=== PATIENT | female | born 1935 | race Two or more races ===

== ENCOUNTER 2022-02-28 12:33 | Outpatient (REF) | payer OTHER, SELFPAY ==
[2022-02-28 13:17] LABS: Hematocrit 34.6 % (37.0-47.0); Hemoglobin 10.6 g/dl (12.0-16.0); Mean Corpuscular HGB Conc 30.6 g/dl (31.0-35.0); Mean Corpuscular Hemoglobin 29.9 pg (27.0-33.0); Mean Corpuscular Volume 97.5 fL (80.0-98.0); Mean Platelet Volume 11.5 fL (9.4-12.3); Platelet Count 211 X10*3/uL (160-400); Red Blood Count 3.55 X10*6/uL (4.20-5.50); Red Cell Distribution Width 13.2 % (11.0-16.0)
[2022-02-28 13:45] LABS: Alanine Aminotransferase 6 U/L (0-31); Albumin Level 3.8 g/dL (3.5-5.0); Alkaline Phosphatase 75 U/L (39-117); Anion Gap 15 (12-20); Aspartate Amino Transferase 10 U/L (5-31); Bilirubin Total 0.3 mg/dL (0.0-1.0); Blood Urea Nitrogen 34 mg/dL (9-16); Calcium 9.1 mg/dL (8.4-10.2); Carbon Dioxide 27 mmol/L (22-29); Chloride 106 mmol/L (96-108); Estimated Glomerular Filt Rate 26; Glucose Random 90 mg/dL (60-115); Potassium 4.5 mmol/L (3.3-5.1); Sodium 143 mmol/L (135-145); Total Protein 7.3 g/dL (6.5-8.0)
[2022-02-28 14:18] LABS: Creatinine Urine 148.63 mg/dL; Protein/Creatinine Ratio, Ur 0.06 (<0.2); Total Protein Urine Random 9 mg/dL (<12)
[2022-03-02 13:33] LABS: Calcium (PTHI) 9.4 mg/dL (8.6-10.4); PTHI 32 pg/mL (16-77)
== END 2022-02-28 12:34 | disposition home or self-care (01) ==
LOC: HO.LAB 12:33
PROVIDERS: PCP Internal Medicine; Visit Provider Internal Medicine Hypertension Specialist
DX: N18.32 Chronic kidney disease, stage 3b (principal)
CPT/HCPCS: 36415; 80053; 83970; 84156; 85027

== ENCOUNTER 2022-03-25 08:39 | Outpatient (REF) | payer OTHER, SELFPAY ==
--- NOTE | ~2022-03-25 | US_ITS ---
EXAMINATION: US RETROPERITONEAL LIMITED (RENAL ONLY) CLINICAL INFORMATION: Hypertensive chronic kidney disease, type 2 diabetes. COMPARISON: CT abdomen and pelvis 10/26/2019. TECHNIQUE: Real-time imaging of the kidneys. FINDINGS: RIGHT KIDNEY: 10.2 x 4.4 x 5.1 cm (SAG x AP x TRV). The kidney is normal in size, contour, and echogenicity. Renal cortical thickness is normal. No renal calculi or hydronephrosis. There is anechoic cyst in the midpole measuring 1.7 x 1.6 x 1.4 cm. There is mild pelvic fullness LEFT KIDNEY: 10.6 x 4.7 x 6.3 cm (SAG x AP x TRV). The kidney is normal in size, contour, and echogenicity. Renal cortical thickness is normal. No calculi or focal parenchymal lesions. No hydronephrosis. US/US renal BI IMPRESSION: 1.7 cm cyst midpole right kidney. Findings are concordant with CT exam the cyst measuring 1.8 cm. There is mild right renal pelvic fullness. Unremarkable left kidney.
== END 2022-03-25 08:40 | disposition home or self-care (01) ==
LOC: HO.US 08:39
PROVIDERS: Visit Provider Internal Medicine Hypertension Specialist
DX: I12.9 Hypertensive chronic kidney disease with stage 1 through stage 4 chronic kidney disease, or unspecified chronic kidney disease (principal); E11.22 Type 2 diabetes mellitus with diabetic chronic kidney disease; N18.9 Chronic kidney disease, unspecified
CPT/HCPCS: 76775

== ENCOUNTER 2022-06-05 14:25 | Observation (INO) | payer OTHER, SELFPAY ==
--- NOTE | 2022-06-05 | ECG_ITS ---
Test Reason : DIZINEES Blood Pressure : / mmHG Vent. Rate : 061 BPM Atrial Rate : 061 BPM P-R Int : 170 ms QRS Dur : 072 ms QT Int : 436 ms P-R-T Axes : 079 000 037 degrees QTc Int : 438 ms Normal sinus rhythm Low voltage QRS Borderline ECG When compared with ECG of 05-JUN-2022 15:22, No significant change was found Referred By: Megan Zamudio Electronically Signed By:Deng Zhang
--- NOTE | ~2022-06-05 | XR_ITS ---
EXAMINATION: 1. CHEST X-RAY 2. RADIOGRAPHS RIGHT HIP CLINICAL INFORMATION: Pain after fall COMPARISON: Chest CT October 26, 2019 and chest x-ray June 08, 2017 TECHNIQUE: 2 views of the chest and 2 views of the right upper obtained FINDINGS: CHEST: Cardiac silhouette is normal in size. The lungs are adequately aerated. There is no lobar consolidation. No pleural effusion or pneumothorax. Mild degenerative changes of the spine. Right hip: Visualized portions of the proximal right femur demonstrate no fracture. Right femoral head is well-seated within the acetabulum. There is only mild narrowing of the right femoral acetabular joint space. The pelvic ring is intact. Visualized portions of the left hip are unremarkable. XR/XR hip RT w [id number] IMPRESSION: 1. No acute pulmonary pathology. 2. Mild degenerative changes of the right hip without fracture or dislocation.
--- NOTE | ~2022-06-05 | CT_ITS ---
EXAMINATION: NONCONTRAST HEAD CT NONCONTRAST CERVICAL SPINE CT INDICATION INFORMATION: Dizziness with falls and weakness COMPARISON: Head and cervical spine CT 10/26/2019 TECHNIQUE: Separate noncontrast CT examinations of the head and cervical spine were performed. Coronal and sagittal images were created for each examination at the technologist workstation. This CT examination was performed using dose optimization techniques as appropriate, variously including the following: *Automated exposure control *Adjustment of mA and/or kV according to patient size (this includes techniques or standardized protocols for targeted exams where dose is matched to indication/reason for exam; i.e. extremities or head) *Use of iterative reconstruction technique DLP: 894 mGy-cm FINDINGS: HEAD: No intra or extra-axial fluid collection, hemorrhage, or mass. No ventriculomegaly. No midline shift or herniation. Basal cisterns are patent. Spangler-white matter differentiation is maintained. No territorial encephalomalacia. Proportional prominence of the ventricles and sulcal spaces is consistent with moderate volume loss. Patchy periventricular and deep white matter hypoattenuation is consistent with moderate small vessel ischemic changes. No calvarial fracture or soft tissue abnormality. The mastoid air cells and visualized portions of the paranasal sinuses are well aerated. CERVICAL SPINE: Alignment: Straightening of the normal cervical lordosis. No significant subluxation. Vertebra: No acute fracture. No prevertebral soft tissue swelling. Degenerative disc disease: Diffuse multilevel cervical spondylosis most advanced at C4-C5, C5-C6 and C7-T1 where there is moderate to severe disc height loss, endplate sclerosis, and endplate proliferative change. Multilevel bilateral facet arthrosis and uncovertebral spurring. Other findings: No cervical lymphadenopathy/mass. CT/CT cervical spine wo IV con IMPRESSION: 1. No intracranial hemorrhage or calvarial fracture. 2. No traumatic subluxation or acute cervical spine fracture. 3. Cerebral atrophy and chronic small vessel ischemic white matter change.
--- NOTE | ~2022-06-05 | XR_ITS ---
EXAMINATION: 1. CHEST X-RAY 2. RADIOGRAPHS RIGHT HIP CLINICAL INFORMATION: Pain after fall COMPARISON: Chest CT October 26, 2019 and chest x-ray June 08, 2017 TECHNIQUE: 2 views of the chest and 2 views of the right upper obtained FINDINGS: CHEST: Cardiac silhouette is normal in size. The lungs are adequately aerated. There is no lobar consolidation. No pleural effusion or pneumothorax. Mild degenerative changes of the spine. Right hip: Visualized portions of the proximal right femur demonstrate no fracture. Right femoral head is well-seated within the acetabulum. There is only mild narrowing of the right femoral acetabular joint space. The pelvic ring is intact. Visualized portions of the left hip are unremarkable. XR/XR chest 2V IMPRESSION: 1. No acute pulmonary pathology. 2. Mild degenerative changes of the right hip without fracture or dislocation.
--- NOTE | 2022-06-05 14:59 | ED.DIZZY ---
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 Patient states that on Monday, she had a dizzy spell, got unsteady, and fell. Patient states that her right hip has been bothering her ever since. Patient denies hitting her head with the incident. Patient denies any loss of consciousness with the incident. Patient denies any current dizziness, lightheadedness, abdominal pain, nausea, vomiting, fever, chills, blurry vision, double vision, loss of vision, chest pain, difficulty breathing, shortness of breath, back pain, night sweats, pain with urination, increased urinary frequency, increased urinary urgency, blood in her urine or stool, syncope or a near syncopal episode,bowel incontinence, bladder incontinence, bowel retention, bladder retention, or any other complaints at this time. <BILL Knutson - Last Filed: 06/06/22 01:18> Onset (ago): day(s) (2) <BILL Knutson Last Filed: 06/06/22 01:18> Severity: mild <BILL Knutson Last Filed: 06/06/22 01:18> History of similar symptoms: Yes <BILL Knutson Last Filed: 06/06/22 01:18> Exacerbating factors: nothing <BILL Knutson Last Filed: 06/06/22 01:18> Relieving factors: nothing <BILL Knutson Last Filed: 06/06/22 01:18> Associated symptoms: denies other symptoms <BILL Knutson - Last Filed: 06/06/22 01:18> Related Data Home Medications: Home Medications Medication Instructions Recorded Confirmed acetaminophen 500 mg tablet 1 tab PO Q4-6H PRN Pain (Scale 06/05/22 06/05/22 Score 1-3) calcium carbonate 600 mg-vitamin 1 tab PO BID 06/05/22 06/05/22 D3 10 mcg (400 unit) tablet chlorthalidone 25 mg tablet 1 tab PO DAILY 06/05/22 06/05/22 doxazosin 8 mg tablet 1 tab PO BEDTIME 06/05/22 06/05/22 gabapentin 300 mg capsule 1 cap PO BEDTIME 06/05/22 06/05/22 loperamide 2 mg capsule 2 mg PO 1XD 06/05/22 06/05/22 losartan 100 mg tablet 1 tab PO QAM 06/05/22 06/05/22 metformin 1,000 mg tablet 1 tab PO 2XD 06/05/22 06/05/22 metoprolol succinate 100 mg 1 tab PO DAILY 06/05/22 06/05/22 tablet,extended release 24 hr omeprazole 20 mg capsule,delayed 1 cap PO DAILY 06/05/22 06/05/22 release simvastatin 10 mg tablet 1 tab PO DAILY PRN Hypertension 06/05/22 06/05/22 <BILL Haynes - Last Filed: 06/05/22 15:05> Allergies/Adverse Reactions: Allergies Allergy/AdvReac Type Severity Reaction Status Date / Time No Known Allergies Allergy Unverified 03/05/20 19:07 [No Known Allergies*] <BILL Haynes - Last Filed: 06/05/22 15:05> Review of Systems Constitutional: Constitutional: Reports no additional constitutional complaints, Denies chills, Denies fever(s) and Denies night sweats <BILL Knutson Last Filed: 06/06/22 01:18> Eyes: Eyes: Reports no additional eye complaints, Denies blurry vision, Denies change in vision, Denies diplopia, Denies eye discharge, Denies loss of vision and Denies eye pain <BILL Knutson Last Filed: 06/06/22 01:18> ENT: Denies dizziness <BILL Knutson - Last Filed: 06/06/22 01:18> Cardiovascular: Cardiovascular: Reports no additional cardiovascular complaints, Denies chest pain, Denies lightheadedness, Denies Loss of Consciousness and Denies dyspnea <BILL Knutson - Last Filed: 06/06/22 01:18> Respiratory: Respiratory: Reports no additional respiratory complaints and Denies dyspnea <BILL Knutson - Last Filed: 06/06/22 01:18> Gastrointestinal: Gastrointestinal: Reports no additional gastrointestinal complaints, Denies abdominal pain, Denies melena, Denies hematochezia, Denies change in bowel habits and Denies change in stool character <BILL Knutson - Last Filed: 06/06/22 01:18> Genitourinary: Genitourinary: Denies hematuria, Denies urinary frequency, Denies dysuria, Denies urinary incontinence, Denies urinary hesitancy and Denies urinary urgency <BILL Knutson - Last Filed: 06/06/22 01:18> Musculoskeletal: Musculoskeletal: Reports no additional musculoskeletal complaints, Denies numbness and Denies tingling <BILL Knutson - Last Filed: 06/06/22 01:18> Comments: right sided hip pain <BILL Knutson - Last Filed: 06/06/22 01:18> Neurologic: Denies dizziness, Denies loss of vision, Denies numbness and Denies tingling <BILL Knutson - Last Filed: 06/06/22 01:18> Psychiatric: Psychiatric: Reports no additional psychiatric complaints <BILL Knutson - Last Filed: 06/06/22 01:18> Endocrine: Endocrine: Reports no additional endocrine complaints <BILL Knutson - Last Filed: 06/06/22 01:18> Hematologic/Lymphatic: Hematologic/Lymphatic: Reports no additional hematologic/lymphatic complaints <BILL Knutson - Last Filed: 06/06/22 01:18> Allergic/Immunologic: Allergic/Immunologic: Reports no additional allergic/immunologic complaints <BILL Knutson - Last Filed: 06/06/22 01:18> PMFSH Past Medical History Attestation statement: The following information was validated with the patient. <BILL Knutson - Last Filed: 06/06/22 01:18> Source: old records reviewed, obtained from family (patient's daughter) and nursing notes reviewed <BILL Knutson - Last Filed: 06/06/22 01:18> Social History Social History: Social History Household Members: None Housing: House Alcohol intake: never Patient Tobacco Use Status: Never used Tobacco Smoked in Last 30 Days: No Use of substances other than those prescribed or required for medical reasons: No Have you been hit, kicked, punched, or otherwise hurt by someone within the past year? If so, by whom?: No Do you feel safe in your current relationship?: Yes Is there a partner from a previous relationship who is making you feel unsafe now?: No Are you made to feel afraid or neglected: No Advance Directives: No Advance Directives Information Provided: No Do you have thoughts of harming others: None Do you have a plan to hurt others: No Plan Recently lost weight without trying: No Nutrition Risks: No Nutritional Risk Patient : No <BILL Haynes - Last Filed: 06/05/22 15:05> Physical Exam Vital Signs: Vital Signs: Last Vital Signs Temp 97.4 F 06/06/22 00:33 Pulse 78 06/06/22 00:33 Resp 16 06/06/22 00:33 BP 150/72 H 06/06/22 00:33 Pulse Ox 92 06/06/22 00:33 O2 Del Method 06/06/22 00:33 BMI result Body Mass Index 27.4 <BILL Haynes - Last Filed: 06/05/22 15:05> Vital Signs: Last Vital Signs Temp 97.4 F 06/06/22 00:33 Pulse 78 06/06/22 00:33 Resp 16 06/06/22 00:33 BP 150/72 H 06/06/22 00:33 Pulse Ox 92 06/06/22 00:33 O2 Del Method 06/06/22 00:33 BMI result Body Mass Index 27.4 <BILL Knutson - Last Filed: 06/06/22 01:18> Const: General: cooperative, no acute distress, alert and awake <Megangarry Aumilan PA - Last Filed: 06/06/22 01:18> Nutritional Appearance: well nourished <Megan Aumilan PA - Last Filed: 06/06/22 01:18> Orientation/consciousness: patient oriented x3 <Megan Aumilan PA - Last Filed: 06/06/22 01:18> Limitations: no limitations <Megan Aumilan PA - Last Filed: 06/06/22 01:18> HEENT: Head: Yes normal to inspection and Yes atraumatic <Megan Aumilan PA - Last Filed: 06/06/22 01:18> Ears: hearing grossly normal bilaterally and external ears normal <Megan Aumilan PA - Last Filed: 06/06/22 01:18> General nose exam: Normal external nose present, no nasal discharge noted and no epistaxis <Megan Aumilan PA - Last Filed: 06/06/22 01:18> Face and sinus: Yes normal facial exam, No abrasion and No laceration <Megangarry Aumilan PA - Last Filed: 06/06/22 01:18> Mouth: Normal oral and palatal mucosa present, no drooling and no muffled voice <Megan Aumilan PA - Last Filed: 06/06/22 01:18> Eyes: General: appearance normal, both eyes and all related structures <Megan Aumilan PA - Last Filed: 06/06/22 01:18> Periorbital: periorbital findings normal <Megan Lizz PA - Last Filed: 06/06/22 01:18> Eyelids: Yes eyelids normal <Megan Aumilan PA - Last Filed: 06/06/22 01:18> Conjunctivae: conjunctivae normal <Megan Aumilan PA - Last Filed: 06/06/22 01:18> Pupils: Equal, round and reactive pupils present <Megan Lizz PA - Last Filed: 06/06/22 01:18> EOM: EOMs intact bilaterally <Megan Lizz PA - Last Filed: 06/06/22 01:18> Neck: Neck: Yes normal visual inspection, Yes full ROM and Yes no lymphadenopathy <Megan Zamudio PA - Last Filed: 06/06/22 01:18> Chest: Chest palpation & inspection: normal inspection of the chest <Mgean Zamudio IN - Last Filed: 06/06/22 01:18> Resp: Effort & Inspection: normal respiratory effort and able to speak in complete sentences <Megan Zamudio IN - Last Filed: 06/06/22 01:18> Auscultation: clear to auscultation bilaterally <Megan Zamudio IN - Last Filed: 06/06/22 01:18> Cardio: Rate: regular rate <Megan Zamudio IN - Last Filed: 06/06/22 01:18> Rhythm: regular rhythm <Megan Zamudio IN - Last Filed: 06/06/22 01:18> GI: Inspection: Yes normal to inspection <Megan Zamudio IN - Last Filed: 06/06/22 01:18> Palpation (GI): Soft to palpation, not firm, nontender, no guarding and not rigid <Megan Zamudio IN - Last Filed: 06/06/22 01:18> Neuro: General: patient oriented x3 and moves all extremities <Megan Zamudio IN - Last Filed: 06/06/22 01:18> Cranial nerves: Yes Equal, round and reactive pupils present <Megan Zamudio IN - Last Filed: 06/06/22 01:18> Cognition (Neuro): normal cognition <Megan Zamudio IN - Last Filed: 06/06/22 01:18> Motor exam (neuro): 5/5 motor strength present throughout <Megan Zamudio IN - Last Filed: 06/06/22 01:18> Sensory Exam: Normal double simultaneous stimulation for sensation <Megan Zamudio IN - Last Filed: 06/06/22 01:18> Coordination: [id number] test normal <Megan Zamudio IN - Last Filed: 06/06/22 01:18> Extrem: General: Yes normal to inspection, Yes full ROM and Yes capillary refill normal <Megan Zamudio IN - Last Filed: 06/06/22 01:18> Psych: Appearance: grossly normal <Megan Zamudio IN - Last Filed: 06/06/22 01:18> Mental Status: mental status grossly normal <Megan Zamudio IN - Last Filed: 06/06/22 01:18> Affect: normal affect <BILL Knutson - Last Filed: 06/06/22 01:18> Attitude: cooperative <BILL Knutson Last Filed: 06/06/22 01:18> Thought process: Normal thought process present <BILL Knutson Last Filed: 06/06/22 01:18> Thought content: Normal thought content present <BILL Knutson Last Filed: 06/06/22 01:18> Insight: Good insight present (Psych) <BILL Knutson Last Filed: 06/06/22 01:18> Course Course Course Narrative: RME- 15PM - 86yoF who is suffering from chronic dizziness is presenting to the ED with her daughter at bedside who is interpreting due to patient speaks Romanian for persistent dizziness with associated weakness, falls, fatigue and blood sugars over the 200s and low blood pressure. since monday with Blood sugars over 200's and low BP. On Monday she had a unwitnessed fall and was complaining of right hip/leg pain. She did not lose consciousness and there was no prolonged down time her family was in the house although they did not actually see her fall. Today she also got very dizzy and almost fell although her family was able to grab her. She denies any other symptoms related to this. Daughter has to assist patient to walk although patient is able to walk with a normal steady gait. No focal deficits noted on my exam. Vital signs are stable within normal limits. Plan: Therefore at this time labs, EKG, chest x-ray, right hip x-ray, CT scan of brain/cervical spine, POC, COVID/RSV/flu swab ordered at this time. Patient will go back to the waiting room to be evaluated in the ED. <BILL Haynes - Last Filed: 06/05/22 15:05> Medications Administered Generic Name Dose Route Start Last Admin Trade Name Freq PRN Reason Stop Dose Admin Enoxaparin Sodium 30 mg 06/05/22 23:45 06/05/22 23:50 Enoxaparin Sodium 30 Mg/0.3 Ml Syringe SUBCUT 30 mg Q24H VISHAL Administration Lactated Ringer's 1,000 mls @ 100 mls/hr 06/05/22 23:15 06/05/22 23:48 Lr IVCONT 100 mls/hr .Q10H VISHAL Administration Sodium Chloride 3 ml 06/06/22 00:00 06/05/22 23:50 0.9 % Sodium Chloride Flush 3 Ml Syringe IVFLUSH 3 ml QSHIFT VISHAL Administration Discontinued Medications Generic Name Dose Route Start Last Admin Trade Name Freq PRN Reason Stop Dose Admin Sodium Chloride 1,000 mls @ 999 mls/hr 06/05/22 17:30 06/05/22 19:28 Ns IV 06/05/22 18:30 Infused .Q1H1M VISHAL Infusion Sodium Chloride 1,000 mls @ 999 mls/hr 06/05/22 19:45 06/05/22 21:30 Ns IV 06/05/22 20:45 Infused .Q1H1M VISHAL Infusion Ceftriaxone Sodium 2 gm/ 50 mls @ 100 mls/hr 06/05/22 22:21 06/05/22 23:56 Sodium Chloride IV 06/05/22 22:50 Infused ONCE ONE Infusion <BILL Haynes - Last Filed: 06/05/22 15:05> Medications Administered Generic Name Dose Route Start Last Admin Trade Name Freq PRN Reason Stop Dose Admin Enoxaparin Sodium 30 mg 06/05/22 23:45 06/05/22 23:50 Enoxaparin Sodium 30 Mg/0.3 Ml Syringe SUBCUT 30 mg Q24H VISHAL Administration Lactated Ringer's 1,000 mls @ 100 mls/hr 06/05/22 23:15 06/05/22 23:48 Lr IVCONT 100 mls/hr .Q10H VISHAL Administration Sodium Chloride 3 ml 06/06/22 00:00 06/05/22 23:50 0.9 % Sodium Chloride Flush 3 Ml Syringe IVFLUSH 3 ml QSHIFT VISHAL Administration Discontinued Medications Generic Name Dose Route Start Last Admin Trade Name Freq PRN Reason Stop Dose Admin Sodium Chloride 1,000 mls @ 999 mls/hr 06/05/22 17:30 06/05/22 19:28 Ns IV 06/05/22 18:30 Infused .Q1H1M VISHAL Infusion Sodium Chloride 1,000 mls @ 999 mls/hr 06/05/22 19:45 06/05/22 21:30 Ns IV 06/05/22 20:45 Infused .Q1H1M VISHAL Infusion Ceftriaxone Sodium 2 gm/ 50 mls @ 100 mls/hr 06/05/22 22:21 06/05/22 23:56 Sodium Chloride IV 06/05/22 22:50 Infused ONCE ONE Infusion <BILL Knutson - Last Filed: 06/06/22 01:18> Medical Decision Making Medical Decision Making [facility] Narrative: Patient is an 86 year old assigned female at with a history of chronic dizziness presenting to the emergency department today after a fall. Patient's physical exam was unremarkable. Patient's blood work showed an elevated CR of 2.28 and an elevated BUN of 48. Patient was given a liter of fluids and her CMP was rechecked resulting in a BUN of 48 and CR of 2.17. Patient was given another liter of fluids and her CMP was again repeated showing a CR of 2.06 and a BUN of 46. Patient's urine showed an acute UTI. Patient's EKG was unremarkable. Patient's chest and hip x-rays showed no acute process. Patient's head and C-Spine CTs showed no acute process. Patient was given IV Rocephin to cover her UTI. Patient's clinical presentation is not conssitent with sepsis. I spoke to the hospitalist who agreed to admission. I explained my physical exam findings as well as all test results to the patient and the patient's daughter. I answered all questions asked by the patient and the patient's daughter. Patient and the patient's daughter verbalized agreement and understanding with this treatment plan and admission. <BILL Knutson - Last Filed: 06/06/22 01:18> Differential Diagnosis Differential Diagnoses: The differential diagnosis associated with the presentation includes <BILL Knutson - Last Filed: 06/06/22 01:18> MYAH, UTI <BILL Knutson - Last Filed: 06/06/22 01:18> Lab Data [facility] Lab Attestation statement: I reviewed the patient's lab results. <BILL Knutson - Last Filed: 06/06/22 01:18> Result Diagrams: : 06/05/22 15:38 06/05/22 21:04 <BILL Haynes - Last Filed: 06/05/22 15:05> Labs: Lab Results 06/05/22 06/05/22 06/05/22 Range/Units 15:30 15:38 15:38 WBC 5.8 (4.8-10.8) X10*3/uL RBC 3.60 L (4.20-5.50) X10*6/uL Hgb 10.7 L (12.0-16.0) g/dl Hct 34.5 L (37.0-47.0) % MCV 95.8 (80.0-98.0) fL MCH 29.7 (27.0-33.0) pg MCHC 31.0 (31.0-35.0) g/dl RDW 12.8 (11.0-16.0) % Plt Count 210 (160-400) X10*3/uL MPV 11.4 (9.4-12.3) fL Immature Gran % (Auto) 0.2 (0.0-0.4) % Neut % (Auto) 48.5 (45-73) % Lymph % (Auto) 41.2 H (20-40) % [place] % (Auto) 7.0 (2-11) % Eos % (Auto) 2.4 (0-4) % Baso % (Auto) 0.7 (0-2) % Lymph # (Auto) 2.4 (1.2-4.9) X10*3/uL [place] # (Auto) 0.4 (0.1-1.2) X10*3/uL Eos # (Auto) 0.1 (0.0-0.4) X10*3/uL Baso # (Auto) 0.0 (0.0-0.2) X10*3/uL Abs Immat Gran (auto) 0.01 (0.00-0.03) X10*3/uL Absolute Neuts (auto) 2.8 (2.0-8.3) x10*3/uL Absolute Nucleated RBC 0.000 (0.0-0.012) X10*3/uL Nucleated RBC % (auto) 0.0 (0.0-0.2) /100WBC PT 12.1 (10.0-13.1) SEC INR 1.1 (0.9-1.1) Sodium (135-145) mmol/L Potassium (3.3-5.1) mmol/L Chloride (96-108) mmol/L Carbon Dioxide (22-29) mmol/L Anion Gap (12-20) BUN (9-16) mg/dL Creatinine (0.5-1.4) mg/dL Estim Creat Clear Calc Estimated GFR POC Glucose (60-115) mg/dL Random Glucose (60-115) mg/dL Calcium (8.4-10.2) mg/dL Magnesium (1.6-2.6) mg/dL Total Bilirubin (0.0-1.0) mg/dL AST (5-31) U/L ALT (0-31) U/L Alkaline Phosphatase (39-117) U/L Total Creatine Kinase (26-140) U/L Troponin I High Sens (<3.5-17.0) ng/L Total Protein (6.5-8.0) g/dL Albumin (3.5-5.0) g/dL Urine Color Urine Appearance Urine pH (5.0-9.0) Ur Specific [place] (1.005-1.025) Urine Protein (Neg-Trace) mg/dL Urine Glucose (UA) (Negative) mg/dL Urine Ketones (Negative) mg/dL Urine Blood (Negative) Urine Nitrite (Negative) Ur Leukocyte Esterase (Negative) Urine RBC (0-2) /HPF Urine WBC (0-5) /HPF Ur Squamous Epith Cells (0-2) /HPF Ur Transition Epith Cell Ur Renal Epithelial Cell Urine Bacteria (None Seen) Hyaline Casts (0-2) /LPF Urine Yeast Influenza Type A (PCR) NEGATIVE (Negative) Influenza Type B (PCR) NEGATIVE (Negative) RSV RNA Qual (PCR) NEGATIVE (Negative) SARS-CoV-2 RNA (RT-PCR) NEGATIVE (Negative) 06/05/22 06/05/22 06/05/22 Range/Units 15:38 15:38 19:10 WBC (4.8-10.8) X10*3/uL RBC (4.20-5.50) X10*6/uL Hgb (12.0-16.0) g/dl Hct (37.0-47.0) % MCV (80.0-98.0) fL MCH (27.0-33.0) pg MCHC (31.0-35.0) g/dl RDW (11.0-16.0) % Plt Count (160-400) X10*3/uL MPV (9.4-12.3) fL Immature Gran % (Auto) (0.0-0.4) % Neut % (Auto) (45-73) % Lymph % (Auto) (20-40) % [place] % (Auto) (2-11) % Eos % (Auto) (0-4) % Baso % (Auto) (0-2) % Lymph # (Auto) (1.2-4.9) X10*3/uL [place] # (Auto) (0.1-1.2) X10*3/uL Eos # (Auto) (0.0-0.4) X10*3/uL Baso # (Auto) (0.0-0.2) X10*3/uL Abs Immat Gran (auto) (0.00-0.03) X10*3/uL Absolute Neuts (auto) (2.0-8.3) x10*3/uL Absolute Nucleated RBC (0.0-0.012) X10*3/uL Nucleated RBC % (auto) (0.0-0.2) /100WBC PT (10.0-13.1) SEC INR (0.9-1.1) Sodium 143 141 (135-145) mmol/L Potassium 4.8 4.6 (3.3-5.1) mmol/L Chloride 107 108 (96-108) mmol/L Carbon Dioxide 25 25 (22-29) mmol/L Anion Gap 16 13 (12-20) BUN 49 H 48 H (9-16) mg/dL Creatinine 2.28 H 2.17 H (0.5-1.4) mg/dL Estim Creat Clear Calc 17.6 18.4 Estimated GFR 20 22 POC Glucose (60-115) mg/dL Random Glucose 66 109 (60-115) mg/dL Calcium 9.1 8.6 (8.4-10.2) mg/dL Magnesium 2.0 (1.6-2.6) mg/dL Total Bilirubin 0.2 0.2 (0.0-1.0) mg/dL AST 10 9 (5-31) U/L ALT < 6 < 6 (0-31) U/L Alkaline Phosphatase 83 84 (39-117) U/L Total Creatine Kinase 77 (26-140) U/L Troponin I High Sens 12.8 (<3.5-17.0) ng/L Total Protein 7.0 6.7 (6.5-8.0) g/dL Albumin 3.9 3.7 (3.5-5.0) g/dL Urine Color Urine Appearance Urine pH (5.0-9.0) Ur Specific [place] (1.005-1.025) Urine Protein (Neg-Trace) mg/dL Urine Glucose (UA) (Negative) mg/dL Urine Ketones (Negative) mg/dL Urine Blood (Negative) Urine Nitrite (Negative) Ur Leukocyte Esterase (Negative) Urine RBC (0-2) /HPF Urine WBC (0-5) /HPF Ur Squamous Epith Cells (0-2) /HPF Ur Transition Epith Cell Ur Renal Epithelial Cell Urine Bacteria (None Seen) Hyaline Casts (0-2) /LPF Urine Yeast Influenza Type A (PCR) (Negative) Influenza Type B (PCR) (Negative) RSV RNA Qual (PCR) (Negative) SARS-CoV-2 RNA (RT-PCR) (Negative) 06/05/22 06/05/22 06/05/22 Range/Units 19:53 20:02 21:04 WBC (4.8-10.8) X10*3/uL RBC (4.20-5.50) X10*6/uL Hgb (12.0-16.0) g/dl Hct (37.0-47.0) % MCV (80.0-98.0) fL MCH (27.0-33.0) pg MCHC (31.0-35.0) g/dl RDW (11.0-16.0) % Plt Count (160-400) X10*3/uL MPV (9.4-12.3) fL Immature Gran % (Auto) (0.0-0.4) % Neut % (Auto) (45-73) % Lymph % (Auto) (20-40) % [place] % (Auto) (2-11) % Eos % (Auto) (0-4) % Baso % (Auto) (0-2) % Lymph # (Auto) (1.2-4.9) X10*3/uL [place] # (Auto) (0.1-1.2) X10*3/uL Eos # (Auto) (0.0-0.4) X10*3/uL Baso # (Auto) (0.0-0.2) X10*3/uL Abs Immat Gran (auto) (0.00-0.03) X10*3/uL Absolute Neuts (auto) (2.0-8.3) x10*3/uL Absolute Nucleated RBC (0.0-0.012) X10*3/uL Nucleated RBC % (auto) (0.0-0.2) /100WBC PT (10.0-13.1) SEC INR (0.9-1.1) Sodium 142 (135-145) mmol/L Potassium 4.5 (3.3-5.1) mmol/L Chloride 110 H (96-108) mmol/L Carbon Dioxide 25 (22-29) mmol/L Anion Gap 12 (12-20) BUN 46 H (9-16) mg/dL Creatinine 2.06 H (0.5-1.4) mg/dL Estim Creat Clear Calc 19.5 Estimated GFR 23 POC Glucose 91 (60-115) mg/dL Random Glucose 131 H (60-115) mg/dL Calcium 8.4 (8.4-10.2) mg/dL Magnesium (1.6-2.6) mg/dL Total Bilirubin 0.2 (0.0-1.0) mg/dL AST 10 (5-31) U/L ALT < 6 (0-31) U/L Alkaline Phosphatase 81 (39-117) U/L Total Creatine Kinase (26-140) U/L Troponin I High Sens (<3.5-17.0) ng/L Total Protein 6.5 (6.5-8.0) g/dL Albumin 3.6 (3.5-5.0) g/dL Urine Color Yellow Urine Appearance Cloudy Urine pH 5.0 (5.0-9.0) Ur Specific [place] 1.020 (1.005-1.025) Urine Protein Trace (Neg-Trace) mg/dL Urine Glucose (UA) Negative (Negative) mg/dL Urine Ketones Trace (Negative) mg/dL Urine Blood Negative (Negative) Urine Nitrite Negative (Negative) Ur Leukocyte Esterase Moderate (2+) H (Negative) Urine RBC 0-2 (0-2) /HPF Urine WBC 11-20 H (0-5) /HPF Ur Squamous Epith Cells 11-20 (0-2) /HPF Ur Transition Epith Cell Present Ur Renal Epithelial Cell Present Urine Bacteria 4+ (None Seen) Hyaline Casts 6-10 (0-2) /LPF Urine Yeast Present Influenza Type A (PCR) (Negative) Influenza Type B (PCR) (Negative) RSV RNA Qual (PCR) (Negative) SARS-CoV-2 RNA (RT-PCR) (Negative) <BILL Haynes - Last Filed: 06/05/22 15:05> Lab Results 06/05/22 06/05/22 06/05/22 Range/Units 15:30 15:38 15:38 WBC 5.8 (4.8-10.8) X10*3/uL RBC 3.60 L (4.20-5.50) X10*6/uL Hgb 10.7 L (12.0-16.0) g/dl Hct 34.5 L (37.0-47.0) % MCV 95.8 (80.0-98.0) fL MCH 29.7 (27.0-33.0) pg MCHC 31.0 (31.0-35.0) g/dl RDW 12.8 (11.0-16.0) % Plt Count 210 (160-400) X10*3/uL MPV 11.4 (9.4-12.3) fL Immature Gran % (Auto) 0.2 (0.0-0.4) % Neut % (Auto) 48.5 (45-73) % Lymph % (Auto) 41.2 H (20-40) % [place] % (Auto) 7.0 (2-11) % Eos % (Auto) 2.4 (0-4) % Baso % (Auto) 0.7 (0-2) % Lymph # (Auto) 2.4 (1.2-4.9) X10*3/uL [place] # (Auto) 0.4 (0.1-1.2) X10*3/uL Eos # (Auto) 0.1 (0.0-0.4) X10*3/uL Baso # (Auto) 0.0 (0.0-0.2) X10*3/uL Abs Immat Gran (auto) 0.01 (0.00-0.03) X10*3/uL Absolute Neuts (auto) 2.8 (2.0-8.3) x10*3/uL Absolute Nucleated RBC 0.000 (0.0-0.012) X10*3/uL Nucleated RBC % (auto) 0.0 (0.0-0.2) /100WBC PT 12.1 (10.0-13.1) SEC INR 1.1 (0.9-1.1) Sodium (135-145) mmol/L Potassium (3.3-5.1) mmol/L Chloride (96-108) mmol/L Carbon Dioxide (22-29) mmol/L Anion Gap (12-20) BUN (9-16) mg/dL Creatinine (0.5-1.4) mg/dL Estim Creat Clear Calc Estimated GFR POC Glucose (60-115) mg/dL Random Glucose (60-115) mg/dL Calcium (8.4-10.2) mg/dL Magnesium (1.6-2.6) mg/dL Total Bilirubin (0.0-1.0) mg/dL AST (5-31) U/L ALT (0-31) U/L Alkaline Phosphatase (39-117) U/L Total Creatine Kinase (26-140) U/L Troponin I High Sens (<3.5-17.0) ng/L Total Protein (6.5-8.0) g/dL Albumin (3.5-5.0) g/dL Urine Color Urine Appearance Urine pH (5.0-9.0) Ur Specific [place] (1.005-1.025) Urine Protein (Neg-Trace) mg/dL Urine Glucose (UA) (Negative) mg/dL Urine Ketones (Negative) mg/dL Urine Blood (Negative) Urine Nitrite (Negative) Ur Leukocyte Esterase (Negative) Urine RBC (0-2) /HPF Urine WBC (0-5) /HPF Ur Squamous Epith Cells (0-2) /HPF Ur Transition Epith Cell Ur Renal Epithelial Cell Urine Bacteria (None Seen) Hyaline Casts (0-2) /LPF Urine Yeast Influenza Type A (PCR) NEGATIVE (Negative) Influenza Type B (PCR) NEGATIVE (Negative) RSV RNA Qual (PCR) NEGATIVE (Negative) SARS-CoV-2 RNA (RT-PCR) NEGATIVE (Negative) 06/05/22 06/05/22 06/05/22 Range/Units 15:38 15:38 19:10 WBC (4.8-10.8) X10*3/uL RBC (4.20-5.50) X10*6/uL Hgb (12.0-16.0) g/dl Hct (37.0-47.0) % MCV (80.0-98.0) fL MCH (27.0-33.0) pg MCHC (31.0-35.0) g/dl RDW (11.0-16.0) % Plt Count (160-400) X10*3/uL MPV (9.4-12.3) fL Immature Gran % (Auto) (0.0-0.4) % Neut % (Auto) (45-73) % Lymph % (Auto) (20-40) % [place] % (Auto) (2-11) % Eos % (Auto) (0-4) % Baso % (Auto) (0-2) % Lymph # (Auto) (1.2-4.9) X10*3/uL [place] # (Auto) (0.1-1.2) X10*3/uL Eos # (Auto) (0.0-0.4) X10*3/uL Baso # (Auto) (0.0-0.2) X10*3/uL Abs Immat Gran (auto) (0.00-0.03) X10*3/uL Absolute Neuts (auto) (2.0-8.3) x10*3/uL Absolute Nucleated RBC (0.0-0.012) X10*3/uL Nucleated RBC % (auto) (0.0-0.2) /100WBC PT (10.0-13.1) SEC INR (0.9-1.1) Sodium 143 141 (135-145) mmol/L Potassium 4.8 4.6 (3.3-5.1) mmol/L Chloride 107 108 (96-108) mmol/L Carbon Dioxide 25 25 (22-29) mmol/L Anion Gap 16 13 (12-20) BUN 49 H 48 H (9-16) mg/dL Creatinine 2.28 H 2.17 H (0.5-1.4) mg/dL Estim Creat Clear Calc 17.6 18.4 Estimated GFR 20 22 POC Glucose (60-115) mg/dL Random Glucose 66 109 (60-115) mg/dL Calcium 9.1 8.6 (8.4-10.2) mg/dL Magnesium 2.0 (1.6-2.6) mg/dL Total Bilirubin 0.2 0.2 (0.0-1.0) mg/dL AST 10 9 (5-31) U/L ALT < 6 < 6 (0-31) U/L Alkaline Phosphatase 83 84 (39-117) U/L Total Creatine Kinase 77 (26-140) U/L Troponin I High Sens 12.8 (<3.5-17.0) ng/L Total Protein 7.0 6.7 (6.5-8.0) g/dL Albumin 3.9 3.7 (3.5-5.0) g/dL Urine Color Urine Appearance Urine pH (5.0-9.0) Ur Specific [place] (1.005-1.025) Urine Protein (Neg-Trace) mg/dL Urine Glucose (UA) (Negative) mg/dL Urine Ketones (Negative) mg/dL Urine Blood (Negative) Urine Nitrite (Negative) Ur Leukocyte Esterase (Negative) Urine RBC (0-2) /HPF Urine WBC (0-5) /HPF Ur Squamous Epith Cells (0-2) /HPF Ur Transition Epith Cell Ur Renal Epithelial Cell Urine Bacteria (None Seen) Hyaline Casts (0-2) /LPF Urine Yeast Influenza Type A (PCR) (Negative) Influenza Type B (PCR) (Negative) RSV RNA Qual (PCR) (Negative) SARS-CoV-2 RNA (RT-PCR) (Negative) 06/05/22 06/05/22 06/05/22 Range/Units 19:53 20:02 21:04 WBC (4.8-10.8) X10*3/uL RBC (4.20-5.50) X10*6/uL Hgb (12.0-16.0) g/dl Hct (37.0-47.0) % MCV (80.0-98.0) fL MCH (27.0-33.0) pg MCHC (31.0-35.0) g/dl RDW (11.0-16.0) % Plt Count (160-400) X10*3/uL MPV (9.4-12.3) fL Immature Gran % (Auto) (0.0-0.4) % Neut % (Auto) (45-73) % Lymph % (Auto) (20-40) % [place] % (Auto) (2-11) % Eos % (Auto) (0-4) % Baso % (Auto) (0-2) % Lymph # (Auto) (1.2-4.9) X10*3/uL [place] # (Auto) (0.1-1.2) X10*3/uL Eos # (Auto) (0.0-0.4) X10*3/uL Baso # (Auto) (0.0-0.2) X10*3/uL Abs Immat Gran (auto) (0.00-0.03) X10*3/uL Absolute Neuts (auto) (2.0-8.3) x10*3/uL Absolute Nucleated RBC (0.0-0.012) X10*3/uL Nucleated RBC % (auto) (0.0-0.2) /100WBC PT (10.0-13.1) SEC INR (0.9-1.1) Sodium 142 (135-145) mmol/L Potassium 4.5 (3.3-5.1) mmol/L Chloride 110 H (96-108) mmol/L Carbon Dioxide 25 (22-29) mmol/L Anion Gap 12 (12-20) BUN 46 H (9-16) mg/dL Creatinine 2.06 H (0.5-1.4) mg/dL Estim Creat Clear Calc 19.5 Estimated GFR 23 POC Glucose 91 (60-115) mg/dL Random Glucose 131 H (60-115) mg/dL Calcium 8.4 (8.4-10.2) mg/dL Magnesium (1.6-2.6) mg/dL Total Bilirubin 0.2 (0.0-1.0) mg/dL AST 10 (5-31) U/L ALT < 6 (0-31) U/L Alkaline Phosphatase 81 (39-117) U/L Total Creatine Kinase (26-140) U/L Troponin I High Sens (<3.5-17.0) ng/L Total Protein 6.5 (6.5-8.0) g/dL Albumin 3.6 (3.5-5.0) g/dL Urine Color Yellow Urine Appearance Cloudy Urine pH 5.0 (5.0-9.0) Ur Specific [place] 1.020 (1.005-1.025) Urine Protein Trace (Neg-Trace) mg/dL Urine Glucose (UA) Negative (Negative) mg/dL Urine Ketones Trace (Negative) mg/dL Urine Blood Negative (Negative) Urine Nitrite Negative (Negative) Ur Leukocyte Esterase Moderate (2+) H (Negative) Urine RBC 0-2 (0-2) /HPF Urine WBC 11-20 H (0-5) /HPF Ur Squamous Epith Cells 11-20 (0-2) /HPF Ur Transition Epith Cell Present Ur Renal Epithelial Cell Present Urine Bacteria 4+ (None Seen) Hyaline Casts 6-10 (0-2) /LPF Urine Yeast Present Influenza Type A (PCR) (Negative) Influenza Type B (PCR) (Negative) RSV RNA Qual (PCR) (Negative) SARS-CoV-2 RNA (RT-PCR) (Negative) <BILL Knutson - Last Filed: 06/06/22 01:18> Independent Interpretation I performed an independent interpretation of an: EKG <BILL Knutson - Last Filed: 06/06/22 01:18> Interpretation: Vent. Rate: 063 BPM ? ? Atrial Rate: 063 BPM P-R Int: 162 ms? QRS Dur: 070 ms QT Int: 440 ms ? ? ? P-R-T Axes: 076 -18 020 degrees QTc Int: 450 ms ? Normal sinus rhythm Low voltage QRS Borderline ECG When compared with ECG of 26-OCT-2019 22:44, T wave inversion no longer evident in Lateral leads DD/ 1522 <BILL Knutson - Last Filed: 06/06/22 01:18> Radiology Impression Discussion of test interpretation with radiology: I have reviewed the radiologist's reading. <BILL Knutson - Last Filed: 06/06/22 01:18> Radiologist Impression: EXAMINATION: NONCONTRAST HEAD CT NONCONTRAST CERVICAL SPINE CT INDICATION INFORMATION: Dizziness with falls and weakness COMPARISON: Head and cervical spine CT 10/26/2019 TECHNIQUE: Separate noncontrast CT examinations of the head and cervical spine were performed. Coronal and sagittal images were created for each examination at the technologist workstation. This CT examination was performed using dose optimization techniques as appropriate, variously including the following: *Automated exposure control *Adjustment of mA and/or kV according to patient size (this includes techniques or standardized protocols for targeted exams where dose is matched to indication/reason for exam; i.e. extremities or head) *Use of iterative reconstruction technique DLP: 894 mGy-cm FINDINGS: HEAD: No intra or extra-axial fluid collection, hemorrhage, or mass. No ventriculomegaly. No midline shift or herniation. Basal cisterns are patent. Spangler-white matter differentiation is maintained. No territorial encephalomalacia. ?Proportional prominence of the ventricles and sulcal spaces is consistent with moderate volume loss. Patchy periventricular and deep white matter hypoattenuation is consistent with moderate small vessel ischemic changes. No calvarial fracture or soft tissue abnormality. The mastoid air cells and visualized portions of the paranasal sinuses are well aerated. CERVICAL SPINE: Alignment: Straightening of the normal cervical lordosis. No significant subluxation. Vertebra: No acute fracture. No prevertebral soft tissue swelling. Degenerative disc disease: Diffuse multilevel cervical spondylosis most advanced at C4-C5, C5-C6 and C7-T1 where there is moderate to severe disc height loss, endplate sclerosis, and endplate proliferative change. Multilevel bilateral facet arthrosis and uncovertebral spurring. Other findings: No cervical lymphadenopathy/mass. CT/CT head/brain wo IV con IMPRESSION: 1.? No intracranial hemorrhage or calvarial fracture. 2.? No traumatic subluxation or acute cervical spine fracture. 3.? Cerebral atrophy and chronic small vessel ischemic white matter change. Dictated By: Aiden العلي Signed By: Electronically signed by Soren 06/05/22 1658 EXAMINATION: 1.? CHEST X-RAY 2.? RADIOGRAPHS RIGHT HIP CLINICAL INFORMATION: Pain after fall? COMPARISON: Chest CT October 26, 2019 and chest x-ray June 08, 2017? TECHNIQUE: 2 views of the chest and 2 views of the right upper obtained? FINDINGS: CHEST: Cardiac silhouette is normal in size. The lungs are adequately aerated. There is no lobar consolidation. No pleural effusion or pneumothorax. Mild degenerative changes of the spine. Right hip: Visualized portions of the proximal right femur demonstrate no fracture. Right femoral head is well-seated within the acetabulum. There is only mild narrowing of the right femoral acetabular joint space. The pelvic ring is intact. Visualized portions of the left hip are unremarkable. XR/XR chest 2V IMPRESSION: 1.? No acute pulmonary pathology. 2.? Mild degenerative changes of the right hip without fracture or dislocation. Dictated By: Jaydon Cruz MD Signed By: Electronically signed by Jaydon Cruz MD 06/05/22 [id number] <BILL Knutson - Last Filed: 06/06/22 01:18> Independent Historian Clinical information obtained from an independent historian. History obtained from or confirmed by: Other (patient's daughter) <BILL Knutson Last Filed: 06/06/22 01:18> Critical Care Time Critical Care Time Critical Care Time: Yes <BILL Knutson Last Filed: 06/06/22 01:18> Total Critical Care Time: 30 <BILL Knutson Last Filed: 06/06/22 01:18> Attestation: I spent 30 minutes of Critical Care Time with this patient. This does not include time spent on separately reported billable procedures. <BILL Knutson Last Filed: 06/06/22 01:18> Discharge Plan Discharge Clinical Impression: MYAH (acute kidney injury), Urinary tract infection <BILL Haynes - Last Filed: 06/05/22 15:05> Patient Disposition: Admitted As Inpatient <BILL Haynes - Last Filed: 06/05/22 15:05> Interventions: Admission Worksheet (ED) Last Done: 06/06/22 00:01 <BILL Haynes - Last Filed: 06/05/22 15:05> Discharge Date/Time: 06/06/22 00:09 <BILL Haynes - Last Filed: 06/05/22 15:05>
[2022-06-05 15:00] VITALS: BP 131/64; PULSE 64; RESP 18; TEMP 36.2; O2SAT 95; BMI 27.4
--- NOTE | 2022-06-05 15:01 | ECG_ITS ---
Test Reason : DIZZNESS Blood Pressure : / mmHG Vent. Rate : 063 BPM Atrial Rate : 063 BPM P-R Int : 162 ms QRS Dur : 070 ms QT Int : 440 ms P-R-T Axes : 076 -18 020 degrees QTc Int : 450 ms Normal sinus rhythm Low voltage QRS Borderline ECG When compared with ECG of 26-OCT-2019 22:44, T wave inversion no longer evident in Lateral leads Referred By: Jennifer Villaseñor Electronically Signed By:Deng Zhang
[2022-06-05 15:45] LABS: MANUAL DIFF FLAG NO
[2022-06-05 15:47] LABS: Basophils Percent Auto 0.7 % (0-2); Eosinophils Absolute Auto 0.1 X10*3/uL (0.0-0.4); Eosinophils Percent Auto 2.4 % (0-4); Hematocrit 34.5 % (37.0-47.0); Hemoglobin 10.7 g/dl (12.0-16.0); Imm Gran Abs Auto 0.01 X10*3/uL (0.00-0.03); Imm Gran Pct Auto 0.2 % (0.0-0.4); Lymphocytes Absolute Auto 2.4 X10*3/uL (1.2-4.9); Lymphocytes Percent Auto 41.2 % (20-40); Mean Corpuscular Hemoglobin 29.7 pg (27.0-33.0); Mean Corpuscular Volume 95.8 fL (80.0-98.0); Mean Platelet Volume 11.4 fL (9.4-12.3); Monocytes Absolute Auto 0.4 X10*3/uL (0.1-1.2); Neutrophils Absolute Auto 2.8 x10*3/uL (2.0-8.3); Neutrophils Percent Auto 48.5 % (45-73); Platelet Count 210 X10*3/uL (160-400); Red Cell Distribution Width 12.8 % (11.0-16.0); White Blood Count 5.8 X10*3/uL (4.8-10.8)
[2022-06-05 15:54] LABS: INTERNATIONAL NORM RATIO 1.1 (0.9-1.1); Prothrombin Time 12.1 SEC (10.0-13.1)
[2022-06-05 16:12] LABS: Alanine Aminotransferase < 6 U/L (0-31); Albumin Level 3.9 g/dL (3.5-5.0); Alkaline Phosphatase 83 U/L (39-117); Anion Gap 16 (12-20); Aspartate Amino Transferase 10 U/L (5-31); Bilirubin Total 0.2 mg/dL (0.0-1.0); Blood Urea Nitrogen 49 mg/dL (9-16); Calcium 9.1 mg/dL (8.4-10.2); Carbon Dioxide 25 mmol/L (22-29); Chloride 107 mmol/L (96-108); Creatinine Clr Calc Pharmacy 17.6; Estimated Glomerular Filt Rate 20; Glucose Random 66 mg/dL (60-115); Potassium 4.8 mmol/L (3.3-5.1); Sodium 143 mmol/L (135-145)
[2022-06-05 16:17] LABS: Troponin-I High Sensitivity 12.8 ng/L (<3.5-17.0)
[2022-06-05 16:32] LABS: Influenza A PCR NEGATIVE (Negative); Influenza B PCR NEGATIVE (Negative); Resp Syncy Virus RNA Qual PCR NEGATIVE (Negative); SARS COV2 PCR INHOUSE NEGATIVE (Negative)
[2022-06-05] MEDS: 0.9 % Sodium Chloride 1,000 ML 999 ML IV ×2 (17:57→19:38)
[2022-06-05 19:29] LABS: Alanine Aminotransferase < 6 U/L (0-31); Albumin Level 3.7 g/dL (3.5-5.0); Alkaline Phosphatase 84 U/L (39-117); Anion Gap 13 (12-20); Aspartate Amino Transferase 9 U/L (5-31); Bilirubin Total 0.2 mg/dL (0.0-1.0); Blood Urea Nitrogen 48 mg/dL (9-16); Calcium 8.6 mg/dL (8.4-10.2); Carbon Dioxide 25 mmol/L (22-29); Chloride 108 mmol/L (96-108); Creatinine Clr Calc Pharmacy 18.4; Estimated Glomerular Filt Rate 22; Glucose Random 109 mg/dL (60-115); Potassium 4.6 mmol/L (3.3-5.1); Sodium 141 mmol/L (135-145); Total Protein 6.7 g/dL (6.5-8.0)
[2022-06-05 19:54] VITALS: BP 146/76; PULSE 70
[2022-06-05 19:59] VITALS: BP 146/76; PULSE 70; RESP 15; O2SAT 92
[2022-06-05 20:06] LABS: Glucose, Whole Blood 91 mg/dL (60-115)
[2022-06-05 20:08] LABS: Appearance Urine Cloudy; Color Urine Yellow; Glucose Urine UA Negative (Negative); Leukocyte Esterase Urine Moderate (2+) (Negative); Nitrite Urine Negative (Negative); UMIC TRIGGER UACC YES; Urine Blood Negative (Negative); Urine Ketones Trace mg/dL (Negative); Urine Protein Trace mg/dL (Neg-Trace)
[2022-06-05 20:22] LABS: Bacteria Urine 4+ (None Seen); RBC Urine 0-2 /HPF (0-2); Renal Epithelial Cells Urine Present; Transitional Epi Cells Urine Present; UACC Culture Trigger YES
[2022-06-05 21:29] LABS: Alanine Aminotransferase < 6 U/L (0-31); Albumin Level 3.6 g/dL (3.5-5.0); Alkaline Phosphatase 81 U/L (39-117); Anion Gap 12 (12-20); Aspartate Amino Transferase 10 U/L (5-31); Bilirubin Total 0.2 mg/dL (0.0-1.0); Blood Urea Nitrogen 46 mg/dL (9-16); Calcium 8.4 mg/dL (8.4-10.2); Carbon Dioxide 25 mmol/L (22-29); Chloride 110 mmol/L (96-108); Creatinine Clr Calc Pharmacy 19.5; Estimated Glomerular Filt Rate 23; Glucose Random 131 mg/dL (60-115); Potassium 4.5 mmol/L (3.3-5.1); Sodium 142 mmol/L (135-145); Total Protein 6.5 g/dL (6.5-8.0)
[2022-06-05 21:51] VITALS: BP 142/67; PULSE 72; RESP 14; O2SAT 97
[2022-06-05] MEDS: cefTRIAXone sodium 2 GM in 0.9 % Sodium Chloride 50 ML IV (22:29)
--- NOTE | 2022-06-05 23:06 | P.HPHOSP_ITS ---
History of Present Illness Date of Service: 06/05/22 Chief Complaint: weakness This is an 86-year-old female with past medical history of diabetes, chronic diarrhea, hypertension, comes in from home brought in by her daughter for complaints of fall, and dizziness. Patient is Venezuelan-speaking only, history is obtained mostly from her daughter. Her daughter at bedside reports the patient has had chronic diarrhea, and has had progressive weakness, she been complaining of increased dizziness. And poor oral intake. They have noticed that her oral intake has decreased over the past week. Patient's daughter reports no nausea or vomiting, patient herself denies any abdominal pain, no fever chills, no weakness numbness or tingling, no headache or change in vision. No shortness of breath, no cough, no lower extremity edema On arrival to the ED patient hemodynamically stable with an elevated blood pressure Labs are significant for WBC count of 6.9, hemoglobin of 10.7, hematocrit 34.5, creatinine of 2.28 which is increased from 1.85 in February of this year, BUN of 34, UA positive for leukocyte Estrace and WBC Patient given IV fluids with slight improvement her creatinine Review of Systems Review of Systems: Yes all other systems are reviewed and are negative [facility] Medical History (Updated 06/06/22 @ 06:19 by Marie Khalil MD) Arthritis Diabetes History of glaucoma Hypertension Legally blind Family History (Updated 06/06/22 @ 06:18 by Marie Khalil MD) Other Diabetes Surgical History (Updated 06/06/22 @ 06:18 by Marie Khalil MD) No pertinent past surgical history Social History Household Members: None Housing: House Alcohol intake: never Patient Tobacco Use Status: Never used Tobacco Smoked in Last 30 Days: No Use of substances other than those prescribed or required for medical reasons: No Currently Displaying Signs/Symptoms of Drug Intoxication Withdrawal: No Have you been hit, kicked, punched, or otherwise hurt by someone within the past year? If so, by whom?: No Do you feel safe in your current relationship?: Yes Is there a partner from a previous relationship who is making you feel unsafe now?: No Are you made to feel afraid or neglected: No Advance Directives: No Advance Directives Information Provided: No Do you have thoughts of harming others: None Do you have a plan to hurt others: No Plan Recently lost weight without trying: No Nutrition Risks: No Nutritional Risk Patient : No Meds Allergies Allergy/AdvReac Type Severity Reaction Status Date / Time No Known Allergies Allergy Unverified 03/05/20 19:07 [No Known Allergies*] Active Medications: Current Medications Pharmacy Consult (Consult Rx Perform Med Rec) 1 each MISCELLANE ONCE PRN PRN Reason: Consult order Home Medications Medication Instructions Recorded Confirmed Last Taken Type acetaminophen 500 mg tablet 1 tab PO Q4-6H PRN Pain (Scale 06/05/22 06/05/22 Unknown History Score 1-3) calcium carbonate 600 mg-vitamin 1 tab PO BID 06/05/22 06/05/22 06/04/22 History D3 10 mcg (400 unit) tablet chlorthalidone 25 mg tablet 1 tab PO DAILY 06/05/22 06/05/22 06/04/22 History doxazosin 8 mg tablet 1 tab PO BEDTIME 06/05/22 06/05/22 06/04/22 History gabapentin 300 mg capsule 1 cap PO BEDTIME 06/05/22 06/05/22 06/04/22 History loperamide 2 mg capsule 2 mg PO 1XD 06/05/22 06/05/22 06/04/22 History losartan 100 mg tablet 1 tab PO QAM 06/05/22 06/05/22 06/04/22 History metformin 1,000 mg tablet 1 tab PO 2XD 06/05/22 06/05/22 06/04/22 History metoprolol succinate 100 mg 1 tab PO DAILY 06/05/22 06/05/22 06/04/22 History tablet,extended release 24 hr omeprazole 20 mg capsule,delayed 1 cap PO DAILY 06/05/22 06/05/22 06/04/22 History release simvastatin 10 mg tablet 1 tab PO DAILY PRN Hypertension 06/05/22 06/05/22 06/04/22 History Physical Exam Vital Signs and Narrative: Vital Signs: Last Vital Signs Temp 97.1 F 06/05/22 15:00 Pulse 72 06/05/22 21:51 Resp 14 06/05/22 21:51 BP 142/67 H 06/05/22 21:51 Pulse Ox 97 06/05/22 21:51 O2 Del Method 06/05/22 21:51 BMI result Body Mass Index 27.4 Const: Other: Patient awake, alert, oriented to self and place General: cooperative and no acute distress Orientation/consciousness: patient oriented x3 Eyes: General: appearance normal, both eyes and all related structures Resp: Effort & Inspection: normal respiratory effort Auscultation: clear to auscultation bilaterally Cardio: Rate: regular rate Rhythm: regular rhythm GI: Palpation (GI): Soft to palpation Auscultation: normal bowel sounds Skin: Other: Mucosal membranes appear dry General skin exam: no rashes or lesions noted Neuro: General: patient oriented x3 Cognition (Neuro): normal cognition Extrem: General: Yes normal to inspection and Yes no pedal edema Results Labs CBC and Chem 7: 06/06/22 05:16 06/06/22 05:16 Labs: Laboratory Results - last 24 hr 06/05/22 06/05/22 06/05/22 15:30 15:38 15:38 MCV 95.8 MCH 29.7 MCHC 31.0 RDW 12.8 Plt Count 210 MPV 11.4 Immature Gran % (Auto) 0.2 Neut % (Auto) 48.5 Lymph % (Auto) 41.2 H [place] % (Auto) 7.0 Eos % (Auto) 2.4 Baso % (Auto) 0.7 Lymph # (Auto) 2.4 [place] # (Auto) 0.4 Eos # (Auto) 0.1 Baso # (Auto) 0.0 Abs Immat Gran (auto) 0.01 Absolute Neuts (auto) 2.8 Absolute Nucleated RBC 0.000 Nucleated RBC % (auto) 0.0 PT 12.1 INR 1.1 Anion Gap Estim Creat Clear Calc Estimated GFR POC Glucose Random Glucose Calcium Magnesium Total Bilirubin AST ALT Alkaline Phosphatase Total Creatine Kinase Troponin I High Sens Total Protein Albumin Urine Color Urine Appearance Urine pH Ur Specific [place] Urine Protein Urine Glucose (UA) Urine Ketones Urine Blood Urine Nitrite Ur Leukocyte Esterase Urine RBC Urine WBC Ur Squamous Epith Cells Ur Transition Epith Cell Ur Renal Epithelial Cell Urine Bacteria Hyaline Casts Urine Yeast Influenza Type A (PCR) NEGATIVE Influenza Type B (PCR) NEGATIVE RSV RNA Qual (PCR) NEGATIVE SARS-CoV-2 RNA (RT-PCR) NEGATIVE 06/05/22 06/05/22 06/05/22 15:38 15:38 19:10 MCV MCH MCHC RDW Plt Count MPV Immature Gran % (Auto) Neut % (Auto) Lymph % (Auto) [place] % (Auto) Eos % (Auto) Baso % (Auto) Lymph # (Auto) [place] # (Auto) Eos # (Auto) Baso # (Auto) Abs Immat Gran (auto) Absolute Neuts (auto) Absolute Nucleated RBC Nucleated RBC % (auto) PT INR Anion Gap 16 13 Estim Creat Clear Calc 17.6 18.4 Estimated GFR 20 22 POC Glucose Random Glucose 66 109 Calcium 9.1 8.6 Magnesium 2.0 Total Bilirubin 0.2 0.2 AST 10 9 ALT < 6 < 6 Alkaline Phosphatase 83 84 Total Creatine Kinase 77 Troponin I High Sens 12.8 Total Protein 7.0 6.7 Albumin 3.9 3.7 Urine Color Urine Appearance Urine pH Ur Specific [place] Urine Protein Urine Glucose (UA) Urine Ketones Urine Blood Urine Nitrite Ur Leukocyte Esterase Urine RBC Urine WBC Ur Squamous Epith Cells Ur Transition Epith Cell Ur Renal Epithelial Cell Urine Bacteria Hyaline Casts Urine Yeast Influenza Type A (PCR) Influenza Type B (PCR) RSV RNA Qual (PCR) SARS-CoV-2 RNA (RT-PCR) 06/05/22 06/05/22 06/05/22 19:53 20:02 21:04 MCV MCH MCHC RDW Plt Count MPV Immature Gran % (Auto) Neut % (Auto) Lymph % (Auto) [place] % (Auto) Eos % (Auto) Baso % (Auto) Lymph # (Auto) [place] # (Auto) Eos # (Auto) Baso # (Auto) Abs Immat Gran (auto) Absolute Neuts (auto) Absolute Nucleated RBC Nucleated RBC % (auto) PT INR Anion Gap 12 Estim Creat Clear Calc 19.5 Estimated GFR 23 POC Glucose 91 Random Glucose 131 H Calcium 8.4 Magnesium Total Bilirubin 0.2 AST 10 ALT < 6 Alkaline Phosphatase 81 Total Creatine Kinase Troponin I High Sens Total Protein 6.5 Albumin 3.6 Urine Color Yellow Urine Appearance Cloudy Urine pH 5.0 Ur Specific [place] 1.020 Urine Protein Trace Urine Glucose (UA) Negative Urine Ketones Trace Urine Blood Negative Urine Nitrite Negative Ur Leukocyte Esterase Moderate (2+) H Urine RBC 0-2 Urine WBC 11-20 H Ur Squamous Epith Cells 11-20 Ur Transition Epith Cell Present Ur Renal Epithelial Cell Present Urine Bacteria 4+ Hyaline Casts 6-10 Urine Yeast Present Influenza Type A (PCR) Influenza Type B (PCR) RSV RNA Qual (PCR) SARS-CoV-2 RNA (RT-PCR) Imaging Radiologist's Impressions: Impressions Chest X-Ray 06/05/22 16:01 IMPRESSION: 1. No acute pulmonary pathology. 2. Mild degenerative changes of the right hip without fracture or dislocation. Hip/Pelvis X-Ray 06/05/22 16:01 IMPRESSION: 1. No acute pulmonary pathology. 2. Mild degenerative changes of the right hip without fracture or dislocation. Cervical Spine CT 06/05/22 16:39 IMPRESSION: 1. No intracranial hemorrhage or calvarial fracture. 2. No traumatic subluxation or acute cervical spine fracture. 3. Cerebral atrophy and chronic small vessel ischemic white matter change. Head CT 06/05/22 16:39 IMPRESSION: 1. No intracranial hemorrhage or calvarial fracture. 2. No traumatic subluxation or acute cervical spine fracture. 3. Cerebral atrophy and chronic small vessel ischemic white matter change. Assessment and Plan (1) MYAH (acute kidney injury): Status: Acute (2) Urinary tract infection: Status: Acute (3) Chronic diarrhea: Status: Acute (4) Dizziness: Status: Acute Plan This is an 86-year-old female with past medical history of diabetes, hypertension comes in from home with complaints of dizziness, generalized weakness found to have MYAH as well as UTI # MYAH on CKD - likely secondary to dehydration secondary to chronic diarrhea - IV fluids started with improvement in her creatinine function - will continue IV fluids - follow BMP # UTI - positive UA -given the positive UA, weakness, dizziness will treat with IV antibiotics - follow cultures # chronic diarrhea - likely participating her MYAH - will obtain GI panel, as well as C diff # dizziness - secondary to above - monitor resolution - orthostatic negative # diabetes - low-dose sliding scale insulin - diabetic diet # hypertension - elevated BP - resume home antihypertensives # hyperlipidemia - continue statin DVT prophylaxis: Heparin subQ Time Spent With Patient Time: Total time managing care of this patient today ____ minutes. Quality Stroke Does the patient have a stroke diagnosis?: No VTE Prior VTE?: No VTE Risk Level:: Medical - moderate - high VTE Device Contraindication: Treatment Not Indicated VTE Drug Contraindication: N/A - Med Ordered
--- NOTE | 2022-06-05 23:32 | PC.NURSE ---
Med rec completed at this time
--- NOTE | 2022-06-05 23:43 | MHC.EDTECH ---
pt walk to the br with her daughter
[2022-06-05 23:47] VITALS: BP 143/75; PULSE 75; RESP 18; TEMP 36.6; O2SAT 92
[2022-06-05] MEDS: Lactated Ringers 1,000 ML 100 ML IVCONT (23:48)
[2022-06-05] MEDS: 0.9 % Sodium Chloride Flush 3 ML SYRINGE IVFLUSH (23:50)
[2022-06-05] MEDS: Enoxaparin Sodium 30 MG/0.3 ML SYRINGE SUBCUT (23:50)
[2022-06-06 00:33] VITALS: BP 150/72; PULSE 78; RESP 16; TEMP 36.3; O2SAT 92
[2022-06-06 01:56] VITALS: BMI 27.4
[2022-06-06] MEDS: Acetaminophen 325 MG TABLET 650 MG PO (02:54)
[2022-06-06 04:00] VITALS: BP 160/76; PULSE 90; RESP 16; TEMP 36.3; O2SAT 92
[2022-06-06 05:48] LABS: MANUAL DIFF FLAG NO
[2022-06-06 05:54] LABS: Basophils Percent Auto 0.4 % (0-2); Eosinophils Absolute Auto 0.1 X10*3/uL (0.0-0.4); Hematocrit 30.6 % (37.0-47.0); Hemoglobin 9.5 g/dl (12.0-16.0); Imm Gran Abs Auto 0.02 X10*3/uL (0.00-0.03); Imm Gran Pct Auto 0.3 % (0.0-0.4); Lymphocytes Absolute Auto 2.3 X10*3/uL (1.2-4.9); Lymphocytes Percent Auto 33.7 % (20-40); Mean Corpuscular Hemoglobin 29.6 pg (27.0-33.0); Mean Corpuscular Volume 95.3 fL (80.0-98.0); Mean Platelet Volume 11.8 fL (9.4-12.3); Monocytes Absolute Auto 0.4 X10*3/uL (0.1-1.2); Monocytes Percent Auto 6.4 % (2-11); Neutrophils Absolute Auto 3.9 x10*3/uL (2.0-8.3); Neutrophils Percent Auto 57.2 % (45-73); Platelet Count 185 X10*3/uL (160-400); Red Blood Count 3.21 X10*6/uL (4.20-5.50); Red Cell Distribution Width 12.7 % (11.0-16.0); White Blood Count 6.9 X10*3/uL (4.8-10.8)
[2022-06-06 06:08] LABS: Anion Gap 12 (12-20); Blood Urea Nitrogen 41 mg/dL (9-16); Calcium 8.5 mg/dL (8.4-10.2); Carbon Dioxide 23 mmol/L (22-29); Chloride 111 mmol/L (96-108); Creatinine Clr Calc Pharmacy 21.4; Estimated Glomerular Filt Rate 26; Glucose Random 110 mg/dL (60-115); Potassium 4.4 mmol/L (3.3-5.1); Sodium 142 mmol/L (135-145)
--- NOTE | 2022-06-06 07:07 | PHA.MEDREC ---
Pharmacy Consult ? Medication Reconciliation Pharmacy has reviewed the medication reconciliation done by Ami.
[2022-06-06 07:35] LABS: Glucose, Whole Blood 98 mg/dL (60-115)
[2022-06-06 07:55] VITALS: BP 173/80; PULSE 88; RESP 15; TEMP 36.6; O2SAT 92
--- NOTE | 2022-06-06 09:51 | MHC.CM.PN ---
MAULIK DELIVERED CM MET WITH PT AND FAMILY AT BEDSIDE. DAUGHTER OTONIEL IS MAIL FORWARDING SYSTEM MARKUP CLERK, PT LIVES IN [place] WITH SON AND DAUGHTER. USES A CANE AT BASELINE. + HCP AT HOME, +COVID X 2. PCP DR. LAGOS AT [facility]. DP: HOME, NO SERVICES ANTICIPATED. DAUGHTER IS MAIL FORWARDING SYSTEM MARKUP CLERK. FAMILY WILL TRANSPORT AT [place].
[2022-06-06] MEDS: Omeprazole 20 MG CAPSULE.DR PO (09:56)
[2022-06-06] MEDS: Metoprolol Succinate ER 100 MG TAB.ER.24H PO (09:57)
[2022-06-06] MEDS: amLODIPine Besylate 10 MG TABLET PO (09:57)
[2022-06-06] MEDS: Atorvastatin Calcium 10 MG TABLET PO (09:57)
[2022-06-06] MEDS: hydroCHLOROthiazide 25 MG TABLET PO (09:57)
[2022-06-06] MEDS: Lactated Ringers 1,000 ML 100 ML IVCONT ×2 (10:32→20:07)
--- NOTE | 2022-06-06 11:16 | HO.PM.IMPN ---
Subjective Subjective Date of Service: 06/06/22 Interval History: weakness,myah ,uti Review of Systems still generlaised weak , says feels dizzy and having diarrahe ,po intake also decreased. Physical Exam Vital Signs: Vital Signs: Last Vital Signs Temp 97.9 F 06/06/22 07:55 Pulse 88 06/06/22 07:55 Resp 15 06/06/22 07:55 BP 173/80 H 06/06/22 07:55 Pulse Ox 92 06/06/22 07:55 O2 Del Method 06/06/22 07:55 BMI result Body Mass Index 27.4 Appearance: Alert.? Oriented X3.?. cvs: rrr, [id number] , no murmur res: clear to auscultation ,no rhonchii or wheezing abd: no rebound or guarding ,nt, bs present. ext pulses present , no cyanosis . neuro: axo3 , nonfocal. Objective Data Active Medications Acetaminophen (Acetaminophen 325 Mg Tablet) 650 mg PO Q6H PRN PRN Reason: Pain, Mild (Pain Scale 1-3) Last Admin: 06/06/22 02:54 Dose: 650 mg Documented By: ASIYA Amlodipine Besylate (Amlodipine Besylate 10 Mg Tablet) 10 mg PO DAILY [facility]; Protocol Last Admin: 06/06/22 09:57 Dose: 10 mg Documented By: THO Atorvastatin Calcium (Atorvastatin Calcium 10 Mg Tablet) 10 mg PO DAILY [facility] Last Admin: 06/06/22 09:57 Dose: 10 mg Documented By: THO Dextrose (Dextrose 50 % 25 Gm/50 Ml Syringe) 25 gm IVPUSH Q15M PRN; Protocol PRN Reason: per Hypoglycemia Standing Ord. Dextrose (Dextrose 50 % 25 Gm/50 Ml Syringe) 25 gm IVPUSH Q15M PRN; Protocol PRN Reason: per Hypoglycemia Standing Ord. Docusate Sodium (Docusate Sodium 100 Mg Capsule) 100 mg PO DAILY PRN PRN Reason: Constipation Doxazosin Mesylate (Doxazosin Mesylate 2 Mg Tablet) 8 mg PO BEDTIME [facility]; Protocol Enoxaparin Sodium (Enoxaparin Sodium 30 Mg/0.3 Ml Syringe) 30 mg SUBCUT Q24H [facility] Last Admin: 06/05/22 23:50 Dose: 30 mg Documented By: ERMIAS Gabapentin (Gabapentin 300 Mg Capsule) 300 mg PO BEDTIME [facility] Glucose (Glucose Gel 15 Gm Gel..Gram.) 15 gm PO Q15M PRN; Protocol PRN Reason: per Hypoglycemia Standing Ord. Glucose (Glucose Gel 15 Gm Gel..Gram.) 15 gm PO Q15M PRN; Protocol PRN Reason: per Hypoglycemia Standing Ord. Hydrochlorothiazide (Hydrochlorothiazide 25 Mg Tablet) 25 mg PO DAILY [facility] Last Admin: 06/06/22 09:57 Dose: 25 mg Documented By: THO Lactated Ringer's (Lr) 1,000 mls @ 100 mls/hr IVCONT .Q10H [facility] Last Admin: 06/06/22 10:32 Dose: 100 mls/hr Documented By: THO Ceftriaxone Sodium 1 gm/ (Sodium Chloride) 50 mls @ 100 mls/hr IV Q24H [facility] Insulin Human Lispro (Insulin Lispro 100 Unit/Ml 3 Ml Vial) 0 unit SUBCUT QIDACHS [facility]; Protocol Last Admin: 06/06/22 08:01 Dose: Not Given Documented By: THO Non-Admin Reason: No Insulin Coverage Insulin Human Lispro (Insulin Lispro 100 Unit/Ml 3 Ml Vial) 0 unit SUBCUT QIDACHS [facility]; Protocol Last Admin: 06/06/22 08:23 Dose: Not Given Documented By: THO Non-Admin Reason: No Insulin Coverage Loperamide HCl (Loperamide Hcl 2 Mg Capsule) 2 mg PO DAILY PRN PRN Reason: Loose Stool Metoprolol Succinate (Metoprolol Succinate Er 100 Mg Tab.Er.24h) 100 mg PO DAILY [facility]; Protocol Last Admin: 06/06/22 09:57 Dose: 100 mg Documented By: THO Omeprazole (Omeprazole 20 Mg Capsule.) 20 mg PO DAILY@0630 [facility] Last Admin: 06/06/22 09:56 Dose: 20 mg Documented By: THO Ondansetron HCl (Ondansetron Hcl 4 Mg/2 Ml Vial) 4 mg IVPUSH Q8H PRN PRN Reason: Nausea and Vomiting Pharmacy Consult (Consult Rx Perform Med Rec) 1 each MISCELLANE ONCE PRN PRN Reason: Consult order Sodium Chloride (0.9 % Sodium Chloride Flush 3 Ml Syringe) 3 ml IVFLUSH QSHIFT [facility] Last Admin: 06/06/22 09:58 Dose: Not Given Documented By: THO Non-Admin Reason: IV Running Labs CBC & Chem 7: 06/06/22 05:16 06/06/22 05:16 Labs: Laboratory Results - last 24 hr 06/05/22 06/05/22 06/05/22 15:30 15:38 15:38 MCV 95.8 MCH 29.7 MCHC 31.0 RDW 12.8 Plt Count 210 MPV 11.4 Immature Gran % (Auto) 0.2 Neut % (Auto) 48.5 Lymph % (Auto) 41.2 H Riley % (Auto) 7.0 Eos % (Auto) 2.4 Baso % (Auto) 0.7 Lymph # (Auto) 2.4 Riley # (Auto) 0.4 Eos # (Auto) 0.1 Baso # (Auto) 0.0 Abs Immat Gran (auto) 0.01 Absolute Neuts (auto) 2.8 Absolute Nucleated RBC 0.000 Nucleated RBC % (auto) 0.0 PT 12.1 INR 1.1 Anion Gap Estim Creat Clear Calc Estimated GFR POC Glucose Random Glucose Calcium Magnesium Total Bilirubin AST ALT Alkaline Phosphatase Total Creatine Kinase Troponin I High Sens Total Protein Albumin Urine Color Urine Appearance Urine pH Ur Specific [place] Urine Protein Urine Glucose (UA) Urine Ketones Urine Blood Urine Nitrite Ur Leukocyte Esterase Urine RBC Urine WBC Ur Squamous Epith Cells Ur Transition Epith Cell Ur Renal Epithelial Cell Urine Bacteria Hyaline Casts Urine Yeast Influenza Type A (PCR) NEGATIVE Influenza Type B (PCR) NEGATIVE RSV RNA Qual (PCR) NEGATIVE SARS-CoV-2 RNA (RT-PCR) NEGATIVE 06/05/22 06/05/22 06/05/22 15:38 15:38 19:10 MCV MCH MCHC RDW Plt Count MPV Immature Gran % (Auto) Neut % (Auto) Lymph % (Auto) Riley % (Auto) Eos % (Auto) Baso % (Auto) Lymph # (Auto) Riley # (Auto) Eos # (Auto) Baso # (Auto) Abs Immat Gran (auto) Absolute Neuts (auto) Absolute Nucleated RBC Nucleated RBC % (auto) PT INR Anion Gap 16 13 Estim Creat Clear Calc 17.6 18.4 Estimated GFR 20 22 POC Glucose Random Glucose 66 109 Calcium 9.1 8.6 Magnesium 2.0 Total Bilirubin 0.2 0.2 AST 10 9 ALT < 6 < 6 Alkaline Phosphatase 83 84 Total Creatine Kinase 77 Troponin I High Sens 12.8 Total Protein 7.0 6.7 Albumin 3.9 3.7 Urine Color Urine Appearance Urine pH Ur Specific [place] Urine Protein Urine Glucose (UA) Urine Ketones Urine Blood Urine Nitrite Ur Leukocyte Esterase Urine RBC Urine WBC Ur Squamous Epith Cells Ur Transition Epith Cell Ur Renal Epithelial Cell Urine Bacteria Hyaline Casts Urine Yeast Influenza Type A (PCR) Influenza Type B (PCR) RSV RNA Qual (PCR) SARS-CoV-2 RNA (RT-PCR) 06/05/22 06/05/22 06/05/22 19:53 20:02 21:04 MCV MCH MCHC RDW Plt Count MPV Immature Gran % (Auto) Neut % (Auto) Lymph % (Auto) Riley % (Auto) Eos % (Auto) Baso % (Auto) Lymph # (Auto) Riley # (Auto) Eos # (Auto) Baso # (Auto) Abs Immat Gran (auto) Absolute Neuts (auto) Absolute Nucleated RBC Nucleated RBC % (auto) PT INR Anion Gap 12 Estim Creat Clear Calc 19.5 Estimated GFR 23 POC Glucose 91 Random Glucose 131 H Calcium 8.4 Magnesium Total Bilirubin 0.2 AST 10 ALT < 6 Alkaline Phosphatase 81 Total Creatine Kinase Troponin I High Sens Total Protein 6.5 Albumin 3.6 Urine Color Yellow Urine Appearance Cloudy Urine pH 5.0 Ur Specific [place] 1.020 Urine Protein Trace Urine Glucose (UA) Negative Urine Ketones Trace Urine Blood Negative Urine Nitrite Negative Ur Leukocyte Esterase Moderate (2+) H Urine RBC 0-2 Urine WBC 11-20 H Ur Squamous Epith Cells 11-20 Ur Transition Epith Cell Present Ur Renal Epithelial Cell Present Urine Bacteria 4+ Hyaline Casts 6-10 Urine Yeast Present Influenza Type A (PCR) Influenza Type B (PCR) RSV RNA Qual (PCR) SARS-CoV-2 RNA (RT-PCR) 06/06/22 06/06/22 06/06/22 05:16 05:16 07:32 MCV 95.3 MCH 29.6 MCHC 31.0 RDW 12.7 Plt Count 185 MPV 11.8 Immature Gran % (Auto) 0.3 Neut % (Auto) 57.2 Lymph % (Auto) 33.7 Riley % (Auto) 6.4 Eos % (Auto) 2.0 Baso % (Auto) 0.4 Lymph # (Auto) 2.3 Riley # (Auto) 0.4 Eos # (Auto) 0.1 Baso # (Auto) 0.0 Abs Immat Gran (auto) 0.02 Absolute Neuts (auto) 3.9 Absolute Nucleated RBC 0.000 Nucleated RBC % (auto) 0.0 PT INR Anion Gap 12 Estim Creat Clear Calc 21.4 Estimated GFR 26 POC Glucose 98 Random Glucose 110 Calcium 8.5 Magnesium Total Bilirubin AST ALT Alkaline Phosphatase Total Creatine Kinase Troponin I High Sens Total Protein Albumin Urine Color Urine Appearance Urine pH Ur Specific [place] Urine Protein Urine Glucose (UA) Urine Ketones Urine Blood Urine Nitrite Ur Leukocyte Esterase Urine RBC Urine WBC Ur Squamous Epith Cells Ur Transition Epith Cell Ur Renal Epithelial Cell Urine Bacteria Hyaline Casts Urine Yeast Influenza Type A (PCR) Influenza Type B (PCR) RSV RNA Qual (PCR) SARS-CoV-2 RNA (RT-PCR) Assessment and Plan (1) Urinary tract infection: Status: Acute (2) MYAH (acute kidney injury): Status: Acute (3) Chronic diarrhea: Status: Acute (4) Dizziness: Status: Acute (5) HTN (hypertension): Status: Acute Plan 86-year-old female with past medical history of diabetes, hypertension comes in from home with complaints of dizziness, generalized weakness found to have MYAH as well as UTI # MYAH on CKD (unclear stage since no labs before this year available). - likely secondary to dehydration secondary to chronic diarrhea - IV fluids started with improvement in her creatinine function - will continue IV fluids - follow BMP # UTI - positive UA -given the positive UA, weakness, dizziness will treat with IV antibiotics - follow cultures # chronic diarrhea - likely participating her MYAH - will obtain GI panel, as well as C diff # dizziness - secondary to above - monitor resolution - orthostatic negative # diabetes - low-dose sliding scale insulin - diabetic diet # hypertension: uncontrolled/suboptimal. - elevated BP continue metoprolol,hctz,added amlodipine. # hyperlipidemia - continue statin DVT prophylaxis:? Heparin subQ pngoing inpatient need:myah ,uti -need iv hydration,antibiotics ,Gi workup ,blood pressure monitering Time Spent With Patient Time: Total time managing care of this patient today ____ minutes. Quality Stroke Does the patient have a stroke diagnosis?: No VTE Prior VTE?: No VTE Risk Level:: Medical - moderate - high VTE Device Contraindication: Treatment Not Indicated VTE Drug Contraindication: N/A - Med Ordered
[2022-06-06 11:30] LABS: Glucose, Whole Blood 175 mg/dL (60-115)
[2022-06-06] MEDS: Insulin Lispro 100 UNIT/ML 3 ML VIAL SUBCUT (11:56)
[2022-06-06 15:22] VITALS: BP 136/78; PULSE 75; RESP 16; TEMP 36.1; O2SAT 92
[2022-06-06 16:03] LABS: Glucose, Whole Blood 47 mg/dL (60-115)
[2022-06-06 16:21] LABS: Glucose, Whole Blood 120 mg/dL (60-115)
[2022-06-06 19:39] VITALS: BP 153/70; PULSE 76; RESP 19; TEMP 36.1; O2SAT 90
[2022-06-06 19:52] LABS: Glucose, Whole Blood 202 mg/dL (60-115)
[2022-06-06] MEDS: cefTRIAXone sodium 1 GM in 0.9 % Sodium Chloride 50 ML IV (20:06)
[2022-06-06] MEDS: Doxazosin Mesylate 2 MG TABLET 8 MG PO (20:07)
[2022-06-06] MEDS: Gabapentin 300 MG CAPSULE PO (20:07)
[2022-06-06] MEDS: Enoxaparin Sodium 30 MG/0.3 ML SYRINGE SUBCUT (22:54)
[2022-06-07 04:00] VITALS: BP 127/78; PULSE 81; RESP 18; TEMP 36.3; O2SAT 95
[2022-06-07] MEDS: Lactated Ringers 1,000 ML 100 ML IVCONT ×2 (06:15→16:43)
[2022-06-07] MEDS: Omeprazole 20 MG CAPSULE.DR PO (06:17)
[2022-06-07 06:25] LABS: Anion Gap 10 (12-20); Blood Urea Nitrogen 28 mg/dL (9-16); Calcium 8.7 mg/dL (8.4-10.2); Carbon Dioxide 29 mmol/L (22-29); Chloride 108 mmol/L (96-108); Creatinine Clr Calc Pharmacy 24.6; Estimated Glomerular Filt Rate 30; Glucose Random 112 mg/dL (60-115); Potassium 4.3 mmol/L (3.3-5.1); Sodium 143 mmol/L (135-145)
[2022-06-07 07:33] VITALS: BP 157/70; PULSE 83; RESP 17; TEMP 36.4; O2SAT 96
[2022-06-07 07:41] LABS: Glucose, Whole Blood 113 mg/dL (60-115)
[2022-06-07] MEDS: Atorvastatin Calcium 10 MG TABLET PO (09:54)
[2022-06-07] MEDS: amLODIPine Besylate 10 MG TABLET PO (09:56)
[2022-06-07] MEDS: hydroCHLOROthiazide 25 MG TABLET PO (09:56)
[2022-06-07] MEDS: Metoprolol Succinate ER 100 MG TAB.ER.24H PO (09:56)
[2022-06-07] MEDS: Docusate Sodium 100 MG CAPSULE PO (09:56)
[2022-06-07] MEDS: Acetaminophen 325 MG TABLET 650 MG PO ×2 (10:12→21:20)
[2022-06-07 11:14] LABS: Glucose, Whole Blood 266 mg/dL (60-115)
--- NOTE | 2022-06-07 11:32 | HO.PM.IMPN ---
Subjective Subjective Date of Service: 06/07/22 Interval History: history obtained via equipment validation specialist family at bedside patient feeling better, denies headache, lightheadedness, dizziness, no chest pain, no palpitation, no recurrent bouts of diarrhea, no fevers, no chills, poor by mouth intake, no other acute issues overnight. Review of Systems Review of Systems: Yes all other systems are reviewed and are negative Physical Exam Vital Signs: Vital Signs: Last Vital Signs Temp 97.6 F 06/07/22 07:33 Pulse 83 06/07/22 07:33 Resp 17 06/07/22 07:33 BP 157/70 H 06/07/22 07:33 Pulse Ox 96 06/07/22 07:33 O2 Del Method 06/07/22 07:33 O2 Flow Rate 1.0 06/07/22 07:33 BMI result Body Mass Index 27.4 Const: Other: General awake alert x3,resting comfortably in no acute distress. Neck is supple no JVD. CVS regular rate rhythm, Respiratory lungs clear to auscultation, no respiratory distress, no wheeze, no rhonchi. Gastrointestinal abdomen soft, nontender, bowel sounds audible, no guarding , no rigidity. Extremities no edema. Neuro nonfocal , speech clear. Skin no rash psych appropriate affect Objective Data Active Medications Acetaminophen (Acetaminophen 325 Mg Tablet) 650 mg PO Q6H PRN PRN Reason: Pain, Mild (Pain Scale 1-3) Last Admin: 06/07/22 10:12 Dose: 650 mg Documented By: THO Amlodipine Besylate (Amlodipine Besylate 10 Mg Tablet) 10 mg PO DAILY [facility]; Protocol Last Admin: 06/07/22 09:56 Dose: 10 mg Documented By: THO Atorvastatin Calcium (Atorvastatin Calcium 10 Mg Tablet) 10 mg PO DAILY [facility] Last Admin: 06/07/22 09:54 Dose: 10 mg Documented By: THO Dextrose (Dextrose 50 % 25 Gm/50 Ml Syringe) 25 gm IVPUSH Q15M PRN; Protocol PRN Reason: per Hypoglycemia Standing Ord. Dextrose (Dextrose 50 % 25 Gm/50 Ml Syringe) 25 gm IVPUSH Q15M PRN; Protocol PRN Reason: per Hypoglycemia Standing Ord. Dextrose (Dextrose 50 % 25 Gm/50 Ml Syringe) 25 gm IVPUSH Q15M PRN PRN Reason: per Hypoglycemia Standing Ord. Docusate Sodium (Docusate Sodium 100 Mg Capsule) 100 mg PO DAILY PRN PRN Reason: Constipation Last Admin: 06/07/22 09:56 Dose: 100 mg Documented By: THO Doxazosin Mesylate (Doxazosin Mesylate 2 Mg Tablet) 8 mg PO BEDTIME [facility]; Protocol Last Admin: 06/06/22 20:07 Dose: 8 mg Documented By: ASIYA Enoxaparin Sodium (Enoxaparin Sodium 30 Mg/0.3 Ml Syringe) 30 mg SUBCUT Q24H [facility] Last Admin: 06/06/22 22:54 Dose: 30 mg Documented By: ASIYA Gabapentin (Gabapentin 300 Mg Capsule) 300 mg PO BEDTIME [facility] Last Admin: 06/06/22 20:07 Dose: 300 mg Documented By: ASIYA Glucose (Glucose Gel 15 Gm Gel..Gram.) 15 gm PO Q15M PRN; Protocol PRN Reason: per Hypoglycemia Standing Ord. Glucose (Glucose Gel 15 Gm Gel..Gram.) 15 gm PO Q15M PRN; Protocol PRN Reason: per Hypoglycemia Standing Ord. Hydrochlorothiazide (Hydrochlorothiazide 25 Mg Tablet) 25 mg PO DAILY [facility] Last Admin: 06/07/22 09:56 Dose: 25 mg Documented By: THO Lactated Ringer's (Lr) 1,000 mls @ 100 mls/hr IVCONT .Q10H [facility] Last Admin: 06/07/22 06:15 Dose: 100 mls/hr Documented By: ASIYA Ceftriaxone Sodium 1 gm/ (Sodium Chloride) 50 mls @ 100 mls/hr IV Q24H [facility] Last Infusion: 06/06/22 20:41 Dose: 0 mls/hr Documented By: ASIYA Insulin Human Lispro (Insulin Lispro 100 Unit/Ml 3 Ml Vial) 0 unit SUBCUT QIDACHS [facility]; Protocol Last Admin: 06/07/22 07:47 Dose: Not Given Documented By: THO Non-Admin Reason: No Insulin Coverage Loperamide HCl (Loperamide Hcl 2 Mg Capsule) 2 mg PO DAILY PRN PRN Reason: Loose Stool Metoprolol Succinate (Metoprolol Succinate Er 100 Mg Tab.Er.24h) 100 mg PO DAILY [facility]; Protocol Last Admin: 06/07/22 09:56 Dose: 100 mg Documented By: THO Omeprazole (Omeprazole 20 Mg Capsule.) 20 mg PO DAILY@0630 [facility] Last Admin: 06/07/22 06:17 Dose: 20 mg Documented By: ASIYA Ondansetron HCl (Ondansetron Hcl 4 Mg/2 Ml Vial) 4 mg IVPUSH Q8H PRN PRN Reason: Nausea and Vomiting Pharmacy Consult (Consult Rx Perform Med Rec) 1 each MISCELLANE ONCE PRN PRN Reason: Consult order Sodium Chloride (0.9 % Sodium Chloride Flush 3 Ml Syringe) 3 ml IVFLUSH QSHIFT [facility] Last Admin: 06/07/22 07:47 Dose: Not Given Documented By: THO Non-Admin Reason: IV Running Labs CBC & Chem 7: 06/06/22 05:16 06/07/22 05:13 Labs: Laboratory Results - last 24 hr 06/06/22 06/06/22 06/06/22 15:28 16:18 19:34 Anion Gap Estim Creat Clear Calc Estimated GFR POC Glucose 47 L* 120 H 202 H Random Glucose Calcium 06/07/22 06/07/22 06/07/22 05:13 07:21 11:07 Anion Gap 10 L Estim Creat Clear Calc 24.6 Estimated GFR 30 POC Glucose 113 266 H Random Glucose 112 Calcium 8.7 Microbiology Microbiology Results: Microbiology 06/05/22 17:21 Urine Culture - Final Urine Catheterized - [place] Catheter Assessment and Plan (1) Urinary tract infection: Status: Acute (2) MYAH (acute kidney injury): Status: Acute (3) Chronic diarrhea: Status: Acute (4) Dizziness: Status: Acute (5) HTN (hypertension): Status: Acute Plan 86-year-old female with past medical history of diabetes, hypertension comes in from home with complaints of dizziness, generalized weakness found to have MYAH as well as UTI # MYAH on CKD (unclear stage since no labs before this year available). - likely secondary to dehydration ,secondary to chronic diarrhea - creatinine improved from 2.28-1.63, continue IV fluids follow BMP avoid nephrotoxins, encourage out of bed and ambulation # UTI - initially thought to have UTI due to positive UA, however,urine culture showed mixed heidi will DC IV antibiotics # chronic diarrhea - no recurrent episode of diarrhea, stool studies not sent follow clinical course # dizziness likely secondary to MYAH, resolved, orthostatic blood pressures negative. # diabetes mellitus fluctuating blood sugars, continue insulin sliding scale, diabetic diet on metformin twice daily at home due to acute renal failure hold metformin, will consider glipizide after monitoring blood sugars with 24 hours # hypertension: uncontrolled/suboptimal. continue home medications hydrochlorothiazide, metoprolol, amlodipine added will follow blood pressure closely # hyperlipidemia - continue statin DVT prophylaxis:? Heparin subQ ongoing inpatient need:myah , on IV fluid Time Spent With Patient Time: Total time managing care of this patient today ____ minutes. Quality Stroke Does the patient have a stroke diagnosis?: No VTE Prior VTE?: No VTE Risk Level:: Medical - moderate - high VTE Device Contraindication: Treatment Not Indicated VTE Drug Contraindication: N/A - Med Ordered
[2022-06-07] MEDS: Insulin Lispro 100 UNIT/ML 3 ML VIAL SUBCUT (11:41)
[2022-06-07 16:24] LABS: Glucose, Whole Blood 109 mg/dL (60-115)
[2022-06-07 17:14] VITALS: BP 142/73; PULSE 82; RESP 20; TEMP 36.2; O2SAT 90
[2022-06-07 20:23] LABS: Glucose, Whole Blood 181 mg/dL (60-115)
[2022-06-07 20:25] LABS: Leukocytes Stool Qualitative NEGATIVE (NEGATIVE)
[2022-06-07 20:34] LABS: CDiff Gene PCR POSITIVE (Negative)
[2022-06-07 21:19] LABS: CDIFF Internal ctrl Dots and bkg OK (V); CDiff Toxin Negative (Negative)
[2022-06-07] MEDS: Gabapentin 300 MG CAPSULE PO (21:20)
[2022-06-07] MEDS: Doxazosin Mesylate 2 MG TABLET 8 MG PO (21:20)
[2022-06-07 21:22] VITALS: BP 157/63; PULSE 85
[2022-06-08] MEDS: Enoxaparin Sodium 30 MG/0.3 ML SYRINGE SUBCUT (01:27)
[2022-06-08] MEDS: Lactated Ringers 1,000 ML 100 ML IVCONT (02:31)
[2022-06-08 03:33] VITALS: BP 139/67; PULSE 84; RESP 18; TEMP 36.9; O2SAT 92
[2022-06-08] MEDS: Omeprazole 20 MG CAPSULE.DR PO (05:36)
[2022-06-08 06:44] LABS: Anion Gap 11 (12-20); Blood Urea Nitrogen 23 mg/dL (9-16); Calcium 8.6 mg/dL (8.4-10.2); Carbon Dioxide 31 mmol/L (22-29); Chloride 109 mmol/L (96-108); Creatinine Clr Calc Pharmacy 24.3; Estimated Glomerular Filt Rate 30; Glucose Random 98 mg/dL (60-115); Potassium 4.8 mmol/L (3.3-5.1); Sodium 146 mmol/L (135-145)
[2022-06-08 07:38] LABS: Glucose, Whole Blood 120 mg/dL (60-115)
[2022-06-08 07:53] VITALS: BP 166/77; PULSE 90; RESP 16; TEMP 36.4; O2SAT 92
--- NOTE | 2022-06-08 09:20 | PM.CNNEP ---
History of Present Illness Chief Complaint Chief complaint: MYAH, [facility]TI [facility] Past Medical History Medical History (Updated 06/06/22 @ 11:20 by Martha Jacobs MD) Arthritis Diabetes History of glaucoma Hypertension Legally blind Family History Family History (Updated 06/06/22 @ 06:18 by Marie Khalil MD) Other Diabetes Surgical History Surgical History (Updated 06/06/22 @ 06:18 by Marie Khalil MD) No pertinent past surgical history Social History Social History Household Members: None Housing: House Alcohol intake: never Patient Tobacco Use Status: Never used Tobacco Smoked in Last 30 Days: No Use of substances other than those prescribed or required for medical reasons: No Currently Displaying Signs/Symptoms of Drug Intoxication Withdrawal: No Have you been hit, kicked, punched, or otherwise hurt by someone within the past year? If so, by whom?: No Do you feel safe in your current relationship?: Yes Is there a partner from a previous relationship who is making you feel unsafe now?: No Are you made to feel afraid or neglected: No Advance Directives: No Advance Directives Information Provided: No Do you have thoughts of harming others: None Do you have a plan to hurt others: No Plan Recently lost weight without trying: No Nutrition Risks: No Nutritional Risk Patient : No Current occupational status: retired [employer] Allergies Allergy/AdvReac Type Severity Reaction Status Date / Time No Known Allergies Allergy Unverified 03/05/20 19:07 [No Known Allergies*] Active Medications: Current Medications Acetaminophen (Acetaminophen 325 Mg Tablet) 650 mg PO Q6H PRN PRN Reason: Pain, Mild (Pain Scale 1-3) Last Admin: 06/07/22 21:20 Dose: 650 mg Amlodipine Besylate (Amlodipine Besylate 10 Mg Tablet) 10 mg PO DAILY [facility]; Protocol Last Admin: 06/07/22 09:56 Dose: 10 mg Atorvastatin Calcium (Atorvastatin Calcium 10 Mg Tablet) 10 mg PO DAILY [facility] Last Admin: 06/07/22 09:54 Dose: 10 mg Dextrose (Dextrose 50 % 25 Gm/50 Ml Syringe) 25 gm IVPUSH Q15M PRN; Protocol PRN Reason: per Hypoglycemia Standing Ord. Dextrose (Dextrose 50 % 25 Gm/50 Ml Syringe) 25 gm IVPUSH Q15M PRN; Protocol PRN Reason: per Hypoglycemia Standing Ord. Dextrose (Dextrose 50 % 25 Gm/50 Ml Syringe) 25 gm IVPUSH Q15M PRN PRN Reason: per Hypoglycemia Standing Ord. Docusate Sodium (Docusate Sodium 100 Mg Capsule) 100 mg PO DAILY PRN PRN Reason: Constipation Last Admin: 06/07/22 09:56 Dose: 100 mg Doxazosin Mesylate (Doxazosin Mesylate 2 Mg Tablet) 8 mg PO BEDTIME [facility]; Protocol Last Admin: 06/07/22 21:20 Dose: 8 mg Enoxaparin Sodium (Enoxaparin Sodium 30 Mg/0.3 Ml Syringe) 30 mg SUBCUT Q24H [facility] Last Admin: 06/08/22 01:27 Dose: 30 mg Gabapentin (Gabapentin 300 Mg Capsule) 300 mg PO BEDTIME [facility] Last Admin: 06/07/22 21:20 Dose: 300 mg Glucose (Glucose Gel 15 Gm Gel..Gram.) 15 gm PO Q15M PRN; Protocol PRN Reason: per Hypoglycemia Standing Ord. Glucose (Glucose Gel 15 Gm Gel..Gram.) 15 gm PO Q15M PRN; Protocol PRN Reason: per Hypoglycemia Standing Ord. Hydrochlorothiazide (Hydrochlorothiazide 25 Mg Tablet) 25 mg PO DAILY [facility] Last Admin: 06/07/22 09:56 Dose: 25 mg Dextrose/Sodium Chloride (D51/2ns) 1,000 mls @ 100 mls/hr IVCONT .Q10H [facility] Insulin Human Lispro (Insulin Lispro 100 Unit/Ml 3 Ml Vial) 0 unit SUBCUT QIDACHS [facility]; Protocol Last Admin: 06/08/22 08:06 Dose: Not Given Loperamide HCl (Loperamide Hcl 2 Mg Capsule) 2 mg PO DAILY PRN PRN Reason: Loose Stool Metoprolol Succinate (Metoprolol Succinate Er 100 Mg Tab.Er.24h) 100 mg PO DAILY [facility]; Protocol Last Admin: 06/07/22 09:56 Dose: 100 mg Omeprazole (Omeprazole 20 Mg Capsule.Dr) 20 mg PO DAILY@0630 [facility] Last Admin: 06/08/22 05:36 Dose: 20 mg Ondansetron HCl (Ondansetron Hcl 4 Mg/2 Ml Vial) 4 mg IVPUSH Q8H PRN PRN Reason: Nausea and Vomiting Pharmacy Consult (Consult Rx Perform Med Rec) 1 each MISCELLANE ONCE PRN PRN Reason: Consult order Sodium Chloride (0.9 % Sodium Chloride Flush 3 Ml Syringe) 3 ml IVFLUSH QSHIFT [facility] Last Admin: 06/08/22 01:27 Dose: Not Given Home Medications Medication Instructions Recorded Confirmed Last Taken Type acetaminophen 500 mg tablet 1 tab PO Q4-6H PRN Pain (Scale 06/05/22 06/05/22 Unknown History Score 1-3) calcium carbonate 600 mg-vitamin 1 tab PO BID 06/05/22 06/05/22 06/04/22 History D3 10 mcg (400 unit) tablet chlorthalidone 25 mg tablet 1 tab PO DAILY 06/05/22 06/05/22 06/04/22 History doxazosin 8 mg tablet 1 tab PO BEDTIME 06/05/22 06/05/22 06/04/22 History gabapentin 300 mg capsule 1 cap PO BEDTIME 06/05/22 06/05/22 06/04/22 History loperamide 2 mg capsule 2 mg PO 1XD 06/05/22 06/05/22 06/04/22 History losartan 100 mg tablet 1 tab PO QAM 06/05/22 06/05/22 06/04/22 History metformin 1,000 mg tablet 1 tab PO 2XD 06/05/22 06/05/22 06/04/22 History metoprolol succinate 100 mg 1 tab PO DAILY 06/05/22 06/05/22 06/04/22 History tablet,extended release 24 hr omeprazole 20 mg capsule,delayed 1 cap PO DAILY 06/05/22 06/05/22 06/04/22 History release simvastatin 10 mg tablet 1 tab PO DAILY PRN Hypertension 06/05/22 06/05/22 06/04/22 History Physical Exam Vital Signs: Last Vital Signs Temp 97.6 F 06/08/22 07:53 Pulse 90 06/08/22 07:53 Resp 16 06/08/22 07:53 BP 166/77 H 06/08/22 07:53 Pulse Ox 92 06/08/22 07:53 O2 Del Method 06/08/22 07:53 O2 Flow Rate 1 06/08/22 03:33 BMI result Body Mass Index 27.4 Const Other: General awake alert x3,resting comfortably in no acute distress. Neck is supple no JVD. CVS regular rate rhythm, Respiratory lungs clear to auscultation, no respiratory distress, no wheeze, no rhonchi. Gastrointestinal abdomen soft, nontender, bowel sounds audible, no guarding , no rigidity. Extremities no edema. Neuro nonfocal , speech clear. Skin no rash psych appropriate affect Results Lab Results Result Diagrams: 06/06/22 05:16 06/08/22 05:12 Lab results: Chemistry 06/05/22 06/05/22 06/05/22 15:38 19:10 21:04 Sodium 143 141 142 Potassium 4.8 4.6 4.5 Carbon Dioxide 25 25 25 BUN 49 H 48 H 46 H Creatinine 2.28 H 2.17 H 2.06 H Calcium 9.1 8.6 8.4 06/06/22 06/07/22 06/08/22 05:16 05:13 05:12 Sodium 142 143 146 H Potassium 4.4 4.3 4.8 Carbon Dioxide 23 29 31 H BUN 41 H 28 H 23 H Creatinine 1.87 H 1.63 H 1.65 H Calcium 8.5 8.7 8.6 Hematology 06/05/22 06/06/22 15:38 05:16 WBC 5.8 6.9 Hgb 10.7 L 9.5 L Plt Count 210 185 Urinalysis 06/05/22 20:02 Urine Color Yellow Urine Appearance Cloudy Urine pH 5.0 Ur Specific [place] 1.020 Urine Protein Trace Urine Glucose (UA) Negative Urine Ketones Trace Urine Blood Negative Urine Nitrite Negative Ur Leukocyte Esterase Moderate (2+) H Urine RBC 0-2 Urine WBC 11-20 H Ur Squamous Epith Cells 11-20 Hyaline Casts 6-10 Assessment and Plan (1) Urinary tract infection: Status: Acute (2) MYAH (acute kidney injury): Status: Acute this 86-year-old female known to us for MYAH baseline creatinine is 1.04 more recently however in February the creatinine was 1.85 2.87 when she was admitted and now is down to 1.65 (3) Chronic diarrhea: Status: Acute (4) Dizziness: Status: Acute (5) HTN (hypertension): Status: Acute Time Spent With Patient Time: Total time managing care of this patient today ____ minutes.
--- NOTE | 2022-06-08 09:28 | PM.CNNEP ---
History of Present Illness Reason for Consult Consult date: 06/08/22 Chief Complaint Chief complaint: MYAH, UTI [facility] Past Medical History Medical History (Updated 06/06/22 @ 11:20 by Martha Jacobs MD) Arthritis Diabetes History of glaucoma Hypertension Legally blind Family History Family History (Updated 06/06/22 @ 06:18 by Marie Khalil MD) Other Diabetes Surgical History Surgical History (Updated 06/06/22 @ 06:18 by Marie Kahlil MD) No pertinent past surgical history Social History Social History Household Members: None Housing: House Alcohol intake: never Patient Tobacco Use Status: Never used Tobacco Smoked in Last 30 Days: No Use of substances other than those prescribed or required for medical reasons: No Currently Displaying Signs/Symptoms of Drug Intoxication Withdrawal: No Have you been hit, kicked, punched, or otherwise hurt by someone within the past year? If so, by whom?: No Do you feel safe in your current relationship?: Yes Is there a partner from a previous relationship who is making you feel unsafe now?: No Are you made to feel afraid or neglected: No Advance Directives: No Advance Directives Information Provided: No Do you have thoughts of harming others: None Do you have a plan to hurt others: No Plan Recently lost weight without trying: No Nutrition Risks: No Nutritional Risk Patient : No Current occupational status: retired [employer] Allergies Allergy/AdvReac Type Severity Reaction Status Date / Time No Known Allergies Allergy Unverified 03/05/20 19:07 [No Known Allergies*] Active Medications: Current Medications Acetaminophen (Acetaminophen 325 Mg Tablet) 650 mg PO Q6H PRN PRN Reason: Pain, Mild (Pain Scale 1-3) Last Admin: 06/07/22 21:20 Dose: 650 mg Amlodipine Besylate (Amlodipine Besylate 10 Mg Tablet) 10 mg PO DAILY [facility]; Protocol Last Admin: 06/07/22 09:56 Dose: 10 mg Atorvastatin Calcium (Atorvastatin Calcium 10 Mg Tablet) 10 mg PO DAILY [facility] Last Admin: 06/07/22 09:54 Dose: 10 mg Dextrose (Dextrose 50 % 25 Gm/50 Ml Syringe) 25 gm IVPUSH Q15M PRN; Protocol PRN Reason: per Hypoglycemia Standing Ord. Dextrose (Dextrose 50 % 25 Gm/50 Ml Syringe) 25 gm IVPUSH Q15M PRN; Protocol PRN Reason: per Hypoglycemia Standing Ord. Dextrose (Dextrose 50 % 25 Gm/50 Ml Syringe) 25 gm IVPUSH Q15M PRN PRN Reason: per Hypoglycemia Standing Ord. Docusate Sodium (Docusate Sodium 100 Mg Capsule) 100 mg PO DAILY PRN PRN Reason: Constipation Last Admin: 06/07/22 09:56 Dose: 100 mg Doxazosin Mesylate (Doxazosin Mesylate 2 Mg Tablet) 8 mg PO BEDTIME [facility]; Protocol Last Admin: 06/07/22 21:20 Dose: 8 mg Enoxaparin Sodium (Enoxaparin Sodium 30 Mg/0.3 Ml Syringe) 30 mg SUBCUT Q24H [facility] Last Admin: 06/08/22 01:27 Dose: 30 mg Gabapentin (Gabapentin 300 Mg Capsule) 300 mg PO BEDTIME [facility] Last Admin: 06/07/22 21:20 Dose: 300 mg Glucose (Glucose Gel 15 Gm Gel..Gram.) 15 gm PO Q15M PRN; Protocol PRN Reason: per Hypoglycemia Standing Ord. Glucose (Glucose Gel 15 Gm Gel..Gram.) 15 gm PO Q15M PRN; Protocol PRN Reason: per Hypoglycemia Standing Ord. Hydrochlorothiazide (Hydrochlorothiazide 25 Mg Tablet) 25 mg PO DAILY [facility] Last Admin: 06/07/22 09:56 Dose: 25 mg Dextrose/Sodium Chloride (D51/2ns) 1,000 mls @ 100 mls/hr IVCONT .Q10H [facility] Insulin Human Lispro (Insulin Lispro 100 Unit/Ml 3 Ml Vial) 0 unit SUBCUT QIDACHS [facility]; Protocol Last Admin: 06/08/22 08:06 Dose: Not Given Loperamide HCl (Loperamide Hcl 2 Mg Capsule) 2 mg PO DAILY PRN PRN Reason: Loose Stool Metoprolol Succinate (Metoprolol Succinate Er 100 Mg Tab.Er.24h) 100 mg PO DAILY [facility]; Protocol Last Admin: 06/07/22 09:56 Dose: 100 mg Omeprazole (Omeprazole 20 Mg Capsule.Dr) 20 mg PO DAILY@0630 [facility] Last Admin: 06/08/22 05:36 Dose: 20 mg Ondansetron HCl (Ondansetron Hcl 4 Mg/2 Ml Vial) 4 mg IVPUSH Q8H PRN PRN Reason: Nausea and Vomiting Pharmacy Consult (Consult Rx Perform Med Rec) 1 each MISCELLANE ONCE PRN PRN Reason: Consult order Sodium Chloride (0.9 % Sodium Chloride Flush 3 Ml Syringe) [facility] Last Admin: 06/08/22 01:27 Dose: Not Given Home Medications Medication Instructions Recorded Confirmed Last Taken Type acetaminophen 500 mg tablet 1 tab PO Q4-6H PRN Pain (Scale 06/05/22 06/05/22 Unknown History Score 1-3) calcium carbonate 600 mg-vitamin 1 tab PO BID 06/05/22 06/05/22 06/04/22 History D3 10 mcg (400 unit) tablet chlorthalidone 25 mg tablet 1 tab PO DAILY 06/05/22 06/05/22 06/04/22 History doxazosin 8 mg tablet 1 tab PO BEDTIME 06/05/22 06/05/22 06/04/22 History gabapentin 300 mg capsule 1 cap PO BEDTIME 06/05/22 06/05/22 06/04/22 History loperamide 2 mg capsule 2 mg PO 1XD 06/05/22 06/05/22 06/04/22 History losartan 100 mg tablet 1 tab PO QAM 06/05/22 06/05/22 06/04/22 History metformin 1,000 mg tablet 1 tab PO 2XD 06/05/22 06/05/22 06/04/22 History metoprolol succinate 100 mg 1 tab PO DAILY 06/05/22 06/05/22 06/04/22 History tablet,extended release 24 hr omeprazole 20 mg capsule,delayed 1 cap PO DAILY 06/05/22 06/05/22 06/04/22 History release simvastatin 10 mg tablet 1 tab PO DAILY PRN Hypertension 06/05/22 06/05/22 06/04/22 History Physical Exam Vital Signs: Last Vital Signs Temp 97.6 F 06/08/22 07:53 Pulse 90 06/08/22 07:53 Resp 16 06/08/22 07:53 BP 166/77 H 06/08/22 07:53 Pulse Ox 92 06/08/22 07:53 O2 Del Method 06/08/22 07:53 O2 Flow Rate 1 06/08/22 03:33 BMI result Body Mass Index 27.4 Results Lab Results Result Diagrams: 06/06/22 05:16 06/08/22 05:12 Lab results: Chemistry 06/05/22 06/05/22 06/05/22 15:38 19:10 21:04 Sodium 143 141 142 Potassium 4.8 4.6 4.5 Carbon Dioxide 25 25 25 BUN 49 H 48 H 46 H Creatinine 2.28 H 2.17 H 2.06 H Calcium 9.1 8.6 8.4 06/06/22 06/07/22 06/08/22 05:16 05:13 05:12 Sodium 142 143 146 H Potassium 4.4 4.3 4.8 Carbon Dioxide 23 29 31 H BUN 41 H 28 H 23 H Creatinine 1.87 H 1.63 H 1.65 H Calcium 8.5 8.7 8.6 Hematology 06/05/22 06/06/22 15:38 05:16 WBC 5.8 6.9 Hgb 10.7 L 9.5 L Plt Count 210 185 Urinalysis 06/05/22 20:02 Urine Color Yellow Urine Appearance Cloudy Urine pH 5.0 Ur Specific [place] 1.020 Urine Protein Trace Urine Glucose (UA) Negative Urine Ketones Trace Urine Blood Negative Urine Nitrite Negative Ur Leukocyte Esterase Moderate (2+) H Urine RBC 0-2 Urine WBC 11-20 H Ur Squamous Epith Cells 11-20 Hyaline Casts 6-10 Assessment and Plan (1) Urinary tract infection: Status: Acute (2) MYAH (acute kidney injury): Status: Acute this 86-year-old female known to us for MYAH baseline creatinine is 1.04 more recently however in February the creatinine was 1.85 2.87 when she was admitted and now is down to 1.65 she has no proteinuria but she is admitted now with the UTI he is anemic so will check her iron stores the MYAH is resolving most likely pre renal azotemia she had a renal ultrasound in March that was within normal limits except for renal cysts (3) Chronic diarrhea: Status: Acute (4) Dizziness: Status: Acute (5) HTN (hypertension): Status: Acute Time Spent With Patient Time: Total time managing care of this patient today ____ minutes. Procedures Date of Service Date of Service: 06/08/22
[2022-06-08] MEDS: Metoprolol Succinate ER 100 MG TAB.ER.24H PO (09:49)
[2022-06-08] MEDS: amLODIPine Besylate 10 MG TABLET PO (09:49)
[2022-06-08] MEDS: hydroCHLOROthiazide 25 MG TABLET PO (09:49)
[2022-06-08] MEDS: Atorvastatin Calcium 10 MG TABLET PO (09:49)
[2022-06-08] MEDS: 0.9 % Sodium Chloride Flush 3 ML SYRINGE IVFLUSH (09:50)
[2022-06-08] MEDS: Dextrose 5 % and 0.45 % NaCl 1,000 ML 100 ML IVCONT (09:50)
[2022-06-08 10:04] LABS: Ferritin 62 ng/mL (10-250); Iron 39 mcg/dL (30-160); Percent Iron Saturation 21 % (15-50); Total Iron Binding Capacity 188 mcg/dL (228-428); Unsaturated Iron Binding 149 ug/dL
[2022-06-08 11:10] LABS: Glucose, Whole Blood 212 mg/dL (60-115)
[2022-06-08] MEDS: Insulin Lispro 100 UNIT/ML 3 ML VIAL SUBCUT (12:19)
[2022-06-08 12:22] LABS: Anion Gap 8 (12-20); Blood Urea Nitrogen 21 mg/dL (9-16); Calcium 8.5 mg/dL (8.4-10.2); Carbon Dioxide 32 mmol/L (22-29); Chloride 104 mmol/L (96-108); Creatinine Clr Calc Pharmacy 24.3; Estimated Glomerular Filt Rate 30; Glucose Random 201 mg/dL (60-115); Potassium 4.3 mmol/L (3.3-5.1); Sodium 140 mmol/L (135-145)
[2022-06-08 12:40] LABS: Campylobacter Not Detected (Not Detect.); Plesiomonas shigelloides Not Detected (Not Detect.); Salmonella Not Detected (Not Detect.); Vibrio Not Detected (Not Detect.); Vibrio Cholerae Not Detected (Not Detect.)
[2022-06-08 12:41] LABS: Adenovirus F 40/41 Not Detected (Not Detect.); Astrovirus Not Detected (Not Detect.); Cryptosporidium Not Detected (Not Detect.); Cyclospora cayetanensis Not Detected (Not Detect.); E. coli EAEC Not Detected (Not Detect.); E. coli EPEC Not Detected (Not Detect.); E. coli ETEC Not Detected (Not Detect.); E. coli O157 Not Detected (Not Detect.); E. coli STEC Not Detected (Not Detect.); Entamoeba histolytica Not Detected (Not Detect.); Giardia lamblia Not Detected (Not Detect.); Norovirus GI/GII Not Detected (Not Detect.); Rotavirus A Not Detected (Not Detect.); Sapovirus Not Detected (Not Detect.); Shigella sp./EIEC Not Detected (Not Detect.); Yersinia enterocolitica Not Detected (Not Detect.)
--- NOTE | 2022-06-08 13:09 | P.DS_ITS ---
DS: Providers Provider Date of Service: 06/08/22 Date of admission: 06/05/22 23:02 Primary care physician: Regine Bains MD Consults: 06/08/22 09:03 Consult to Nephrology Routine Consulting Provider: Andrew Herzog Reason for consultation: myah Has provider been notified: No DS: Diagnosis Discharge Diagnosis (1) Urinary tract infection: Status: Resolved (2) MYAH (acute kidney injury): Status: Resolved (3) Dizziness: Status: Resolved DS: Summary Hospital Course Hospital Course: history of presenting illness: Date of Service: 06/05/22 Chief Complaint: weakness This is an 86-year-old female with past medical history of diabetes, chronic diarrhea, hypertension, comes in from home brought in by her daughter for complaints of fall, and dizziness.? Patient is Frisian-speaking only, history is obtained mostly from her daughter.? Her daughter at bedside reports the patient has had chronic diarrhea, and has had progressive weakness, she been complaining of increased dizziness.? And poor oral intake.? They have noticed that her oral intake has decreased over the past week.? Patient's daughter reports no nausea or vomiting, patient herself denies any abdominal pain, no fever chills, no weakness numbness or tingling, no headache or change in vision.? No shortness of breath, no cough, no lower extremity edema On arrival to the ED patient hemodynamically stable with an elevated blood pressure Labs are significant for WBC count of 6.9, hemoglobin of 10.7, hematocrit 34.5, creatinine of 2.28 which is increased from 1.85 in February of this year, BUN of 34, UA positive for leukocyte Estrace and WBC Patient given IV fluids with slight improvement her creatinine. hospital course 86-year-old female with past medical history of diabetes, hypertension comes in from home with complaints of dizziness, generalized weakness found to have MYAH as well as UTI # MYAH on CKD (unclear stage since no labs before February of this year available), recent outpatient renal ultrasound showed no obstruction, patient treated with IV fluids creatinine improved from 2.28-1.63, likely diarrhea contributing to MYAH patient seen by Dr. Herzog he recommend outpatient follow-up, since diarrhea improved, no lightheadedness or dizziness patient is being discharged home patient previously was on losartan that has been discontinued and replaced by Norvasc. # UTI-? initially thought to have UTI due to positive UA, however,urine culture showed mixed? heidi Therefore no further antibiotics warranted # chronic diarrhea-? no recurrent episode of diarrhea, noted stool for C diff positive but no toxin consistent with colonization since patient was having diarrhea will treat with by mouth vancomycin times 10 days # dizziness likely secondary to MYAH, resolved, orthostatic blood pressures negative. ? # diabetes mellitus fluctuating blood sugars, continue insulin sliding scale, diabetic diet on metformin twice daily at home due to acute renal failure hold metformin, will placed on glipizide 5 mg daily # hypertension: continue home medications hydrochlorothiazide, metoprolol, and place on amlodipine 10 mg recommend outpatient follow-up with Nephrology for blood pressure monitoring # hyperlipidemia - continue statin Time Spent with Patient Time attestation: Total time managing care of this patient today ____ minutes. Discharge coordination time: Greater than 30 minutes Quality: Safe Use of Opioids Does Pt have an Active Cancer Diagnosis on the Problem List?: No Quality: Stroke Does the patient have a stroke diagnosis?: No Physical Exam Vital Signs: Vital Signs: Last Vital Signs Temp 97.6 F 06/08/22 07:53 Pulse 90 06/08/22 07:53 Resp 16 06/08/22 07:53 BP 166/77 H 06/08/22 07:53 Pulse Ox 92 06/08/22 07:53 O2 Del Method 06/08/22 07:53 O2 Flow Rate 1 06/08/22 03:33 BMI result Body Mass Index 27.4 Const: Other: General? awake alert x3,resting comfortably in no acute distress.? Neck is supple no JVD. CVS? regular rate rhythm, Respiratory lungs clear to auscultation, no respiratory distress, no wheeze, no rhonchi. Gastrointestinal abdomen soft, nontender, bowel sounds audible, no guarding , no rigidity. Extremities no edema. Neuro nonfocal , speech clear. Skin no rash psych appropriate affect DS: Data Data Completed and Pending Labs on day of discharge: Laboratory Results - last 24 hr 06/07/22 06/07/22 06/07/22 15:45 19:22 19:26 Sodium Potassium Chloride Carbon Dioxide Anion Gap BUN Creatinine Estim Creat Clear Calc Estimated GFR POC Glucose 109 Random Glucose Calcium Iron TIBC % Saturation Unsat Iron Binding Ferritin Stool Leukocytes, Qual NEGATIVE Stl C. cayetanensis PCR Stool Rotavirus A PCR Stl Adenov F 40/41 PCR Stool Astrovirus (PCR) Stool Campylobacter PCR Stool Cryptosporidium PCR Stl Sh Tox Pr E STEC PCR Stool E coli O157 PCR Stl Enterotoxigenic E PCR Stool EPEC (PCR) Stool EAEC (PCR) Stl E. histolytica PCR Stool Giardia Lamblia PCR Stl P. shigelloides PCR Stool Salmonella PCR Stool Sapovirus (PCR) Stl Shigella/EIEC PCR St Y.enterocolitica PCR Stool Vibrio (PCR) Stl Vibrio cholerae PCR Stl Norovirus GI/GII PCR C. difficile Tox B Gene POSITIVE A* C. difficile Toxin A&B Negative C. difficile Interpret SEE NOTE 06/07/22 06/08/22 06/08/22 19:40 05:12 07:33 Sodium 146 H Potassium 4.8 Chloride 109 H Carbon Dioxide 31 H Anion Gap 11 L BUN 23 H Creatinine 1.65 H Estim Creat Clear Calc 24.3 Estimated GFR 30 POC Glucose 181 H 120 H Random Glucose 98 Calcium 8.6 Iron 39 TIBC 188 L % Saturation 21 Unsat Iron Binding 149 Ferritin 62 Stool Leukocytes, Qual Stl C. cayetanensis PCR Stool Rotavirus A PCR Stl Adenov F PCR Stool Astrovirus (PCR) Stool Campylobacter PCR Stool Cryptosporidium PCR Stl Sh Tox Pr E STEC PCR Stool E coli O157 PCR Stl Enterotoxigenic E PCR Stool EPEC (PCR) Stool EAEC (PCR) Stl E. histolytica PCR Stool Giardia Lamblia PCR Stl P. shigelloides PCR Stool Salmonella PCR Stool Sapovirus (PCR) Stl Shigella/EIEC PCR St Y.enterocolitica PCR Stool Vibrio (PCR) Stl Vibrio cholerae PCR Stl Norovirus GI/GII PCR C. difficile Tox B Gene C. difficile Toxin A&B C. difficile Interpret 06/08/22 06/08/22 06/08/22 11:04 11:28 Unknown Sodium 140 Potassium 4.3 Chloride 104 Carbon Dioxide 32 H Anion Gap 8 L BUN 21 H Creatinine 1.65 H Estim Creat Clear Calc 24.3 Estimated GFR 30 POC Glucose 212 H Random Glucose 201 H Calcium 8.5 Iron TIBC % Saturation Unsat Iron Binding Ferritin Stool Leukocytes, Qual Stl C. cayetanensis PCR Not Detected Stool Rotavirus A PCR Not Detected Stl Adenov F PCR Not Detected Stool Astrovirus (PCR) Not Detected Stool Campylobacter PCR Not Detected Stool Cryptosporidium PCR Not Detected Stl Sh Tox Pr E STEC PCR Not Detected Stool E coli O157 PCR Not Detected Stl Enterotoxigenic E PCR Not Detected Stool EPEC (PCR) Not Detected Stool EAEC (PCR) Not Detected Stl E. histolytica PCR Not Detected Stool Giardia Lamblia PCR Not Detected Stl P. shigelloides PCR Not Detected Stool Salmonella PCR Not Detected Stool Sapovirus (PCR) Not Detected Stl Shigella/EIEC PCR Not Detected St Y.enterocolitica PCR Not Detected Stool Vibrio (PCR) Not Detected Stl Vibrio cholerae PCR Not Detected Stl Norovirus GI/GII PCR Not Detected C. difficile Tox B Gene C. difficile Toxin A&B C. difficile Interpret Discharge Plan Discharge Patient Disposition: Home, Self-Care Discharge Diagnosis: MYAH on chronic kidney disease chronic diarrhea with C diff:colonization hypertension Referrals: Regine Alarcon MD [Primary Care Provider] - 1 Week Discharge Medications: New amlodipine 10 mg Tablet 10 mg PO DAILY Qty: 30 0RF Protocol: Hold for SBP< HOLD for SBP < : 90 vancomycin 125 mg Capsule 125 mg PO Q6H Qty: 40 0RF glipizide 5 mg tablet 5 mg PO DAILY Qty: 30 0RF Continued loperamide 2 mg capsule 2 mg PO 1XD metoprolol succinate 100 mg tablet extended release 24 hr 1 tab PO DAILY simvastatin 10 mg tablet 1 tab PO DAILY chlorthalidone 25 mg tablet 1 tab PO DAILY acetaminophen 500 mg tablet 1 tab PO Q4-6H PRN (Reason: Pain (Scale Score 1-3)) doxazosin 8 mg tablet 1 tab PO BEDTIME gabapentin 300 mg capsule 1 cap PO BEDTIME omeprazole 20 mg capsule,delayed release(DR/EC) 1 cap PO DAILY calcium carbonate-vitamin D3 600 mg-10 mcg (400 unit) tablet 1 tab PO BID Discontinued metformin 1,000 mg tablet 1 tab PO 2XD losartan 100 mg tablet 1 tab PO QAM Discharge Orders: Discharge Order (Routine); Ordered 06/08/22 Ordered By: Aaron Bueno Diet: Diabetic diet Activity on Discharge: As tolerated Stand Alone Forms: Patient Portal Discharge page Care Plan Goals: take vancomycin 125 mg 4 times per day for 10 days for diarrhea, started on Norvasc 10 mg daily for high blood pressure stop valsartan and metformin due to renal disease Health Concerns: continue all medications as prescribed Plan of Treatment: outpatient follow-up with Nephrology Dr. Herzog in 1 week Assessment: as above Discharge Date/Time: 06/08/22 15:45
--- NOTE | 2022-06-08 13:33 | MHC.CM.PN ---
DP: PT MEDIALLY CLEARED FOR DISCHARGE HOME, NO SERVICES. RN AWARE. FAMILY WILL TRANSPORT.
[2022-06-08] MEDS: vancomycin HCL 125 MG CAPSULE PO (14:25)
== END 2022-06-08 15:45 | disposition home or self-care (01) ==
LOC: HO.ED 23:17 → HO.EDOVER 23:18 → HO.S3 23:49
PROVIDERS: Internal Medicine; Internal Medicine Nephrology; Physician Assistant Medical; Admitting Provider Internal Medicine; Emergency Provider Emergency Medicine; PCP Internal Medicine; Visit Provider Hospitalist
DX: N39.0 Urinary tract infection, site not specified (principal); E11.22 Type 2 diabetes mellitus with diabetic chronic kidney disease; I12.9 Hypertensive chronic kidney disease with stage 1 through stage 4 chronic kidney disease, or unspecified chronic kidney disease; N18.9 Chronic kidney disease, unspecified; N17.9 Acute kidney failure, unspecified; K52.9 Noninfective gastroenteritis and colitis, unspecified; R42 Dizziness and giddiness; Z20.822 Contact with and (suspected) exposure to COVID-19; E78.5 Hyperlipidemia, unspecified; Z79.84 Long term (current) use of oral hypoglycemic drugs; Z79.02 Long term (current) use of antithrombotics/antiplatelets; Z79.899 Other long term (current) drug therapy
CPT/HCPCS: 0241U; 36415; 70450; 71046; 72125; 73502; 80048; 80053; 81001; 82550; 82728; 82947; 83540; 83735; 84484; 85025; 85610; 87086; 87324; 87493; 87507; 89055; 93005; 96361; 96365; 96366; 96372; 96375; 99219; 99285; J0696; J1650

== ENCOUNTER 2022-06-13 08:17 | Inpatient (IN) | payer OTHER, SELFPAY ==
[2022-06-13 08:33] VITALS: BP 146/74; BP 157/100; PULSE 102; PULSE 72; RESP 21; TEMP 36.6; O2SAT 88; O2SAT 96; BMI 29.3
--- NOTE | 2022-06-13 09:05 | ED.SOB ---
HPI - SOB/Dyspnea General Chief Complaint: Dyspnea Stated Complaint: sick Time Seen by Provider: 06/13/22 08:42 Source: patient Mode of arrival: EMS Limitations: no limitations History of Present Illness HPI Narrative: Patient is an 87-year-old female who presents to the emergency department via EMS with her daughter; reina. Patient without any physical complaints at this time. Patient's daughter providing history predominantly. Her daughter reports that since she was discharged from the hospital she has been noticing her O2 saturation to be low when placing the probe on her finger. Daughter states at times it is as low as 83-84% on room air. Today she noticed as low as 60-70 some. She states that she contacted the nursing phone number from discharge paperwork, when having her mother take deep breaths as instructed by the nurse her O2 saturation did improve to the 90s. However she was advised to come back to the emergency department. She reports noting increased dyspnea on exertion with things such as transfer from the bed to the commode and while assisting her downstairs at home. Her daughter also reports right greater than left pedal edema which is atypical for her. Denies any fevers. Patient denies chest pain, shortness of breath at rest, nausea, vomiting, abdominal pain, persistent diarrhea. Related Data Home Medications Medication Instructions Recorded Confirmed acetaminophen 500 mg tablet 1 tab PO Q4-6H PRN Pain (Scale 06/05/22 06/13/22 Score 1-3) calcium carbonate 600 mg-vitamin 1 tab PO BID 06/05/22 06/13/22 D3 10 mcg (400 unit) tablet chlorthalidone 25 mg tablet 1 tab PO DAILY 06/05/22 06/13/22 doxazosin 8 mg tablet 1 tab PO BEDTIME 06/05/22 06/13/22 gabapentin 300 mg capsule 1 cap PO BEDTIME 06/05/22 06/13/22 loperamide 2 mg capsule 2 mg PO 1XD 06/05/22 06/13/22 metoprolol succinate 100 mg 1 tab PO DAILY 06/05/22 06/13/22 tablet,extended release 24 hr omeprazole 20 mg capsule,delayed 1 cap PO DAILY 06/05/22 06/13/22 release simvastatin 10 mg tablet 1 tab PO DAILY 06/05/22 06/13/22 Previous Rx's Medication Instructions Recorded amlodipine 10 mg tablet 10 mg PO DAILY #30 tabs 06/08/22 glipizide 5 mg tablet 5 mg PO DAILY #30 tabs 06/08/22 vancomycin 125 mg capsule 125 mg PO Q6H #40 caps 06/08/22 Allergies Allergy/AdvReac Type Severity Reaction Status Date / Time No Known Allergies Allergy Unverified 03/05/20 19:07 [No Known Allergies*] Review of Systems Review of Systems: Constitutional: No fever, chills. Positive fatigue Skin: No rash or itching. Cardiovascular: No chest pain. No palpitations. Positive pedal edema. Respiratory: Positive dyspnea on exertion. No shortness of breath at rest. Gastrointestinal: No nausea or vomiting. No abdominal pain or blood in stool. Genitourinary: No burning micturition. No urinary frequency or incontinence. Musculoskeletal: No muscle pain, back pain, joint pain or stiffness. Yes all other systems are reviewed and are negative [facility] Past Medical History Attestation statement: The following information was validated with the patient. Source: old records reviewed Medical History Arthritis Diabetes History of glaucoma Hypertension Legally blind Surgical History No pertinent past surgical history Family History Family History Other Diabetes Social History Social History Household Members: Children Housing: House Do you presently have visiting nurse or other home services: Yes (Caregiver/[employer]) Alcohol intake: never Patient Tobacco Use Status: Never used Tobacco Current occupational status: retired Physical Exam Vital Signs: Vital Signs: Last Vital Signs Temp 97.9 F 06/13/22 08:33 Pulse 72 06/13/22 08:33 Resp 21 H 06/13/22 08:33 BP 146/74 H 06/13/22 08:33 Pulse Ox 88 L 06/13/22 08:33 O2 Del Method 06/13/22 08:33 BMI result Body Mass Index 29.3 Appearance: Alert.?Oriented to person, place and time. No acute distress.?Normal affect. Eyes: Pupils equal, round and reactive to light.? ENT: Pharynx normal.?? Neck: Normal inspection.? Neck supple.?? CVS: Heart sounds normal. Normal heart rate and rhythm.? Pulses normal.?? Respiratory: No respiratory distress.? Lung sounds with rhonchi in upper lobes, diminished at the bases.?? Abdomen: Soft and non-tender. Normoactive bowel sounds. ? Skin: Skin warm and dry.? Normal skin color.? Extremities: 1+ pitting pedal edema bilaterally Neuro: Moves all extremities spontaneously. Sensation intact bilaterally.. No focal neuro deficits. Course Reevaluation(s) Reevaluation #1: CBC reveals a normocytic anemia which appears consistent with baseline, not needing transfusion criteria. CMP reveals BUN and creatinine 31 and 1.9 respectively which is increased from prior on 06/08 21/1.65 respectively. D-dimer to 270, however when age adjusted, VTE is unlikely cut off would be 430. BNP 347, Chest x-ray revealing prominent pulmonary veins suggesting pulmonary venous hypertensionn diffuse interstitial prominence, small right basilar density suggesting edema with small right effusion, will treat with Lasix 20 mg IV. Spoke with hospitalist team, who accepts patient for admission to medicine service for new onset CHF, MYAH, and acute respiratory failure with hypoxia. Time: 11:30 Medications Administered Generic Name Dose Route Start Last Admin Trade Name Freq PRN Reason Stop Dose Admin Heparin Sodium (Porcine) 5,000 unit 06/13/22 18:00 06/13/22 17:55 Heparin Sodium,Porcine 5,000 Unit/Ml Vial SUBCUT 5,000 unit Q12H VISHAL Administration Insulin Human Lispro 0 unit 06/13/22 16:30 06/13/22 17:54 Insulin Lispro 100 Unit/Ml 3 Ml Vial SUBCUT 2 unit QIDACHS VISHAL Administration Protocol Vancomycin HCl 125 mg 06/13/22 14:00 06/13/22 14:20 Vancomycin Hcl 125 Mg Capsule PO 125 mg Q6H VISHAL Administration Discontinued Medications Generic Name Dose Route Start Last Admin Trade Name Freq PRN Reason Stop Dose Admin Furosemide 20 mg 06/13/22 12:59 06/13/22 14:20 Furosemide 20 Mg/2 Ml Vial IVPUSH 06/13/22 13:00 20 mg ONCE ONE Administration Protocol Medical Decision Making Medical Decision Making MDM Narrative: Patient is an 87-year-old female with a past medical history of diabetes, chronic diarrhea, hypertension presented to the emergency department via EMS with daughter for evaluation of shortness of breath and room air hypoxia. Patient not endorsing any complaints when asked, patient's daughter states that she typically will not complain of anything even when she is sick. Nursing staff reported that after removing supplemental oxygen placed by EMS, O2 saturation was noted to drop as low as 88% before she was placed back on O2, this was while at rest. Will obtain CBC to evaluate for leukocytosis/ anemia, CMP to evaluate for abnormal electrolytes /abnormal renal function/ abnormal hepatic function, D-Dimer to exclude PE, BNP, EKG and troponin to evaluate for ischemia/ACS. Chest x-ray to evaluate for consolidation/ infiltrate/ mass/ pulmonary congestion and Urinalysis. Differential Diagnosis Differential Diagnoses: The differential diagnosis associated with the presentation includes (Viral upper respiratory infection, pneumonia, MYAH, new onset CHF, ACS, pulmonary embolism) Consult Healthcare Provider Management of the patient was discussed with: Hospitalist (Dr. Mcdonald, accepts patient for admission to medicine service for new onset CHF, acute hypoxic respiratory failure.) Lab Data MDM Lab Attestation statement: I reviewed the patient's lab results. Result Diagrams: 06/13/22 10:13 06/13/22 10:13 Labs: Lab Results 06/13/22 06/13/22 06/13/22 Range/Units 09:25 09:25 10:13 WBC 6.2 (4.8-10.8) X10*3/uL RBC 3.19 L (4.20-5.50) X10*6/uL Hgb 9.6 L (12.0-16.0) g/dl Hct 30.9 L (37.0-47.0) % MCV 96.9 (80.0-98.0) fL MCH 30.1 (27.0-33.0) pg MCHC 31.1 (31.0-35.0) g/dl RDW 12.5 (11.0-16.0) % Plt Count 240 D (160-400) X10*3/uL MPV 10.8 (9.4-12.3) fL Immature Gran % (Auto) 0.3 (0.0-0.4) % Neut % (Auto) 59.4 (45-73) % Lymph % (Auto) 28.0 (20-40) % [place] % (Auto) 8.7 (2-11) % Eos % (Auto) 3.1 (0-4) % Baso % (Auto) 0.5 (0-2) % Lymph # (Auto) 1.7 (1.2-4.9) X10*3/uL [place] # (Auto) 0.5 (0.1-1.2) X10*3/uL Eos # (Auto) 0.2 (0.0-0.4) X10*3/uL Baso # (Auto) 0.0 (0.0-0.2) X10*3/uL Abs Immat Gran (auto) 0.02 (0.00-0.03) X10*3/uL Absolute Neuts (auto) 3.7 (2.0-8.3) x10*3/uL Absolute Nucleated RBC 0.000 (0.0-0.012) X10*3/uL Nucleated RBC % (auto) 0.0 (0.0-0.2) /100WBC D-Dimer High Sensitivty NG/ML Sodium (135-145) mmol/L Potassium (3.3-5.1) mmol/L Chloride (96-108) mmol/L Carbon Dioxide (22-29) mmol/L Anion Gap (12-20) BUN (9-16) mg/dL Creatinine (0.5-1.4) mg/dL Estim Creat Clear Calc Estimated GFR Random Glucose (60-115) mg/dL Lactic Acid (0.5-2.0) mmol/L Calcium (8.4-10.2) mg/dL Magnesium (1.6-2.6) mg/dL Total Bilirubin (0.0-1.0) mg/dL AST (5-31) U/L ALT (0-31) U/L Alkaline Phosphatase (39-117) U/L Troponin I High Sens (<3.5-17.0) ng/L B-Natriuretic Peptide (<100) pg/mL Total Protein (6.5-8.0) g/dL Albumin (3.5-5.0) g/dL Urine Color Urine Appearance Urine pH (5.0-9.0) Ur Specific [place] (1.005-1.025) Urine Protein (Neg-Trace) mg/dL Urine Glucose (UA) (Negative) mg/dL Urine Ketones (Negative) mg/dL Urine Blood (Negative) Urine Nitrite (Negative) Ur Leukocyte Esterase (Negative) COVID-19 (ZONIA) Negative (Negative) COVID-19 Clin Com See Note Influenza Type A (GARETT) Negative (Negative) Influenza Type B (GARETT) Negative (Negative) Influenza A & B Note See Note 06/13/22 06/13/22 06/13/22 Range/Units 10:13 10:13 10:13 WBC (4.8-10.8) X10*3/uL RBC (4.20-5.50) X10*6/uL Hgb (12.0-16.0) g/dl Hct (37.0-47.0) % MCV (80.0-98.0) fL MCH (27.0-33.0) pg MCHC (31.0-35.0) g/dl RDW (11.0-16.0) % Plt Count (160-400) X10*3/uL MPV (9.4-12.3) fL Immature Gran % (Auto) (0.0-0.4) % Neut % (Auto) (45-73) % Lymph % (Auto) (20-40) % [place] % (Auto) (2-11) % Eos % (Auto) (0-4) % Baso % (Auto) (0-2) % Lymph # (Auto) (1.2-4.9) X10*3/uL [place] # (Auto) (0.1-1.2) X10*3/uL Eos # (Auto) (0.0-0.4) X10*3/uL Baso # (Auto) (0.0-0.2) X10*3/uL Abs Immat Gran (auto) (0.00-0.03) X10*3/uL Absolute Neuts (auto) (2.0-8.3) x10*3/uL Absolute Nucleated RBC (0.0-0.012) X10*3/uL Nucleated RBC % (auto) (0.0-0.2) /100WBC D-Dimer High Sensitivty NG/ML Sodium 139 (135-145) mmol/L Potassium 4.9 (3.3-5.1) mmol/L Chloride 102 (96-108) mmol/L Carbon Dioxide 31 H (22-29) mmol/L Anion Gap 11 L (12-20) BUN 31 H (9-16) mg/dL Creatinine 1.90 H (0.5-1.4) mg/dL Estim Creat Clear Calc 21.3 Estimated GFR 25 Random Glucose 126 H (60-115) mg/dL Lactic Acid 0.6 (0.5-2.0) mmol/L Calcium 8.7 (8.4-10.2) mg/dL Magnesium 2.2 (1.6-2.6) mg/dL Total Bilirubin 0.3 (0.0-1.0) mg/dL AST 16 (5-31) U/L ALT 10 (0-31) U/L Alkaline Phosphatase 75 (39-117) U/L Troponin I High Sens 6.9 (<3.5-17.0) ng/L B-Natriuretic Peptide (<100) pg/mL Total Protein 6.8 (6.5-8.0) g/dL Albumin 3.4 L (3.5-5.0) g/dL Urine Color Urine Appearance Urine pH (5.0-9.0) Ur Specific [place] (1.005-1.025) Urine Protein (Neg-Trace) mg/dL Urine Glucose (UA) (Negative) mg/dL Urine Ketones (Negative) mg/dL Urine Blood (Negative) Urine Nitrite (Negative) Ur Leukocyte Esterase (Negative) COVID-19 (ZONIA) (Negative) COVID-19 Clin Com Influenza Type A (GARETT) (Negative) Influenza Type B (GARETT) (Negative) Influenza A & B Note 06/13/22 06/13/22 06/13/22 Range/Units 10:13 10:13 11:47 WBC (4.8-10.8) X10*3/uL RBC (4.20-5.50) X10*6/uL Hgb (12.0-16.0) g/dl Hct (37.0-47.0) % MCV (80.0-98.0) fL MCH (27.0-33.0) pg MCHC (31.0-35.0) g/dl RDW (11.0-16.0) % Plt Count (160-400) X10*3/uL MPV (9.4-12.3) fL Immature Gran % (Auto) (0.0-0.4) % Neut % (Auto) (45-73) % Lymph % (Auto) (20-40) % [place] % (Auto) (2-11) % Eos % (Auto) (0-4) % Baso % (Auto) (0-2) % Lymph # (Auto) (1.2-4.9) X10*3/uL [place] # (Auto) (0.1-1.2) X10*3/uL Eos # (Auto) (0.0-0.4) X10*3/uL Baso # (Auto) (0.0-0.2) X10*3/uL Abs Immat Gran (auto) (0.00-0.03) X10*3/uL Absolute Neuts (auto) (2.0-8.3) x10*3/uL Absolute Nucleated RBC (0.0-0.012) X10*3/uL Nucleated RBC % (auto) (0.0-0.2) /100WBC D-Dimer High Sensitivty 270 NG/ML Sodium (135-145) mmol/L Potassium (3.3-5.1) mmol/L Chloride (96-108) mmol/L Carbon Dioxide (22-29) mmol/L Anion Gap (12-20) BUN (9-16) mg/dL Creatinine (0.5-1.4) mg/dL Estim Creat Clear Calc Estimated GFR Random Glucose (60-115) mg/dL Lactic Acid (0.5-2.0) mmol/L Calcium (8.4-10.2) mg/dL Magnesium (1.6-2.6) mg/dL Total Bilirubin (0.0-1.0) mg/dL AST (5-31) U/L ALT (0-31) U/L Alkaline Phosphatase (39-117) U/L Troponin I High Sens (<3.5-17.0) ng/L B-Natriuretic Peptide 347 H (<100) pg/mL Total Protein (6.5-8.0) g/dL Albumin (3.5-5.0) g/dL Urine Color Yellow Urine Appearance Clear Urine pH 5.5 (5.0-9.0) Ur Specific [place] 1.010 (1.005-1.025) Urine Protein Negative (Neg-Trace) mg/dL Urine Glucose (UA) Negative (Negative) mg/dL Urine Ketones Negative (Negative) mg/dL Urine Blood Negative (Negative) Urine Nitrite Negative (Negative) Ur Leukocyte Esterase Negative (Negative) COVID-19 (ZONIA) (Negative) COVID-19 Clin Com Influenza Type A (GARETT) (Negative) Influenza Type B (GARETT) (Negative) Influenza A & B Note Independent Interpretation I performed an independent interpretation of an: EKG and Plain X-Ray Interpretation: I have personally interpreted the chest x-ray and agree with radiologist interpretation. Rate: 71 Rhythm:? Sinus rhythm Normal P waves.? Normal ROSELYN.?? Normal QRS complex.?? ST T wave :??No ST elevation, no ST depression qTC: 436 prior studies:?06/05/2022 The study has been interpreted contemporaneously by me. Radiology Impression Discussion of test interpretation with radiology: I have reviewed the radiologist's reading. Radiologist Impression: XR/XR chest 2V FINDINGS/IMPRESSION: ? Findings suggest prominence of the pulmonary veins in the nondependent portions, suggesting pulmonary venous hypertension. Suspect superimposed mild diffuse interstitial prominence and possible Vy B-lines with small right basilar hazy density, suggesting edema with small right effusion. ? The cardiac silhouette is poorly evaluated, probably enlarged. The aorta is mildly atherosclerotic and uncoiled, raising the possibility of hypertension. ? There are mild degenerative changes of the spine, with thoracic dextrocurvature. Independent Historian Clinical information obtained from an independent historian. History obtained from or confirmed by: Other (Daughter; Monica) External Record Review External record reviewed: Inpatient record Patient was admitted to the hospital 06/05/2022 and discharged 06/08/2022; presented to ED after a fall in complaint of dizziness, found to have MYAH on CKD, Nephrology was consulted with recommendation for outpatient follow-up, chronic diarrhea noted to be C diff positive likely colonization but being treated with vancomycin for total of 10 days, urinalysis during admission revealing likely urogenital contamination. O2 saturation during hospital admission appears to be around 92%-96% on O2 via [place] Discharge Plan Discharge Clinical Impression: Acute respiratory failure with hypoxia, MYAH (acute kidney injury), Congestive heart failure Patient Disposition: Admitted As Inpatient Interventions: Admission Worksheet (ED) Last Done: 06/13/22 17:19 Discharge Date/Time: 06/13/22 17:20
[2022-06-13 10:07] LABS: COVID-19 Test Negative (Negative); IDNOW Serial# 16C4AD1C; IDNOW Serial# BCCEAD1C; Influenza A Negative (Negative); Influenza B2 Negative (Negative)
[2022-06-13 10:25] LABS: MANUAL DIFF FLAG NO
[2022-06-13 10:27] LABS: Basophils Percent Auto 0.5 % (0-2); Eosinophils Absolute Auto 0.2 X10*3/uL (0.0-0.4); Eosinophils Percent Auto 3.1 % (0-4); Hematocrit 30.9 % (37.0-47.0); Hemoglobin 9.6 g/dl (12.0-16.0); Imm Gran Abs Auto 0.02 X10*3/uL (0.00-0.03); Imm Gran Pct Auto 0.3 % (0.0-0.4); Lymphocytes Absolute Auto 1.7 X10*3/uL (1.2-4.9); Mean Corpuscular HGB Conc 31.1 g/dl (31.0-35.0); Mean Corpuscular Hemoglobin 30.1 pg (27.0-33.0); Mean Corpuscular Volume 96.9 fL (80.0-98.0); Mean Platelet Volume 10.8 fL (9.4-12.3); Monocytes Absolute Auto 0.5 X10*3/uL (0.1-1.2); Monocytes Percent Auto 8.7 % (2-11); Neutrophils Absolute Auto 3.7 x10*3/uL (2.0-8.3); Neutrophils Percent Auto 59.4 % (45-73); Platelet Count 240 X10*3/uL (160-400); Red Blood Count 3.19 X10*6/uL (4.20-5.50); Red Cell Distribution Width 12.5 % (11.0-16.0); White Blood Count 6.2 X10*3/uL (4.8-10.8)
[2022-06-13 10:35] LABS: D Dimer High Sensitivity 270 NG/ML
--- NOTE | 2022-06-13 10:43 | ECG_ITS ---
Test Reason : DYSPNEA Blood Pressure : / mmHG Vent. Rate : 071 BPM Atrial Rate : 071 BPM P-R Int : 184 ms QRS Dur : 072 ms QT Int : 402 ms P-R-T Axes : 083 002 029 degrees QTc Int : 436 ms Sinus rhythm with Premature supraventricular complexes Low voltage QRS Borderline ECG When compared with ECG of 05-JUN-2022 19:26, Premature supraventricular complexes are now Present Referred By: Desi Pino Electronically Signed By:Deng Zhang
[2022-06-13 10:56] LABS: Lactic Acid 0.6 mmol/L (0.5-2.0)
[2022-06-13 11:04] LABS: B Type Natriuretic Peptide 347 pg/mL (<100)
[2022-06-13 11:08] LABS: Alanine Aminotransferase 10 U/L (0-31); Albumin Level 3.4 g/dL (3.5-5.0); Alkaline Phosphatase 75 U/L (39-117); Anion Gap 11 (12-20); Aspartate Amino Transferase 16 U/L (5-31); Bilirubin Total 0.3 mg/dL (0.0-1.0); Blood Urea Nitrogen 31 mg/dL (9-16); Calcium 8.7 mg/dL (8.4-10.2); Carbon Dioxide 31 mmol/L (22-29); Chloride 102 mmol/L (96-108); Creatinine Clr Calc Pharmacy 21.3; Estimated Glomerular Filt Rate 25; Glucose Random 126 mg/dL (60-115); Magnesium 2.2 mg/dL (1.6-2.6); Potassium 4.9 mmol/L (3.3-5.1); Sodium 139 mmol/L (135-145); Total Protein 6.8 g/dL (6.5-8.0); Troponin-I High Sensitivity 6.9 ng/L (<3.5-17.0)
--- NOTE | 2022-06-13 11:31 | PHA.MEDREC ---
Pharmacy Consult ? Medication Reconciliation Pharmacy has completed the medication reconciliation. Patient just discharged 06/[address] [facility] [place]. Med rec done by discharge summary. Niharika Barnard, MiquelD
[2022-06-13 11:54] LABS: Appearance Urine Clear; Color Urine Yellow; Glucose Urine UA Negative (Negative); Leukocyte Esterase Urine Negative (Negative); Nitrite Urine Negative (Negative); PH 5.5 (5.0-9.0); Urine Blood Negative (Negative); Urine Ketones Negative (Negative); Urine Protein Negative (Neg-Trace)
--- NOTE | 2022-06-13 13:23 | PM.IMHP ---
History of Present Illness Date of Service: 06/13/22 Chief Complaint: shortness of breath, weakness an 87 years old lady with PMH HTN, diabetes, chronic diarrhea with recent hospitalization for Jimenez I who presents back with worsening shortness of breath and increased weakness. the patient is strictly Georgian speaker and history was taken from her granddaughter. Reports that the patient since discharge has been suffering from difficulty breathing that became more notable over the last 2 days as she could not lay back comfortably in her bed, woke up more than once during the night with shortness of breath, denies any fever, chills, chest pain, palpitation, nausea, vomiting, change in bowel habit or urinary symptoms. Oxygen level was checked at home and was mid 80s dropping to 70s according to family. Family also reported increased edema in her lower extremities. The emergency CXR was consistent with fluid overload along with elevated BNP. Admitted for further evaluation and treatment. Review of Systems Review of Systems: No fever, chills But reports generalized weakness No chest pain, palpitation reporting dyspnea on exertion and laying down No abdominal pain, nausea or vomiting No urinary symptoms No any rash or wounds PMFSH Medical History Arthritis Diabetes History of glaucoma Hypertension Legally blind Family History Other Diabetes Surgical History No pertinent past surgical history Social History Household Members: None Housing: House Alcohol intake: never Patient Tobacco Use Status: Never used Tobacco Advance Directives: No Advance Directives Information Provided: Yes Current occupational status: retired Meds Allergies Allergy/AdvReac Type Severity Reaction Status Date / Time No Known Allergies Allergy Unverified 03/05/20 19:07 [No Known Allergies*] Active Medications: Current Medications Pharmacy Consult (Consult Rx Perform Med Rec) 1 each MISCELLANE ONCE PRN PRN Reason: Consult order Home Medications Medication Instructions Recorded Confirmed Last Taken Type acetaminophen 500 mg tablet 1 tab PO Q4-6H PRN Pain (Scale 06/05/22 06/13/22 Unknown History Score 1-3) calcium carbonate 600 mg-vitamin 1 tab PO BID 06/05/22 06/13/22 06/04/22 History D3 10 mcg (400 unit) tablet chlorthalidone 25 mg tablet 1 tab PO DAILY 06/05/22 06/13/22 06/04/22 History doxazosin 8 mg tablet 1 tab PO BEDTIME 06/05/22 06/13/22 06/04/22 History gabapentin 300 mg capsule 1 cap PO BEDTIME 06/05/22 06/13/22 06/04/22 History loperamide 2 mg capsule 2 mg PO 1XD 06/05/22 06/13/22 06/04/22 History metoprolol succinate 100 mg 1 tab PO DAILY 06/05/22 06/13/22 06/04/22 History tablet,extended release 24 hr omeprazole 20 mg capsule,delayed 1 cap PO DAILY 06/05/22 06/13/22 06/04/22 History release simvastatin 10 mg tablet 1 tab PO DAILY 06/05/22 06/13/22 06/04/22 History Physical Exam Vital Signs and Narrative: Vital Signs: Last Vital Signs Temp 97.9 F 06/13/22 08:33 Pulse 72 06/13/22 08:33 Resp 21 H 06/13/22 08:33 BP 146/74 H 06/13/22 08:33 Pulse Ox 88 L 06/13/22 08:33 O2 Del Method 06/13/22 08:33 BMI result Body Mass Index 29.3 Const: Other: Constitutional : Awake, interactive, in mild respiratory distress Neck : Normal inspection, Supple Cardiovascular : RRR, no JVP, +1 bilateral lower extremity edema Respiratory : good bilateral air entry, basal bilateral fine crackles, in mild distress, on oxygen supplement Gastrointestinal: soft, lax, Normal bowel sounds, Non tender Skin : Warm, Dry Neurological : Alert & oriented x3, No focal deficit Results Labs CBC and Chem 7: 06/13/22 10:13 06/13/22 10:13 Labs: Laboratory Results - last 24 hr 06/13/22 06/13/22 06/13/22 09:25 09:25 10:13 MCV 96.9 MCH 30.1 MCHC 31.1 RDW 12.5 Plt Count 240 D MPV 10.8 Immature Gran % (Auto) 0.3 Neut % (Auto) 59.4 Lymph % (Auto) 28.0 [place] % (Auto) 8.7 Eos % (Auto) 3.1 Baso % (Auto) 0.5 Lymph # (Auto) 1.7 [place] # (Auto) 0.5 Eos # (Auto) 0.2 Baso # (Auto) 0.0 Abs Immat Gran (auto) 0.02 Absolute Neuts (auto) 3.7 Absolute Nucleated RBC 0.000 Nucleated RBC % (auto) 0.0 D-Dimer High Sensitivty Anion Gap Estim Creat Clear Calc Estimated GFR Random Glucose Lactic Acid Calcium Magnesium Total Bilirubin AST ALT Alkaline Phosphatase Troponin I High Sens B-Natriuretic Peptide Total Protein Albumin Urine Color Urine Appearance Urine pH Ur Specific [place] Urine Protein Urine Glucose (UA) Urine Ketones Urine Blood Urine Nitrite Ur Leukocyte Esterase COVID-19 (ZONIA) Negative COVID-19 Clin Com See Note Influenza Type A (GARETT) Negative Influenza Type B (GARETT) Negative Influenza A & B Note See Note 06/13/22 06/13/22 06/13/22 10:13 10:13 10:13 MCV MCH MCHC RDW Plt Count MPV Immature Gran % (Auto) Neut % (Auto) Lymph % (Auto) [place] % (Auto) Eos % (Auto) Baso % (Auto) Lymph # (Auto) [place] # (Auto) Eos # (Auto) Baso # (Auto) Abs Immat Gran (auto) Absolute Neuts (auto) Absolute Nucleated RBC Nucleated RBC % (auto) D-Dimer High Sensitivty Anion Gap 11 L Estim Creat Clear Calc 21.3 Estimated GFR 25 Random Glucose 126 H Lactic Acid 0.6 Calcium 8.7 Magnesium 2.2 Total Bilirubin 0.3 AST 16 ALT 10 Alkaline Phosphatase 75 Troponin I High Sens 6.9 B-Natriuretic Peptide Total Protein 6.8 Albumin 3.4 L Urine Color Urine Appearance Urine pH Ur Specific [place] Urine Protein Urine Glucose (UA) Urine Ketones Urine Blood Urine Nitrite Ur Leukocyte Esterase COVID-19 (ZONIA) COVID-19 Clin Com Influenza Type A (GARETT) Influenza Type B (GARETT) Influenza A & B Note 06/13/22 06/13/22 06/13/22 10:13 10:13 11:47 MCV MCH MCHC RDW Plt Count MPV Immature Gran % (Auto) Neut % (Auto) Lymph % (Auto) [place] % (Auto) Eos % (Auto) Baso % (Auto) Lymph # (Auto) [place] # (Auto) Eos # (Auto) Baso # (Auto) Abs Immat Gran (auto) Absolute Neuts (auto) Absolute Nucleated RBC Nucleated RBC % (auto) D-Dimer High Sensitivty 270 Anion Gap Estim Creat Clear Calc Estimated GFR Random Glucose Lactic Acid Calcium Magnesium Total Bilirubin AST ALT Alkaline Phosphatase Troponin I High Sens B-Natriuretic Peptide 347 H Total Protein Albumin Urine Color Yellow Urine Appearance Clear Urine pH 5.5 Ur Specific [place] 1.010 Urine Protein Negative Urine Glucose (UA) Negative Urine Ketones Negative Urine Blood Negative Urine Nitrite Negative Ur Leukocyte Esterase Negative COVID-19 (ZONIA) COVID-19 Clin Com Influenza Type A (GARETT) Influenza Type B (GARETT) Influenza A & B Note Imaging Radiologist's Impressions: Impressions Chest X-Ray 06/13/22 09:18 FINDINGS/IMPRESSION: Findings suggest prominence of the pulmonary veins in the nondependent portions, suggesting pulmonary venous hypertension. Suspect superimposed mild diffuse interstitial prominence and possible Vy B-lines with small right basilar hazy density, suggesting edema with small right effusion. The cardiac silhouette is poorly evaluated, probably enlarged. The aorta is mildly atherosclerotic and uncoiled, raising the possibility of hypertension. There are mild degenerative changes of the spine, with thoracic dextrocurvature. Assessment and Plan (1) Acute respiratory failure with hypoxia: Status: Acute (2) Congestive heart failure: Status: Acute (3) Physical deconditioning: Status: Acute Plan an 87 years old lady with PMH HTN, diabetes, chronic diarrhea with recent hospitalization for Jimenez I who presents back with worsening shortness of breath and increased weakness. acute hypoxic respiratory failure secondary to acute new onset heart failure, indeterminate Elevated BNP CXR showing fluid overload Start IV Lasix Wean oxygen down as tolerated Get an echo Cardiology consult Physical deconditioning To do PT evaluation Chronic diarrhea Found to have C diff antigen but no toxin Continue vancomycin, day 5 of 10 CKD stage 4 Stable disease Monitor intake and, follow BMP Type 2 diabetes Hold glipizide SSI, diabetic diet DVT PPX Heparin The patient will likely need 2. Night hospital stay with treatment acute hypoxic respiratory failure, CHF exacerbation pending echo and cardiology consult. Time Spent With Patient Time: Total time managing care of this patient today ____ minutes. Quality Stroke Does the patient have a stroke diagnosis?: No VTE Prior VTE?: No VTE Risk Level:: Medical - moderate - high VTE Device Contraindication: Treatment Not Indicated VTE Drug Contraindication: N/A - Med Ordered
[2022-06-13] MEDS: Furosemide 20 MG/2 ML VIAL IVPUSH (14:20)
[2022-06-13] MEDS: vancomycin HCL 125 MG CAPSULE PO ×2 (14:20→20:29)
[2022-06-13] MEDS: Insulin Lispro 100 UNIT/ML 3 ML VIAL SUBCUT (17:54)
[2022-06-13] MEDS: Heparin Sodium,Porcine 5,000 UNIT/ML VIAL 5000 UNIT SUBCUT (17:55)
[2022-06-13 18:38] VITALS: BP 132/63; PULSE 72; RESP 18; TEMP 36.9; O2SAT 94
[2022-06-13] MEDS: Gabapentin 300 MG CAPSULE PO (20:28)
[2022-06-13] MEDS: Doxazosin Mesylate 2 MG TABLET 8 MG PO (20:28)
[2022-06-13 23:37] VITALS: BP 119/59; PULSE 83; RESP 16; TEMP 36.2; O2SAT 92
[2022-06-14 03:15] VITALS: BP 118/56; PULSE 80; RESP 16; TEMP 36.8; O2SAT 93
[2022-06-14] MEDS: vancomycin HCL 125 MG CAPSULE PO ×4 (03:17→20:41)
[2022-06-14] MEDS: Omeprazole 20 MG CAPSULE.DR PO (04:57)
[2022-06-14] MEDS: Heparin Sodium,Porcine 5,000 UNIT/ML VIAL 5000 UNIT SUBCUT ×2 (04:57→18:30)
[2022-06-14 06:00] LABS: B Type Natriuretic Peptide 257 pg/mL (<100)
[2022-06-14 06:17] LABS: Anion Gap 12 (12-20); Blood Urea Nitrogen 31 mg/dL (9-16); Calcium 8.6 mg/dL (8.4-10.2); Carbon Dioxide 33 mmol/L (22-29); Chloride 101 mmol/L (96-108); Creatinine Clr Calc Pharmacy 20.5; Estimated Glomerular Filt Rate 24; Glucose Random 113 mg/dL (60-115); Potassium 4.4 mmol/L (3.3-5.1); Sodium 142 mmol/L (135-145)
--- NOTE | 2022-06-14 07:00 | CA_ITS ---
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 Normal LV systolic function with mild LVH with impaired relaxation filling pattern elevated filling pressures 2. Moderate left atrial enlargement 3. Early aortic stenosis cannot be entirely ruled out 4. Moderate mitral calcification 5. Upper limits of normal right ventricular systolic pressure 6. Small effusion loculated near the LV Findings Left Ventricle Normal left ventricular size and systolic function. There is mildly increased left ventricular wall thickness. The visually estimated ejection fraction is between 65-70%. Spectral Doppler is indicative of an impaired relaxation filling pattern. Elevated filling pressures. E/E prime ratio is >15, consistent with elevated filling pressures. Right Ventricle Normal right ventricular cavity size and systolic function. Atria The left atrium is moderately dilated. There is lipomatous hypertrophy of the interatrial septum. There is no evidence of interatrial shunt. The right atrium is mildly dilated. Aortic Valve There is mild calcification of the aortic valve. There is mild thickening of the aortic valve. There is no aortic valve stenosis. There is no aortic valve regurgitation. Mitral Valve There is mild anterior and moderate posterior mitral leaflet thickening. There is moderate mitral annular calcification. There is trace mitral valve regurgitation. There is no mitral valve stenosis. Pulmonic Valve The pulmonic valve was not well visualized. Tricuspid Valve Likely normal tricuspid valve structure and function. There is mild tricuspid valve regurgitation. The right ventricular systolic pressure is 38 mmHg. Normal right atrial pressure. There is no evidence of pulmonary hypertension. Great Vessels All visible segments of the aorta are normal in size. The pulmonary artery was not well visualized. Venous The inferior vena cava is normal in size and collapses greater than 50% with inspiration. Pericardium/Pleural There is a small loculated pericardial effusion overlying the left ventricle. Prior Study Comparison No prior study available for comparison. Measurements 2D Linear Measurements IVSd: 1.23 0.6-0.9/0.6-1.0 cm LVIDd: 4.19 3.9-5.3/4.2-5.9 cm LVIDd Index: 2.29 2.4-3.2/2.2-3.1 cm/m2 LVIDs: 2.58 2.0-3.6 cm LVPWd: 1.21 0.7-1.1 cm Ao Root: 3.20 2.1-3.5 cm LA Diam: 4.10 2.7-3.8/3.0-4.0 cm LAIDs Index: 2.24 1.5-2.3 cm/m2 LV Mass: 226.59 67-162/88-224 g LV Mass Index: 123.82 43-95/49-115 g/m2 LVOT Diam: 2.00 3.0+(-)1.3 cm Mitral Valve MV VTI: 0.32 MV Pk Sathya: 1.18 MV Mn Sathya: 0.72 MV Pk Grad: 6.00 MV Mn Grad: 3.00 MV Pk E: 1.04 MV PK A: 1.21 MV Decel Time: 200.00 E/A: 0.90 E'Lateral: 6.31 E'Medial: 4.57 E/E' Med: 22.80 E/E' Lat: 16.50 PHT: 58.00 MVA PHT: 3.79 MVA Continuity: 3.78 Decel Burt: 5.19 Aortic Valve AoV Pk Sathya: 2.31 AoV Mn Sathya: 1.47 AoV VTI: 0.45 AoV Pk Grad: 21.00 Aov Mn Grad: 10.00 KENISHA Cont.VTI: 2.69 LVOT LVOT Pk Sathya: 1.66 LVOT Mn Sathya: 1.25 LVOT VTI: 0.39 LVOT Pk Grad: 11.00 LVOT Mn Grad: 7.00 LVOT Diam: 2.00 LVOT Area: 3.14 Diastolic Function MV Pk E: 1.04 MV Pk A: 1.21 E/A: 0.90 E'Medial: 4.57 E/E' Med: 22.80 E' Laterial: 6.31 E/E' Lat: 16.50 Right Ventricle TAPSE (mm): 22.00 Tricuspid Valve TR Pk Sathya: 2.97 TR Pk Grad: 35.00 RA Press: 3.00 RVSP: 38.00 Great Vessels Aorta Ao Root-2D: 3.20 2.0-3.7 cm Ao Asc: 3.20 2.1-3.4 cm Pulmonary Valve PV Pk Sathya: 0.98 Peak PV Grad: 4.00 Updated in Other Vendor System with Status of Final Anthony Lobo MD electronically signed on 06/14/2022 4:28:32 PM with status of Final
[2022-06-14 07:27] VITALS: BP 137/68; PULSE 81; RESP 20; TEMP 36.1; O2SAT 96
[2022-06-14] MEDS: Furosemide 40 MG/4 ML VIAL IVPUSH (08:06)
[2022-06-14] MEDS: amLODIPine Besylate 10 MG TABLET PO (08:07)
[2022-06-14] MEDS: Atorvastatin Calcium 10 MG TABLET PO (08:07)
[2022-06-14] MEDS: Loperamide HCl 2 MG CAPSULE PO (08:07)
[2022-06-14] MEDS: Metoprolol Succinate ER 100 MG TAB.ER.24H PO (08:07)
[2022-06-14 08:15] LABS: Glucose, Whole Blood 102 mg/dL (60-115)
--- NOTE | 2022-06-14 10:02 | P.CONNP_ITS ---
History of Present Illness Reason for Consult Consult date: 06/14/22 Chief Complaint Chief complaint: Hypoxia, SOB Review of Systems Review of Systems Yes all other systems are reviewed and are negative [facility] Past Medical History Medical History (Updated 06/14/22 @ 10:04 by Andrew Herzog MD) Arthritis CKD (chronic kidney disease) stage 3, GFR 30-59 ml/min Diabetes History of glaucoma Hypertension Legally blind Family History Family History Other Diabetes Surgical History Surgical History No pertinent past surgical history Social History Social History Household Members: Children Housing: House Do you presently have visiting nurse or other home services: Yes ([employer] DOWN [employer]) Alcohol intake: never Patient Tobacco Use Status: Never used Tobacco Current occupational status: retired Meds Allergies Allergy/AdvReac Type Severity Reaction Status Date / Time No Known Allergies Allergy Unverified 03/05/20 19:07 [No Known Allergies*] Active Medications: Current Medications Acetaminophen (Acetaminophen 325 Mg Tablet) 650 mg PO Q6H PRN PRN Reason: Pain, Mild (Pain Scale 1-3) Amlodipine Besylate (Amlodipine Besylate 10 Mg Tablet) 10 mg PO DAILY [facility]AL; Protocol Last Admin: 06/14/22 08:07 Dose: 10 mg Atorvastatin Calcium (Atorvastatin Calcium 10 Mg Tablet) 10 mg PO DAILY [facility] Last Admin: 06/14/22 08:07 Dose: 10 mg Doxazosin Mesylate (Doxazosin Mesylate 2 Mg Tablet) 8 mg PO BEDTIME [facility]; Protocol Last Admin: 06/13/22 20:28 Dose: 8 mg Furosemide (Furosemide 40 Mg/4 Ml Vial) 40 mg IVPUSH DAILY [facility]; Protocol Last Admin: 06/14/22 08:06 Dose: 40 mg Gabapentin (Gabapentin 300 Mg Capsule) 300 mg PO BEDTIME [facility] Last Admin: 06/13/22 20:28 Dose: 300 mg Heparin Sodium (Porcine) (Heparin Sodium,Porcine 5,000 Unit/Ml Vial) 5,000 unit SUBCUT Q12H [facility] Last Admin: 06/14/22 04:57 Dose: 5,000 unit Insulin Human Lispro (Insulin Lispro 100 Unit/Ml 3 Ml Vial) 0 unit SUBCUT QIDACHS [facility]; Protocol Last Admin: 06/14/22 08:04 Dose: Not Given Loperamide HCl (Loperamide Hcl 2 Mg Capsule) 2 mg PO DAILY [facility] Last Admin: 06/14/22 08:07 Dose: 2 mg Metoprolol Succinate (Metoprolol Succinate Er 100 Mg Tab.Er.24h) 100 mg PO DAILY [facility]; Protocol Last Admin: 06/14/22 08:07 Dose: 100 mg Omeprazole (Omeprazole 20 Mg Capsule.Dr) 20 mg PO DAILY@0630 [facility] Last Admin: 06/14/22 04:57 Dose: 20 mg Ondansetron HCl (Ondansetron Hcl 4 Mg/2 Ml Vial) 4 mg IVPUSH Q8H PRN PRN Reason: Nausea and Vomiting Pharmacy Consult (Consult Rx Perform Med Rec) 1 each MISCELLANE ONCE PRN PRN Reason: Consult order Vancomycin HCl (Vancomycin Hcl 125 Mg Capsule) 125 mg PO Q6H [facility] Last Admin: 06/14/22 08:07 Dose: 125 mg Home Medications Medication Instructions Recorded Confirmed Last Taken Type acetaminophen 500 mg tablet 1 tab PO Q4-6H PRN Pain (Scale 06/05/22 06/13/22 Unknown History Score 1-3) calcium carbonate 600 mg-vitamin 1 tab PO BID 06/05/22 06/13/22 06/04/22 History D3 10 mcg (400 unit) tablet chlorthalidone 25 mg tablet 1 tab PO DAILY 06/05/22 06/13/22 06/04/22 History doxazosin 8 mg tablet 1 tab PO BEDTIME 06/05/22 06/13/22 06/04/22 History gabapentin 300 mg capsule 1 cap PO BEDTIME 06/05/22 06/13/22 06/04/22 History loperamide 2 mg capsule 2 mg PO 1XD 06/05/22 06/13/22 06/04/22 History metoprolol succinate 100 mg 1 tab PO DAILY 06/05/22 06/13/22 06/04/22 History tablet,extended release 24 hr omeprazole 20 mg capsule,delayed 1 cap PO DAILY 06/05/22 06/13/22 06/04/22 History release simvastatin 10 mg tablet 1 tab PO DAILY 06/05/22 06/13/22 06/04/22 History Physical Exam Vital Signs: Last Vital Signs Temp 96.9 F 06/14/22 07:27 Pulse 81 06/14/22 07:27 Resp 20 06/14/22 07:27 BP 137/68 06/14/22 07:27 Pulse Ox 96 06/14/22 07:27 O2 Del Method 06/14/22 07:27 O2 Flow Rate 2 06/14/22 07:27 BMI result Body Mass Index 29.3 Const Other: Constitutional : Awake, interactive, in mild respiratory distress Neck : Normal inspection, Supple Cardiovascular : RRR, no JVP, +1 bilateral lower extremity edema Respiratory : good bilateral air entry, basal bilateral fine crackles, in mild distress, on oxygen supplement Gastrointestinal: soft, lax, Normal bowel sounds, Non tender Skin : Warm, Dry Neurological : Alert & oriented x3, No focal deficit Results Lab Results Result Diagrams: 06/13/22 10:13 06/14/22 04:58 Lab results: Chemistry 06/13/22 06/14/22 10:13 04:58 Sodium 139 142 Potassium 4.9 4.4 Carbon Dioxide 31 H 33 H BUN 31 H 31 H Creatinine 1.90 H 1.98 H Calcium 8.7 8.6 Hematology 06/13/22 10:13 WBC 6.2 Hgb 9.6 L Plt Count 240 D Urinalysis 06/13/22 11:47 Urine Color Yellow Urine Appearance Clear Urine pH 5.5 Ur Specific [place] 1.010 Urine Protein Negative Urine Glucose (UA) Negative Urine Ketones Negative Urine Blood Negative Urine Nitrite Negative Ur Leukocyte Esterase Negative Assessment and Plan (1) MYAH (acute kidney injury): Status: Acute 87 years old lady with PMH HTN, diabetes, chronic diarrhea with recent hospitalization for Myah I who presents back with? worsening shortness of breath and increased weakness. ?acute hypoxic respiratory failure secondary to acute new onset heart failure, she has CKD COPD and CRS OK for diuresis she is readmitted from - MYAH baseline creatinine is 1.04 more recently however in February the creatinine was 1.85 2.87 when she was admitted and now is down to 1.65 ?she has no proteinuria (2) CKD (chronic kidney disease) stage 3, GFR 30-59 ml/min: Status: Acute Time Spent With Patient Time: Total time managing care of this patient today ____ minutes. Procedures Date of Service Date of Service: 06/14/22
[2022-06-14 11:17] LABS: Glucose, Whole Blood 165 mg/dL (60-115)
[2022-06-14] MEDS: Insulin Lispro 100 UNIT/ML 3 ML VIAL SUBCUT ×2 (11:27→20:41)
[2022-06-14 11:31] VITALS: BP 113/59; PULSE 69; RESP 16; TEMP 36.4; O2SAT 96
--- NOTE | 2022-06-14 12:02 | P.PNIM_ITS ---
Subjective Subjective Date of Service: 06/14/22 Interval History: follow up for acute hypoxic respiratory failure secondary to acute new onset heart failure overnight events noted Review of Systems sob somewhat improving Denies any chest pain or abdominal pain nausea vomiting or diarrhea. Physical Exam Vital Signs: Vital Signs: Last Vital Signs Temp 97.6 F 06/14/22 11:31 Pulse 69 06/14/22 11:31 Resp 16 06/14/22 11:31 BP 113/59 L 06/14/22 11:31 Pulse Ox 96 06/14/22 11:31 O2 Del Method 06/14/22 11:31 O2 Flow Rate 2 06/14/22 11:31 BMI result Body Mass Index 29.3 Constitutional : Awake, interactive,? somewhat sob with talkin Neck : Normal inspection, Supple Cardiovascular : RRR, no JVP,? +1 bilateral lower extremity edema Respiratory : air entry fair ,diminshed at bases ,few scattered rales. Gastrointestinal:? soft, lax, Normal bowel sounds, Non tender Skin : Warm, Dry Neurological : Alert & oriented x3, No focal deficit Objective Data Active Medications Acetaminophen (Acetaminophen 325 Mg Tablet) 650 mg PO Q6H PRN PRN Reason: Pain, Mild (Pain Scale 1-3) Amlodipine Besylate (Amlodipine Besylate 10 Mg Tablet) 10 mg PO DAILY [facility]; Protocol Last Admin: 06/14/22 08:07 Dose: 10 mg Documented By: JAKOB Atorvastatin Calcium (Atorvastatin Calcium 10 Mg Tablet) 10 mg PO DAILY [facility] Last Admin: 06/14/22 08:07 Dose: 10 mg Documented By: JAKOB Doxazosin Mesylate (Doxazosin Mesylate 2 Mg Tablet) 8 mg PO BEDTIME [facility]; Protocol Last Admin: 06/13/22 20:28 Dose: 8 mg Documented By: RAVI Furosemide (Furosemide 40 Mg/4 Ml Vial) 40 mg IVPUSH DAILY [facility]; Protocol Last Admin: 06/14/22 08:06 Dose: 40 mg Documented By: JAKOB Gabapentin (Gabapentin 300 Mg Capsule) 300 mg PO BEDTIME [facility] Last Admin: 06/13/22 20:28 Dose: 300 mg Documented By: RAVI Heparin Sodium (Porcine) (Heparin Sodium,Porcine 5,000 Unit/Ml Vial) 5,000 unit SUBCUT Q12H [facility] Last Admin: 06/14/22 04:57 Dose: 5,000 unit Documented By: RAVI Insulin Human Lispro (Insulin Lispro 100 Unit/Ml 3 Ml Vial) 0 unit SUBCUT QIDACHS [facility]; Protocol Last Admin: 06/14/22 11:27 Dose: 2 unit Documented By: JAKOB Loperamide HCl (Loperamide Hcl 2 Mg Capsule) 2 mg PO DAILY [facility] Last Admin: 06/14/22 08:07 Dose: 2 mg Documented By: JAKOB Metoprolol Succinate (Metoprolol Succinate Er 100 Mg Tab.Er.24h) 100 mg PO DAILY [facility]; Protocol Last Admin: 06/14/22 08:07 Dose: 100 mg Documented By: JAKOB Omeprazole (Omeprazole 20 Mg Capsule.) 20 mg PO DAILY@0630 [facility] Last Admin: 06/14/22 04:57 Dose: 20 mg Documented By: RAVI Ondansetron HCl (Ondansetron Hcl 4 Mg/2 Ml Vial) 4 mg IVPUSH Q8H PRN PRN Reason: Nausea and Vomiting Pharmacy Consult (Consult Rx Perform Med Rec) 1 each MISCELLANE ONCE PRN PRN Reason: Consult order Vancomycin HCl (Vancomycin Hcl 125 Mg Capsule) 125 mg PO Q6H [facility] Last Admin: 06/14/22 08:07 Dose: 125 mg Documented By: JAKOB Labs CBC & Chem 7: 06/13/22 10:13 06/14/22 04:58 Labs: Laboratory Results - last 24 hr 06/13/22 06/13/22 06/14/22 17:20 19:49 04:58 Anion Gap Estim Creat Clear Calc Estimated GFR POC Glucose 167 H 110 Random Glucose Calcium B-Natriuretic Peptide 257 H 06/14/22 06/14/22 06/14/22 04:58 07:25 11:12 Anion Gap 12 Estim Creat Clear Calc 20.5 Estimated GFR 24 POC Glucose 102 165 H Random Glucose 113 Calcium 8.6 B-Natriuretic Peptide Assessment and Plan (1) MYAH (acute kidney injury): Status: Acute (2) Congestive heart failure: Status: Acute (3) Acute respiratory failure with hypoxia: Status: Acute (4) Physical deconditioning: Status: Acute (5) CKD (chronic kidney disease) stage 3, GFR 30-59 ml/min: Status: Acute Plan 87 years old lady with PMH HTN, diabetes, chronic diarrhea with recent hospitalization for Myah I who presents back with? worsening shortness of breath and increased weakness. ?acute hypoxic respiratory failure secondary to acute new onset heart failure, indeterminate Elevated BNP CXR showing fluid overload Start IV Lasix Wean oxygen down as tolerated Get an echo Cardiology consult ? Physical deconditioning To do PT evaluation Chronic diarrhea Found to have C diff antigen but no toxin Continue vancomycin, day 6 of 10 myah vs CKD stage 4 Stable disease Monitor intake and, follow BMP nephrology eval Type 2 diabetes Hold glipizide SSI, diabetic diet DVT PPX Heparin ongoing inpatient needs:?treatment acute hypoxic respiratory failure, CHF exacerbation pending echo and cardiology consult. Time Spent With Patient Time: Total time managing care of this patient today ____ minutes. Quality Stroke Does the patient have a stroke diagnosis?: No VTE Prior VTE?: No VTE Risk Level:: Medical - moderate - high VTE Device Contraindication: Treatment Not Indicated VTE Drug Contraindication: N/A - Med Ordered
[2022-06-14 15:06] VITALS: BP 102/58; PULSE 75; RESP 18; TEMP 36.6; O2SAT 92
--- NOTE | 2022-06-14 16:22 | PM.CNCAR ---
History of Present Illness History of Present Illness Date of Service: 06/14/22 Requesting physician: Martha Jacobs Consult reason: congestive heart failure Chief complaint: Hypoxia, SOB Narrative: I was consulted to see Karoline in cardiology consultation today for hypoxic respiratory failure. She is a pleasant 87-year-old woman, history obtained with help of a certified sap trainer at bedside. History was mostly obtained from her daughter patient appears mildly confused. The grandson was also present in the room at that time. Patient came to the hospital after recently being discharged with acute kidney injury. As per the daughter she was given fluids during that time and subsequently went home and then gradually started having increasing shortness of breath and including shortness of breath nighttime when she would lay down. Should have high respiratory rate as per the daughter with abdominal breathing. She then checked oxygen saturation at home and was noted to be low and therefore she brought to the emergency room. She was noted to have elevated BNP and chest x-ray finding consistent with heart failure. She was diuresed and since yesterday seems like has had a negative balance of about 1.2 L. She says that she never had any symptoms although daughter was very concerned about it. She has chronic kidney disease, diabetes, hypertension. She has longstanding history of hypertension. Never as per the daughter as any heart issues including heart failure or coronary artery disease. She did have COVID after which she has had some decline in her health and had shortness of breath and hypoxemia at that time as per the daughter. She had a carotid endarterectomy many years ago when the daughter was 11 years ago, patient does not recall as to why. Never has had any heart issues including myocardial infarction or stenting. Review of Systems Constitutional: Constitutional: Reports no additional constitutional complaints Eyes: Eyes: Reports no additional eye complaints Cardiovascular: Cardiovascular: Denies chest pain, Denies syncope, Denies rapid heart rate, Denies leg edema, Denies lightheadedness, Denies Loss of Consciousness, Denies palpitations, Reports dyspnea on exertion and Reports orthopnea Respiratory: Respiratory: Reports dyspnea on exertion Gastrointestinal: Gastrointestinal: Reports no additional gastrointestinal complaints Genitourinary: Genitourinary: Reports no additional female genitourinary complaints Musculoskeletal: Musculoskeletal: Reports no additional musculoskeletal complaints Integumentary/Breasts: Skin/Breast: Reports system reviewed and no additional complaints, except as docu Neurologic: Reports system reviewed and no additional complaints, except as documented and Denies syncope Psychiatric: Psychiatric: Reports no additional psychiatric complaints Endocrine: Endocrine: Reports no additional endocrine complaints and Denies palpitations PMFSH Past Medical History Medical History (Updated 06/14/22 @ 10:04 by Andrew Herzog MD) Arthritis CKD (chronic kidney disease) stage 3, GFR 30-59 ml/min Diabetes History of glaucoma Hypertension Legally blind Family History Family History Other Diabetes Surgical History Surgical History No pertinent past surgical history Social History Social History Household Members: Children Housing: House Do you presently have visiting nurse or other home services: Yes (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 [employer]) Alcohol intake: never Patient Tobacco Use Status: Never used Tobacco Current occupational status: retired Meds Allergies Allergy/AdvReac Type Severity Reaction Status Date / Time No Known Allergies Allergy Unverified 03/05/20 19:07 [No Known Allergies*] Active Medications: Current Medications Acetaminophen (Acetaminophen 325 Mg Tablet) 650 mg PO Q6H PRN PRN Reason: Pain, Mild (Pain Scale 1-3) Amlodipine Besylate (Amlodipine Besylate 10 Mg Tablet) 10 mg PO DAILY [facility]; Protocol Last Admin: 06/14/22 08:07 Dose: 10 mg Atorvastatin Calcium (Atorvastatin Calcium 10 Mg Tablet) 10 mg PO DAILY [facility] Last Admin: 06/14/22 08:07 Dose: 10 mg Doxazosin Mesylate (Doxazosin Mesylate 2 Mg Tablet) 8 mg PO BEDTIME [facility]; Protocol Last Admin: 06/13/22 20:28 Dose: 8 mg Furosemide (Furosemide 40 Mg/4 Ml Vial) 40 mg IVPUSH DAILY [facility]; Protocol Last Admin: 06/14/22 08:06 Dose: 40 mg Gabapentin (Gabapentin 300 Mg Capsule) 300 mg PO BEDTIME [facility] Last Admin: 06/13/22 20:28 Dose: 300 mg Heparin Sodium (Porcine) (Heparin Sodium,Porcine 5,000 Unit/Ml Vial) 5,000 unit SUBCUT Q12H [facility] Last Admin: 06/14/22 04:57 Dose: 5,000 unit Insulin Human Lispro (Insulin Lispro 100 Unit/Ml 3 Ml Vial) 0 unit SUBCUT QIDACHS [facility]; Protocol Last Admin: 06/14/22 11:27 Dose: 2 unit Loperamide HCl (Loperamide Hcl 2 Mg Capsule) 2 mg PO DAILY [facility] Last Admin: 06/14/22 08:07 Dose: 2 mg Metoprolol Succinate (Metoprolol Succinate Er 100 Mg Tab.Er.24h) 100 mg PO DAILY [facility]; Protocol Last Admin: 06/14/22 08:07 Dose: 100 mg Omeprazole (Omeprazole 20 Mg Capsule.Dr) 20 mg PO DAILY@0630 [facility] Last Admin: 06/14/22 04:57 Dose: 20 mg Ondansetron HCl (Ondansetron Hcl 4 Mg/2 Ml Vial) 4 mg IVPUSH Q8H PRN PRN Reason: Nausea and Vomiting Pharmacy Consult (Consult Rx Perform Med Rec) 1 each MISCELLANE ONCE PRN PRN Reason: Consult order Vancomycin HCl (Vancomycin Hcl 125 Mg Capsule) 125 mg PO Q6H [facility] Last Admin: 06/14/22 15:30 Dose: 125 mg Home Medications Medication Instructions Recorded Confirmed Last Taken Type acetaminophen 500 mg tablet 1 tab PO Q4-6H PRN Pain (Scale 06/05/22 06/13/22 Unknown History Score 1-3) calcium carbonate 600 mg-vitamin 1 tab PO BID 06/05/22 06/13/22 06/04/22 History D3 10 mcg (400 unit) tablet chlorthalidone 25 mg tablet 1 tab PO DAILY 06/05/22 06/13/22 06/04/22 History doxazosin 8 mg tablet 1 tab PO BEDTIME 06/05/22 06/13/22 06/04/22 History gabapentin 300 mg capsule 1 cap PO BEDTIME 06/05/22 06/13/22 06/04/22 History loperamide 2 mg capsule 2 mg PO 1XD 06/05/22 06/13/22 06/04/22 History metoprolol succinate 100 mg 1 tab PO DAILY 06/05/22 06/13/22 06/04/22 History tablet,extended release 24 hr omeprazole 20 mg capsule,delayed 1 cap PO DAILY 06/05/22 06/13/22 06/04/22 History release simvastatin 10 mg tablet 1 tab PO DAILY 06/05/22 06/13/22 06/04/22 History Physical Exam Vital Signs: Vital Signs: Last Vital Signs Temp 97.9 F 06/14/22 15:06 Pulse 75 06/14/22 15:06 Resp 18 06/14/22 15:06 BP 102/58 L 06/14/22 15:06 Pulse Ox 92 06/14/22 15:06 O2 Del Method 06/14/22 15:06 O2 Flow Rate 2 06/14/22 15:06 BMI result Body Mass Index 29.3 Const: General: cooperative, comfortable, no acute distress, alert and awake Nutritional Appearance: overweight Orientation/consciousness: patient oriented x3 Limitations: no limitations HEENT: Head: Yes normocephalic and Yes atraumatic Neck: Neck: Yes trachea midline, Yes supple and Yes no JVD Resp: Effort & Inspection: normal respiratory effort Auscultation: clear to auscultation bilaterally and diminished lung sounds Cardio: Jugular venous distension: no JVD Palpation: normal PMI Rate: regular rate Rhythm: regular rhythm Heart sounds: S1 normal heart sound present, S2 normal heart sound present, no click, no gallops and Murmur heart sound present systolic early GI: Auscultation: normal bowel sounds Skin: General skin exam: no rashes or lesions noted Neuro: General: patient oriented x3 and no focal motor deficits Extrem: General: Yes no clubbing, cyanosis or edema Psych: Appearance: grossly normal Objective Labs and Meds Result diagrams: 06/13/22 10:13 06/14/22 04:58 Lab results: Laboratory Results - last 24 hr 06/13/22 06/13/22 06/14/22 17:20 19:49 04:58 Sodium Potassium Chloride Carbon Dioxide Anion Gap BUN Creatinine Estim Creat Clear Calc Estimated GFR POC Glucose 167 H 110 Random Glucose Calcium B-Natriuretic Peptide 257 H 06/14/22 06/14/22 06/14/22 04:58 07:25 11:12 Sodium 142 Potassium 4.4 Chloride 101 Carbon Dioxide 33 H Anion Gap 12 BUN 31 H Creatinine 1.98 H Estim Creat Clear Calc 20.5 Estimated GFR 24 POC Glucose 102 165 H Random Glucose 113 Calcium 8.6 B-Natriuretic Peptide Assessment and Plan (1) Acute respiratory failure with hypoxia: Status: Acute Heart failure with preserved ejection fraction by echocardiogram today which shows normal LV systolic function with mild LVH with elevated LV filling pressures. She has been diuresed and appears clinically euvolemic and well compensated. Could have additional component of pulmonary parenchymal disease related to COVID causing hypoxemic respiratory failure. Evaluate for oxygen requirement at home. Switch to p.o. Lasix 40 mg daily. Heart failure management was discussed with the patient patient's daughter at bedside. Continue current therapy. Continue aggressive blood pressure control which appears to be well optimized at this point in time. Provided with heart failure education. Advised to monitor blood pressure at home maintain a log. Low-salt diet was discussed. From cardiac perspective patient is ready to be discharged home. Will sign of the case Time Spent With Patient Time: Total time managing care of this patient today ____ minutes. Procedures Date of Service Date of Service: 06/14/22
[2022-06-14 16:25] LABS: Glucose, Whole Blood 101 mg/dL (60-115)
[2022-06-14 19:41] VITALS: BP 115/56; PULSE 89; RESP 18; TEMP 37.1; O2SAT 93
[2022-06-14 20:10] LABS: Glucose, Whole Blood 151 mg/dL (60-115)
[2022-06-14] MEDS: Gabapentin 300 MG CAPSULE PO (20:41)
[2022-06-14] MEDS: Doxazosin Mesylate 2 MG TABLET 8 MG PO (20:41)
[2022-06-15] VITALS (8 sets, daily range): BP systolic 99–118; BP diastolic 57–69; PULSE 76–88; RESP 16–20; TEMP 36.4–37.2; O2SAT 93–97
[2022-06-15] MEDS: Heparin Sodium,Porcine 5,000 UNIT/ML VIAL 5000 UNIT SUBCUT ×2 (04:06→18:45)
[2022-06-15] MEDS: Omeprazole 20 MG CAPSULE.DR PO (04:06)
[2022-06-15] MEDS: vancomycin HCL 125 MG CAPSULE PO ×4 (04:06→20:30)
[2022-06-15 07:44] LABS: Glucose, Whole Blood 111 mg/dL (60-115)
[2022-06-15 08:22] LABS: Anion Gap 10 (12-20); Blood Urea Nitrogen 33 mg/dL (9-16); Calcium 8.6 mg/dL (8.4-10.2); Carbon Dioxide 37 mmol/L (22-29); Chloride 99 mmol/L (96-108); Creatinine Clr Calc Pharmacy 20.7; Estimated Glomerular Filt Rate 24; Glucose Random 110 mg/dL (60-115); Potassium 4.2 mmol/L (3.3-5.1); Sodium 142 mmol/L (135-145)
[2022-06-15] MEDS: amLODIPine Besylate 10 MG TABLET PO (09:03)
[2022-06-15] MEDS: Loperamide HCl 2 MG CAPSULE PO (09:03)
[2022-06-15] MEDS: Metoprolol Succinate ER 100 MG TAB.ER.24H PO (09:03)
[2022-06-15] MEDS: Furosemide 40 MG TABLET PO (09:04)
[2022-06-15] MEDS: Atorvastatin Calcium 10 MG TABLET PO (09:04)
--- NOTE | 2022-06-15 11:52 | PM.PNNEP ---
Subjective Subjective Date of Service: 06/15/22 Interval history: follow up for acute hypoxic respiratory failure secondary to acute new onset heart failure overnight events noted comfortable flat in bed Physical Exam Vital Signs: Vital Signs: Last Vital Signs Temp 98.9 F 06/15/22 11:33 Pulse 88 06/15/22 11:33 Resp 17 06/15/22 11:33 BP 118/59 L 06/15/22 11:33 Pulse Ox 95 06/15/22 11:33 O2 Del Method 06/15/22 11:33 O2 Flow Rate 2.0 06/15/22 11:33 BMI result Body Mass Index 29.3 Const: Other: Constitutional : Awake, interactive, in mild respiratory distress Neck : Normal inspection, Supple Cardiovascular : RRR, no JVP, +1 bilateral lower extremity edema Respiratory : good bilateral air entry, basal bilateral fine crackles, in mild distress, on oxygen supplement Gastrointestinal: soft, lax, Normal bowel sounds, Non tender Skin : Warm, Dry Neurological : Alert & oriented x3, No focal deficit Objective Data Labs CBC & Chem 7: 06/13/22 10:13 06/15/22 07:53 Labs: Laboratory Results - last 24 hr 06/14/22 06/14/22 06/15/22 15:37 20:06 07:31 Sodium Potassium Chloride Carbon Dioxide Anion Gap BUN Creatinine Estim Creat Clear Calc Estimated GFR POC Glucose 101 151 H 111 Random Glucose Calcium 06/15/22 07:53 Sodium 142 Potassium 4.2 Chloride 99 Carbon Dioxide 37 H Anion Gap 10 L BUN 33 H Creatinine 1.96 H Estim Creat Clear Calc 20.7 Estimated GFR 24 POC Glucose Random Glucose 110 Calcium 8.6 Microbiology Microbiology Results: Microbiology 06/13/22 10:21 Blood - Venous Blood Culture - Preliminary No growth after 24 hours. 06/13/22 10:13 Blood - Venous Blood Culture - Preliminary No growth after 24 hours. Procedures Date of Service Date of Service: 06/15/22 Assessment & Plan Assessment and plan (1) JIMENEZ (acute kidney injury): Status: Acute Assessment and Plan: 87 years old lady with PMH HTN, diabetes, chronic diarrhea with recent hospitalization for Jimenez I who presents back with? worsening shortness of breath and increased weakness. ?acute hypoxic respiratory failure secondary to acute new onset heart failure, she has CKD COPD and CRS OK for diuresis she is readmitted from -21 JIMENEZ baseline creatinine is 1.04 more recently however in February the creatinine was 1.85 2.87 when she was admitted and now is down to 1.96 and stable ?she has no proteinuria no new suggestions (2) CKD (chronic kidney disease) stage 3, GFR 30-59 ml/min: Status: Acute Time Spent With Patient Time: Total time managing care of this patient today ____ minutes. Progress Note: Quality Stroke Does the patient have a stroke diagnosis?: No
[2022-06-15] MEDS: Insulin Lispro 100 UNIT/ML 3 ML VIAL SUBCUT ×2 (12:13→20:31)
--- NOTE | 2022-06-15 13:30 | P.CDIC_ITS ---
CDI Concurrent Query Documentation Clarification: PHYSICIAN'S DOCUMENTATION REQUEST Date of Query: 06/15/22 1334 Patient Name: Karoline Schafer Admit Date: 06/13/22 Dear Doctor, A review of the medical record indicates additional documentation may be needed. Please review below and update the documentation accordingly. Clinical Indicators: The following clinical information was noted in the record: Risk Factors/Clinical Indicators/Treatments Per MD progress note 06/14/22: myah vs? CKD stage 4 Stable disease Monitor intake and, follow BMP nephrology eval On 06/13/22: BUN 31 Creatinine 1.90 GFR 25 Please clarify which of the following accurately represents the patient's renal status: * Acute renal failure with suspected ATN * CKD, please provide stage - see criteria * Other (please specify) * Unable to determine Criteria for MYAH* Stages of Chronic Kidney Disease* 1. Increase in serum creatinine by ? 0.3 mg/dL Level D escription GFR (?26.5 micromol/L) within 48 hours, or G1 Normal or High > 90 2. Increase in serum creatinine to ?1.5 times baseline, G2 Mildly decreased 60 ? 89 which is known or presumed to have occurred within 7 days, or G3a Mildly to moderately decreased 45 ? 59 3. Urine volume <0.5 mL/kg/hour for six hours G3b Moderately to severely decreased 30 - 44 G4 Severely decreased 15 ? 29 G5 Kidney failure < 15 *Source: Kidney Disease: Improving Global Outcomes (KDIGO) 2012 Use of terms such as suspected, likely, concern for, or probable (associated with a specific diagnosis that is being evaluated, monitored, or treated as if it exists) are acceptable and can be coded in the inpatient setting, when documented at the time of discharge. Thank you, July Leija RN Extension: [phone] Please use your independent medical judgment in providing your response. THIS QUERY IS PART OF THE PERMANENT MEDICAL RECORD Provider Response: CKD Stage 3
[2022-06-15 13:49] LABS: Iron 43 mcg/dL (30-160)
[2022-06-15 14:21] LABS: Ferritin 57 ng/mL (10-250); Percent Iron Saturation 22 % (15-50); Total Iron Binding Capacity 192 mcg/dL (228-428); Unsaturated Iron Binding 149 ug/dL
[2022-06-15 15:37] LABS: Glucose, Whole Blood 199 mg/dL (60-115)
--- NOTE | 2022-06-15 15:37 | MHC.CM.PN ---
LATE ENTRY FOR 06/14/22, IMM REVIEWED AND DELIVERED TO DTR O[facility] AT BEDSIDE, MERI REPORTS PT LIVES W/HER AND HER GDSON, PT USES A CANE AND HAS A WALKER, BEDSIDE COMMODE AND SHOWER CHAIR FOR DME, PT HAS DAY AND NIGHT CERTIFIED ENDOSCOPY TECHNICIAN HRS AND A CCA NURSE WHO SEE'S PT MONTHLY AND AFTER HOSPITAL D/C AND CAREGIVERS [facility] MONTHLY WELL. 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 ANTIC HOME W/NEW HOME PT AND FAMILY FOR TRANSPORT
--- NOTE | 2022-06-15 15:40 | P.PNIM_ITS ---
Subjective Subjective Date of Service: 06/15/22 Interval History: follow up for chf and possible ckd . Review of Systems sob seems improvin feels generalised weak. Physical Exam Vital Signs: Vital Signs: Last Vital Signs Temp 98.9 F 06/15/22 11:33 Pulse 82 06/15/22 13:44 Resp 17 06/15/22 11:33 BP 118/59 L 06/15/22 11:33 Pulse Ox 95 06/15/22 13:44 O2 Del Method 06/15/22 11:33 O2 Flow Rate 2.0 06/15/22 11:33 BMI result Body Mass Index 29.3 Constitutional : Awake, interactive,? somewhat sob with talkin Neck : Normal inspection, Supple Cardiovascular : RRR, no JVP. Respiratory : air entry fair ,diminshed at bases ,no rales, Gastrointestinal:? soft, lax, Normal bowel sounds, Non tender Skin : Warm, Dry Neurological : Alert & oriented x3, No focal deficit Objective Data Active Medications Acetaminophen (Acetaminophen 325 Mg Tablet) 650 mg PO Q6H PRN PRN Reason: Pain, Mild (Pain Scale 1-3) Amlodipine Besylate (Amlodipine Besylate 10 Mg Tablet) 10 mg PO DAILY [facility]; Protocol Last Admin: 06/15/22 09:03 Dose: 10 mg Documented By: MARCELO Atorvastatin Calcium (Atorvastatin Calcium 10 Mg Tablet) 10 mg PO DAILY [facility] Last Admin: 06/15/22 09:04 Dose: 10 mg Documented By: MARCELO Doxazosin Mesylate (Doxazosin Mesylate 2 Mg Tablet) 8 mg PO BEDTIME [facility]; Protocol Last Admin: 06/14/22 20:41 Dose: 8 mg Documented By: RAVI Furosemide (Furosemide 40 Mg Tablet) 40 mg PO DAILY [facility]; Protocol Last Admin: 06/15/22 09:04 Dose: 40 mg Documented By: MARCELO Gabapentin (Gabapentin 300 Mg Capsule) 300 mg PO BEDTIME [facility] Last Admin: 06/14/22 20:41 Dose: 300 mg Documented By: RAVI Heparin Sodium (Porcine) (Heparin Sodium,Porcine 5,000 Unit/Ml Vial) 5,000 unit SUBCUT Q12H [facility] Last Admin: 06/15/22 04:06 Dose: 5,000 unit Documented By: RAVI Insulin Human Lispro (Insulin Lispro 100 Unit/Ml 3 Ml Vial) 0 unit SUBCUT QIDACHS [facility]; Protocol Last Admin: 06/15/22 12:13 Dose: 2 unit Documented By: MARCELO Loperamide HCl (Loperamide Hcl 2 Mg Capsule) 2 mg PO DAILY [facility] Last Admin: 06/15/22 09:03 Dose: 2 mg Documented By: MARCELO Metoprolol Succinate (Metoprolol Succinate Er 100 Mg Tab.Er.24h) 100 mg PO DAILY [facility]; Protocol Last Admin: 06/15/22 09:03 Dose: 100 mg Documented By: MARCELO Omeprazole (Omeprazole 20 Mg Capsule.Dr) 20 mg PO DAILY@0630 [facility] Last Admin: 06/15/22 04:06 Dose: 20 mg Documented By: RAVI Ondansetron HCl (Ondansetron Hcl 4 Mg/2 Ml Vial) 4 mg IVPUSH Q8H PRN PRN Reason: Nausea and Vomiting Pharmacy Consult (Consult Rx Perform Med Rec) 1 each MISCELLANE ONCE PRN PRN Reason: Consult order Vancomycin HCl (Vancomycin Hcl 125 Mg Capsule) 125 mg PO Q6H [facility] Last Admin: 06/15/22 14:52 Dose: 125 mg Documented By: MARCELO Labs CBC & Chem 7: 06/13/22 10:13 06/15/22 07:53 Labs: Laboratory Results - last 24 hr 06/14/22 06/14/22 06/15/22 15:37 20:06 07:31 Anion Gap Estim Creat Clear Calc Estimated GFR POC Glucose 101 151 H 111 Random Glucose Calcium Iron TIBC % Saturation Unsat Iron Binding Ferritin 06/15/22 06/15/22 07:53 11:09 Anion Gap 10 L Estim Creat Clear Calc 20.7 Estimated GFR 24 POC Glucose 199 H Random Glucose 110 Calcium 8.6 Iron 43 TIBC 192 L % Saturation 22 Unsat Iron Binding 149 Ferritin 57 Microbiology Microbiology Results: Microbiology 06/13/22 10:21 Blood Culture - Preliminary Blood - Venous No growth after 48 hours. 06/13/22 10:13 Blood Culture - Preliminary Blood - Venous No growth after 48 hours. Assessment and Plan (1) CKD (chronic kidney disease) stage 3, GFR 30-59 ml/min: Status: Acute (2) Physical deconditioning: Status: Acute (3) Acute respiratory failure with hypoxia: Status: Acute (4) HTN (hypertension): Status: Acute Plan 87 years old lady with PMH HTN, diabetes, chronic diarrhea with recent hospitalization for Jimenez I who presents back with? worsening shortness of breath and increased weakness. ?acute hypoxic respiratory failure secondary to acute new onset heart failure(possible HFpEF), indeterminate Elevated BNP CXR showing fluid overload intailly started on IV Lasix-switched to po lasix ,Wean oxygen down as tolerated echo: Left Ventricle Normal left ventricular size and systolic function. There is mildly increased left ventricular wall thickness.? The visually estimated ejection fraction is between 65-70%.? Spectral Doppler is indicative of an impaired relaxation filling pattern.? Elevated filling pressures.? E/E prime ratio is >15, consistent with elevated filling pressures. Cardiology consult appreciated - ? Physical deconditioning To do PT evaluation-Rehab vs home Chronic diarrhea Found to have C diff antigen but no toxin Continue vancomycin, day 7 of 10 jimenez vs? CKD stage 3 Stable disease Monitor intake and, follow BMP nephrology eval Type 2 diabetes Hold glipizide SSI, diabetic diet DVT PPX Heparin ongoing inpatient needs:?awiting placement rehab vs home with family Time Spent With Patient Time: Total time managing care of this patient today ____ minutes. Quality Stroke Does the patient have a stroke diagnosis?: No VTE Prior VTE?: No VTE Risk Level:: Medical - moderate - high VTE Device Contraindication: Treatment Not Indicated VTE Drug Contraindication: N/A - Med Ordered
[2022-06-15 16:13] LABS: Glucose, Whole Blood 91 mg/dL (60-115)
[2022-06-15 20:03] LABS: Glucose, Whole Blood 197 mg/dL (60-115)
[2022-06-15] MEDS: Gabapentin 300 MG CAPSULE PO (20:30)
[2022-06-15] MEDS: Doxazosin Mesylate 2 MG TABLET 8 MG PO (20:30)
[2022-06-16] MEDS: vancomycin HCL 125 MG CAPSULE PO ×3 (02:27→15:03)
[2022-06-16 03:35] VITALS: BP 154/56; PULSE 91; RESP 18; TEMP 36.3; O2SAT 93
[2022-06-16] MEDS: Omeprazole 20 MG CAPSULE.DR PO (05:41)
[2022-06-16] MEDS: Heparin Sodium,Porcine 5,000 UNIT/ML VIAL 5000 UNIT SUBCUT (05:41)
[2022-06-16 08:00] VITALS: BP 100/54; PULSE 91; RESP 18; TEMP 36.9; O2SAT 93
[2022-06-16 08:05] LABS: Glucose, Whole Blood 122 mg/dL (60-115)
[2022-06-16] MEDS: Furosemide 40 MG TABLET PO (09:18)
[2022-06-16] MEDS: amLODIPine Besylate 10 MG TABLET PO (09:18)
[2022-06-16] MEDS: Atorvastatin Calcium 10 MG TABLET PO (09:18)
[2022-06-16] MEDS: Metoprolol Succinate ER 100 MG TAB.ER.24H PO (09:18)
[2022-06-16] MEDS: Loperamide HCl 2 MG CAPSULE PO (09:18)
--- NOTE | 2022-06-16 10:38 | PM.DS ---
DS: Providers Provider Date of Service: 06/16/22 Date of admission: 06/13/22 13:19 Primary care physician: Regine Bains MD Consults: 06/13/22 13:19 Consult to Cardiology Routine Consulting Provider: Deng Zhang Reason for consultation: new onset CHF 06/14/22 08:16 Consult to Nephrology Routine Consulting Provider: Simeon Young Reason for consultation: chf in setting ckd vs jimenez DS: Diagnosis Discharge Diagnosis (1) CKD (chronic kidney disease) stage 3, GFR 30-59 ml/min: Status: Acute (2) Physical deconditioning: Status: Acute (3) Acute respiratory failure with hypoxia: Status: Acute DS: Summary Hospital Course Hospital Course: 87 years old lady with PMH HTN, diabetes, chronic diarrhea with recent hospitalization for Jimenez I who presents back with? worsening shortness of breath and increased weakness.? the patient is strictly Citizen Of [place] speaker and history was taken from her granddaughter.? Reports that the patient since discharge has been suffering from difficulty breathing that became more notable over the last 2 days as she could not lay back? comfortably in her bed, woke up more than once during the night with shortness of breath, denies any fever, chills, chest pain, palpitation, nausea, vomiting, change in bowel habit or urinary symptoms.? Oxygen level was checked at home and was mid 80s dropping to 70s according to family.? Family also reported increased edema in her lower extremities. The emergency CXR was consistent with fluid overload along with elevated BNP.? Admitted for further evaluation and treatment. hospital course: Patient was admitted due to acute hypoxemic respiratory failure secondary to possible CHF exacerbation(possible HFpEF): Seen by Cardiology: Given IV Lasix shortness of breath seems to be improved, in addition patient might have component of pulmonary parenchymal disease possible related post covid Changes . Shortness of breath seems improved significantly with diuresis, patient qualified for home oxygen, respiratory will arrange it. Patient will go home with p.o. diuretics. htn: blood pressure seems boderline , hold lisinopril for 2 days and start outaptiently as per blood pressure outpatiently. In addition patient has possibly has CKD: Her creatinine and is around 1.9 range possibly become a new baseline seen by Nephro recommended to continue p.o. diuretics. Monitor renal function and electrolytes outpatient. Follow-up with Nephrology outpatient. Physical deconditioning mitchell patient was seen by PT and recommended rehab but patient and her family currently does not want to go to rehab, so patient will be going to home with [facility] ,[facility] might be able to provide the PT. Above management discussed with family in detail length. Time Spent with Patient Time attestation: Total time managing care of this patient today ____ minutes. Discharge coordination time: Greater than 30 minutes Quality: Safe Use of Opioids Does Pt have an Active Cancer Diagnosis on the Problem List?: No Quality: Stroke Does the patient have a stroke diagnosis?: No Physical Exam Vital Signs: Vital Signs: Last Vital Signs Temp 98.4 F 06/16/22 08:00 Pulse 91 06/16/22 08:00 Resp 18 06/16/22 08:00 BP 100/54 L 06/16/22 08:00 Pulse Ox 93 06/16/22 08:00 O2 Del Method 06/16/22 08:00 O2 Flow Rate 2 06/16/22 03:35 BMI result Body Mass Index 29.3 Constitutional : Awake, interactive,? somewhat sob with talkin Neck : Normal inspection, Supple Cardiovascular : RRR, no JVP. Respiratory : air entry fair ,diminshed at bases ,no rales, Gastrointestinal:? soft, lax, Normal bowel sounds, Non tender Skin : Warm, Dry Neurological : Alert & oriented x3, No focal deficit DS: Data Data Completed and Pending Labs on day of discharge: Laboratory Results - last 24 hr 06/15/22 06/15/22 06/15/22 07:53 11:09 15:26 POC Glucose 199 H 91 Iron 43 TIBC 192 L % Saturation 22 Unsat Iron Binding 149 Ferritin 57 06/15/22 06/16/22 19:58 07:58 POC Glucose 197 H 122 H Iron TIBC % Saturation Unsat Iron Binding Ferritin Preliminary micro results at discharge 06/13/22 10:21 Blood Culture - Preliminary Blood - Venous No growth after 48 hours. 06/13/22 10:13 Blood Culture - Preliminary Blood - Venous No growth after 48 hours. Imaging Chest x-ray: Radiologist's impression: ITS Impressions Chest X-Ray 06/13/22 09:18 FINDINGS/IMPRESSION: Findings suggest prominence of the pulmonary veins in the nondependent portions, suggesting pulmonary venous hypertension. Suspect superimposed mild diffuse interstitial prominence and possible Vy B-lines with small right basilar hazy density, suggesting edema with small right effusion. The cardiac silhouette is poorly evaluated, probably enlarged. The aorta is mildly atherosclerotic and uncoiled, raising the possibility of hypertension. There are mild degenerative changes of the spine, with thoracic dextrocurvature. Discharge Plan Discharge Anticipated Discharge Date/Time: 06/16/22 10:29 Patient Disposition: Home Health Service Discharge Diagnosis: chf,ckd Referrals: Regine Alarcon MD [Primary Care Provider] - 1 Week Deng Zhang MD [Physician] - 1 Week (follow up outpatient) Simeon Young MD [Physician] - 1 Week (follow up outpatient.) Discharge Medications: New furosemide 40 mg Tablet 40 mg PO DAILY Qty: 30 0RF Protocol: Hold for SBP< HOLD for SBP < : 90 Continued loperamide 2 mg capsule 2 mg PO 1XD metoprolol succinate 100 mg tablet extended release 24 hr 1 tab PO DAILY simvastatin 10 mg tablet 1 tab PO DAILY acetaminophen 500 mg tablet 1 tab PO Q4-6H PRN (Reason: Pain (Scale Score 1-3)) doxazosin 8 mg tablet 1 tab PO BEDTIME gabapentin 300 mg capsule 1 cap PO BEDTIME omeprazole 20 mg capsule,delayed release(DR/EC) 1 cap PO DAILY calcium carbonate-vitamin D3 600 mg-10 mcg (400 unit) tablet 1 tab PO BID amlodipine 10 mg Tablet 10 mg PO DAILY Qty: 30 0RF Protocol: Hold for SBP< HOLD for SBP < : 90 vancomycin 125 mg Capsule 125 mg PO Q6H Qty: 40 0RF glipizide 5 mg tablet 5 mg PO DAILY Qty: 30 0RF Discontinued chlorthalidone 25 mg tablet 1 tab PO DAILY Discharge Orders: Discharge Order (Routine); Ordered 06/16/22 Ordered By: Martha Jacobs Diet: Advance to usual diet Activity on Discharge: As tolerated Stand Alone Forms: Patient Portal Discharge page Other Ambulatory Orders: Basic Metabolic Panel (Routine) Timeframe: 1 Week Facility: [facility] - Location: Laboratory Ordered By: Martha Jacobs Care Plan Goals: Patient was admitted due to acute hypoxemic respiratory failure secondary to possible CHF exacerbation(possible HFpEF): Seen by Cardiology: Given IV Lasix shortness of breath seems to be improved, in addition patient might have component of pulmonary parenchymal disease possible related post covid Changes . Shortness of breath seems improved significantly with diuresis, will add home oxygen evaluation. Patient will go home with p.o. diuretics. In addition patient has possibly has CKD: Her creatinine and is around 1.9 range possibly become a new baseline seen by Nephro recommended to continue p.o. diuretics. Monitor renal function and electrolytes outpatient. Follow-up with Nephrology outpatient. Above management discussed with family in detail length. Health Concerns: As above. Plan of Treatment: As above. Assessment: As above. Patient Instructions: Heart Failure (DC), Chronic Kidney Disease (DC)
[2022-06-16 11:48] VITALS: PULSE 122; O2SAT 95
[2022-06-16 11:53] LABS: Glucose, Whole Blood 165 mg/dL (60-115)
[2022-06-16 12:00] VITALS: BP 106/61; PULSE 82; RESP 18; TEMP 37; O2SAT 95
[2022-06-16] MEDS: Insulin Lispro 100 UNIT/ML 3 ML VIAL SUBCUT (12:28)
--- NOTE | 2022-06-16 12:35 | W.PM.DNNEP ---
Subjective Subjective This patient was seen during dialysis. Interval history: follow up for chf and possible ckd . Physical Exam Vital Signs: Vital Signs: Last Vital Signs Temp 98.4 F 06/16/22 08:00 Pulse 122 H 06/16/22 11:48 Resp 18 06/16/22 08:00 BP 100/54 L 06/16/22 08:00 Pulse Ox 95 06/16/22 11:48 O2 Del Method 06/16/22 08:00 O2 Flow Rate 2 06/16/22 03:35 BMI result Body Mass Index 29.3 Const: Other: Constitutional : Awake, interactive, in mild respiratory distress Neck : Normal inspection, Supple Cardiovascular : RRR, no JVP, +1 bilateral lower extremity edema Respiratory : good bilateral air entry, basal bilateral fine crackles, in mild distress, on oxygen supplement Gastrointestinal: soft, lax, Normal bowel sounds, Non tender Skin : Warm, Dry Neurological : Alert & oriented x3, No focal deficit Assessment & Plan Assessment and plan (1) JIMENEZ (acute kidney injury): Status: Resolved Assessment and Plan: 87 years old lady with PMH HTN, diabetes, chronic diarrhea with recent hospitalization for Jimenez I who presents back with? worsening shortness of breath and increased weakness. ?acute hypoxic respiratory failure secondary to acute new onset heart failure, she has CKD COPD and CRS OK for diuresis she is readmitted from - JIMENEZ baseline creatinine is 1.04 more recently however in February the creatinine was 1.85 2.87 when she was admitted and now is down to 1.96 and stable she has no proteinuria no new suggestions no labs back today If d/c we will f/u as OP (2) CKD (chronic kidney disease) stage 3, GFR 30-59 ml/min: Status: Acute Time Spent With Patient Time: Total time managing care of this patient today ____ minutes. Procedures Date of Service Date of Service: 06/16/22
--- NOTE | 2022-06-16 13:01 | MHC.CM.PN ---
Addendum entered by Mary Ornelas RN 06/16/22 13:38: PER RESPIRATORY PT WILL QUALIFY FOR HOME O2, WILL BE SET UP W/TERESE Original Note: CM MET W/PT AND DTR OTONIEL AT BEDSIDE VIA [employer], PT/DTR WOULD LIKE PT TO GO HOME W/SERVICES AND SHE WILL ORGANIZE APT SO PT CAN STAY DOWNSTAIRS W/HER. [facility] TO COVER SN AND [facility] WILL COVER HOME PT, DTR WILL TRANSPORT AT 4PM. PT ALSO TO HAVE HOME O2 EVAL PRIOR TO D/C
[2022-06-16 13:07] VITALS: PULSE 89; PULSE 90; PULSE 92; PULSE 95; O2SAT 86; O2SAT 87; O2SAT 90; O2SAT 92
--- NOTE | 2022-06-16 13:32 | P.F2F_ITS ---
Service Date Service Date: 06/16/22 Encounter Date of encounter: 06/16/22 Encounter: chf,ckd. Reasons for Services Signs and symptoms assessed: Shortness of breath or cheat pain Reason for penitentiary: CV/CP assess and/or care, medication management, medication treatment and teach disease management MD Overseeing Care: Regine Bains Homebound: Leaving the home is medically contraindicated at this time without the asist of a device and/or another person due th the listed conditions above and below. Reason homebound: weakness related to hospital stay Homebound supporting statement: Patient generalized weak post hospitalization, refused to rehab, has multiple comorbidities including CHF and CKD need help to go to appointments as well as blood draws. Certification: Based on the above findings, I certify that this patient is confined to the home and needs intermittent penitentiary care, physical therapy and/or speech the rapy, or continues to need occupational therapy. The patient is under my care, and I have initiated the establishment of the plan of care. The patient will be followed by a physician who will periodically review the plan of care. Time Spent With Patient Time: Total time managing care of this patient today ____ minutes.
== END 2022-06-16 16:17 | disposition home health service (06) | DRG 291 ==
LOC: HO.ED 11:28 → HO.EDOVER 13:29 → HO.S3 15:57
PROVIDERS: Internal Medicine Nephrology; Nurse Practitioner Family; Admitting Provider Student in an Organized Health Care Education/Training Program; Emergency Provider Emergency Medicine; PCP Internal Medicine; Visit Provider Internal Medicine
DX: I13.0 Hypertensive heart and chronic kidney disease with heart failure and stage 1 through stage 4 chronic kidney disease, or unspecified chronic kidney disease (principal); I50.31 Acute diastolic (congestive) heart failure; J96.01 Acute respiratory failure with hypoxia; N17.9 Acute kidney failure, unspecified; N18.30 Chronic kidney disease, stage 3 unspecified; D63.1 Anemia in chronic kidney disease; H54.8 Legal blindness, as defined in USA; E11.22 Type 2 diabetes mellitus with diabetic chronic kidney disease; Z79.84 Long term (current) use of oral hypoglycemic drugs; Z79.899 Other long term (current) drug therapy
CPT/HCPCS: 36415; 71046; 80048; 80053; 81003; 82728; 82947; 83540; 83605; 83735; 83880; 84484; 85025; 85379; 87040; 87502; 87635; 93005; 93306; 97116; 97162; 99285; J1940

== ENCOUNTER 2022-06-21 09:39 | Inpatient (IN) | payer OTHER, SELFPAY ==
--- NOTE | ~2022-06-21 | XR_ITS ---
EXAMINATION: XR CHEST CLINICAL INFORMATION: Endotracheal tube and line placement COMPARISON: Chest x-ray earlier this morning TECHNIQUE: Frontal view of the chest was obtained. FINDINGS: Stable cardiac enlargement. Interval insertion of endotracheal tube which terminates approximately 6.3 cm above the level the yemi. Interval insertion of enteric tube which terminates below the level the diaphragm, beyond the parameters of today's chest x-ray. Interval insertion of right-sided jugular catheter with tip terminating at the cavoatrial junction. Similar prominence of the central pulmonary vasculature with diffusely increased interstitial markings, more prominent on the right. Small right-sided pleural effusion again suspected. XR/XR chest 1V IMPRESSION: Support apparatus in expected position.
--- NOTE | ~2022-06-21 | XR_ITS ---
EXAMINATION: XR CHEST CLINICAL INFORMATION: Cough COMPARISON: 06/25/2022 TECHNIQUE: Frontal view of the chest was obtained. FINDINGS: No new pulmonary findings. The lateral costophrenic sulci remain blunted from small pleural effusions. The hazy opacity of the right base is likely from layering of the pleural effusion along with atelectasis. There is persistent opacity from atelectasis and/or airspace disease with air bronchograms in the retrocardiac region of the left lower lobe. Again noted are the large cardiac silhouette, calcified mitral valve annulus and calcified thoracic aorta. Bones are diffusely osteopenic. XR/XR chest 1V IMPRESSION: * No new cardiopulmonary abnormality. * Cardiomegaly without overt pulmonary edema. * Persistent small pleural effusions and bibasilar opacities without significant change since 06/25/2022.
--- NOTE | ~2022-06-21 | XR_ITS ---
EXAMINATION: XR CHEST CLINICAL INFORMATION: Shortness of breath COMPARISON: 06/13/2022 TECHNIQUE: 2 views of the chest were obtained. FINDINGS: Cardiac silhouette is mildly enlarged. Pulmonary vessels and interstitium are prominent. A small right pleural effusion seen on 06/13/2022 has decreased. However, a small left pleural effusion has developed. There is likely atelectasis in the left base. No overt airspace disease. No acute skeletal abnormality. EKG wires overlie the chest. XR/XR chest 2V IMPRESSION: Cardiomegaly, mild pulmonary edema and small bilateral pleural effusions.
--- NOTE | ~2022-06-21 | CT_ITS ---
EXAMINATION: CT CHEST WITHOUT CONTRAST CLINICAL INFORMATION: Hypoxia COMPARISON: Chest x-ray 06/25/2022 TECHNIQUE: Multidetector volumetric CT imaging of the chest was done. Axial MIP volume rendering provided. Sagittal and coronal reformatted images were obtained. This CT examination was performed using dose optimization techniques as appropriate, variously including the following: *Automated exposure control *Adjustment of mA and/or kV according to patient size (this includes techniques or standardized protocols for targeted exams where dose is matched to indication/reason for exam; i.e. extremities or head) *Use of iterative reconstruction technique DLP: 395 mGy-cm FINDINGS: DATA PROCESSING MANAGER: There is a lima-shaped chest with expanded lungs. LUNGS: There is moderate thickening of the right major fissure from pleural effusion there is bilateral dependent lower lobe compressive atelectasis from pleural effusion. No acute consolidation, mass or nodule seen. There is mild loss of left lung volume. MEDIASTINUM: Heart size enlarged with no pericardial effusion seen. The aorta is of normal caliber. There is mild midline shift to the left from loss of left lung volume. Trace coronary artery calcifications are seen. No abnormal size mediastinal lymph nodes seen. Endotracheal tube is 3.7 cm above the yemi. Enteric tube tip is below the diaphragm in the stomach. There is a right 6 jugular central catheter with its tip at the atriocaval junction. CORONARY ARTERY CALCIFICATION: Trace coronary artery calcification seen. PLEURA: There is small right pleural effusion and minimal left pleural effusion. AXILLA: No abnormal axillary lymph nodes seen. UPPER ABDOMEN: Liver and spleen appears unremarkable. OSSEOUS STRUCTURES: No aggressive lytic or sclerotic process seen. CT/CT chest wo IV con IMPRESSION: 1. Small right pleural effusion and minimal left pleural effusion. There is bilateral lower lobe dependent compressive atelectasis. Minimal loculated fluid in the superior right major fissure. 2. Mild cardiomegaly. 3. Endotracheal tube, enteric tube and right IJ central catheter are in satisfactory position. Fleischner guidelines were followed.
--- NOTE | ~2022-06-21 | XR_ITS ---
EXAMINATION: XR CHEST CLINICAL INFORMATION: SOB COMPARISON: Chest 06/21/2022 TECHNIQUE: Frontal view of the chest was obtained. FINDINGS: The lungs are well-expanded with patchy opacity seen in right lower lobe and subsegmental atelectasis left lung base. Heart size is enlarged. There is diffuse increased pulmonary vascularity slightly greater on the right.. No gross bony abnormality. A lima-shaped bony thorax is noted. XR/XR chest 1V IMPRESSION: Cardiomegaly with pulmonary edema slightly worsening especially in right lower lobe. There is mild blunting of right CP angle from pleural effusion. Infiltrate or atelectasis in right lung base cannot be excluded. Subsegmental atelectasis in left lung base is unchanged.
--- NOTE | ~2022-06-21 | CT_ITS ---
EXAMINATION: CT HEAD WITHOUT CONTRAST CLINICAL INFORMATION: Altered mental status COMPARISON: None TECHNIQUE: Contiguous axial imaging was performed from the skull base to vertex without intravenous administration of contrast. This CT examination was performed using dose optimization techniques as appropriate, variously including the following: *Automated exposure control *Adjustment of mA and/or kV according to patient size (this includes techniques or standardized protocols for targeted exams where dose is matched to indication/reason for exam; i.e. extremities or head) *Use of iterative reconstruction technique DLP: 631 mGy-cm FINDINGS: There is no acute intra-axial, extra-axial bleed, masses or midline shift. There is no acute infarction in evolution. There is no edema. The lateral ventricles are symmetrical but enlarged. There is mild periventricular hypodensity in both cerebral hemispheres without mass effect suggestive of chronic small vessel ischemic changes. Bone windows reveal no calvarial abnormality. There is no scalp soft tissue abnormality. Bilateral paranasal sinuses and mastoid air cells are well-aerated. CT/CT head/brain wo IV con IMPRESSION: No acute intracranial process seen.
[2022-06-21 09:49] VITALS: BP 144/79; PULSE 121; RESP 18; TEMP 36.8; O2SAT 93; BMI 27.2
--- NOTE | 2022-06-21 09:51 | ECG_ITS ---
Test Reason : SOB Blood Pressure : / mmHG Vent. Rate : 116 BPM Atrial Rate : 000 BPM P-R Int : 000 ms QRS Dur : 070 ms QT Int : 314 ms P-R-T Axes : 000 019 002 degrees QTc Int : 436 ms Atrial fibrillation with rapid ventricular response Low voltage QRS Abnormal ECG When compared with ECG of 13-JUN-2022 10:52, Atrial fibrillation has replaced Sinus rhythm Vent. rate has increased BY 45 BPM Referred By: Britta Perea Electronically Signed By:HAWA HO
[2022-06-21 10:00] VITALS: BP 144/79; PULSE 108; RESP 28; TEMP 36.9; O2SAT 95
--- NOTE | 2022-06-21 10:14 | ED.SOB ---
HPI - SOB/Dyspnea General Chief Complaint: Dyspnea Stated Complaint: JESSIKA ECHEVERRIA, SEEN RECENTLY PER EMS Time Seen by Provider: 06/21/22 09:41 Source: family and EMS Mode of arrival: EMS Limitations: language barrier and physical limitation History of Present Illness HPI Narrative: 87-year-old Latvian-speaking female with past medical history of CKD stage 3, COPD, diabetes, HTN, and CHF who uses 2L [place] home O2 presents to the emergency department, by EMS, for increasing shortness of breath at home and generalized weakness x 1 day per family. Patient's daughter, Monica, present at bedside states that patient was recently admitted for acute hypoxic respiratory failure secondary to acute new onset heart failure. Patient was started on p.o. Lasix and sent home with 40 mg p.o. daily. Daughter states she did not receive her dose today. On arrival to the emergency department, patient noted to be in atrial fibrillation with RVR rate 116-125 BPM. Daughter states the patient does not have a history of atrial fibrillation. Patient's daughter has concerns that pt's face appears swollen and she reports a temperature of 100.0? at home, however in the emergency department, no increased temperature noted. Patient's daughter denies recent complaints of chest pain, nausea, vomiting, headache, vision changes, changes in hearing. She endorses nighttime confusion since discharge from the hospital on 06/16/2022, with no confusion during the day. MD elicited complaint: shortness of breath Pertinent past history: COPD and congestive heart failure Onset (ago): day(s) (1) Timing: constant Exacerbating factors: lying flat Known history of: COPD and congestive heart failure Treatment prior to arrival: none Related Data Home oxygen amount: 2 liters Home Medications Medication Instructions Recorded Confirmed acetaminophen 500 mg tablet 1 tab PO Q4-6H PRN Pain (Scale 06/05/22 06/21/22 Score 1-3) calcium carbonate 600 mg-vitamin 1 tab PO BID 06/05/22 06/21/22 D3 10 mcg (400 unit) tablet doxazosin 8 mg tablet 1 tab PO BEDTIME 06/05/22 06/21/22 gabapentin 300 mg capsule 1 cap PO BEDTIME 06/05/22 06/21/22 loperamide 2 mg capsule 2 mg PO 1XD 06/05/22 06/21/22 metoprolol succinate 100 mg 1 tab PO BEDTIME 06/05/22 06/21/22 tablet,extended release 24 hr omeprazole 20 mg capsule,delayed 1 cap PO DAILY@0630 06/05/22 06/21/22 release simvastatin 10 mg tablet 1 tab PO BEDTIME 06/05/22 06/21/22 metformin 1,000 mg tablet 1 tab PO BID 06/21/22 06/21/22 netarsudil 0.02 %-latanoprost 1 drp ophthalmic (eye) BEDTIME 06/21/22 06/21/22 0.005 % eye drops ([place]) Previous Rx's Medication Instructions Recorded amlodipine 10 mg tablet 10 mg PO DAILY #30 tabs 06/08/22 glipizide 5 mg tablet 5 mg PO DAILY #30 tabs 06/08/22 furosemide 40 mg tablet 40 mg PO DAILY #30 tabs 06/16/22 Allergies Allergy/AdvReac Type Severity Reaction Status Date / Time No Known Allergies Allergy Unverified 03/05/20 19:07 [No Known Allergies*] Review of Systems Review of Systems: In addition to documented HPI above, the additional ROS was obtained from patient's daughter as pt is a poor historian: CONSTITUTIONAL: Denies chills, headache, night sweats, or weight loss EYES: Denies vision changes, eye pain, swelling, redness, foreign body, discharge ENT: Hearing normal. Denies sore throat, swallowing difficulty, congestion, ear pain, no hoarseness CV: Denies chest pain or epigastric pain. No palpitations RESP: Denies wheezing, dyspnea. Denies smoke exposure GI: Denies abdominal pain. Denies nausea, vomiting, constipation or diarrhea. No melena or hematochezia. : Denies irregular bleeding, and dysuria, urinary frequency, urinary incontinence/retention, urgency. Denies flank pain, hematuria MSK: Denies recent trauma, change in gait, myalgias, joint swelling or pain SKIN: Denies no lesions, rashes, or sores NEURO: Denies new numbness, tingling, dizziness, paresthesias or weakness. No loss of consciousness. Denies headache ENDOCRINE: Denies unexpected weight loss. Denies polyuria, polydipsia. No temperature intolerance HEME/ONC: Denies bleeding disorders, easy bruising, or lymphadenopathy PSYCH: Denies anxiety/panic, depression, SI/HI, or social issues. Yes all other systems are reviewed and are negative PMFSH Past Medical History Attestation statement: The following information was validated with the patient. 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) Alcohol intake: never Patient Tobacco Use Status: Never used Tobacco Advance Directives: No Advance Directives Information Provided: Yes service: No Current occupational status: retired Physical Exam Vital Signs: Vital Signs: Last Vital Signs Temp 98.5 F 06/21/22 10:00 Pulse 108 H 06/21/22 10:00 Resp 28 H 06/21/22 10:00 BP 144/79 H 06/21/22 10:00 Pulse Ox 95 06/21/22 10:00 O2 Del Method 06/21/22 10:00 O2 Flow Rate 2 06/21/22 10:00 Oxygen Flow Rate 2 06/21/22 09:49 BMI result Body Mass Index 27.2 Const: General: cooperative and lethargic Nutritional Appearance: well nourished Orientation/consciousness: oriented to person, oriented to place and lethargic Limitations: language barrier and physical limitations HEENT: Head: Yes atraumatic Ears: hearing grossly normal bilaterally and external ears normal General nose exam: Normal external nose present and Normal nares present Face and sinus: Yes face symmetric and Yes edema (periorbital) Mouth: Normal oral and palatal mucosa present Eyes: General: appearance normal, both eyes and all related structures Visual Cardenas: normal visual cardenas by confrontation Alignment and Position: alignment normal Periorbital: periorbital findings normal Eyelids: Yes eyelids normal Conjunctivae: conjunctivae normal Sclerae: sclerae normal Corneas: corneas normal Pupils: Equal, round and reactive pupils present EOM: EOMs intact bilaterally Neck: Neck: Yes normal visual inspection, Yes full ROM and Yes no lymphadenopathy Chest: Chest palpation & inspection: normal inspection of the chest Resp: Effort & Inspection: labored, tachypneic and symmetric chest movement Auscultation: crackles bilateral throughout Cardio: Rate: tachycardic Rhythm: abnormal rhythm GI: Inspection: Yes normal to inspection Palpation (GI): Soft to palpation and nontender Auscultation: normal bowel sounds Skin: General skin exam: no rashes or lesions noted Neuro: General: oriented to person, oriented to place, moves all extremities and Unable to assess gait Cranial nerves: Yes Equal, round and reactive pupils present Gait exam (Neuro): Unable to assess gait Motor exam (neuro): Other motor observations present (BAPTISTE with 2/5 strength) Extrem: General: Yes normal to inspection, Yes full ROM and Yes capillary refill normal Psych: Speech and movement: Clear speech present Affect: normal affect Attitude: cooperative Course Course Course Narrative: Plan for EKG and chest x-ray based on complaint of shortness of breath and weakness in new onset atrial fibrillation. CBC and CMP ordered 1000: 40 mg IV Lasix ordered and CXR 1020: Troponin ordered 1100: Dr Duque contacted regarding the need for admission for further treatment and management for this patient 1200: Inpatient PA at bedside to assess pt and discuss ongoing plan with patient and family Medications Administered Discontinued Medications Generic Name Dose Route Start Last Admin Trade Name Freq PRN Reason Stop Dose Admin Furosemide 40 mg 06/21/22 10:00 06/21/22 10:46 Furosemide 20 Mg/2 Ml Vial IVPUSH 06/21/22 10:01 40 mg ONCE ONE Administration Protocol Medical Decision Making Medical Decision Making [facility] Narrative: 87-year-old Latvian-speaking female with past medical history of CKD stage 3, COPD, diabetes, HTN, and CHF who uses 2L [place] home O2 presents to the emergency department, by EMS, for increasing shortness of breath at home and generalized weakness x 1 day per family. Patient's daughter, Monica, present at bedside states that patient was recently admitted for acute hypoxic respiratory failure secondary to acute new onset heart failure. Patient was started on p.o. Lasix and sent home with 40 mg p.o. daily, which she did not receive today. On arrival to the emergency department, patient noted to be in atrial fibrillation with RVR rate 116-125 BPM, which is a new finding per daughter. EKG showing atrial fibrillation with rapid ventricular response, 116 BPM, compared to EKG done 06/13/2022 which showed sinus rhythm with rate in the 60s. CXR showing cardiomegaly, mild pulmonary edema, and small bilateral pleural effusions. Serology negative for COVID. Blood work concerning for elevated K 5.3 and BUN/Creatinine 39/1.93 compared to BUN/Creatinine 33/1.96 and K 4.2 on 06/15/22. Based on HPI, PE, diagnostics patient will need continued care in an inpatient setting. ZANDRA-VASc score 6 with moderate to high risk for stroke/TIA/systemic embolism. Based on HPI, PE, diagnostics patient will need continued care in an inpatient setting. Plan to contact hospitalist for hospital admission discussed with patient and family and in agreement with plan. Dr Duque contacted regarding pt status and need for admission and pt accepted. Lab Data Result Diagrams: 06/21/22 11:24 06/21/22 11:24 Labs: Lab Results 06/21/22 06/21/22 06/21/22 Range/Units 11:08 11:24 11:24 WBC 8.1 (4.8-10.8) X10*3/uL RBC 3.06 L (4.20-5.50) X10*6/uL Hgb 9.1 L (12.0-16.0) g/dl Hct 30.4 L (37.0-47.0) % MCV 99.3 H (80.0-98.0) fL MCH 29.7 (27.0-33.0) pg MCHC 29.9 L (31.0-35.0) g/dl RDW 12.2 (11.0-16.0) % Plt Count 245 (160-400) X10*3/uL MPV 10.7 (9.4-12.3) fL Immature Gran % (Auto) 0.2 (0.0-0.4) % Neut % (Auto) 74.2 H (45-73) % Lymph % (Auto) 17.1 L (20-40) % [place] % (Auto) 6.6 (2-11) % Eos % (Auto) 1.4 (0-4) % Baso % (Auto) 0.5 (0-2) % Lymph # (Auto) 1.4 (1.2-4.9) X10*3/uL [place] # (Auto) 0.5 (0.1-1.2) X10*3/uL Eos # (Auto) 0.1 (0.0-0.4) X10*3/uL Baso # (Auto) 0.0 (0.0-0.2) X10*3/uL Abs Immat Gran (auto) 0.02 (0.00-0.03) X10*3/uL Absolute Neuts (auto) 6.0 (2.0-8.3) x10*3/uL Absolute Nucleated RBC 0.000 (0.0-0.012) X10*3/uL Nucleated RBC % (auto) 0.0 (0.0-0.2) /100WBC Sodium 140 (135-145) mmol/L Potassium 5.3 H D (3.3-5.1) mmol/L Chloride 99 (96-108) mmol/L Carbon Dioxide 34 H (22-29) mmol/L Anion Gap 12 (12-20) BUN 39 H (9-16) mg/dL Creatinine 1.93 H (0.5-1.4) mg/dL Estim Creat Clear Calc 21.1 Estimated GFR 25 Random Glucose 151 H (60-115) mg/dL Calcium 8.8 (8.4-10.2) mg/dL Total Bilirubin 0.3 (0.0-1.0) mg/dL AST 10 (5-31) U/L ALT 7 (0-31) U/L Alkaline Phosphatase 71 (39-117) U/L Troponin I High Sens (<3.5-17.0) ng/L B-Natriuretic Peptide (<100) pg/mL Total Protein 6.9 (6.5-8.0) g/dL Albumin 3.5 (3.5-5.0) g/dL COVID-19 (ZONIA) Negative (Negative) COVID-19 Clin Com See Note 06/21/22 06/21/22 Range/Units 11:24 11:24 WBC (4.8-10.8) X10*3/uL RBC (4.20-5.50) X10*6/uL Hgb (12.0-16.0) g/dl Hct (37.0-47.0) % MCV (80.0-98.0) fL MCH (27.0-33.0) pg MCHC (31.0-35.0) g/dl RDW (11.0-16.0) % Plt Count (160-400) X10*3/uL MPV (9.4-12.3) fL Immature Gran % (Auto) (0.0-0.4) % Neut % (Auto) (45-73) % Lymph % (Auto) (20-40) % [place] % (Auto) (2-11) % Eos % (Auto) (0-4) % Baso % (Auto) (0-2) % Lymph # (Auto) (1.2-4.9) X10*3/uL [place] # (Auto) (0.1-1.2) X10*3/uL Eos # (Auto) (0.0-0.4) X10*3/uL Baso # (Auto) (0.0-0.2) X10*3/uL Abs Immat Gran (auto) (0.00-0.03) X10*3/uL Absolute Neuts (auto) (2.0-8.3) x10*3/uL Absolute Nucleated RBC (0.0-0.012) X10*3/uL Nucleated RBC % (auto) (0.0-0.2) /100WBC Sodium (135-145) mmol/L Potassium (3.3-5.1) mmol/L Chloride (96-108) mmol/L Carbon Dioxide (22-29) mmol/L Anion Gap (12-20) BUN (9-16) mg/dL Creatinine (0.5-1.4) mg/dL Estim Creat Clear Calc Estimated GFR Random Glucose (60-115) mg/dL Calcium (8.4-10.2) mg/dL Total Bilirubin (0.0-1.0) mg/dL AST (5-31) U/L ALT (0-31) U/L Alkaline Phosphatase (39-117) U/L Troponin I High Sens 7.4 (<3.5-17.0) ng/L B-Natriuretic Peptide 1244 H (<100) pg/mL Total Protein (6.5-8.0) g/dL Albumin (3.5-5.0) g/dL COVID-19 (ZONIA) (Negative) COVID-19 Clin Com Independent Interpretation I performed an independent interpretation of an: EKG Interpretation: I have independently reviewed the EKG showing new onset atrial fibrillation with rapid ventricular response compared to last EKG done 06/13/2022 in which she was in sinus rhythm at that time. Vent. Rate : 116 BPM ? ? Atrial Rate : 000 BPM ?? P-R Int : 000 ms? QRS Dur : 070 ms ? ? QT Int : 314 ms ? ? ? P-R-T Axes : 000 019 002 degrees ?? QTc Int : 436 ms ? Atrial fibrillation with rapid ventricular response Low voltage QRS Abnormal ECG When compared with ECG of 13-JUN-2022 10:52, Atrial fibrillation has replaced Sinus rhythm Vent. rate has increased BY? 45 BPM Radiology Impression Radiologist Impression: I independently reviewed the chest xray which show cardiomegaly, mild pulmonary edema, and small bilateral pleural effusions. EXAMINATION: XR CHEST CLINICAL INFORMATION: Shortness of breath COMPARISON: 06/13/2022 TECHNIQUE: 2 views of the chest were obtained. FINDINGS: Cardiac silhouette is mildly enlarged. Pulmonary vessels and interstitium are prominent. A small right pleural effusion seen on 06/13/2022 has decreased. However, a small left pleural effusion has developed. There is likely atelectasis in the left base. No overt airspace disease. No acute skeletal abnormality. EKG wires overlie the chest. XR/XR chest 2V IMPRESSION: Cardiomegaly, mild pulmonary edema and small bilateral pleural effusions. Dictated By: Kp Quinteros MD Signed By: <Electronically signed by Kp Quinteros MD in OV> 06/21/22 1137 DD/ 1039 TD/TT:? Lead Web Application Developer: PD Discharge Plan Discharge Clinical Impression: CHF exacerbation Patient Disposition: Admitted As Inpatient
[2022-06-21] MEDS: Furosemide 20 MG/2 ML VIAL 40 MG IVPUSH (10:46)
[2022-06-21 11:25] LABS: COVID-19 Test Negative (Negative); IDNOW Serial# 16C4AD1C
[2022-06-21 11:28] LABS: MANUAL DIFF FLAG NO
[2022-06-21 11:38] LABS: Basophils Percent Auto 0.5 % (0-2); Eosinophils Absolute Auto 0.1 X10*3/uL (0.0-0.4); Eosinophils Percent Auto 1.4 % (0-4); Hematocrit 30.4 % (37.0-47.0); Hemoglobin 9.1 g/dl (12.0-16.0); Imm Gran Abs Auto 0.02 X10*3/uL (0.00-0.03); Imm Gran Pct Auto 0.2 % (0.0-0.4); Lymphocytes Absolute Auto 1.4 X10*3/uL (1.2-4.9); Lymphocytes Percent Auto 17.1 % (20-40); Mean Corpuscular HGB Conc 29.9 g/dl (31.0-35.0); Mean Corpuscular Hemoglobin 29.7 pg (27.0-33.0); Mean Corpuscular Volume 99.3 fL (80.0-98.0); Mean Platelet Volume 10.7 fL (9.4-12.3); Monocytes Absolute Auto 0.5 X10*3/uL (0.1-1.2); Monocytes Percent Auto 6.6 % (2-11); Neutrophils Percent Auto 74.2 % (45-73); Platelet Count 245 X10*3/uL (160-400); Red Blood Count 3.06 X10*6/uL (4.20-5.50); Red Cell Distribution Width 12.2 % (11.0-16.0); White Blood Count 8.1 X10*3/uL (4.8-10.8)
[2022-06-21 11:51] LABS: Alanine Aminotransferase 7 U/L (0-31); Albumin Level 3.5 g/dL (3.5-5.0); Alkaline Phosphatase 71 U/L (39-117); Anion Gap 12 (12-20); Aspartate Amino Transferase 10 U/L (5-31); Bilirubin Total 0.3 mg/dL (0.0-1.0); Blood Urea Nitrogen 39 mg/dL (9-16); Calcium 8.8 mg/dL (8.4-10.2); Carbon Dioxide 34 mmol/L (22-29); Chloride 99 mmol/L (96-108); Creatinine Clr Calc Pharmacy 21.1; Estimated Glomerular Filt Rate 25; Glucose Random 151 mg/dL (60-115); Potassium 5.3 mmol/L (3.3-5.1); Sodium 140 mmol/L (135-145); Total Protein 6.9 g/dL (6.5-8.0)
[2022-06-21 11:54] LABS: Troponin-I High Sensitivity 7.4 ng/L (<3.5-17.0)
--- NOTE | 2022-06-21 11:58 | MHC.EDTECH ---
purewick put on patient, washed patient
[2022-06-21 12:22] VITALS: BP 104/62; PULSE 122; RESP 25; TEMP 36.3; O2SAT 93
--- NOTE | 2022-06-21 12:23 | P.HPHOSP_ITS ---
History of Present Illness Date of Service: 06/21/22 Attending physician on admission: Kervin [facility] Chief Complaint: Dyspnea Pt is a 87-year-old female with a PMH significant for?CHF, HTN, n ia-jycpcwi-aalkrurau diabetes, who presents to the ED with?confusion, elevated heart rate, difficulty breathing. The patient is primarily Dutch-speaking and HPI is obtained primarily from her daughter who was at bedside. Of note patient was recently admitted in the hospital from 06/13 through 06/16 for shortness of breath and weakness and treated for CHF. Patient states that since discharge s he has had continued difficulty breathing and has been confused mostly at night. She has been hallucinating and speaking with people who are not there. Patient comes into the ER today d/t worsening weakness and tachypnea. Patient states that when her mother woke up this morning she had an elevated heart rate and could not stand up. Chest and that she was breathing from the belly wheezing and had an elevated blood pressure. Also noticed swelling in the face and had a temperature of 99.6 degrees. No chest pain/pressure. Patient denies chills, nausea, vomiting. No abdominal pain or or changes in bowel or bladder habits. Upon examination patient was found to be oriented to person, place, but not to time. In the ED labs were significant for H&H of 9.1/30.4, potassium slightly elevated at 5.3, BUN 39, creatinine of 1.93, BNP of 12 44. UA clear. Chest x-ray showed mild pulmonary edema and small bilateral pleural effusions.Pt was treated with 40 mg Lasix IV. Patient's EKG showed patient was in AFib with rapid ventricular response. Pt will be admitted to telemetry for evaluation and treatment of CHF exacerbation in setting of new onset AFib. 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) Alcohol intake: never Patient Tobacco Use Status: Never used Tobacco Smoked in Last 30 Days: No Use of substances other than those prescribed or required for medical reasons: No Advance Directives: No Advance Directives Information Provided: Yes service: No Current occupational status: retired [employer] Allergies Allergy/AdvReac Type Severity Reaction Status Date / Time No Known Allergies Allergy Unverified 03/05/20 19:07 [No Known Allergies*] Active Medications: Current Medications Acetaminophen (Acetaminophen 325 Mg Tablet) 650 mg PO Q6H PRN PRN Reason: Pain, Mild (Pain Scale 1-3) Diltiazem HCl (Diltiazem Hcl 50 Mg/10 Ml Vial) 10 mg IVPUSH STAT STA Stop: 06/21/22 12:15 Docusate Sodium (Docusate Sodium 100 Mg Capsule) 100 mg PO DAILY PRN PRN Reason: Constipation Enoxaparin Sodium (Enoxaparin Sodium 40 Mg/0.4 Ml Syringe) 40 mg SUBCUT Q24H VISHAL Ondansetron HCl (Ondansetron Hcl 4 Mg/2 Ml Vial) 4 mg IVPUSH Q8H PRN PRN Reason: Nausea and Vomiting Pharmacy Consult (Consult Rx Perform Med Rec) 1 each MISCELLANE ONCE PRN PRN Reason: Consult order Sodium Chloride (0.9 % Sodium Chloride Flush 3 Ml Syringe) [facility] Medications Medication Instructions Recorded Confirmed Last Taken Type acetaminophen 500 mg tablet 1 tab PO Q4-6H PRN Pain (Scale 06/05/22 06/21/22 Unknown History Score 1-3) calcium carbonate 600 mg-vitamin 1 tab PO BID 06/05/22 06/21/22 06/20/22 History D3 10 mcg (400 unit) tablet doxazosin 8 mg tablet 1 tab PO BEDTIME 06/05/22 06/21/22 06/20/22 History gabapentin 300 mg capsule 1 cap PO BEDTIME 06/05/22 06/21/22 06/20/22 History loperamide 2 mg capsule 2 mg PO 1XD 06/05/22 06/21/22 06/20/22 History metoprolol succinate 100 mg 1 tab PO BEDTIME 06/05/22 06/21/22 06/20/22 History tablet,extended release 24 hr omeprazole 20 mg capsule,delayed 1 cap PO DAILY@0630 06/05/22 06/21/22 06/20/22 History release simvastatin 10 mg tablet 1 tab PO BEDTIME 06/05/22 06/21/22 06/20/22 History metformin 1,000 mg tablet 1 tab PO BID 06/21/22 06/21/22 06/20/22 History netarsudil 0.02 %-latanoprost 1 drp ophthalmic (eye) BEDTIME 06/21/22 06/21/22 06/20/22 History 0.005 % eye drops ([place]) Physical Exam Vital Signs and Narrative: Vital Signs: Last Vital Signs Temp 98.5 F 06/21/22 10:00 Pulse 108 H 06/21/22 10:00 Resp 28 H 06/21/22 10:00 BP 144/79 H 06/21/22 10:00 Pulse Ox 95 06/21/22 10:00 O2 Del Method 06/21/22 10:00 O2 Flow Rate 2 06/21/22 10:00 Oxygen Flow Rate 2 06/21/22 09:49 BMI result Body Mass Index 27.2 Constitutional: Alert, in no acute distress. Mental Status: Oriented to person and place but not to time. She knew Aranza was president but thought year was 1936. Eyes: Pupils are equal, round, and reactive to light. Ear, Nose, and Throat: Oropharynx clear, mucous membranes moist. Ears and nose without deformities. Trachea midline. Respiratory: Diminished breath sounds to bases bilaterally. No wheezing, rales, or rhonchi. Cardiovascular: Regularly irregular rhythm, tachycardia. Gastrointestinal: Abdomen soft, non-tender, non-distended. Normal bowel sounds. Neurologic: Cranial nerves II-XI are grossly intact. No focal neurological deficits. Moves all extremities spontaneously. Skin: No rashes or lesions noted. Musculoskeletal: No cyanosis or clubbing. Extremities: Trace right lower leg edema. Psychiatric: Normal mood and affect. Results Labs CBC and Chem 7: 06/22/22 06:44 06/22/22 06:44 Labs: Laboratory Results - last 24 hr 06/21/22 06/21/22 06/21/22 11:08 11:24 11:24 MCV 99.3 H MCH 29.7 MCHC 29.9 L RDW 12.2 Plt Count 245 MPV 10.7 Immature Gran % (Auto) 0.2 Neut % (Auto) 74.2 H Lymph % (Auto) 17.1 L [place] % (Auto) 6.6 Eos % (Auto) 1.4 Baso % (Auto) 0.5 Lymph # (Auto) 1.4 [place] # (Auto) 0.5 Eos # (Auto) 0.1 Baso # (Auto) 0.0 Abs Immat Gran (auto) 0.02 Absolute Neuts (auto) 6.0 Absolute Nucleated RBC 0.000 Nucleated RBC % (auto) 0.0 Anion Gap 12 Estim Creat Clear Calc 21.1 Estimated GFR 25 Random Glucose 151 H Calcium 8.8 Total Bilirubin 0.3 AST 10 ALT 7 Alkaline Phosphatase 71 Troponin I High Sens Total Protein 6.9 Albumin 3.5 COVID-19 (ZONIA) Negative COVID-19 Clin Com See Note 06/21/22 11:24 MCV MCH MCHC RDW Plt Count MPV Immature Gran % (Auto) Neut % (Auto) Lymph % (Auto) [place] % (Auto) Eos % (Auto) Baso % (Auto) Lymph # (Auto) [place] # (Auto) Eos # (Auto) Baso # (Auto) Abs Immat Gran (auto) Absolute Neuts (auto) Absolute Nucleated RBC Nucleated RBC % (auto) Anion Gap Estim Creat Clear Calc Estimated GFR Random Glucose Calcium Total Bilirubin AST ALT Alkaline Phosphatase Troponin I High Sens 7.4 Total Protein Albumin COVID-19 (ZONIA) COVID-19 Clin Com Imaging Radiologist's Impressions: Impressions Chest X-Ray 06/21/22 10:39 IMPRESSION: Cardiomegaly, mild pulmonary edema and small bilateral pleural effusions. Assessment and Plan (1) CKD (chronic kidney disease) stage 3, GFR 30-59 ml/min: Status: Acute (2) Congestive heart failure: Status: Acute (3) Atrial fibrillation with rapid ventricular response: Status: Acute Plan Pt is a 87-year-old female with a PMH significant for?CHF, HTN, hxi-jxyblfn-apoprpjoi diabetes, who presents to the ED with?confusion, elevated heart rate, difficulty breathing. Pt was found to be in new onset AFib. Patient will be admitted to telemetry for treatment evaluation of CHF in setting of new onset AFib. AFib with RVR New onset, patient with no known history of AFib Cardizem IV 10 mg Admit to telemetry Consider Cardizem drip if RVR persists Acute CHF exacerbation, diastolic HFpEF Likely secondary to new-onset Afib BNP elevated at 1244, above levels at last admission of 347 Patient received 40 mg of Lasix IV in the ED Hold Lasix for now pending Cardiology and nephrology consults tachypnea Continue supplemental oxygen, titrate to O2 > 92 Should improve with AFib RVR resolution Monitor respiratory status Confusion Etiology unclear, labs reassuring, possibly secondary to new onset AFib Continue to monitor Hyperkalemia Potassium slightly elevated at 5.3 Monitor labs Anemia, chronic Patient's H&H is 9.1/30.4, slightly down from 10.7/30 4.5 x 06/05/22 Check folate, B12, stool for occult blood Trend labs CKD Creatinine 1.93, appears near to new baseline from 02/28/2022 Nephrology consult Jld-zkpswau-ndkmqgbla diabetes Hold home meds SSI HTN Continue home meds HLD Continue home meds Full Code Attending:?Dr. Duque DVT Prophylaxis: Lovenox 30mg Pt will require a hospitalization of at least two nights for treatment of?new onset AFib and CHF exacerbation.. Time Spent With Patient Time: Total time managing care of this patient today ____ minutes. Quality Stroke Does the patient have a stroke diagnosis?: No VTE Prior VTE?: No VTE Risk Level:: Medical - moderate - high VTE Device Contraindication: Treatment Not Indicated VTE Drug Contraindication: N/A - Med Ordered
[2022-06-21 12:34] LABS: B Type Natriuretic Peptide 1244 pg/mL (<100)
--- NOTE | 2022-06-21 12:40 | PHA.MEDREC ---
Pharmacy Consult ? Medication Reconciliation Pharmacy has completed the medication reconciliation. Utilized site interpreter services. Patient's family member was there to confirm meds with last admission discharge meds.
[2022-06-21 13:42] LABS: Vitamin B12 < 148 pg/mL (200-900)
[2022-06-21] MEDS: Enoxaparin Sodium 30 MG/0.3 ML SYRINGE SUBCUT (14:48)
[2022-06-21] MEDS: dilTIAZem HCL 50 MG/10 ML VIAL 10 MG IVPUSH (14:50)
[2022-06-21 17:30] VITALS: BP 98/56; PULSE 140; RESP 27; TEMP 37.3; O2SAT 93
--- NOTE | 2022-06-21 17:49 | PC.NURSE ---
assumed care of patient, pt placed on monitor found to be tachycardic to 150s, low grade fever 99.1 and desatted to the 70s without good recovery. pt sat up in bed, placed on 6L NC and recovered to 91%. made aware
[2022-06-21 18:38] LABS: Glucose, Whole Blood 128 mg/dL (60-115)
--- NOTE | 2022-06-21 19:07 | PC.NURSE ---
Reported to Dr. Sidney Chen remaining 130-140. Per MD administer Cardizem IV push, continue to monitor pt's heart rate, report to MD persistent HR in 140's .
[2022-06-21 19:45] VITALS: BP 144/68; PULSE 126; RESP 16; TEMP 36.6; O2SAT 96
--- NOTE | 2022-06-21 19:45 | PC.NURSE ---
Spoke to Dr Dr. Little to clarify need for Cardizem IV push, per Dr. Little no need for Cardizem IV push at this time.
[2022-06-21 20:47] LABS: Glucose, Whole Blood 120 mg/dL (60-115)
[2022-06-21 21:15] VITALS: BP 122/64; PULSE 111; RESP 16
[2022-06-21] MEDS: Atorvastatin Calcium 10 MG TABLET PO (21:20)
[2022-06-21] MEDS: Doxazosin Mesylate 2 MG TABLET 8 MG PO (21:20)
[2022-06-21] MEDS: Calcium + Vitamin D 250 MG TABLET 500 MG PO (21:20)
[2022-06-21] MEDS: Metoprolol Succinate ER 100 MG TAB.ER.24H PO (21:20)
[2022-06-21] MEDS: Gabapentin 300 MG CAPSULE PO (21:29)
[2022-06-22] VITALS (8 sets, daily range): BP systolic 109–139; BP diastolic 55–87; PULSE 76–135; RESP 16–25; TEMP 36.2–37.1; O2SAT 93–98
[2022-06-22] MEDS: Omeprazole 20 MG CAPSULE.DR PO (05:43)
--- NOTE | 2022-06-22 06:17 | MHC.EDTECH ---
PATIENT WAS INCONTINENT X2 OF URINE ,CARE GIVEN ,BEDDING CHANGE ,PT DAUGHTER AT BEDSIDE .
[2022-06-22 06:54] LABS: Hematocrit 28.7 % (37.0-47.0); Hemoglobin 8.6 g/dl (12.0-16.0); Mean Corpuscular Hemoglobin 29.6 pg (27.0-33.0); Mean Corpuscular Volume 98.6 fL (80.0-98.0); Mean Platelet Volume 10.6 fL (9.4-12.3); Platelet Count 223 X10*3/uL (160-400); Red Blood Count 2.91 X10*6/uL (4.20-5.50); White Blood Count 6.7 X10*3/uL (4.8-10.8)
[2022-06-22 07:22] LABS: Glucose, Whole Blood 111 mg/dL (60-115)
[2022-06-22 07:25] LABS: Anion Gap 13 (12-20); Blood Urea Nitrogen 43 mg/dL (9-16); Calcium 8.9 mg/dL (8.4-10.2); Carbon Dioxide 33 mmol/L (22-29); Chloride 99 mmol/L (96-108); Creatinine Clr Calc Pharmacy 22.6; Estimated Glomerular Filt Rate 27; Glucose Random 126 mg/dL (60-115); Potassium 5.1 mmol/L (3.3-5.1); Sodium 140 mmol/L (135-145)
--- NOTE | 2022-06-22 08:03 | P.PNIM_ITS ---
Subjective Subjective Date of Service: 06/22/22 Interval History: f/u on afib with rvr, heart failure interval history: HR remains high, Physical Exam Vital Signs: Vital Signs: Last Vital Signs Temp 97.1 F 06/22/22 07:49 Pulse 130 H 06/22/22 07:49 Resp 25 H 06/22/22 07:49 BP 130/72 06/22/22 07:49 Pulse Ox 93 06/22/22 07:49 O2 Del Method 06/22/22 07:49 O2 Flow Rate 4 06/22/22 07:49 Oxygen Flow Rate 2 06/21/22 09:49 BMI result Body Mass Index 27.2 Const: Other: General: AO X 3, no acute distress Resp: CTA bilateral CVS: S1,S2, iregular iregular GI: +BS, NT, no distention Skin: No rash Neuro: motor grossly intact Psych: appropriate affect Objective Data Active Medications Acetaminophen (Acetaminophen 325 Mg Tablet) 650 mg PO Q6H PRN PRN Reason: Pain, Mild (Pain Scale 1-3) Amlodipine Besylate (Amlodipine Besylate 10 Mg Tablet) 10 mg PO DAILY [facility]; Protocol Atorvastatin Calcium (Atorvastatin Calcium 10 Mg Tablet) 10 mg PO BEDTIME VISHAL Last Admin: 06/21/22 21:20 Dose: 10 mg Documented By: BETSY Calcium Carbonate/Cholecalciferol (Calcium + Vitamin D 250 Mg Tablet) 500 mg PO BID [facility] Last Admin: 06/21/22 21:20 Dose: 500 mg Documented By: BETSY Dextrose (Dextrose 50 % 25 Gm/50 Ml Syringe) 25 gm IVPUSH Q15M PRN; Protocol PRN Reason: per Hypoglycemia Standing Ord. Docusate Sodium (Docusate Sodium 100 Mg Capsule) 100 mg PO DAILY PRN PRN Reason: Constipation Doxazosin Mesylate (Doxazosin Mesylate 2 Mg Tablet) 8 mg PO BEDTIME [facility]; Protocol Last Admin: 06/21/22 21:20 Dose: 8 mg Documented By: BETSY Enoxaparin Sodium (Enoxaparin Sodium 30 Mg/0.3 Ml Syringe) 30 mg SUBCUT Q24H VISHAL Last Admin: 06/21/22 14:48 Dose: 30 mg Documented By: SHARDA Gabapentin (Gabapentin 300 Mg Capsule) 300 mg PO BEDTIME VISHAL Last Admin: 06/21/22 21:29 Dose: 300 mg Documented By: BETSY Glucose (Glucose Gel 15 Gm Gel..Gram.) 15 gm PO Q15M PRN; Protocol PRN Reason: per Hypoglycemia Standing Ord. Insulin Human Lispro (Insulin Lispro 100 Unit/Ml 3 Ml Vial) 0 unit SUBCUT QIDACHS [facility]; Protocol Last Admin: 06/21/22 21:21 Dose: Not Given Documented By: BETSY Non-Admin Reason: No Insulin Coverage Loperamide HCl (Loperamide Hcl 2 Mg Capsule) 2 mg PO DAILY PRN PRN Reason: loose stool Metoprolol Succinate (Metoprolol Succinate Er 100 Mg Tab.Er.24h) 100 mg PO BEDTIME [facility]; Protocol Last Admin: 06/21/22 21:20 Dose: 100 mg Documented By: BETSY Omeprazole (Omeprazole 20 Mg Capsule.Dr) 20 mg PO DAILY@0630 [facility] Last Admin: 06/22/22 05:43 Dose: 20 mg Documented By: BETSY Ondansetron HCl (Ondansetron Hcl 4 Mg/2 Ml Vial) 4 mg IVPUSH Q8H PRN PRN Reason: Nausea and Vomiting Pharmacy Consult (Consult Rx Perform Med Rec) 1 each MISCELLANE ONCE PRN PRN Reason: Consult order Sodium Chloride (0.9 % Sodium Chloride Flush 3 Ml Syringe) 3 ml IVFLUSH QSHIFT [facility] Last Admin: 06/22/22 00:50 Dose: Not Given Documented By: BETSY Non-Admin Reason: Med Not Available Labs CBC & Chem 7: 06/22/22 06:44 06/22/22 06:44 Labs: Laboratory Results - last 24 hr 06/21/22 06/21/22 06/21/22 11:08 11:24 11:24 MCV 99.3 H MCH 29.7 MCHC 29.9 L RDW 12.2 Plt Count 245 MPV 10.7 Immature Gran % (Auto) 0.2 Neut % (Auto) 74.2 H Lymph % (Auto) 17.1 L Pacific % (Auto) 6.6 Eos % (Auto) 1.4 Baso % (Auto) 0.5 Lymph # (Auto) 1.4 Pacific # (Auto) 0.5 Eos # (Auto) 0.1 Baso # (Auto) 0.0 Abs Immat Gran (auto) 0.02 Absolute Neuts (auto) 6.0 Absolute Nucleated RBC 0.000 Nucleated RBC % (auto) 0.0 Anion Gap 12 Estim Creat Clear Calc 21.1 Estimated GFR 25 POC Glucose Random Glucose 151 H Calcium 8.8 Total Bilirubin 0.3 AST 10 ALT 7 Alkaline Phosphatase 71 Troponin I High Sens B-Natriuretic Peptide Total Protein 6.9 Albumin 3.5 Vitamin B12 Folate COVID-19 ([facility]ONIA) Negative COVID-19 Clin Com See Note 06/21/22 06/21/22 06/21/22 11:24 11:24 11:24 MCV MCH MCHC RDW Plt Count MPV Immature Gran % (Auto) Neut % (Auto) Lymph % (Auto) Pacific % (Auto) Eos % (Auto) Baso % (Auto) Lymph # (Auto) Pacific # (Auto) Eos # (Auto) Baso # (Auto) Abs Immat Gran (auto) Absolute Neuts (auto) Absolute Nucleated RBC Nucleated RBC % (auto) Anion Gap Estim Creat Clear Calc Estimated GFR POC Glucose Random Glucose Calcium Total Bilirubin AST ALT Alkaline Phosphatase Troponin I High Sens 7.4 B-Natriuretic Peptide 1244 H Total Protein Albumin Vitamin B12 < 148 L Folate 12.0 COVID-19 (ZONIA) COVID-Já Entendi 06/21/22 06/21/22 06/22/22 18:35 20:43 06:44 MCV 98.6 H MCH 29.6 MCHC 30.0 L RDW 12.0 Plt Count 223 MPV 10.6 Immature Gran % (Auto) Neut % (Auto) Lymph % (Auto) Pacific % (Auto) Eos % (Auto) Baso % (Auto) Lymph # (Auto) Pacific # (Auto) Eos # (Auto) Baso # (Auto) Abs Immat Gran (auto) Absolute Neuts (auto) Absolute Nucleated RBC 0.000 Nucleated RBC % (auto) 0.0 Anion Gap Estim Creat Clear Calc Estimated GFR POC Glucose 128 H 120 H Random Glucose Calcium Total Bilirubin AST ALT Alkaline Phosphatase Troponin I High Sens B-Natriuretic Peptide Total Protein Albumin Vitamin B12 Folate COVID-19 (ZONIA) COVID-Call Loop Com 06/22/22 06/22/22 06:44 07:15 MCV MCH MCHC RDW Plt Count MPV Immature Gran % (Auto) Neut % (Auto) Lymph % (Auto) Pacific % (Auto) Eos % (Auto) Baso % (Auto) Lymph # (Auto) Pacific # (Auto) Eos # (Auto) Baso # (Auto) Abs Immat Gran (auto) Absolute Neuts (auto) Absolute Nucleated RBC Nucleated RBC % (auto) Anion Gap 13 Estim Creat Clear Calc 22.6 Estimated GFR 27 POC Glucose 111 Random Glucose 126 H Calcium 8.9 Total Bilirubin AST ALT Alkaline Phosphatase Troponin I High Sens B-Natriuretic Peptide Total Protein Albumin Vitamin B12 Folate COVID-19 (ZONIA) COVID-19 Clin Com Assessment and Plan (1) Acute on chronic diastolic (congestive) heart failure: Status: Acute (2) Atrial fibrillation with rapid ventricular response: Status: Acute (3) CHF exacerbation: Status: Acute Plan 87-year-old female with a PMH significant for?CHF, HTN, the-[id number] diabetes, who presents to the ED with?confusion, elevated heart rate, difficulty breathing. Pt was found to be in new onset AFib with RVR and evidence of heat failure AFib with RVR--persistent tachy -IV cardizem if needed to control HR -continue toprolol at night -Eliquis for stroke prevention, -cardiology to advise on further mangament -oral cardizem 30 q6 Acute CHF exacerbation, diastolic HFpEF, acute hypoxic respiratory Likely secondary to new-onset Afib BNP elevated at 1244, above levels at last admission of 347 IV Lasix Confusion Etiology unclear, labs reassuring, possibly secondary to new onset AFib Continue to monitor Hyperkalemia--mild, resolved without meds Anemia, chronic Patient's H&H is 9.1/30.4, slightly down from 10.7/30 4.5 x 06/05/22 norml folate, low B12 B12 Deficiency--oral replacement CKD3--within baseline [id number] diabetes Hold home meds SSI HTN Continue home meds HLD Continue home meds Full Code Attending:?Dr. Duque DVT Prophylaxis: Lovenox 30mg need for inpatient: AFIB with RVR needing IV meds, acute heart failure needing IV diuretics Time Spent With Patient Time: Total time managing care of this patient today ____ minutes. Quality Stroke Does the patient have a stroke diagnosis?: No VTE Prior VTE?: No VTE Risk Level:: Medical - moderate - high VTE Device Contraindication: Treatment Not Indicated VTE Drug Contraindication: N/A - Med Ordered
[2022-06-22] MEDS: Calcium + Vitamin D 250 MG TABLET 500 MG PO ×2 (08:29→20:01)
[2022-06-22] MEDS: Apixaban 2.5 MG TABLET PO ×2 (08:30→20:01)
[2022-06-22] MEDS: dilTIAZem HCL 50 MG/10 ML VIAL 10 MG IVPUSH (08:32)
[2022-06-22] MEDS: 0.9 % Sodium Chloride Flush 3 ML SYRINGE IVFLUSH ×3 (08:38→20:02)
--- NOTE | 2022-06-22 09:17 | P.CDIC_ITS ---
CDI Concurrent Query Documentation Clarification: PHYSICIAN'S DOCUMENTATION REQUEST Date of Query: 06/22/22 0917 Patient Name: Karoline Schafer Admit Date: 06/21/22 Dear Doctor, A review of the medical record indicates additional documentation may be needed. Please review below and update the documentation accordingly. Clinical Indicators: Risk Factors/Clinical Indicators/Treatments shortness of breath on 2L NC at home respiratory rate 28-27 on 06/21/21 treated with 2L NC inpatient SAT 93 - 96% Recognized standard criteria for respiratory failure includes: (Source: [facility] Hospitalist Apr 2013) ABGs (1 or more) Symptoms: ? PO2 <60 or RA SpO2 <91% ? Tachypnea, SOB, dyspnea ? PcO2 >50 and pH <7.35 ? Pallor or cyanosis ? pO2 decrease or pcO2 increase ? Anxiety or restlessness by 10 mm/Hg from baseline if known ? Use of accessory muscles ? Retractions (grunting in newborns) ? Unable to speak in complete sentences P/F ratio < 300 Supplemental O2 requirement of 40% or more Intubation is not required Clarify which of the following accurately represents the patient's respiratory status: * Acute respiratory failure * Acute on chronic respiratory failure * Chronic respiratory failure * Other (please specify) * Unable to determine Please include type if known: * Hypoxic * Other * Unable to determine Use of terms such as suspected, likely, concern for, or probable (associated with a specific diagnosis that is being evaluated, monitored, or treated as if it exists) are acceptable and can be coded in the inpatient setting, when documented at the time of discharge. Thank you, July Leija RN Extension: [phone] Please use your independent medical judgment in providing your response. THIS QUERY IS PART OF THE PERMANENT MEDICAL RECORD Provider Response: Other Other Diagnosis: unspecified respiratory failure based on above
--- NOTE | 2022-06-22 09:29 | PC.NURSE ---
I assisted the pt with a partial bed bath. She needed extensive assistance to turn in bed. The Purewick was replaced with a new one. Pt handled activity well.
--- NOTE | 2022-06-22 10:41 | P.CONCA_ITS ---
History of Present Illness History of Present Illness Date of Service: 06/22/22 Chief complaint: Dyspnea Narrative: This is a cardiology consultation regarding atrial fibrillation rapid rate. It seems that patient was recently treated for diastolic heart failure. Echocardiogram at that time had shown LVEF of 65-70% and moderate left atrial enlargement. Aortic valve sclerosis and mitral annular calcification also noted. In the interim, she is now admitted for palpitations and found to be in atrial fibrillation rapid rate and some shortness of breath. Discussed with patient using stripping machine operator and also talked to daughter. Apparently, there has been elements of difficulty breathing, confusion, hallucinating and speaking with people were not there, generalized weakness and eventually admitted. EKG had shown atrial fibrillation rapid rate. Also thought to be in congestive heart failure as well. Patient at this time denies any symptoms however. She states she feels okay but daughter states that patient is generally not very forthcoming with problems. Review of Systems Review of Systems: Yes all other systems are reviewed and are negative Constitutional: Constitutional: Reports as per HPI Eyes: Eyes: Reports as per HPI ENT: Reports as per HPI Cardiovascular: Cardiovascular: Reports as per HPI, Denies acrocyanosis, Denies cool extremities, Denies chest pain, Denies leg edema, Denies lig htheadedness, Reports palpitations and Reports dyspnea Respiratory: Respiratory: Reports as per HPI, Reports no additional respiratory complaints and Reports dyspnea Gastrointestinal: Gastrointestinal: Reports as per HPI and Reports no additional gastrointestinal complaints Genitourinary: Genitourinary: Reports as per HPI Musculoskeletal: Musculoskeletal: Reports no additional musculoskeletal complaints and Reports as per HPI Integumentary/Breasts: Skin/Breast: Reports system reviewed and no additional complaints, except as docu Neurologic: Reports system reviewed and no additional complaints, except as documented and Reports as per HPI Psychiatric: Psychiatric: Reports no additional psychiatric complaints and Reports as per HPI Endocrine: Endocrine: Reports no additional endocrine complaints, Reports as per HPI and Reports palpitations Hematologic/Lymphatic: Hematologic/Lymphatic: Reports no additional hematologic/lymphatic complaints and Reports as per HPI Allergic/Immunologic: Allergic/Immunologic: Reports no additional allergic/immunologic complaints and Reports as per HPI [facility] Past Medical History Medical History Arthritis Chronic diarrhea CKD (chronic kidney disease) stage 3, GFR 30-59 ml/min Diabetes History of glaucoma HTN (hypertension) Hypertension Legally blind Family History Family History Other Diabetes Surgical History Surgical History No pertinent past surgical history Social History Social History Household Members: Children Housing: House Do you presently have visiting nurse or other home services: Yes (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) Alcohol intake: never Patient Tobacco Use Status: Never used Tobacco Smoked in Last 30 Days: No Use of substances other than those prescribed or required for medical reasons: No Advance Directives: No Advance Directives Information Provided: Yes service: No Current occupational status: retired [employer] Allergies Allergy/AdvReac Type Severity Reaction Status Date / Time No Known Allergies Allergy Unverified 03/05/20 19:07 [No Known Allergies*] Active Medications: Current Medications Acetaminophen (Acetaminophen 325 Mg Tablet) 650 mg PO Q6H PRN PRN Reason: Pain, Mild (Pain Scale 1-3) Apixaban (Apixaban 2.5 Mg Tablet) 2.5 mg PO BID [facility] Last Admin: 06/22/22 08:30 Dose: 2.5 mg Atorvastatin Calcium (Atorvastatin Calcium 10 Mg Tablet) 10 mg PO BEDTIME [facility] Last Admin: 06/21/22 21:20 Dose: 10 mg Calcium Carbonate/Cholecalciferol (Calcium + Vitamin D 250 Mg Tablet) 500 mg PO BID [facility] Last Admin: 06/22/22 08:29 Dose: 500 mg Dextrose (Dextrose 50 % 25 Gm/50 Ml Syringe) 25 gm IVPUSH Q15M PRN; Protocol PRN Reason: per Hypoglycemia Standing Ord. Docusate Sodium (Docusate Sodium 100 Mg Capsule) 100 mg PO DAILY PRN PRN Reason: Constipation Doxazosin Mesylate (Doxazosin Mesylate 2 Mg Tablet) 8 mg PO BEDTIME [facility]; Protocol Last Admin: 06/21/22 21:20 Dose: 8 mg Gabapentin (Gabapentin 300 Mg Capsule) 300 mg PO BEDTIME [facility] Last Admin: 06/21/22 21:29 Dose: 300 mg Glucose (Glucose Gel 15 Gm Gel..Gram.) 15 gm PO Q15M PRN; Protocol PRN Reason: per Hypoglycemia Standing Ord. Insulin Human Lispro (Insulin Lispro 100 Unit/Ml 3 Ml Vial) 0 unit SUBCUT QIDACHS [facility]; Protocol Last Admin: 06/22/22 08:34 Dose: Not Given Loperamide HCl (Loperamide Hcl 2 Mg Capsule) 2 mg PO DAILY PRN PRN Reason: loose stool Metoprolol Succinate (Metoprolol Succinate Er 100 Mg Tab.Er.24h) 100 mg PO BEDTIME [facility]; Protocol Last Admin: 06/21/22 21:20 Dose: 100 mg Omeprazole (Omeprazole 20 Mg Capsule.Dr) 20 mg PO DAILY@0630 [facility] Last Admin: 06/22/22 05:43 Dose: 20 mg Ondansetron HCl (Ondansetron Hcl 4 Mg/2 Ml Vial) 4 mg IVPUSH Q8H PRN PRN Reason: Nausea and Vomiting Pharmacy Consult (Consult Rx Perform Med Rec) 1 each MISCELLANE ONCE PRN PRN Reason: Consult order Sodium Chloride (0.9 % Sodium Chloride Flush 3 Ml Sy[facility]) [facility] Last Admin: 06/22/22 08:38 Dose: 3 ml Home Medications Medication Instructions Recorded Confirmed Last Taken Type acetaminophen 500 mg tablet 1 tab PO Q4-6H PRN Pain (Scale 06/05/22 06/21/22 Unknown History Score 1-3) calcium carbonate 600 mg-vitamin 1 tab PO BID 06/05/22 06/21/22 06/20/22 History D3 10 mcg (400 unit) tablet doxazosin 8 mg tablet 1 tab PO BEDTIME 06/05/22 06/21/22 06/20/22 History gabapentin 300 mg capsule 1 cap PO BEDTIME 06/05/22 06/21/22 06/20/22 History loperamide 2 mg capsule 2 mg PO 1XD 06/05/22 06/21/22 06/20/22 History metoprolol succinate 100 mg 1 tab PO BEDTIME 06/05/22 06/21/22 06/20/22 History tablet,extended release 24 hr omeprazole 20 mg capsule,delayed 1 cap PO DAILY@0630 06/05/22 06/21/22 06/20/22 History release simvastatin 10 mg tablet 1 tab PO BEDTIME 06/05/22 06/21/22 06/20/22 History metformin 1,000 mg tablet 1 tab PO BID 06/21/22 06/21/22 06/20/22 History netarsudil 0.02 %-latanoprost 1 drp ophthalmic (eye) BEDTIME 06/21/22 06/21/22 06/20/22 History 0.005 % eye drops ([facility]) Physical Exam Vital Signs: Vital Signs: Last Vital Signs Temp 97.1 F 06/22/22 07:49 Pulse 91 06/22/22 08:51 Resp 16 06/22/22 08:51 BP 121/59 L 06/22/22 08:51 Pulse Ox 95 06/22/22 08:51 O2 Del Method 06/22/22 08:51 O2 Flow Rate 4 06/22/22 08:51 Oxygen Flow Rate 2 06/21/22 09:49 BMI result Body Mass Index 27.2 Const: General: comfortable and no acute distress Orientation/consciousness: patient oriented x3 HEENT: Other: Unremarkable Head: Yes normal to inspection Neck: Neck: Yes normal visual inspection Chest: Chest palpation & inspection: normal inspection of the chest Resp: Auscultation: crackles Cardio: Palpation: normal PMI Heart sounds: S1 normal heart sound present, S2 normal heart sound present, no gallops, no murmurs and no rubs GI: Palpation (GI): Soft to palpation Back/Spine/Pelvis: Other: unremarkable Skin: General skin exam: no rashes or lesions noted Neuro: General: patient oriented x3 Extrem: General: Yes normal to inspection Psych: Mental Status: mental status grossly normal Objective Labs and Meds Result diagrams: 06/22/22 06:44 06/22/22 06:44 Lab results: Laboratory Results - last 24 hr 06/21/22 06/21/22 06/21/22 11:08 11:24 11:24 WBC 8.1 RBC 3.06 L Hgb 9.1 L Hct 30.4 L MCV 99.3 H MCH 29.7 MCHC 29.9 L RDW 12.2 Plt Count 245 MPV 10.7 Immature Gran % (Auto) 0.2 Neut % (Auto) 74.2 H Lymph % (Auto) 17.1 L Humphreys % (Auto) 6.6 Eos % (Auto) 1.4 Baso % (Auto) 0.5 Lymph # (Auto) 1.4 Humphreys # (Auto) 0.5 Eos # (Auto) 0.1 Baso # (Auto) 0.0 Abs Immat Gran (auto) 0.02 Absolute Neuts (auto) 6.0 Absolute Nucleated RBC 0.000 Nucleated RBC % (auto) 0.0 Sodium 140 Potassium 5.3 H D Chloride 99 Carbon Dioxide 34 H Anion Gap 12 BUN 39 H Creatinine 1.93 H Estim Creat Clear Calc 21.1 Estimated GFR 25 POC Glucose Random Glucose 151 H Calcium 8.8 Total Bilirubin 0.3 AST 10 ALT 7 Alkaline Phosphatase 71 Troponin I High Sens B-Natriuretic Peptide Total Protein 6.9 Albumin 3.5 Vitamin B12 Folate COVID-19 ([facility]) Negative COVID-19 Clin Com See Note 06/21/22 06/21/22 06/21/22 11:24 11:24 11:24 WBC RBC Hgb Hct MCV MCH MCHC RDW Plt Count MPV Immature Gran % (Auto) Neut % (Auto) Lymph % (Auto) Humphreys % (Auto) Eos % (Auto) Baso % (Auto) Lymph # (Auto) Humphreys # (Auto) Eos # (Auto) Baso # (Auto) Abs Immat Gran (auto) Absolute Neuts (auto) Absolute Nucleated RBC Nucleated RBC % (auto) Sodium Potassium Chloride Carbon Dioxide Anion Gap BUN Creatinine Estim Creat Clear Calc Estimated GFR POC Glucose Random Glucose Calcium Total Bilirubin AST ALT Alkaline Phosphatase Troponin I High Sens 7.4 B-Natriuretic Peptide 1244 H Total Protein Albumin Vitamin B12 < 148 L Folate 12.0 COVID-19 ([facility]) COVID-19 Clin Com 06/21/22 06/21/22 06/22/22 18:35 20:43 06:44 WBC 6.7 RBC 2.91 L Hgb 8.6 L Hct 28.7 L MCV 98.6 H MCH 29.6 MCHC 30.0 L RDW 12.0 Plt Count 223 MPV 10.6 Immature Gran % (Auto) Neut % (Auto) Lymph % (Auto) Humphreys % (Auto) Eos % (Auto) Baso % (Auto) Lymph # (Auto) Humphreys # (Auto) Eos # (Auto) Baso # (Auto) Abs Immat Gran (auto) Absolute Neuts (auto) Absolute Nucleated RBC 0.000 Nucleated RBC % (auto) 0.0 Sodium Potassium Chloride Carbon Dioxide Anion Gap BUN Creatinine Estim Creat Clear Calc Estimated GFR POC Glucose 128 H 120 H Random Glucose Calcium Total Bilirubin AST ALT Alkaline Phosphatase Troponin I High Sens B-Natriuretic Peptide Total Protein Albumin Vitamin B12 Folate COVID-19 ([facility]) COVID-19 Clin Com 06/22/22 06/22/22 06:44 07:15 WBC RBC Hgb Hct MCV MCH MCHC RDW Plt Count MPV Immature Gran % (Auto) Neut % (Auto) Lymph % (Auto) Humphreys % (Auto) Eos % (Auto) Baso % (Auto) Lymph # (Auto) Humphreys # (Auto) Eos # (Auto) Baso # (Auto) Abs Immat Gran (auto) Absolute Neuts (auto) Absolute Nucleated RBC Nucleated RBC % (auto) Sodium 140 Potassium 5.1 Chloride 99 Carbon Dioxide 33 H Anion Gap 13 BUN 43 H Creatinine 1.80 H Estim Creat Clear Calc 22.6 Estimated GFR 27 POC Glucose 111 Random Glucose 126 H Calcium 8.9 Total Bilirubin AST ALT Alkaline Phosphatase Troponin I High Sens B-Natriuretic Peptide Total Protein Albumin Vitamin B12 Folate COVID-19 ([facility]) COVID-19 Clin Com ECG Interpretation: EKG shows atrial fibrillation rate of 116/Min. Low-voltage complexes. Imaging Radiologist's impression: Impressions Chest X-Ray 06/21/22 10:39 IMPRESSION: Cardiomegaly, mild pulmonary edema and small bilateral pleural effusions. Assessment and Plan (1) Atrial fibrillation with rapid ventricular response: Status: Acute (2) Acute on chronic diastolic (congestive) heart failure: Status: Acute Plan Will likely treat but rate control considering age, frailty, deconditioning among others. She is on metoprolol succinate 100 mg at bedtime as listed for home meds. She is also on amlodipine 10 mg daily. We will stop the amlodipine and rather switch her to diltiazem. Hold doxazosin. Otherwise, agree with Alesia. May need some IV diuretics to as a cardiac BNP is high at 1244. Last week, it was only 257. Will follow up with you. Discussed with daughter. Discussed with Dr. Duque. Time Spent With Patient Time: Total time managing care of this patient today 70 minutes. Procedures Date of Service Date of Service: 06/22/22
[2022-06-22 12:23] LABS: Glucose, Whole Blood 121 mg/dL (60-115)
--- NOTE | 2022-06-22 12:24 | PM.CNNEP ---
History of Present Illness Reason for Consult Consult date: 06/22/22 Chief Complaint Chief complaint: Dyspnea History of Present Illness Narrative: 87-year-old female with history of CKD admitted with decompensated CHF in the setting of CKD. She presented with?confusion, elevated heart rate, difficulty breathing and was found to be in new onset atrial fibrillation with RVR and evidence of heat failure. SHe denies chest pain or shortness of breath at the time of the consultation. She was recently admitted to [facility]. There is no report of fever, chills, nausea, vomiting or diarrhea. 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) Alcohol intake: never Patient Tobacco Use Status: Never used Tobacco Smoked in Last 30 Days: No Use of substances other than those prescribed or required for medical reasons: No Advance Directives: No Advance Directives Information Provided: Yes service: No Current occupational status: retired [employer] Allergies Allergy/AdvReac Type Severity Reaction Status Date / Time No Known Allergies Allergy Unverified 03/05/20 19:07 [No Known Allergies*] Active Medications: Current Medications Acetaminophen (Acetaminophen 325 Mg Tablet) 650 mg PO Q6H PRN PRN Reason: Pain, Mild (Pain Scale 1-3) Apixaban (Apixaban 2.5 Mg Tablet) 2.5 mg PO BID [facility] Last Admin: 06/22/22 08:30 Dose: 2.5 mg Atorvastatin Calcium (Atorvastatin Calcium 10 Mg Tablet) 10 mg PO BEDTIME [facility] Last Admin: 06/21/22 21:20 Dose: 10 mg Calcium Carbonate/Cholecalciferol (Calcium + Vitamin D 250 Mg Tablet) 500 mg PO BID [facility] Last Admin: 06/22/22 08:29 Dose: 500 mg Dextrose (Dextrose 50 % 25 Gm/50 Ml Syringe) 25 gm IVPUSH Q15M PRN; Protocol PRN Reason: per Hypoglycemia Standing Ord. Diltiazem HCl (Diltiazem Hcl 30 Mg Tablet) 30 mg PO Q6H [facility]; Protocol Docusate Sodium (Docusate Sodium 100 Mg Capsule) 100 mg PO DAILY PRN PRN Reason: Constipation Doxazosin Mesylate (Doxazosin Mesylate 2 Mg Tablet) 8 mg PO BEDTIME [facility]; Protocol Last Admin: 06/21/22 21:20 Dose: 8 mg Furosemide (Furosemide 20 Mg/2 Ml Vial) 20 mg IVPUSH DAILY [facility]; Protocol Gabapentin (Gabapentin 300 Mg Capsule) 300 mg PO BEDTIME [facility] Last Admin: 06/21/22 21:29 Dose: 300 mg Glucose (Glucose Gel 15 Gm Gel..Gram.) 15 gm PO Q15M PRN; Protocol PRN Reason: per Hypoglycemia Standing Ord. Insulin Human Lispro (Insulin Lispro 100 Unit/Ml 3 Ml Vial) 0 unit SUBCUT QIDACHS [facility]; Protocol Last Admin: 06/22/22 12:22 Dose: Not Given Loperamide HCl (Loperamide Hcl 2 Mg Capsule) 2 mg PO DAILY PRN PRN Reason: loose stool Metoprolol Succinate (Metoprolol Succinate Er 100 Mg Tab.Er.24h) 100 mg PO BEDTIME [facility]; Protocol Last Admin: 06/21/22 21:20 Dose: 100 mg Omeprazole (Omeprazole 20 Mg Capsule.Dr) 20 mg PO DAILY@0630 [facility] Last Admin: 06/22/22 05:43 Dose: 20 mg Ondansetron HCl (Ondansetron Hcl 4 Mg/2 Ml Vial) 4 mg IVPUSH Q8H PRN PRN Reason: Nausea and Vomiting Pharmacy Consult (Consult Rx Perform Med Rec) 1 each MISCELLANE ONCE PRN PRN Reason: Consult order Sodium Chloride (0.9 % Sodium Chloride Flush 3 Ml Syringe) 3 ml IVFLUSH QSHIFT [facility] Last Admin: 06/22/22 08:38 Dose: 3 ml Home Medications Medication Instructions Recorded Confirmed Last Taken Type acetaminophen 500 mg tablet 1 tab PO Q4-6H PRN Pain (Scale 06/05/22 06/21/22 Unknown History Score 1-3) calcium carbonate 600 mg-vitamin 1 tab PO BID 06/05/22 06/21/22 06/20/22 History D3 10 mcg (400 unit) tablet doxazosin 8 mg tablet 1 tab PO BEDTIME 06/05/22 06/21/22 06/20/22 History gabapentin 300 mg capsule 1 cap PO BEDTIME 06/05/22 06/21/22 06/20/22 History loperamide 2 mg capsule 2 mg PO 1XD 06/05/22 06/21/22 06/20/22 History metoprolol succinate 100 mg 1 tab PO BEDTIME 06/05/22 06/21/22 06/20/22 History tablet,extended release 24 hr omeprazole 20 mg capsule,delayed 1 cap PO DAILY@0630 06/05/22 06/21/22 06/20/22 History release simvastatin 10 mg tablet 1 tab PO BEDTIME 06/05/22 06/21/22 06/20/22 History metformin 1,000 mg tablet 1 tab PO BID 06/21/22 06/21/22 06/20/22 History netarsudil 0.02 %-latanoprost 1 drp ophthalmic (eye) BEDTIME 06/21/22 06/21/22 06/20/22 History 0.005 % eye drops ([facility]) Physical Exam Vital Signs: Last Vital Signs Temp 97.1 F 06/22/22 07:49 Pulse 91 06/22/22 08:51 Resp 16 06/22/22 08:51 BP 121/59 L 06/22/22 08:51 Pulse Ox 95 06/22/22 08:51 O2 Del Method 06/22/22 08:51 O2 Flow Rate 4 06/22/22 08:51 Oxygen Flow Rate 2 06/21/22 09:49 BMI result Body Mass Index 27.2 Const General: alert and awake HEENT Head: Yes normocephalic and Yes atraumatic Neck Neck: Yes supple Resp Auscultation: diminished lung sounds Cardio Heart sounds: S1 normal heart sound present and S2 normal heart sound present GI Palpation (GI): Soft to palpation and nontender Extrem General: Yes edema Results Lab Results Result Diagrams: 06/22/22 06:44 06/22/22 06:44 Lab results: Chemistry 06/21/22 06/22/22 11:24 06:44 Sodium 140 140 Potassium 5.3 H D 5.1 Carbon Dioxide 34 H 33 H BUN 39 H 43 H Creatinine 1.93 H 1.80 H Calcium 8.8 8.9 Hematology 06/21/22 06/22/22 11:24 06:44 WBC 8.1 6.7 Hgb 9.1 L 8.6 L Plt Count 245 223 Assessment and Plan (1) CKD (chronic kidney disease) stage 3, GFR 30-59 ml/min: Status: Acute (2) (HFpEF) heart failure with preserved ejection fraction: Status: Acute Plan known CKD kidney function at baseline h/o HFpEF decompensated CHF in the setting of atrial fibrillation with RVR REC IV furosemide rate control follow kidney function and elctrolytes Time Spent With Patient Time: Total time managing care of this patient today ____ minutes. Procedures Date of Service Date of Service: 06/22/22
[2022-06-22] MEDS: Furosemide 20 MG/2 ML VIAL IVPUSH (12:29)
[2022-06-22] MEDS: dilTIAZem HCL 30 MG TABLET PO ×2 (12:29→18:14)
--- NOTE | 2022-06-22 12:44 | PC.NURSE ---
pt a&ox3, libyan speaking, grandson at bedside, vss, medicated per provider order, purewick in place, pt denies pain/nausea at this time, no insulin coverage needed.
--- NOTE | 2022-06-22 12:55 | MHC.CM.PN ---
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
--- NOTE | 2022-06-22 13:39 | PC.NURSE ---
eve at bedside assisting w feeding pt lunch.
[2022-06-22 18:12] LABS: Glucose, Whole Blood 123 mg/dL (60-115)
--- NOTE | 2022-06-22 18:19 | PC.NURSE ---
BED SCALE READING 9 KG UPON ADMISSION WEIGHT - NOTIFIED PRIMARY RN
[2022-06-22 19:33] LABS: Glucose, Whole Blood 158 mg/dL (60-115)
[2022-06-22] MEDS: Metoprolol Succinate ER 100 MG TAB.ER.24H PO (20:01)
[2022-06-22] MEDS: Atorvastatin Calcium 10 MG TABLET PO (20:01)
[2022-06-22] MEDS: Doxazosin Mesylate 2 MG TABLET 8 MG PO (20:01)
[2022-06-22] MEDS: Gabapentin 300 MG CAPSULE PO (20:02)
[2022-06-23 03:59] VITALS: BP 114/63; PULSE 114; RESP 20; TEMP 36.8; O2SAT 96
[2022-06-23] MEDS: dilTIAZem HCL 30 MG TABLET PO ×2 (05:19→12:21)
[2022-06-23] MEDS: Omeprazole 20 MG CAPSULE.DR PO (05:19)
[2022-06-23 07:42] LABS: Glucose, Whole Blood 116 mg/dL (60-115)
[2022-06-23 08:00] VITALS: BP 113/57; PULSE 90; RESP 22; TEMP 36.3; O2SAT 95
[2022-06-23] MEDS: 0.9 % Sodium Chloride Flush 3 ML SYRINGE IVFLUSH ×2 (08:57→20:14)
[2022-06-23] MEDS: Calcium + Vitamin D 250 MG TABLET 500 MG PO ×2 (08:57→20:14)
[2022-06-23] MEDS: Apixaban 2.5 MG TABLET PO ×2 (08:57→20:14)
[2022-06-23] MEDS: Furosemide 20 MG/2 ML VIAL IVPUSH (08:58)
--- NOTE | 2022-06-23 10:49 | PM.PNCARD ---
Subjective Subjective Date of Service: 06/23/22 Interval history: Patient states that she is feeling okay. Not much short of breath. Denies any other complaints. Daughter is also the bedside. Seen patient using translator/interpreter. Review of Systems Review of Systems Yes all other systems are reviewed and are negative Constitutional: Reports as per HPI Eyes: Reports as per HPI Reports as per HPI Cardiovascular: Reports as per HPI, Denies acrocyanosis, Denies cool extremities, Denies chest pain, Denies leg edema, Denies lightheadedness, Denies palpitations and Denies dyspnea Respiratory: Reports as per HPI, Reports no additional respiratory complaints and Denies dyspnea Gastrointestinal: Reports as per HPI and Reports no additional gastrointestinal complaints Genitourinary: Reports as per HPI Musculoskeletal: Reports no additional musculoskeletal complaints and Reports as per HPI Skin/Breast: Reports system reviewed and no additional complaints, except as docu Reports system reviewed and no additional complaints, except as documented and Reports as per HPI Psychiatric: Reports no additional psychiatric complaints and Reports as per HPI Endocrine: Reports no additional endocrine complaints, Reports as per HPI and Denies palpitations Hematologic/Lymphatic: Reports no additional hematologic/lymphatic complaints and Reports as per HPI Allergic/Immunologic: Reports no additional allergic/immunologic complaints and Reports as per HPI Physical Exam Vital Signs: Last Vital Signs Temp 97.4 F 06/23/22 08:00 Pulse 90 06/23/22 08:00 Resp 22 H 06/23/22 08:00 BP 113/57 L 06/23/22 08:00 Pulse Ox 95 06/23/22 08:00 O2 Del Method 06/23/22 08:00 O2 Flow Rate 2 06/23/22 08:00 Oxygen Flow Rate 2 06/21/22 09:49 BMI result Body Mass Index 27.2 Const General: comfortable and no acute distress Orientation/consciousness: patient oriented x3 HEENT Other: Unremarkable Head: Yes normal to inspection Neck Neck: Yes normal visual inspection Chest Chest palpation & inspection: normal inspection of the chest Resp Auscultation: crackles Cardio Palpation: normal PMI Heart sounds: S1 normal heart sound present, S2 normal heart sound present, no gallops, no murmurs and no rubs GI Palpation (GI): Soft to palpation Back/Spine/Pelvis Other: unremarkable Skin General skin exam: no rashes or lesions noted Neuro General: patient oriented x3 Extrem General: Yes normal to inspection Psych Mental Status: mental status grossly normal Objective Labs and Meds Result diagrams: 06/22/22 06:44 06/22/22 06:44 Lab results: Laboratory Results - last 24 hr 06/22/22 06/22/22 06/22/22 12:07 18:08 19:29 POC Glucose 121 H 123 H 158 H 06/23/22 07:37 POC Glucose 116 H Progress Note: A&P Assessment and plan (1) Atrial fibrillation with rapid ventricular response: Status: Acute (2) Acute on chronic diastolic (congestive) heart failure: Status: Acute Plan Currently, still in atrial fibrillation. Rate is slightly fast but not too fast. Just over 100/Min. She is on metoprolol succinate 100 mg at bedtime. Additionally, diltiazem has been added 30 mg q.6 hourly. She has renal insufficiency and hence will be difficult to use digoxin. Stop doxazosin. That will help the blood pressure go up. Then hopefully, we can increase the dose of diltiazem further. Otherwise, Eliquis as currently on. She also likely has some diastolic heart failure and okay to use IV Lasix. Has renal insufficiency. Creatinine is 1.8 and BUN is 43. That will need to be closely monitored. Discussed with daughter at bedside. Discussed with Dr. Duque. Time Spent With Patient Time: Total time managing care of this patient today 35 minutes. Progress Note: Quality Stroke Does the patient have a stroke diagnosis?: No Procedures Date of Service Date of Service: 06/23/22
[2022-06-23 11:19] LABS: Glucose, Whole Blood 167 mg/dL (60-115)
--- NOTE | 2022-06-23 11:50 | P.PNIM_ITS ---
Subjective Subjective Date of Service: 06/24/22 Interval History: Follow-up on AFib with IV Persistent tachycardia Physical Exam Vital Signs: Vital Signs: Last Vital Signs Temp 97.4 F 06/23/22 08:00 Pulse 90 06/23/22 08:00 Resp 22 H 06/23/22 08:00 BP 113/57 L 06/23/22 08:00 Pulse Ox 95 06/23/22 08:00 O2 Del Method 06/23/22 08:00 O2 Flow Rate 2 06/23/22 08:00 Oxygen Flow Rate 2 06/21/22 09:49 BMI result Body Mass Index 27.2 Const: Other: General: AO X 3, no acute distress Resp: CTA bilateral CVS: S1,S2, iregular iregular GI: +BS, NT, no distention Skin: No rash Neuro: motor grossly intact Psych: appropriate affect Objective Data Active Medications Acetaminophen (Acetaminophen 325 Mg Tablet) 650 mg PO Q6H PRN PRN Reason: Pain, Mild (Pain Scale 1-3) Apixaban (Apixaban 2.5 Mg Tablet) 2.5 mg PO BID [facility] Last Admin: 06/23/22 08:57 Dose: 2.5 mg Documented By: MAGEN Atorvastatin Calcium (Atorvastatin Calcium 10 Mg Tablet) 10 mg PO BEDTIME [facility] Last Admin: 06/22/22 20:01 Dose: 10 mg Documented By: TITO Calcium Carbonate/Cholecalciferol (Calcium + Vitamin D 250 Mg Tablet) 500 mg PO BID [facility] Last Admin: 06/23/22 08:57 Dose: 500 mg Documented By: MAGEN Dextrose (Dextrose 50 % 25 Gm/50 Ml Syringe) 25 gm IVPUSH Q15M PRN; Protocol PRN Reason: per Hypoglycemia Standing Ord. Diltiazem HCl (Diltiazem Hcl 30 Mg Tablet) 30 mg PO Q6H [facility]; Protocol Last Admin: 06/23/22 05:19 Dose: 30 mg Documented By: ANTHEIDY Docusate Sodium (Docusate Sodium 100 Mg Capsule) 100 mg PO DAILY PRN PRN Reason: Constipation Furosemide (Furosemide 20 Mg/2 Ml Vial) 20 mg IVPUSH DAILY [facility]; Protocol Last Admin: 06/23/22 08:58 Dose: 20 mg Documented By: MAGEN Gabapentin (Gabapentin 300 Mg Capsule) 300 mg PO BEDTIME [facility] Last Admin: 06/22/22 20:02 Dose: 300 mg Documented By: ANTHEIDY Glucose (Glucose Gel 15 Gm Gel..Gram.) 15 gm PO Q15M PRN; Protocol PRN Reason: per Hypoglycemia Standing Ord. Insulin Human Lispro (Insulin Lispro 100 Unit/Ml 3 Ml Vial) 0 unit SUBCUT QIDACHS [facility]; Protocol Last Admin: 06/23/22 07:58 Dose: Not Given Documented By: MAGEN Non-Admin Reason: No Insulin Coverage Loperamide HCl (Loperamide Hcl 2 Mg Capsule) 2 mg PO DAILY PRN PRN Reason: loose stool Metoprolol Succinate (Metoprolol Succinate Er 100 Mg Tab.Er.24h) 100 mg PO BEDTIME [facility]; Protocol Last Admin: 06/22/22 20:01 Dose: 100 mg Documented By: TITO Omeprazole (Omeprazole 20 Mg Capsule.Dr) 20 mg PO DAILY@0630 [facility] Last Admin: 06/23/22 05:19 Dose: 20 mg Documented By: TITO Ondansetron HCl (Ondansetron Hcl 4 Mg/2 Ml Vial) 4 mg IVPUSH Q8H PRN PRN Reason: Nausea and Vomiting Pharmacy Consult (Consult Rx Perform Med Rec) 1 each MISCELLANE ONCE PRN PRN Reason: Consult order Sodium Chloride (0.9 % Sodium Chloride Flush 3 Ml Syringe) 3 ml IVFLUSH QSHIFT [facility] Last Admin: 06/23/22 08:57 Dose: 3 ml Documented By: MAGEN Labs 06/22/22 06:44 06/22/22 06:44 Labs: Laboratory Results - last 24 hr 06/22/22 06/22/22 06/22/22 12:07 18:08 19:29 POC Glucose 121 H 123 H 158 H 06/23/22 06/23/22 07:37 11:15 POC Glucose 116 H 167 H Assessment and Plan (1) Acute on chronic diastolic (congestive) heart failure: Status: Acute (2) Atrial fibrillation with rapid ventricular response: Status: Acute (3) CHF exacerbation: Status: Acute Plan 87-year-old female with a PMH significant for?CHF, HTN, rgb-dpiisgf-qhxtkmrto diabetes, who presents to the ED with?confusion, elevated heart rate, difficulty breathing. Pt was found to be in new onset AFib with RVR and evidence of heat failure AFib with RVR--persistent tachy -IV cardizem if needed to control HR -continue toprolol at night -Eliquis for stroke prevention, -cardiology to advise on further mangament -oral cardizem 30 q6 Acute CHF exacerbation, diastolic HFpEF, acute hypoxic respiratory Likely secondary to new-onset Afib BNP elevated at 1244, above levels at last admission of 347 IV Lasix and monitor renal function Confusion Etiology unclear, labs reassuring, possibly secondary to new onset AFib Continue to monitor Hyperkalemia--mild, resolved without meds Anemia, chronic Patient's H&H is 9.1/30.4, slightly down from 10.7/30 4.5 x 06/05/22 norml folate, low B12 B12 Deficiency--oral replacement CKD3--within baseline, monitor H/H [id number]-wbveogjbm diabetes Hold home meds SSI HTN Continue home meds HLD Continue home meds Full Code Attending:?Dr. Duque DVT Prophylaxis: Lovenox 30mg need for inpatient: AFIB with RVR needing IV meds, acute heart failure needing IV diuretics Time Spent With Patient Time: Total time managing care of this patient today ____ minutes. Quality Stroke Does the patient have a stroke diagnosis?: No VTE Prior VTE?: No VTE Risk Level:: Medical - moderate - high VTE Device Contraindication: Treatment Not Indicated VTE Drug Contraindication: N/A - Med Ordered
--- NOTE | 2022-06-23 11:51 | PM.PNNEP ---
Subjective Subjective Date of Service: 06/23/22 Interval history: seen and examined daughter at bedside updated no complaints Physical Exam Vital Signs: Vital Signs: Last Vital Signs Temp 97.4 F 06/23/22 08:00 Pulse 90 06/23/22 08:00 Resp 22 H 06/23/22 08:00 BP 113/57 L 06/23/22 08:00 Pulse Ox 95 06/23/22 08:00 O2 Del Method 06/23/22 08:00 O2 Flow Rate 2 06/23/22 08:00 Oxygen Flow Rate 2 06/21/22 09:49 BMI result Body Mass Index 27.2 Const: General: alert and awake HEENT: Head: Yes normocephalic and Yes atraumatic Neck: Neck: Yes supple Resp: Auscultation: diminished lung sounds Cardio: Heart sounds: S1 normal heart sound present and S2 normal heart sound present GI: Palpation (GI): Soft to palpation and nontender Extrem: General: Yes edema Objective Data Labs CBC & Chem 7: 06/22/22 06:44 06/22/22 06:44 Labs: Laboratory Results - last 24 hr 06/22/22 06/22/22 06/22/22 12:07 18:08 19:29 POC Glucose 121 H 123 H 158 H 06/23/22 06/23/22 07:37 11:15 POC Glucose 116 H 167 H Procedures Date of Service Date of Service: 06/23/22 Assessment & Plan Assessment and plan (1) CKD (chronic kidney disease) stage 3, GFR 30-59 ml/min: Status: Acute (2) (HFpEF) heart failure with preserved ejection fraction: Status: Acute Plan known CKD kidney function at baseline h/o HFpEF decompensated CHF in the setting of atrial fibrillation with RVR REC continue IV furosemide rate control follow kidney function and elctrolytes Time Spent With Patient Time: Total time managing care of this patient today ____ minutes. Progress Note: Quality Stroke Does the patient have a stroke diagnosis?: No
[2022-06-23 12:00] VITALS: BP 115/73; PULSE 94; RESP 20; TEMP 36.8; O2SAT 94
[2022-06-23] MEDS: Insulin Lispro 100 UNIT/ML 3 ML VIAL SUBCUT (12:21)
[2022-06-23 15:37] VITALS: BP 123/71; RESP 19; TEMP 36.6; O2SAT 95
[2022-06-23 16:13] LABS: Glucose, Whole Blood 132 mg/dL (60-115)
[2022-06-23] MEDS: dilTIAZem HCL 125 MG in 0.9 % Sodium Chloride 100 ML 10 MG IVCONT (18:27)
--- NOTE | 2022-06-23 18:39 | PC.NURSE ---
Pt's daughter found hand sign writer at approx 1630 stating that pt was coughing and c/o something stuck in her throat. Pt repositioned to some good effect. Pt appeared less alert than beore, which daughter also commented on. Slight wheezing was auscultated, and it appeared that accessory muscles were in use. Respiratory was called for a second opinion. RT noted that patient was moving enough air and sounded OK. MD notified via AMS [employer]. At approx 1730, pt's HR jj into 150s and remained above 120. notified via AMS [employer]. Cardizem drip was ordered and begun per protocol at 1827.
[2022-06-23 19:26] VITALS: BP 131/64; PULSE 102; RESP 19; O2SAT 94
[2022-06-23 19:55] LABS: Glucose, Whole Blood 145 mg/dL (60-115)
[2022-06-23] MEDS: Gabapentin 300 MG CAPSULE PO (20:14)
[2022-06-23] MEDS: Metoprolol Succinate ER 100 MG TAB.ER.24H PO (20:14)
[2022-06-23] MEDS: Atorvastatin Calcium 10 MG TABLET PO (20:14)
[2022-06-23 23:42] VITALS: BP 129/83; PULSE 67; RESP 18; TEMP 37.2; O2SAT 96
[2022-06-24] MEDS: dilTIAZem HCL 125 MG in 0.9 % Sodium Chloride 100 ML 10 MG IVCONT ×2 (03:23→16:09)
[2022-06-24 03:50] VITALS: BP 126/77; PULSE 77; RESP 20; TEMP 37.1; O2SAT 93
[2022-06-24] MEDS: Omeprazole 20 MG CAPSULE.DR PO (06:37)
[2022-06-24 07:18] VITALS: BP 119/59; PULSE 92; RESP 17; TEMP 37.7; O2SAT 93
[2022-06-24 07:26] LABS: Glucose, Whole Blood 133 mg/dL (60-115)
[2022-06-24] MEDS: Apixaban 2.5 MG TABLET PO ×2 (07:35→21:18)
[2022-06-24] MEDS: Calcium + Vitamin D 250 MG TABLET 500 MG PO ×2 (07:35→21:18)
[2022-06-24] MEDS: Furosemide 20 MG/2 ML VIAL IVPUSH (07:36)
[2022-06-24] MEDS: 0.9 % Sodium Chloride Flush 3 ML SYRINGE IVFLUSH ×2 (07:37→16:11)
[2022-06-24 11:04] VITALS: BP 114/65; PULSE 90; RESP 16; TEMP 36.6; O2SAT 93
--- NOTE | 2022-06-24 11:19 | P.PNIM_ITS ---
Subjective Subjective Date of Service: 06/25/22 Interval History: f/u on afib with RVR, HR still high and on IV cardizem Review of Systems no sob no chest pain Physical Exam Vital Signs: Vital Signs: Last Vital Signs Temp 97.9 F 06/24/22 11:04 Pulse 90 06/24/22 11:04 Resp 16 06/24/22 11:04 BP 114/65 06/24/22 11:04 Pulse Ox 93 06/24/22 11:04 O2 Del Method 06/24/22 11:04 O2 Flow Rate 2 06/24/22 11:04 Oxygen Flow Rate 2 06/21/22 09:49 BMI result Body Mass Index 27.2 Objective Data Active Medications Acetaminophen (Acetaminophen 325 Mg Tablet) 650 mg PO Q6H PRN PRN Reason: Pain, Mild (Pain Scale 1-3) Apixaban (Apixaban 2.5 Mg Tablet) 2.5 mg PO BID [facility] Last Admin: 06/24/22 07:35 Dose: 2.5 mg Documented By: ARIES Atorvastatin Calcium (Atorvastatin Calcium 10 Mg Tablet) 10 mg PO BEDTIME [facility] [place] Last Admin: 06/23/22 20:14 Dose: 10 mg Documented By: TITO Calcium Carbonate/Cholecalciferol (Calcium + Vitamin D 250 Mg Tablet) 500 mg PO BID [facility] [place] Last Admin: 06/24/22 07:35 Dose: 500 mg Documented By: ARIES Dextrose (Dextrose 50 % 25 Gm/50 Ml Syringe) 25 gm IVPUSH Q15M PRN; Protocol PRN Reason: per Hypoglycemia Standing Ord. Diltiazem HCl (Diltiazem Hcl 60 Mg Tablet) 60 mg PO Q6H [facility] [place]; Protocol Docusate Sodium (Docusate Sodium 100 Mg Capsule) 100 mg PO DAILY PRN PRN Reason: Constipation Furosemide (Furosemide 20 Mg/2 Ml Vial) 20 mg IVPUSH DAILY [facility] [place]; Protocol Last Admin: 06/24/22 07:36 Dose: 20 mg Documented By: ARIES Gabapentin (Gabapentin 300 Mg Capsule) 300 mg PO BEDTIME [facility] [place] Last Admin: 06/23/22 20:14 Dose: 300 mg Documented By: ANTOIC Glucose (Glucose Gel 15 Gm Gel..Gram.) 15 gm PO Q15M PRN; Protocol PRN Reason: per Hypoglycemia Standing Ord. Diltiazem HCl 125 mg/ Sodium (Chloride) 125 mls @ 0 mls/hr IVCONT .Q0M [facility] [place]; Protocol Last Admin: 06/24/22 03:23 Dose: 10 mg/hr, 10 mls/hr Documented By: TITO Insulin Human Lispro (Insulin Lispro 100 Unit/Ml 3 Ml Vial) 0 unit SUBCUT QIDACHS [facility] [place]; Protocol Last Admin: 06/24/22 07:32 Dose: Not Given Documented By: ARIES Non-Admin Reason: No Insulin Coverage Loperamide HCl (Loperamide Hcl 2 Mg Capsule) 2 mg PO DAILY PRN PRN Reason: loose stool Metoprolol Succinate (Metoprolol Succinate Er 100 Mg Tab.Er.24h) 100 mg PO BEDTIME [facility] [place]; Protocol Last Admin: 06/23/22 20:14 Dose: 100 mg Documented By: ANTHEIDY Omeprazole (Omeprazole 20 Mg Capsule.Dr) 20 mg PO DAILY@0630 [facility] [place] Last Admin: 06/24/22 06:37 Dose: 20 mg Documented By: TITO Ondansetron HCl (Ondansetron Hcl 4 Mg/2 Ml Vial) 4 mg IVPUSH Q8H PRN PRN Reason: Nausea and Vomiting Pharmacy Consult (Consult Rx Perform Med Rec) 1 each MISCELLANE ONCE PRN PRN Reason: Consult order Sodium Chloride (0.9 % Sodium Chloride Flush 3 Ml Syringe) 3 ml IVFLUSH QSHIFT [facility] [place] Last Admin: 06/24/22 07:37 Dose: 3 ml Documented By: RAIES Labs 06/22/22 06:44 06/22/22 06:44 Labs: Laboratory Results - last 24 hr 06/23/22 06/23/22 06/23/22 11:15 16:00 19:46 POC Glucose 167 H 132 H 145 H 06/24/22 07:21 POC Glucose 133 H Assessment and Plan (1) Acute on chronic diastolic (congestive) heart failure: Status: Acute (2) Atrial fibrillation with rapid ventricular response: Status: Acute (3) CHF exacerbation: Status: Acute Plan 87-year-old female with a PMH significant for?CHF, HTN, zzq-lrugupz-unetvlkpw diabetes, who presents to the ED with?confusion, elevated heart rate, difficulty breathing. Pt was found to be in new onset AFib with RVR and evidence of heat failure AFib with RVR--HR better on IV cardizem -IV cardizem if needed to control HR -continue toprolol at night -Eliquis for stroke prevention, -cardiology to advise on further mangament -oral cardizem Acute CHF exacerbation, diastolic HFpEF, acute hypoxic respiratory Likely secondary to new-onset Afib BNP elevated at 1244, above levels at last admission of 347 IV Lasix and monitor renal function, change to PO tomorrow Confusion Etiology unclear, labs reassuring, possibly secondary to new onset AFib ? underlying dementia Continue to monitor Hyperkalemia--mild, resolved without meds Anemia, chronic Patient's H&H is 9.1/30.4, slightly down from 10.7/30 4.5 x 06/05/22 norml folate, low B12 B12 Deficiency--oral replacement CKD3--within baseline, monitor H/H Qac-uacrwbc-kevtozsjm diabetes Hold home meds SSI HTN Continue home meds HLD Continue home meds Dysphagia--swallow eval Full Code Attending:?Dr. Duque DVT Prophylaxis: Lovenox 30mg need for inpatient: AFIB with RVR needing IV meds, acute heart failure needing IV diuretics Time Spent With Patient Time: Total time managing care of this patient today ____ minutes. Quality Stroke Does the patient have a stroke diagnosis?: No VTE Prior VTE?: No VTE Risk Level:: Medical - moderate - high VTE Device Contraindication: Treatment Not Indicated VTE Drug Contraindication: N/A - Med Ordered
[2022-06-24 11:30] LABS: Glucose, Whole Blood 155 mg/dL (60-115)
--- NOTE | 2022-06-24 11:42 | P.PNCA_ITS ---
Subjective Subjective Date of Service: 06/24/22 Interval history: Patient herself states she is okay. Last evening, apparently she had a coughing episode and had felt like something stuck in her throat. At that time, noted to have wheezing, AXERA muscle use and then it seems she was noted also to be in atrial fibrillation with rapid rate and then put back on Cardizem drip. Today, no new complaints from cardiac. Review of Systems Review of Systems Yes all other systems are reviewed and are negative Constitutional: Reports as per HPI Eyes: Reports as per HPI Reports as per HPI Cardiovascular: Reports as per HPI, Denies acrocyanosis, Denies cool e xtremities, Denies chest pain, Denies leg edema, Denies lightheadedness, Denies palpitations and Denies dyspnea Respiratory: Reports as per HPI, Reports no additional respiratory complaints and Denies dyspnea Gastrointestinal: Reports as per HPI and Reports no additional gastrointestinal complaints Genitourinary: Reports as per HPI Musculoskeletal: Reports no additional musculoskeletal complaints and Reports as per HPI Skin/Breast: Reports system reviewed and no additional complaints, except as docu Reports system reviewed and no additional complaints, except as documented and Reports as per HPI Psychiatric: Reports no additional psychiatric complaints and Reports as per HPI Endocrine: Reports no additional endocrine complaints, Reports as per HPI and Denies palpitations Hematologic/Lymphatic: Reports no additional hematologic/lymphatic complaints and Reports as per HPI Allergic/Immunologic: Reports no additional allergic/immunologic complaints and Reports as per HPI Physical Exam Vital Signs: Last Vital Signs Temp 97.9 F 06/24/22 11:04 Pulse 90 06/24/22 11:04 Resp 16 06/24/22 11:04 BP 114/65 06/24/22 11:04 Pulse Ox 93 06/24/22 11:04 O2 Del Method 06/24/22 11:04 O2 Flow Rate 2 06/24/22 11:04 Oxygen Flow Rate 2 06/21/22 09:49 BMI result Body Mass Index 27.2 Const General: comfortable and no acute distress Orientation/consciousness: patient oriented x3 HEENT Other: Unremarkable Head: Yes normal to inspection Neck Neck: Yes normal visual inspection Chest Chest palpation & inspection: normal inspection of the chest Resp Auscultation: crackles Cardio Palpation: normal PMI Heart sounds: S1 normal heart sound present, S2 normal heart sound present, no gallops, no murmurs and no rubs GI Palpation (GI): Soft to palpation Back/Spine/Pelvis Other: unremarkable Skin General skin exam: no rashes or lesions noted Neuro General: patient oriented x3 Extrem General: Yes normal to inspection Psych Mental Status: mental status grossly normal Objective Labs and Meds 06/22/22 06:44 06/22/22 06:44 Lab results: Laboratory Results - last 24 hr 06/23/22 06/23/22 06/24/22 16:00 19:46 07:21 POC Glucose 132 H 145 H 133 H 06/24/22 11:09 POC Glucose 155 H Progress Note: A&P Assessment and plan (1) Atrial fibrillation with rapid ventricular response: Status: Acute (2) Acute on chronic diastolic (congestive) heart failure: Status: Acute Plan On telemetry, atrial fibrillation at a rate of 90/Min. Not clear why the rates went fast but could be the episode of swallowing difficulty but not very clear. We can try to stop the drip and put her back on diltiazem. Use 60 mg Q 6 hourly. Also continue metoprolol. Due to renal failure, may be difficult to use digoxin. If cannot control the rates, as a last resort, possible CARMELITA cardioversion but at her age and frailty, would rather avoid. Continue anticoagulation. On a small dose of Lasix for heart failure as well. Discussed with daughter. Discussed with Dr. Duque. [place] speech language pathology assistant used in this encounter. Time Spent With Patient Time: Total time managing care of this patient today 35 minutes. Progress Note: Quality Stroke Does the patient have a stroke diagnosis?: No Procedures Date of Service Date of Service: 06/24/22
[2022-06-24] MEDS: Insulin Lispro 100 UNIT/ML 3 ML VIAL SUBCUT (12:14)
[2022-06-24] MEDS: dilTIAZem HCL 60 MG TABLET PO ×2 (12:20→18:17)
--- NOTE | 2022-06-24 13:38 | MHC.CM.PN ---
Per MD rounds no dc today. DP Home with resumption of home services, [facility]. Patient has transportation home.
[2022-06-24 15:56] VITALS: BP 125/86; PULSE 87; RESP 17; TEMP 36.7; O2SAT 95
[2022-06-24 16:19] LABS: Glucose, Whole Blood 134 mg/dL (60-115)
[2022-06-24 18:16] VITALS: BP 121/69; PULSE 89; RESP 19; TEMP 36.8
[2022-06-24 20:00] VITALS: BP 128/64; PULSE 65; RESP 16; TEMP 36.9; O2SAT 92
[2022-06-24 20:39] LABS: Glucose, Whole Blood 140 mg/dL (60-115)
[2022-06-24] MEDS: Atorvastatin Calcium 10 MG TABLET PO (21:17)
[2022-06-24] MEDS: Metoprolol Succinate ER 100 MG TAB.ER.24H PO (21:17)
[2022-06-24] MEDS: Gabapentin 300 MG CAPSULE PO (21:17)
[2022-06-25] VITALS (26 sets, daily range): BP systolic 76–141; BP diastolic 45–76; PULSE 77–126; RESP 16–22; TEMP 33.5–38.1; O2SAT 90–100
[2022-06-25] MEDS: Omeprazole 20 MG CAPSULE.DR PO (06:25)
[2022-06-25] MEDS: dilTIAZem HCL 60 MG TABLET PO (06:25)
[2022-06-25 07:54] LABS: Glucose, Whole Blood 145 mg/dL (60-115)
[2022-06-25] MEDS: Calcium + Vitamin D 250 MG TABLET 500 MG PO (08:26)
[2022-06-25] MEDS: Furosemide 20 MG/2 ML VIAL IVPUSH (08:26)
[2022-06-25] MEDS: Apixaban 2.5 MG TABLET PO ×2 (08:26→19:59)
[2022-06-25] MEDS: 0.9 % Sodium Chloride Flush 3 ML SYRINGE IVFLUSH ×3 (08:30→23:59)
--- NOTE | 2022-06-25 10:34 | HO.PM.IMPN ---
Subjective Subjective Date of Service: 06/25/22 Interval History: Pt is very somnolent this morning and has not received any sedation medication, O2 sat on lower side as well, AFIB is better controlled. Daughter states that she was crying alot yesterday, no complaint of pain Review of Systems unable to obatin Physical Exam Vital Signs: Vital Signs: Last Vital Signs Temp 98.7 F 06/25/22 07:57 Pulse 77 06/25/22 07:57 Resp 20 06/25/22 07:57 BP 117/76 06/25/22 07:57 Pulse Ox 90 L 06/25/22 07:57 O2 Del Method 06/25/22 07:57 O2 Flow Rate 3.0 06/25/22 07:57 Oxygen Flow Rate 2 06/21/22 09:49 BMI result Body Mass Index 27.2 Const: Other: General: somnolent, does awake easily Resp: bilater rhonchi CVS: S1,S2, iregular iregular GI: +BS, NT, no distention Skin: No rash Neuro: motor grossly intact Psych: flat Objective Data Active Medications Acetaminophen (Acetaminophen 325 Mg Tablet) 650 mg PO Q6H PRN PRN Reason: Pain, Mild (Pain Scale 1-3) Apixaban (Apixaban 2.5 Mg Tablet) 2.5 mg PO BID [facility] Last Admin: 06/25/22 08:26 Dose: 2.5 mg Documented By: JAYSON Atorvastatin Calcium (Atorvastatin Calcium 10 Mg Tablet) 10 mg PO BEDTIME [facility] Last Admin: 06/24/22 21:17 Dose: 10 mg Documented By: JEAN CARLOS Calcium Carbonate/Cholecalciferol (Calcium + Vitamin D 250 Mg Tablet) 500 mg PO BID [facility] Last Admin: 06/25/22 08:26 Dose: 500 mg Documented By: JAYSON Dextrose (Dextrose 50 % 25 Gm/50 Ml Syringe) 25 gm IVPUSH Q15M PRN; Protocol PRN Reason: per Hypoglycemia Standing Ord. Diltiazem HCl (Diltiazem Hcl 60 Mg Tablet) 60 mg PO Q6H [facility]; Protocol Last Admin: 06/25/22 06:25 Dose: 60 mg Documented By: JEAN CARLOS Docusate Sodium (Docusate Sodium 100 Mg Capsule) 100 mg PO DAILY PRN PRN Reason: Constipation Furosemide (Furosemide 20 Mg/2 Ml Vial) 20 mg IVPUSH DAILY [facility]; Protocol Last Admin: 06/25/22 08:26 Dose: 20 mg Documented By: JAYSON Gabapentin (Gabapentin 300 Mg Capsule) 300 mg PO BEDTIME [facility] Last Admin: 06/24/22 21:17 Dose: 300 mg Documented By: JEAN CARLOS Glucose (Glucose Gel 15 Gm Gel..Gram.) 15 gm PO Q15M PRN; Protocol PRN Reason: per Hypoglycemia Standing Ord. Diltiazem HCl 125 mg/ Sodium (Chloride) 125 mls @ 0 mls/hr IVCONT .Q0M [facility]; Protocol Last Titration: 06/25/22 07:43 Dose: 0 mg/hr, 0 mls/hr Documented By: JAYSON Insulin Human Lispro (Insulin Lispro 100 Unit/Ml 3 Ml Vial) 0 unit SUBCUT QIDACHS [facility]; Protocol Last Admin: 06/25/22 07:47 Dose: Not Given Documented By: JAYSON Non-Admin Reason: No Insulin Coverage Loperamide HCl (Loperamide Hcl 2 Mg Capsule) 2 mg PO DAILY PRN PRN Reason: loose stool Metoprolol Succinate (Metoprolol Succinate Er 100 Mg Tab.Er.24h) 100 mg PO BEDTIME [facility]; Protocol Last Admin: 06/24/22 21:17 Dose: 100 mg Documented By: JEAN CARLOS Omeprazole (Omeprazole 20 Mg Capsule.Dr) 20 mg PO DAILY@0630 [facility] Last Admin: 06/25/22 06:25 Dose: 20 mg Documented By: JEAN CARLOS Ondansetron HCl (Ondansetron Hcl 4 Mg/2 Ml Vial) 4 mg IVPUSH Q8H PRN PRN Reason: Nausea and Vomiting Pharmacy Consult (Consult Rx Perform Med Rec) 1 each MISCELLANE ONCE PRN PRN Reason: Consult order Sodium Chloride (0.9 % Sodium Chloride Flush 3 Ml Syringe) 3 ml IVFLUSH QSHIFT [facility] Last Admin: 06/25/22 08:30 Dose: 3 ml Documented By: JAYSON Labs 06/22/22 06:44 06/22/22 06:44 Labs: Laboratory Results - last 24 hr 06/24/22 06/24/22 06/24/22 11:09 16:07 20:16 POC Glucose 155 H 134 H 140 H 06/25/22 07:45 POC Glucose 145 H Assessment and Plan (1) Acute on chronic diastolic (congestive) heart failure: Status: Acute (2) Atrial fibrillation with rapid ventricular response: Status: Acute (3) CHF exacerbation: Status: Acute Plan 87-year-old female with a PMH significant for?CHF, HTN, [id number]-dcacoffvp diabetes, who presents to the ED with?confusion, elevated heart rate, difficulty breathing. Pt was found to be in new onset AFib with RVR and evidence of heat failure AFib with RVR--HR better on IV cardizem, -IV cardizem stopped -continue toprolol 100 at night -Eliquis for stroke prevention, -Oral cardizem 60 q6 -cardiology advising Acute CHF exacerbation, diastolic HFpEF, acute hypoxic respiratory Likely secondary to new-onset Afib BNP elevated at 1244, above levels at last admission of 347, CR today suggest possible failure still IV Lasix increase to 40 daily Confusion Etiology unclear, labs reassuring, possibly secondary to new onset AFib ? underlying dementia confusion seem worse today, so getting CT of head Hyperkalemia--mild, resolved without meds Anemia, chronic Patient's H&H is 9.1/30.4, slightly down from 10.7/30 4.5 x 06/05/22 norml folate, low B12 B12 Deficiency--oral replacement CKD3--within baseline, monitor H/H Kgd-gfvzguo-oxnhejgmn diabetes Hold home meds SSI HTN Continue home meds HLD Continue home meds Dysphagia--swallow eval Full Code, will discussed goal of care with daughter after above testings DVT Prophylaxis: Lovenox 30mg need for inpatient: AFIB with RVR needing IV meds, acute heart failure needing IV diuretics Time Spent With Patient Time: Total time managing care of this patient today ____ minutes. Quality Stroke Does the patient have a stroke diagnosis?: No VTE Prior VTE?: No VTE Risk Level:: Medical - moderate - high VTE Device Contraindication: Treatment Not Indicated VTE Drug Contraindication: N/A - Med Ordered
[2022-06-25 10:49] LABS: ABG Base Excess 11.7 mmol/L; ABG HCO3 40 mmol/L (22-26); ABG pCO2 81 mmHg (32-45); ABG pO2 77 mmHg (83-108)
[2022-06-25 10:59] LABS: Hematocrit 28.6 % (37.0-47.0); Hemoglobin 8.7 g/dl (12.0-16.0); Mean Corpuscular HGB Conc 30.4 g/dl (31.0-35.0); Mean Corpuscular Hemoglobin 29.7 pg (27.0-33.0); Mean Corpuscular Volume 97.6 fL (80.0-98.0); Mean Platelet Volume 10.5 fL (9.4-12.3); Platelet Count 243 X10*3/uL (160-400); Red Blood Count 2.93 X10*6/uL (4.20-5.50); Red Cell Distribution Width 11.8 % (11.0-16.0); White Blood Count 6.3 X10*3/uL (4.8-10.8)
[2022-06-25 11:14] LABS: Anion Gap 17 (12-20); Blood Urea Nitrogen 53 mg/dL (9-16); Carbon Dioxide 33 mmol/L (22-29); Chloride 95 mmol/L (96-108); Creatinine Clr Calc Pharmacy 17.8; Estimated Glomerular Filt Rate 20; Glucose Random 159 mg/dL (60-115); Potassium 5.2 mmol/L (3.3-5.1); Sodium 140 mmol/L (135-145)
[2022-06-25 11:17] LABS: Glucose, Whole Blood 134 mg/dL (60-115)
[2022-06-25 11:22] LABS: B Type Natriuretic Peptide 804 pg/mL (<100)
--- NOTE | 2022-06-25 11:22 | PM.PNCARD ---
Subjective Subjective Date of Service: 06/25/22 Interval history: Somewhat somnolent today and not responding as much. Daughter is concerned. Review of Systems Review of Systems Yes all other systems are reviewed and are negative Constitutional: Reports as per HPI Eyes: Reports as per HPI Reports as per HPI Cardiovascular: Reports as per HPI, Denies acrocyanosis, Denies cool extremities, Denies chest pain, Denies leg edema, Denies lightheadedness, Denies palpitations and Denies dyspnea Respiratory: Reports as per HPI, Reports no additional respiratory complaints and Denies dyspnea Gastrointestinal: Reports as per HPI and Reports no additional gastrointestinal complaints Genitourinary: Reports as per HPI Musculoskeletal: Reports no additional musculoskeletal complaints and Reports as per HPI Skin/Breast: Reports system reviewed and no additional complaints, except as docu Reports system reviewed and no additional complaints, except as documented and Reports as per HPI Psychiatric: Reports no additional psychiatric complaints and Reports as per HPI Endocrine: Reports no additional endocrine complaints, Reports as per HPI and Denies palpitations Hematologic/Lymphatic: Reports no additional hematologic/lymphatic complaints and Reports as per HPI Allergic/Immunologic: Reports no additional allergic/immunologic complaints and Reports as per HPI Physical Exam Vital Signs: Last Vital Signs Temp 98.7 F 06/25/22 07:57 Pulse 77 06/25/22 07:57 Resp 20 06/25/22 07:57 BP 117/76 06/25/22 07:57 Pulse Ox 90 L 06/25/22 07:57 O2 Del Method 06/25/22 07:57 O2 Flow Rate 3.0 06/25/22 07:57 Oxygen Flow Rate 2 06/21/22 09:49 BMI result Body Mass Index 27.2 Const General: comfortable, no acute distress, ill appearing and lethargic Orientation/consciousness: No patient oriented x3 and lethargic HEENT Other: Unremarkable Head: Yes normal to inspection Neck Neck: Yes normal visual inspection Chest Chest palpation & inspection: normal inspection of the chest Resp Other: Diminished breath sounds with some crackles. Cardio Palpation: normal PMI Heart sounds: S1 normal heart sound present, S2 normal heart sound present, no gallops, no murmurs and no rubs GI Palpation (GI): Soft to palpation Back/Spine/Pelvis Other: unremarkable Skin General skin exam: no rashes or lesions noted Neuro General: No patient oriented x3 Extrem General: Yes normal to inspection Psych Mental Status: mental status grossly normal Objective Labs and Meds 06/25/22 10:49 06/25/22 10:49 Lab results: Laboratory Results - last 24 hr 06/24/22 06/24/22 06/24/22 11:09 16:07 20:16 WBC RBC Hgb Hct MCV MCH MCHC RDW Plt Count MPV Absolute Nucleated RBC Nucleated RBC % (auto) O2 Saturation ABG pH at Pt Temp ABG pCO2 at Pt Temp ABG pO2 at Pt Temp ABG HCO3 ABG Base Excess (Actual) Sodium Potassium Chloride Carbon Dioxide Anion Gap BUN Creatinine Estim Creat Clear Calc Estimated GFR POC Glucose 155 H 134 H 140 H Random Glucose Calcium B-Natriuretic Peptide 06/25/22 06/25/22 06/25/22 07:45 10:41 10:49 WBC 6.3 RBC 2.93 L Hgb 8.7 L Hct 28.6 L MCV 97.6 MCH 29.7 MCHC 30.4 L RDW 11.8 Plt Count 243 MPV 10.5 Absolute Nucleated RBC 0.000 Nucleated RBC % (auto) 0.0 O2 Saturation 94.0 ABG pH at Pt Temp 7.30 L ABG pCO2 at Pt Temp 81 H* ABG pO2 at Pt Temp 77 L ABG HCO3 40 H ABG Base Excess (Actual) 11.7 Sodium Potassium Chloride Carbon Dioxide Anion Gap BUN Creatinine Estim Creat Clear Calc Estimated GFR POC Glucose 145 H Random Glucose Calcium B-Natriuretic Peptide 06/25/22 06/25/22 06/25/22 10:49 10:49 11:11 WBC RBC Hgb Hct MCV MCH MCHC RDW Plt Count MPV Absolute Nucleated RBC Nucleated RBC % (auto) O2 Saturation ABG pH at Pt Temp ABG pCO2 at Pt Temp ABG pO2 at Pt Temp ABG HCO3 ABG Base Excess (Actual) Sodium 140 Potassium 5.2 H Chloride 95 L Carbon Dioxide 33 H Anion Gap 17 BUN 53 H Creatinine 2.29 H Estim Creat Clear Calc 17.8 Estimated GFR 20 POC Glucose 134 H Random Glucose 159 H Calcium 9.0 B-Natriuretic Peptide 804 H Imaging Radiologist's impression: Impressions Chest X-Ray 06/25/22 09:55 IMPRESSION: Cardiomegaly with pulmonary edema slightly worsening especially in right lower lobe. There is mild blunting of right CP angle from pleural effusion. Infiltrate or atelectasis in right lung base cannot be excluded. Subsegmental atelectasis in left lung base is unchanged. Progress Note: A&P Assessment and plan (1) Atrial fibrillation with rapid ventricular response: Status: Acute (2) Acute on chronic diastolic (congestive) heart failure: Status: Acute (3) Acute respiratory failure with hypoxia and hypercapnia: Status: Acute Plan On telemetry, atrial fibrillation rates are improved. Can keep on the current regimen beta-blockers/diltiazem. Also on anticoagulation. With regard to respiratory failure, there are increasing infiltrates in the right side but not clear if it is from heart failure or something else. Kidney numbers are also going up. Would be difficult decision if he should increase the Lasix or keep it at the current dose. Her carbon dioxide levels are quite high. Will definitely need to consider BiPAP and ICU eval. Discussed with daughter. Discussed with Dr. Duque. Time Spent With Patient Time: Total time managing care of this patient today 35 minutes. Progress Note: Quality Stroke Does the patient have a stroke diagnosis?: No Procedures Date of Service Date of Service: 06/25/22
--- NOTE | 2022-06-25 12:40 | MHC.SL.SWA ---
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 Liquid Consistency and Strategies for Safe Swallow: Liquid Intake Recommendation: Laurier Thick Liquid Intake Strategies: Small Sips No Straws Solid Food Consistency: Dietary Recommendations: Grnd/Mech Altered (NDD2) Additional Modifications to Solid Foods: Recommend start on GROUND/MECH ALTERED (NDD2) diet with NECTAR THICK LIQUIDS, pills CRUSHED in PUREE. Pt requires total 1:1 assistance feeding and strict aspiration precautions. Liquids by teaspoon or small controlled cup sip, avoid the use of straws. Avoid hard tough to chew solids and mixed consistencies. Oral Medication Intake: Crushed with Puree Please contact the pharmacy regarding appropriate crushable or liquid drug formulations that are available whenever modified delivery is recommended. Compensatory Strategies and Precautions to be Taken for Safe Swallow: Sitting Upright (90 deg) No Straw Liquids from Cup Liquids from Spoon Small Bites and Sips Rate of Ingestion Change Oral Check Avoid Specific Foods Supervision While Eating and Drinking for Safe Swallow: Total Assistance (1:1) Foods to Avoid: Avoid hard tough to chew solids and mixed consistencies. Swallowing Recommended Treatments: Compens. Strategy Educat. Recommendation for Speech: Inpatient Speech Therapy Swing Ride Operator Clinican/Clinical Fellow: No Supervisory Statement: I have reviewed and agree with the student/clinical fellow's documentation: N/A Speech Language Pathologist: Isha Mendenhall M.A., [facility]-[employer]
[2022-06-25] MEDS: propofoL 200 MG/20 ML VIAL 20 MG IVPUSH ×2 (13:42→13:46)
[2022-06-25] MEDS: Rocuronium Bromide 50 MG/5 ML VIAL 35 MG IVPUSH (13:47)
[2022-06-25] MEDS: Norepinephrine Bitartrate/D5W 8 MG/250 ML PLAST..BAG 6.96 MG IV (13:51)
[2022-06-25] MEDS: propofoL 1,000 MG/100 ML VIAL 13.36 MG IVCONT (13:51)
--- NOTE | 2022-06-25 14:06 | P.PNNP_ITS ---
Subjective Subjective Date of Service: 06/25/22 Interval history: Pt is very somnolent this morning and ABG showed hypercarbia and she was moved to Icu and intubated. Physical Exam Vital Signs: Vital Signs: Last Vital Signs Temp 98.0 F 06/25/22 11:54 Pulse 101 H 06/25/22 12:00 Resp 22 H 06/25/22 12:00 BP 123/69 06/25/22 12:00 Pulse Ox 99 06/25/22 12:00 O2 Del Method 06/25/22 12:00 O2 Flow Rate 3 06/25/22 12:00 Oxygen Flow Rate 2 06/21/22 09:49 BMI result Body Mass Index 27.2 Const: Other: General: somnolent, does awake easily; now intubated Resp: rales at bases CVS: S1,S2, iregular iregular GI: +BS, NT, no distention Skin: No rash Neuro: motor grossly intact Psych: flat General: ill appearing and lethargic Nutritional Appearance: well nourished Orientation/consciousness: oriented to person, oriented to place, No patient oriented x3 and lethargic Limitations: language barrier and physical limitations HEENT: Other: Unremarkable Head: Yes normal to inspection, Yes normocephalic and Yes atraumatic Ears: hearing grossly normal bilaterally and external ears normal General nose exam: Normal external nose present and Normal nares present Face and sinus: Yes face symmetric and Yes edema (periorbital) Mouth: Normal oral and palatal mucosa present Eyes: General: appearance normal, both eyes and all related structures Visual Aguillon: normal visual aguillon by confrontation Alignment and Position: alignment normal Periorbital: periorbital findings normal Eyelids: Yes eyelids normal Conjunctivae: conjunctivae normal Sclerae: sclerae normal Corneas: corneas normal Pupils: Equal, round and reactive pupils present EOM: EOMs intact bilaterally Neck: Neck: Yes normal visual inspection, Yes full ROM, Yes no lymphadenopathy and Yes supple Chest: Chest palpation & inspection: normal inspection of the chest Resp: Other: Diminished breath sounds with some crackles. Effort & Inspection: decreased respiratory effort and symmetric chest movement Auscultation: crackles bilateral throughout and diminished lung sounds Cardio: Palpation: other Rate: tachycardic Rhythm: abnormal rhythm Heart sounds: S1 normal heart sound present, S2 normal heart sound present, no gallops, no murmurs and no rubs GI: Inspection: Yes normal to inspection Palpation (GI): Soft to palpation and nontender Auscultation: normal bowel sounds Back/Spine/Pelvis: Other: unremarkable Skin: General skin exam: no rashes or lesions noted Neuro: General: oriented to person, oriented to place, No patient oriented x3, moves all extremities and Unable to assess gait Cranial nerves: Yes Equal, round and reactive pupils present Gait exam (Neuro): Unable to assess gait Motor exam (neuro): Other motor observations present (BAPTISTE with 2/5 strength) Extrem: General: Yes normal to inspection, Yes full ROM, Yes capillary refill normal and Yes edema Psych: Mental Status: mental status grossly normal Speech and movement: Cl ear speech present Affect: normal affect Attitude: cooperative Objective Data Labs 06/25/22 10:49 06/25/22 10:49 Labs: Laboratory Results - last 24 hr 06/24/22 06/24/22 06/25/22 16:07 20:16 07:45 WBC RBC Hgb Hct MCV MCH MCHC RDW Plt Count MPV Absolute Nucleated RBC Nucleated RBC % (auto) O2 Saturation ABG pH at Pt Temp ABG pCO2 at Pt Temp ABG pO2 at Pt Temp ABG HCO3 ABG Base Excess (Actual) Sodium Potassium Chloride Carbon Dioxide Anion Gap BUN Creatinine Estim Creat Clear Calc Estimated GFR POC Glucose 134 H 140 H 145 H Random Glucose Calcium B-Natriuretic Peptide 06/25/22 06/25/22 06/25/22 10:41 10:49 10:49 WBC 6.3 RBC 2.93 L Hgb 8.7 L Hct 28.6 L MCV 97.6 MCH 29.7 MCHC 30.4 L RDW 11.8 Plt Count 243 MPV 10.5 Absolute Nucleated RBC 0.000 Nucleated RBC % (auto) 0.0 O2 Saturation 94.0 ABG pH at Pt Temp 7.30 L ABG pCO2 at Pt Temp 81 H* ABG pO2 at Pt Temp 77 L ABG HCO3 40 H ABG Base Excess (Actual) 11.7 Sodium 140 Potassium 5.2 H Chloride 95 L Carbon Dioxide 33 H Anion Gap 17 BUN 53 H Creatinine 2.29 H Estim Creat Clear Calc 17.8 Estimated GFR 20 POC Glucose Random Glucose 159 H Calcium 9.0 B-Natriuretic Peptide 06/25/22 06/25/22 10:49 11:11 WBC RBC Hgb Hct MCV MCH MCHC RDW Plt Count MPV Absolute Nucleated RBC Nucleated RBC % (auto) O2 Saturation ABG pH at Pt Temp ABG pCO2 at Pt Temp ABG pO2 at Pt Temp ABG HCO3 ABG Base Excess (Actual) Sodium Potassium Chloride Carbon Dioxide Anion Gap BUN Creatinine Estim Creat Clear Calc Estimated GFR POC Glucose 134 H Random Glucose Calcium B-Natriuretic Peptide 804 H Procedures Date of Service Date of Service: 06/25/22 Assessment & Plan Assessment and plan (1) Acute kidney failure: Status: Acute (2) CKD (chronic kidney disease) stage 3, GFR 30-59 ml/min: Status: Acute (3) Acute on chronic diastolic (congestive) heart failure: Status: Acute (4) Acute respiratory failure with hypoxia and hypercapnia: Status: Acute (5) Atrial fibrillation with rapid ventricular response: Status: Acute Plan Pt with underlying CKD and baseline creat 1.3 or so; presented with MYAH and apparent decomp CHFpEF and AF with RVR. Now she is transferred to ICU for hypercarbic resp failure, AMS. In this setting, also MYAH with rise in creat to 2.4 or so. She is currently having line placed by Icu MD. UA on admission was bland. Had US in March: normal sized kidneys with some benign cysts. 1. MYAH now likely prerenl due to resp decompensation with associated hemodynamic compromise and decrease in renal perfusion. CXR suggests pulm vasc congestion. CRS possible etiology 2. CKD with baseline creat of 1.3-has been above baseline since readmission Recommend: Pt intubated and ABG to be repeat along with lytes (hyperkalemia) Monitor UO Optimize hemodynamics then begin lasix drip Time Spent With Patient Time: Total time managing care of this patient today ____ minutes. Progress Note: Quality Stroke Does the patient have a stroke diagnosis?: No
--- NOTE | 2022-06-25 15:20 | PC.NURSE ---
pt transferred to ICU for further care around 13:10.
--- NOTE | 2022-06-25 16:03 | W.PM.CCCN ---
History of Present Illness Data of Consult Service Date: 06/25/22 [facility] Care Provider: Regine Bains MD [facility] Reason for consult: Acute on chronic hypercarbic and hypoxic respiratory failure 87-year-old female with the new onset of atrial fibrillation moderately elevated heart rate progressive loss of mental status currently lethargic with blood gas showing a pCO2 of 80 serum bicarb of 40 it is consistent with an acute on chronic hypercarbic respiratory failure chest x-ray shows progressive perihilar fullness consistent with CHF and and bilateral pleural effusions left greater than right and she clearly has a marked neck vein distension and bedside echo that demonstrates mild concentric LVE LVH somewhat enlarged right heart with at least moderate levels of pulmonary hypertension no other primary valve disease but there is a very small rim of pericardial effusion probably a 50 cc volume it is not of any consequence by volume significant inferior vena caval distension with lack of inspiratory collapse 0 did definitely has evidence of and biventricular dysfunction but in addition is a type 2 diabetic with the at least the minute acute on chronic stage III level of renal failure with mild hyperkalemia and based on this I was hoping to bring her down to the ICU and certainly per far in intubation to noninvasive ventilation just concerned about her mental status and I can not completely rule out the possibility of aspiration looking at the chest x-ray picture so I would prefer using the ventilator and using that mechanics to unload her heart at and just simply control heart rate with the addition of digoxin and minimal dose of just IV Cardizem A triple-lumen central venous pressure line was placed without complication and initial CVP was approximately 7-8 and course intubated on assist control because overall it appeared to me that congestive heart failure was the issue at hand and this may have been exacerbated by the new onset of atrial fibrillation and the increased work of breathing then precipitated the hypercarbic respiratory failure Review of Systems Review of Systems: Yes all other systems are reviewed and are negative [facility] Past Medical History Medical History Arthritis Chronic diarrhea CKD (chronic kidney disease) stage 3, GFR 30-59 ml/min Diabetes History of glaucoma HTN (hypertension) Hypertension Legally blind Family History Family History Other Diabetes Surgical History Surgical History No pertinent past surgical history Social History Social History Household Members: Family Housing: House Do you presently have visiting nurse or other home services: Yes Alcohol intake: never Patient Tobacco Use Status: Never used Tobacco service: No Current occupational status: retired Meds Allergies Allergy/AdvReac Type Severity Reaction Status Date / Time No Known Allergies Allergy Verified 06/22/22 18:21 [No Known Allergies*] Active Medications: Current Medications Acetaminophen (Acetaminophen 325 Mg Tablet) 650 mg PO Q6H PRN PRN Reason: Pain, Mild (Pain Scale 1-3) Apixaban (Apixaban 2.5 Mg Tablet) 2.5 mg PO BID VISHAL Last Admin: 06/25/22 08:26 Dose: 2.5 mg Dextrose (Dextrose 50 % 25 Gm/50 Ml Syringe) 25 gm IVPUSH Q15M PRN; Protocol PRN Reason: per Hypoglycemia Standing Ord. Digoxin (Digoxin 0.5 Mg/2 Ml Ampul) 0.25 mg IVPUSH Q4H VISHAL Stop: 06/26/22 00:01 Docusate Sodium (Docusate Sodium 100 Mg Capsule) 100 mg PO DAILY PRN PRN Reason: Constipation Glucose (Glucose Gel 15 Gm Gel..Gram.) 15 gm PO Q15M PRN; Protocol PRN Reason: per Hypoglycemia Standing Ord. Diltiazem HCl 125 mg/ Sodium (Chloride) 125 mls @ 0 mls/hr IVCONT .Q0M VISHAL; Protocol Last Titration: 06/25/22 14:00 Dose: Infused Norepinephrine Bitartrate (Levophed) 8 mg in 250 mls @ 0 mls/hr IV .Q0M VISHAL; Protocol Last Titration: 06/25/22 14:30 Dose: 0.05 mcg/kg/min, 6.96 mls/hr Propofol (Diprivan) 1,000 mg in 100 mls @ 0 mls/hr IVCONT .Q0M VISHAL; Protocol Last Titration: 06/25/22 14:36 Dose: 50 mcg/kg/min, 22.26 mls/hr Insulin Human Lispro (Insulin Lispro 100 Unit/Ml 3 Ml Vial) 0 unit SUBCUT Q6H VISHAL; Protocol Pharmacy Consult (Consult Rx Perform Med Rec) 1 each MISCELLANE ONCE PRN PRN Reason: Consult order Sodium Chloride (0.9 % Sodium Chloride Flush 3 Ml Syringe) [facility] Last Admin: 06/25/22 14:43 Dose: 3 ml Home Medications Medication Instructions Recorded Confirmed Last Taken Type acetaminophen 500 mg tablet 1 tab PO Q4-6H PRN Pain (Scale 06/05/22 06/21/22 Unknown History Score 1-3) calcium carbonate 600 mg-vitamin 1 tab PO BID 06/05/22 06/21/22 06/20/22 History D3 10 mcg (400 unit) tablet doxazosin 8 mg tablet 1 tab PO BEDTIME 06/05/22 06/21/22 06/20/22 History gabapentin 300 mg capsule 1 cap PO BEDTIME 06/05/22 06/21/22 06/20/22 History loperamide 2 mg capsule 2 mg PO 1XD 06/05/22 06/21/22 06/20/22 History metoprolol succinate 100 mg 1 tab PO BEDTIME 06/05/22 06/21/22 06/20/22 History tablet,extended release 24 hr omeprazole 20 mg capsule,delayed 1 cap PO DAILY@0630 06/05/22 06/21/22 06/20/22 History release simvastatin 10 mg tablet 1 tab PO BEDTIME 06/05/22 06/21/22 06/20/22 History metformin 1,000 mg tablet 1 tab PO BID 06/21/22 06/21/22 06/20/22 History netarsudil 0.02 %-latanoprost 1 drp ophthalmic (eye) BEDTIME 06/21/22 06/21/22 06/20/22 History 0.005 % eye drops ([facility]) Physical Exam Vital Signs: Vital Signs: Last Vital Signs Temp 98.4 F 06/25/22 15:00 Pulse 111 H 06/25/22 15:00 Resp 18 06/25/22 15:00 BP 109/68 06/25/22 15:00 Pulse Ox 95 06/25/22 15:00 O2 Del Method 06/25/22 15:00 O2 Flow Rate 3 06/25/22 12:00 FiO2 40 06/25/22 15:00 Oxygen Flow Rate 2 06/21/22 09:49 BMI result Body Mass Index 27.2 Clearly lethargic but able to respond to to verbal but most of the time just simply stared No respiratory distress no use of accessory muscles despite the presence of the hypercarbia and and of course the blood gas does indicated this is an acute upon chronic hypercarbic respiratory failure Chest without adventitious sounds Bedside echo with concentric left ventricular hypertrophy preserved systolic function and no primary valve disease small hemodynamically inconsequential rim of pericardial effusion and we dealing with at least a moderate amount he may be in the mid 40s for pulmonary hypertension Skin is intact with no acrocyanosis no cellulitis etc. Results Labs 06/25/22 10:49 06/25/22 10:49 Labs: Short CBC 06/25/22 Range/Units 10:49 WBC 6.3 (4.8-10.8) X10*3/uL Hgb 8.7 L (12.0-16.0) g/dl Hct 28.6 L (37.0-47.0) % Plt Count 243 (160-400) X10*3/uL BMP 06/25/22 10:49 Sodium 140 Potassium 5.2 H Chloride 95 L Carbon Dioxide 33 H BUN 53 H Creatinine 2.29 H Calcium 9.0 Assessment and Plan (1) Acute kidney failure: Status: Acute (2) CKD (chronic kidney disease) stage 3, GFR 30-59 ml/min: Status: Acute (3) (HFpEF) heart failure with preserved ejection fraction: Status: Acute (4) Acute on chronic diastolic (congestive) heart failure: Status: Acute (5) Acute respiratory failure with hypoxia and hypercapnia: Status: Acute (6) CHF exacerbation: Status: Acute (7) Atrial fibrillation with rapid ventricular response: Status: Acute (8) CKD (chronic kidney disease) stage 3, GFR 30-59 ml/min: Status: Acute (9) Acute respiratory failure with hypoxia: Status: Acute (10) Congestive heart failure: Status: Acute (11) Acute on chronic respiratory failure with hypercapnia: Status: Acute Plan Still be executed our plan of of intubation and [place] catheter was placed patient of certainly tolerated that well and central venous pressure catheter was placed in from this week in not only measure filling pressures but the weekend calculate Zach cardiac output and in the morning will go ahead and will get the CT scan of the chest rule out in infectious contribution In addition were going to fully digitalize the over the course of the next 12-14 hours will give a full mg and then see if we can come off of the Cardizem but part of what were looking to accomplish is to rid her of the combination of both the beta-analisa in combination with the calcium channel analisa which I think was having the no significant negative affects on her heart muscle and then the last question would be if this all looks like heart failure whether not we might try to convert the the rhythm 1st starting her on IV amiodarone and as she has been maintained on anticoagulation with 2.5 mg of apixaban Time Spent With Patient Time: Total time managing care of this patient today _90___ minutes.
--- NOTE | 2022-06-25 16:08 | W.PM.CCHP ---
Procedures Date of Service Date of Service: 06/25/22 Central Line Placement Right IJ: Central Line Comments: Utilizing ultrasound guidance and following sterile preparation and draping gained easy entry to the right internal jugular vein passing retrograde with Seldinger technique a J tipped guidewire over which a 16 cm triple-lumen central venous pressure catheter was passed a by chest x-ray no complication no pneumothorax tip is in the right atrium and the initial mean right atrial pressure was approximately 6-7 and that line was then sutured in place and sterilely dressed Consent for Procedure: Emergent-no informed consent obtained Time out performed: Yes Sterile Technique Used: Yes Patient placed on monitor/pulse ox: Yes prep: mask, gown and gloves Central line prep: Chlorhexidine scrub Local anesthesia used: lidocaine 1% Ultrasound used for placement: Yes Central line lumen inserted: triple Post procedure: sutured in place, good blood return, all ports aspirated, flushed, capped and sterile dressing applied Post procedure x-ray: tip of catheter in good position and no pneumothorax seen Patient tolerated procedure: well and no complications Complications: none
--- NOTE | 2022-06-25 16:10 | P.PCNCC_ITS ---
Procedures Date of Service Date of Service: 06/25/22 Intubation Intubation Comments: Urgent intubation for acute hypercarbic respiratory failure with the use of a glide scope with excellent visualization of the vocal cords a 3. Blade gained easy entry to the trachea with good bilateral breath sounds and excellent end- tidal CO2 response and that was then secured in place and I placed the feeding to OG to be sided without complication documenting position audible E and by chest x-ray Consent for Procedure: Elective - informed consent obtained Time out performed: Yes Sedative: propofol Paralytic: rocuronium Mg given: 35 Laryngoscope: fiber optic video scope ET tube size: 7.5 ET tube uncuffed: No Tube secured depth (cm): 23 Tube placement confirmation: visualized tube passing through cords, equal breath sounds bilaterally, no breath sounds over epigastrium and confirmation by capnometry Patient tolerated procedure: well and no complications Intubation complications: none
[2022-06-25] MEDS: Digoxin 0.5 MG/2 ML AMPUL 0.25 MG IVPUSH ×3 (16:13→23:59)
[2022-06-25] MEDS: dilTIAZem HCL 125 MG in 0.9 % Sodium Chloride 100 ML IVCONT (16:20)
[2022-06-25 16:53] LABS: VBG Base Excess 12.1 mmol/L; VBG HCO3 33 mmol/L (22-26); VBG pCO2 33 mmHg; VBG pH 7.61 (7.32-7.43); VBG pO2 56 mmHg
[2022-06-25 16:58] LABS: Venous Blood Gas Refer to POC result
[2022-06-25 17:30] LABS: Glucose, Whole Blood 125 mg/dL (60-115)
[2022-06-25] MEDS: propofoL 1,000 MG/100 ML VIAL 22.26 MG IVCONT ×2 (17:34→21:39)
[2022-06-25] MEDS: Acetaminophen 325 MG TABLET 650 MG PO (17:57)
--- NOTE | 2022-06-25 18:03 | PC.NURSE ---
Patient arrived from [facility] [place] bed at 1317. Patient presented somulent, arousable to noxious stimuli, unable to stay awake. 100% on 3L NC, VSS. Breathing labored with accessory muscle use. Patient intubated at 1354 - #7.5 ETT 23cm @ lip, intubated with 40mg IVP Propofol and 35mg IVP Rocuronium - Patient started on Propofol gtt for continued sedated and titrated per EMAR. MAP <65 - Started on Levophed gtt and titrated per EMAR. R IJ TLC placed by bioinformatics assistant along with OGT - CXR ordered and confirmed placement of line, ett, & ogt. HR maintaining >120 Afib - Digoxin IV ordered and administered and patient started back on Cardizem gtt and titrated per EMAR. Patient started on tube feeds Glucerna along with 120 water flush at 1600. Patient is currently sedated, positive cough and gag, absent pain response, agitated with noxious stimuli, pupils 3mm PERRLA. Temp 100.4 - PRN Tylonal administered - pending effectivness. HR 90-100's Afib, maxed on cardizem gtt, MAP >65 on low dose levophed, no edema, positive pulses throughout, R IJ patent, CVP 6. #20 PRN angio removed from right hand. LS dim bilater bases, small amount of thick cream inline secretions. Copious amount of thin clear oral secretions. #7.5 ETT, 23cm @ lip. 1600 VBGs ph 7.61, pc02 33 - vent settings adjusted by MD - currently on AC 16/350/5/40%, O2 high 90's. Abdomen soft, positive bowel sounds, small brown soft BM upon arrival to unit. [place] inserted and draining clear urine approx 40-75cc/hr. Skin warm, dry, no skin integrity concerns. Patient bathed, prevlon system in place, high fall risk precautions in place. Family at bedside and updated by this RN.
[2022-06-25] MEDS: Chlorhexidine Gluc Oral Rinse 15 ML MOUTHWASH BUCCAL (21:39)
[2022-06-26] VITALS (30 sets, daily range): BP systolic 94–128; BP diastolic 36–67; PULSE 66–110; RESP 12–23; TEMP 34.5–37.7; O2SAT 90–97
[2022-06-26 00:18] LABS: Glucose, Whole Blood 136 mg/dL (60-115)
[2022-06-26] MEDS: dilTIAZem HCL 125 MG in 0.9 % Sodium Chloride 100 ML IVCONT (01:48)
[2022-06-26] MEDS: propofoL 1,000 MG/100 ML VIAL 22.26 MG IVCONT ×3 (01:49→09:06)
[2022-06-26] MEDS: Pantoprazole Sodium 40 MG/10 ML VIAL IVPUSH (04:47)
[2022-06-26 04:55] LABS: MANUAL DIFF FLAG NO
[2022-06-26 04:56] LABS: VBG Base Excess 12.6 mmol/L; VBG HCO3 34 mmol/L (22-26); VBG pCO2 34 mmHg; VBG pH 7.61 (7.32-7.43); VBG pO2 32 mmHg
[2022-06-26 05:01] LABS: Basophils Percent Auto 0.5 % (0-2); Eosinophils Absolute Auto 0.1 X10*3/uL (0.0-0.4); Hematocrit 28.9 % (37.0-47.0); Hemoglobin 9.1 g/dl (12.0-16.0); Imm Gran Abs Auto 0.05 X10*3/uL (0.00-0.03); Imm Gran Pct Auto 0.6 % (0.0-0.4); Lymphocytes Absolute Auto 1.7 X10*3/uL (1.2-4.9); Lymphocytes Percent Auto 20.3 % (20-40); Mean Corpuscular HGB Conc 31.5 g/dl (31.0-35.0); Mean Corpuscular Hemoglobin 30.1 pg (27.0-33.0); Mean Corpuscular Volume 95.7 fL (80.0-98.0); Mean Platelet Volume 10.8 fL (9.4-12.3); Monocytes Absolute Auto 0.8 X10*3/uL (0.1-1.2); Monocytes Percent Auto 10.1 % (2-11); Neutrophils Absolute Auto 5.5 x10*3/uL (2.0-8.3); Neutrophils Percent Auto 67.5 % (45-73); Platelet Count 281 X10*3/uL (160-400); Red Blood Count 3.02 X10*6/uL (4.20-5.50); Red Cell Distribution Width 11.9 % (11.0-16.0); White Blood Count 8.1 X10*3/uL (4.8-10.8)
[2022-06-26 05:34] LABS: Albumin Level 2.9 g/dL (3.5-5.0); Anion Gap 15 (12-20); Blood Urea Nitrogen 50 mg/dL (9-16); Calcium 8.5 mg/dL (8.4-10.2); Carbon Dioxide 31 mmol/L (22-29); Chloride 97 mmol/L (96-108); Creatinine Clr Calc Pharmacy 19.6; Estimated Glomerular Filt Rate 23; Glucose Random 180 mg/dL (60-115); Magnesium 2.1 mg/dL (1.6-2.6); Phosphorus 2.1 mg/dL (2.7-4.5); Potassium 4.2 mmol/L (3.3-5.1); Sodium 139 mmol/L (135-145)
[2022-06-26 05:48] LABS: Venous Blood Gas Refer to POC result
[2022-06-26 06:07] LABS: Glucose, Whole Blood 165 mg/dL (60-115)
[2022-06-26] MEDS: Insulin Lispro 100 UNIT/ML 3 ML VIAL SUBCUT ×2 (06:07→11:16)
[2022-06-26] MEDS: 0.9 % Sodium Chloride Flush 3 ML SYRINGE IVFLUSH ×2 (06:55→13:38)
[2022-06-26] MEDS: Chlorhexidine Gluc Oral Rinse 15 ML MOUTHWASH BUCCAL ×3 (07:28→21:39)
[2022-06-26] MEDS: Apixaban 2.5 MG TABLET PO ×2 (07:28→21:39)
[2022-06-26] MEDS: Digoxin 0.125 MG TABLET 0.25 MG PO (07:28)
[2022-06-26] MEDS: Lactated Ringers 500 ML 999 ML IV (07:46)
[2022-06-26 11:23] LABS: Glucose, Whole Blood 163 mg/dL (60-115)
[2022-06-26] MEDS: propofoL 1,000 MG/100 ML VIAL 13.36 MG IVCONT ×2 (13:29→19:22)
--- NOTE | 2022-06-26 13:33 | P.PNCC_ITS ---
Subjective Subjective Date of Service: 06/26/22 Interval History: 87-year-old female without any chronic lung background but she is a type 2 diabetic hypertensive with new onset of atrial fibrillation it appears during this hospitalization possibly paroxysmal in the past and was also acute on chronic stage III renal failure who developed altered mental status progressively worsening yesterday with blood gas indicating acute on chronic hypercarbic respiratory failure worsening renal failure but atrial fibrillation with moderately elevated heart rate despite a combination of beta blockade and calcium channel blockade Today the CT scan showed bilateral pleural effusion right greater than left moderate in terms of their volume but I think clearly indicative me of a progressive congestive heart failure again this might be 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 in inability to tolerate the rhythm The origin of the chronic hypercarbic respiratory insufficiency I am not sure if she is just a chronic hypo ventilator if she is not that terribly obese 0 whether not she has history the unbeknownst antibody of of sleep apnea that is been on treated Since instituting the ventilator stopping the beta-analisa and weaning the IV Cardizem and introducing digoxin so far at a full mg heart rate is between 75 and 85 urine output picked up GFR is improving so my plan basically is to minimize the propofol and keep her intubated another 24 hours try to optimize her renal function and possibly today now off the Cardizem I might be able to introduce amiodarone and see if this spontaneously convert her rhythm or at least contributes to of if they decide to cardiovert but again she has been anticoagulated Critical Care Time (minutes): 45 Physical Exam Vital Signs: Vital Signs: Last Vital Signs Temp 97.7 F 06/26/22 13:00 Pulse 86 06/26/22 13:00 Resp 14 06/26/22 13:00 BP 112/60 06/26/22 13:00 Pulse Ox 96 06/26/22 13:00 O2 Del Method 06/26/22 13:00 O2 Flow Rate 3 06/25/22 12:00 FiO2 24 06/26/22 13:00 Oxygen Flow Rate 2 06/21/22 09:49 BMI result Body Mass Index 27.2 A today the central venous pressure his is at low its 0-3 and so just give a small of bolus of fluid also in the hope that coming off these medicines at that we would also be able to wean and discontinue the Levophed She has good bilateral carotid upstrokes no neck vein distension no gallops no heaves Lungs essentially clear no adventitious sounds and no accessory muscle of or diaphragm effort No peripheral edema warm well perfused no acrocyanosis Objective Data Labs 06/26/22 04:45 06/26/22 04:45 Labs: Laboratory Results - last 24 hr 06/25/22 06/25/22 06/26/22 16:18 17:23 00:16 WBC RBC Hgb Hct MCV MCH MCHC RDW Plt Count MPV Immature Gran % (Auto) Neut % (Auto) Lymph % (Auto) [place] % (Auto) Eos % (Auto) Baso % (Auto) Lymph # (Auto) [place] # (Auto) Eos # (Auto) Baso # (Auto) Abs Immat Gran (auto) Absolute Neuts (auto) Absolute Nucleated RBC Nucleated RBC % (auto) VBG pH 7.61 H* VBG pCO2 33 VBG pO2 56 VBG HCO3 33 H VBG O2 Saturation 94.0 VBG Base Excess 12.1 Sodium Potassium Chloride Carbon Dioxide Anion Gap BUN Creatinine Estim Creat Clear Calc Estimated GFR POC Glucose 125 H 136 H Random Glucose Calcium Phosphorus Magnesium Albumin 06/26/22 06/26/22 06/26/22 04:45 04:45 04:49 WBC 8.1 RBC 3.02 L Hgb 9.1 L Hct 28.9 L MCV 95.7 MCH 30.1 MCHC 31.5 RDW 11.9 Plt Count 281 MPV 10.8 Immature Gran % (Auto) 0.6 H Neut % (Auto) 67.5 Lymph % (Auto) 20.3 [place] % (Auto) 10.1 Eos % (Auto) 1.0 Baso % (Auto) 0.5 Lymph # (Auto) 1.7 [place] # (Auto) 0.8 Eos # (Auto) 0.1 Baso # (Auto) 0.0 Abs Immat Gran (auto) 0.05 H Absolute Neuts (auto) 5.5 Absolute Nucleated RBC 0.000 Nucleated RBC % (auto) 0.0 VBG pH 7.61 H* VBG pCO2 34 VBG pO2 32 VBG HCO3 34 H VBG O2 Saturation 58.0 VBG Base Excess 12.6 Sodium 139 Potassium 4.2 Chloride 97 Carbon Dioxide 31 H Anion Gap 15 BUN 50 H Creatinine 2.08 H Estim Creat Clear Calc 19.6 Estimated GFR 23 POC Glucose Random Glucose 180 H Calcium 8.5 Phosphorus 2.1 L Magnesium 2.1 Albumin 2.9 L 06/26/22 06/26/22 06:02 11:13 WBC RBC Hgb Hct MCV MCH MCHC RDW Plt Count MPV Immature Gran % (Auto) Neut % (Auto) Lymph % (Auto) [place] % (Auto) Eos % (Auto) Baso % (Auto) Lymph # (Auto) [place] # (Auto) Eos # (Auto) Baso # (Auto) Abs Immat Gran (auto) Absolute Neuts (auto) Absolute Nucleated RBC Nucleated RBC % (auto) VBG pH VBG pCO2 VBG pO2 VBG HCO3 VBG O2 Saturation VBG Base Excess Sodium Potassium Chloride Carbon Dioxide Anion Gap BUN Creatinine Estim Creat Clear Calc Estimated GFR POC Glucose 165 H 163 H Random Glucose Calcium Phosphorus Magnesium Albumin Progress Note: A&P Assessment and plan (1) Acute on chronic respiratory failure with hypercapnia: Status: Acute (2) Acute kidney failure: Status: Acute (3) CKD (chronic kidney disease) stage 3, GFR 30-59 ml/min: Status: Acute (4) (HFpEF) heart failure with preserved ejection fraction: Status: Acute (5) Acute on chronic diastolic (congestive) heart failure: Status: Acute (6) Acute respiratory failure with hypoxia and hypercapnia: Status: Acute (7) CHF exacerbation: Status: Acute (8) Atrial fibrillation with rapid ventricular response: Status: Acute (9) CKD (chronic kidney disease) stage 3, GFR 30-59 ml/min: Status: Acute (10) Physical deconditioning: Status: Acute (11) Acute respiratory failure with hypoxia: Status: Acute (12) Congestive heart failure: Status: Acute Plan So it I explained to the daughter I probably will initiate IV amiodarone when the Cardizem affect is fully worn off and then it is a I have not written for maintenance doses of digoxin that could be decided upon based on the degree of rate control Quality Stroke Does the patient have a stroke diagnosis?: No VTE Prior VTE?: No VTE Risk Level:: Medical - moderate - high VTE Device Contraindication: Treatment Not Indicated VTE Drug Contraindication: N/A - Med Ordered
[2022-06-26] MEDS: Norepinephrine Bitartrate/D5W 8 MG/250 ML PLAST..BAG 4.17 MG IV (13:36)
--- NOTE | 2022-06-26 16:25 | PM.PNNEP ---
Subjective Subjective Date of Service: 06/26/22 Interval history: Remains intubated Hemodynamically stable Made 2 L Uo, pos 890 cc Physical Exam Vital Signs: Vital Signs: Last Vital Signs Temp 98.4 F 06/26/22 16:00 Pulse 88 06/26/22 16:00 Resp 14 06/26/22 16:00 BP 109/44 L 06/26/22 16:00 Pulse Ox 93 06/26/22 16:00 O2 Del Method 06/26/22 16:00 O2 Flow Rate 3 06/25/22 12:00 FiO2 24 06/26/22 16:00 Oxygen Flow Rate 2 06/21/22 09:49 BMI result Body Mass Index 27.2 Const: Other: General: somnolent, does awake easily; now intubated Resp: rales at bases CVS: S1,S2, iregular iregular GI: +BS, NT, no distention Skin: No rash Neuro: motor grossly intact Psych: flat Objective Data Labs 06/26/22 04:45 06/26/22 04:45 Labs: Laboratory Results - last 24 hr 06/25/22 06/25/22 06/26/22 16:18 17:23 00:16 WBC RBC Hgb Hct MCV MCH MCHC RDW Plt Count MPV Immature Gran % (Auto) Neut % (Auto) Lymph % (Auto) [place] % (Auto) Eos % (Auto) Baso % (Auto) Lymph # (Auto) [place] # (Auto) Eos # (Auto) Baso # (Auto) Abs Immat Gran (auto) Absolute Neuts (auto) Absolute Nucleated RBC Nucleated RBC % (auto) VBG pH 7.61 H* VBG pCO2 33 VBG pO2 56 VBG HCO3 33 H VBG O2 Saturation 94.0 VBG Base Excess 12.1 Sodium Potassium Chloride Carbon Dioxide Anion Gap BUN Creatinine Estim Creat Clear Calc Estimated GFR POC Glucose 125 H 136 H Random Glucose Calcium Phosphorus Magnesium Albumin 06/26/22 06/26/22 06/26/22 04:45 04:45 04:49 WBC 8.1 RBC 3.02 L Hgb 9.1 L Hct 28.9 L MCV 95.7 MCH 30.1 MCHC 31.5 RDW 11.9 Plt Count 281 MPV 10.8 Immature Gran % (Auto) 0.6 H Neut % (Auto) 67.5 Lymph % (Auto) 20.3 [place] % (Auto) 10.1 Eos % (Auto) 1.0 Baso % (Auto) 0.5 Lymph # (Auto) 1.7 [place] # (Auto) 0.8 Eos # (Auto) 0.1 Baso # (Auto) 0.0 Abs Immat Gran (auto) 0.05 H Absolute Neuts (auto) 5.5 Absolute Nucleated RBC 0.000 Nucleated RBC % (auto) 0.0 VBG pH 7.61 H* VBG pCO2 34 VBG pO2 32 VBG HCO3 34 H VBG O2 Saturation 58.0 VBG Base Excess 12.6 Sodium 139 Potassium 4.2 Chloride 97 Carbon Dioxide 31 H Anion Gap 15 BUN 50 H Creatinine 2.08 H Estim Creat Clear Calc 19.6 Estimated GFR 23 POC Glucose Random Glucose 180 H Calcium 8.5 Phosphorus 2.1 L Magnesium 2.1 Albumin 2.9 L 06/26/22 06/26/22 06:02 11:13 WBC RBC Hgb Hct MCV MCH MCHC RDW Plt Count MPV Immature Gran % (Auto) Neut % (Auto) Lymph % (Auto) [place] % (Auto) Eos % (Auto) Baso % (Auto) Lymph # (Auto) [place] # (Auto) Eos # (Auto) Baso # (Auto) Abs Immat Gran (auto) Absolute Neuts (auto) Absolute Nucleated RBC Nucleated RBC % (auto) VBG pH VBG pCO2 VBG pO2 VBG HCO3 VBG O2 Saturation VBG Base Excess Sodium Potassium Chloride Carbon Dioxide Anion Gap BUN Creatinine Estim Creat Clear Calc Estimated GFR POC Glucose 165 H 163 H Random Glucose Calcium Phosphorus Magnesium Albumin Procedures Date of Service Date of Service: 06/26/22 Assessment & Plan Assessment and plan (1) Acute kidney failure: Status: Acute (2) Metabolic alkalosis: Status: Acute (3) CKD (chronic kidney disease) stage 3, GFR 30-59 ml/min: Status: Acute (4) Atrial fibrillation with rapid ventricular response: Status: Acute Plan Pt remains intubated; UO good, and creat down to 2. She has pleural effusions. She now has a post-hypercapneic metabolic alkalosis Vent changes made and discussed with ICU considering 75/hr of normal saline if remains severely alkalemic Goal pH< 7.5. Rate is well controlled now Time Spent With Patient Time: Total time managing care of this patient today ____ minutes. Progress Note: Quality Stroke Does the patient have a stroke diagnosis?: No
[2022-06-26 17:17] LABS: Glucose, Whole Blood 142 mg/dL (60-115)
[2022-06-26] MEDS: 0.9 % Sodium Chloride 1,000 ML 50 ML IVCONT (17:17)
[2022-06-26] MEDS: 0.9 % Sodium Chloride 500 ML 30 ML IVCONT (21:50)
[2022-06-27] VITALS (31 sets, daily range): BP systolic 98–151; BP diastolic 30–84; PULSE 80–132; RESP 12–28; TEMP 35.1–37.5; O2SAT 91–97; BMI 27.2
[2022-06-27] MEDS: 0.9 % Sodium Chloride Flush 3 ML SYRINGE IVFLUSH ×3 (00:13→16:12)
[2022-06-27 00:17] LABS: Glucose, Whole Blood 155 mg/dL (60-115)
[2022-06-27] MEDS: propofoL 1,000 MG/100 ML VIAL 11.13 MG IVCONT ×2 (02:25→08:54)
[2022-06-27] MEDS: Amiodarone/Dextrose 150 MG/100 ML PLAST..BAG 200 MG IV (02:45)
[2022-06-27 02:46] LABS: VBG Base Excess 11.1 mmol/L; VBG HCO3 35 mmol/L (22-26); VBG pCO2 44 mmHg; VBG pO2 35 mmHg
--- NOTE | 2022-06-27 03:00 | PC.NURSE ---
CARE ASSUMED 23:15...REMAINS TUBED/VENTED...AC/VCV VENT SUPPORT...PROPOFOL 25 MCG/KG/MIN...OPENS EYES TO TACTILE STIMULI..BRIEFLY TRACKS SPEAKER..RESISTANT TO ORAL CARE...LEVOPHED 0.05 MCG/KG/MIN...ATRIAL FIB HR 100'S-110'S AT HS....HR TRENDING UPWARDS..MORE FREQYENT BURST HR 120'S-140'S...CVP 14...NS 0.9% 30 CC/HR HELD PER ICU CLINICAL RESEARCH ASSISTANT...AMIODARONE 150MG IV OVER 30 PER CLINICAL RESEARCH ASSISTANT...TO FOLLOW WITH AMIODARONE 1 MG/MIN X6 HOURS AND THEN 0.5 MG/MIN AFTERWARDS
[2022-06-27] MEDS: Amiodarone HCL 900 MG in 0.9 % Sodium Chloride 500 ML 34.53 MG IVCONT ×2 (03:17→18:25)
[2022-06-27 05:11] LABS: VBG HCO3 33 mmol/L (22-26); VBG pCO2 40 mmHg; VBG pH 7.52 (7.32-7.43); VBG pO2 38 mmHg
[2022-06-27 05:16] LABS: Venous Blood Gas Refer to POC result
[2022-06-27 05:18] LABS: MANUAL DIFF FLAG NO
[2022-06-27 05:22] LABS: Basophils Percent Auto 0.5 % (0-2); Eosinophils Absolute Auto 0.2 X10*3/uL (0.0-0.4); Eosinophils Percent Auto 2.2 % (0-4); Hematocrit 30.2 % (37.0-47.0); Hemoglobin 9.4 g/dl (12.0-16.0); Imm Gran Abs Auto 0.05 X10*3/uL (0.00-0.03); Imm Gran Pct Auto 0.6 % (0.0-0.4); Lymphocytes Absolute Auto 1.6 X10*3/uL (1.2-4.9); Lymphocytes Percent Auto 18.3 % (20-40); Mean Corpuscular HGB Conc 31.1 g/dl (31.0-35.0); Mean Corpuscular Hemoglobin 29.6 pg (27.0-33.0); Mean Platelet Volume 10.9 fL (9.4-12.3); Monocytes Absolute Auto 0.8 X10*3/uL (0.1-1.2); Monocytes Percent Auto 9.7 % (2-11); Neutrophils Absolute Auto 5.8 x10*3/uL (2.0-8.3); Neutrophils Percent Auto 68.7 % (45-73); Platelet Count 292 X10*3/uL (160-400); Red Blood Count 3.18 X10*6/uL (4.20-5.50); Red Cell Distribution Width 12.7 % (11.0-16.0); White Blood Count 8.5 X10*3/uL (4.8-10.8)
[2022-06-27] MEDS: Pantoprazole Sodium 40 MG/10 ML VIAL IVPUSH (05:24)
[2022-06-27] MEDS: Furosemide 20 MG/2 ML VIAL IVPUSH (05:24)
[2022-06-27 05:31] LABS: Venous Blood Gas Refer to POC result
[2022-06-27 05:40] LABS: Albumin Level 2.7 g/dL (3.5-5.0); Anion Gap 11 (12-20); Blood Urea Nitrogen 46 mg/dL (9-16); Calcium 8.3 mg/dL (8.4-10.2); Carbon Dioxide 33 mmol/L (22-29); Chloride 102 mmol/L (96-108); Creatinine Clr Calc Pharmacy 20.8; Estimated Glomerular Filt Rate 24; Glucose Random 181 mg/dL (60-115); Magnesium 2.2 mg/dL (1.6-2.6); Potassium 4.2 mmol/L (3.3-5.1); Sodium 142 mmol/L (135-145)
[2022-06-27] MEDS: Insulin Lispro 100 UNIT/ML 3 ML VIAL SUBCUT ×2 (06:00→13:21)
[2022-06-27 06:09] LABS: Glucose, Whole Blood 167 mg/dL (60-115)
[2022-06-27] MEDS: Digoxin 0.125 MG TABLET PO (06:40)
[2022-06-27 08:31] LABS: ABG Base Excess 11.5 mmol/L; ABG HCO3 33 mmol/L (22-26); ABG pCO2 34 mmHg (32-45); ABG pH 7.59 (7.35-7.45); ABG pO2 69 mmHg (83-108)
[2022-06-27] MEDS: Chlorhexidine Gluc Oral Rinse 15 ML MOUTHWASH BUCCAL (08:54)
[2022-06-27] MEDS: Apixaban 2.5 MG TABLET PO (08:54)
--- NOTE | 2022-06-27 09:22 | MHC.SLORD ---
Speech Language Pathology Order Status: Pt now in ICU, intubated. Pt not appropriate for bedside PO trials.
--- NOTE | 2022-06-27 09:45 | MHC.CM.PN ---
Pt on minimal ventilatory support: goals of care for today include vent weaning: Original d/c plan included a return to home w/existing [facility] and [facility]. CM to follow
[2022-06-27] MEDS: Albumin Human 25 % 100 ML IV ×3 (10:55→20:55)
--- NOTE | 2022-06-27 11:15 | PM.PNCARD ---
Subjective Subjective Date of Service: 06/27/22 Interval history: Seen and examined Awake. following some commands. d/w daugther at bedside. Physical Exam Vital Signs: Last Vital Signs Temp 99.3 F 06/27/22 11:00 Pulse 99 06/27/22 11:00 Resp 21 H 06/27/22 11:00 BP 121/55 L 06/27/22 11:00 Pulse Ox 94 06/27/22 11:00 O2 Del Method 06/27/22 11:00 O2 Flow Rate 3 06/25/22 12:00 FiO2 24 06/27/22 11:00 Oxygen Flow Rate 2 06/21/22 09:49 BMI result Body Mass Index 27.2 GENERAL APPEARANCE: in no acute distress, pleasant. Intubated. NECK: no carotid bruit, no jugular venous distention. SKIN: no suspicious lesions, warm and dry. HEART: no murmurs, irregular rate and rhythm. tachycardic. LUNGS: clear to auscultation bilaterally. ABDOMEN: soft, nontender. EXTREMITIES: no edema. PERIPHERAL PULSES: equal. Objective Labs and Meds 06/27/22 05:03 06/27/22 05:03 Lab results: Laboratory Results - last 24 hr 06/26/22 06/26/22 06/26/22 11:13 16:54 17:06 WBC RBC Hgb Hct MCV MCH MCHC RDW Plt Count MPV Immature Gran % (Auto) Neut % (Auto) Lymph % (Auto) [place] % (Auto) Eos % (Auto) Baso % (Auto) Lymph # (Auto) [place] # (Auto) Eos # (Auto) Baso # (Auto) Abs Immat Gran (auto) Absolute Neuts (auto) Absolute Nucleated RBC Nucleated RBC % (auto) O2 Saturation 94.0 ABG pH at Pt Temp 7.59 H ABG pCO2 at Pt Temp 34 ABG pO2 at Pt Temp 69 L ABG HCO3 33 H ABG Base Excess (Actual) 11.5 VBG pH VBG pCO2 VBG pO2 VBG HCO3 VBG O2 Saturation VBG Base Excess Sodium Potassium Chloride Carbon Dioxide Anion Gap BUN Creatinine Estim Creat Clear Calc Estimated GFR POC Glucose 163 H 142 H Random Glucose Calcium Phosphorus Magnesium Albumin 06/26/22 06/27/22 06/27/22 23:38 02:38 05:02 WBC RBC Hgb Hct MCV MCH MCHC RDW Plt Count MPV Immature Gran % (Auto) Neut % (Auto) Lymph % (Auto) [place] % (Auto) Eos % (Auto) Baso % (Auto) Lymph # (Auto) [place] # (Auto) Eos # (Auto) Baso # (Auto) Abs Immat Gran (auto) Absolute Neuts (auto) Absolute Nucleated RBC Nucleated RBC % (auto) O2 Saturation ABG pH at Pt Temp ABG pCO2 at Pt Temp ABG pO2 at Pt Temp ABG HCO3 ABG Base Excess (Actual) VBG pH 7.50 H 7.52 H VBG pCO2 44 40 VBG pO2 35 38 VBG HCO3 35 H 33 H VBG O2 Saturation 55.0 65.0 VBG Base Excess 11.1 10.0 Sodium Potassium Chloride Carbon Dioxide Anion Gap BUN Creatinine Estim Creat Clear Calc Estimated GFR POC Glucose 155 H Random Glucose Calcium Phosphorus Magnesium Albumin 06/27/22 06/27/22 06/27/22 05:03 05:03 05:57 WBC 8.5 RBC 3.18 L Hgb 9.4 L Hct 30.2 L MCV 95.0 MCH 29.6 MCHC 31.1 RDW 12.7 Plt Count 292 MPV 10.9 Immature Gran % (Auto) 0.6 H Neut % (Auto) 68.7 Lymph % (Auto) 18.3 L [place] % (Auto) 9.7 Eos % (Auto) 2.2 Baso % (Auto) 0.5 Lymph # (Auto) 1.6 [place] # (Auto) 0.8 Eos # (Auto) 0.2 Baso # (Auto) 0.0 Abs Immat Gran (auto) 0.05 H Absolute Neuts (auto) 5.8 Absolute Nucleated RBC 0.000 Nucleated RBC % (auto) 0.0 O2 Saturation ABG pH at Pt Temp ABG pCO2 at Pt Temp ABG pO2 at Pt Temp ABG HCO3 ABG Base Excess (Actual) VBG pH VBG pCO2 VBG pO2 VBG HCO3 VBG O2 Saturation VBG Base Excess Sodium 142 Potassium 4.2 Chloride 102 Carbon Dioxide 33 H Anion Gap 11 L BUN 46 H Creatinine 1.95 H Estim Creat Clear Calc 20.8 Estimated GFR 24 POC Glucose 167 H Random Glucose 181 H Calcium 8.3 L Phosphorus 3.0 Magnesium 2.2 Albumin 2.7 L D Progress Note: A&P Assessment and plan (1) Acute on chronic diastolic (congestive) heart failure: Status: Acute (2) CKD (chronic kidney disease) stage 3, GFR 30-59 ml/min: Status: Acute (3) Atrial fibrillation with rapid ventricular response: Status: Acute Plan 87 female with Afib with RVR and CHF. She had MYAH which is improving. on amiodarone and HR ok. c/w Amiodarone and try to wean off the levophed. Does not look significantly overloaded by exam. We will follow along. Plan is rate control strategy for now. Time Spent With Patient Time: Total time managing care of this patient today ____ minutes. Progress Note: Quality Stroke Does the patient have a stroke diagnosis?: No Procedures Date of Service Date of Service: 06/27/22
[2022-06-27] MEDS: acetaZOLAMIDE sodium 500 MG VIAL 250 MG IVPUSH ×2 (11:17→20:26)
[2022-06-27 12:12] LABS: Glucose, Whole Blood 153 mg/dL (60-115)
--- NOTE | 2022-06-27 13:48 | PM.CCPN ---
Subjective Subjective Date of Service: 06/27/22 Interval History: 87-year-old lady with underlying confusion/dementia, legally blind, hypertension, chronic kidney disease stage 3, diabetes mellitus, diastolic congestive heart failure admitted on 06/21/2022 with AFib and congestive heart failure exacerbation. Hospital course significant for progressive respiratory failure with hypoxia and hypercapnia requiring intubation and transferred to intensive care unit on 06/25/2022. Patient treated with rate control on diuresis with improvement in her congestive heart failure and respiratory failure and was a extubated on 06/27/2022. Critical Care Time (minutes): 60 Physical Exam Vital Signs: Vital Signs: Last Vital Signs Temp 99.5 F 06/27/22 13:00 Pulse 100 06/27/22 13:00 Resp 27 H 06/27/22 13:00 BP 133/66 06/27/22 13:36 Pulse Ox 97 06/27/22 13:00 O2 Del Method 06/27/22 13:00 O2 Flow Rate 4 06/27/22 13:00 FiO2 24 06/27/22 12:00 Oxygen Flow Rate 2 06/21/22 09:49 BMI result Body Mass Index 27.2 Const: General: no acute distress, alert, awake and confusion Orientation/consciousness: confusion Eyes: Sclerae: sclerae normal EOM: EOMs intact bilaterally Neck: Neck: Yes no lymphadenopathy, Yes trachea midline and Yes supple Resp: Effort & Inspection: normal respiratory effort and no respiratory distress Auscultation: crackles (Bibasilar) Cardio: Rate: tachycardic Rhythm: abnormal rhythm irregularly irregular Heart sounds: no gallops, no murmurs and no rubs GI: Palpation (GI): Soft to palpation and Other GI palpation findings present ( Nontender) Auscultation: normal bowel sounds Neuro: General: confusion Extrem: General: No clubbing, No cyanosis and Yes edema (1+ bilateral) Objective Data Labs 06/27/22 05:03 06/27/22 05:03 Labs: Laboratory Results - last 24 hr 06/26/22 06/26/22 06/26/22 16:54 17:06 23:38 WBC RBC Hgb Hct MCV MCH MCHC RDW Plt Count MPV Immature Gran % (Auto) Neut % (Auto) Lymph % (Auto) [place] % (Auto) Eos % (Auto) Baso % (Auto) Lymph # (Auto) [place] # (Auto) Eos # (Auto) Baso # (Auto) Abs Immat Gran (auto) Absolute Neuts (auto) Absolute Nucleated RBC Nucleated RBC % (auto) O2 Saturation 94.0 ABG pH at Pt Temp 7.59 H ABG pCO2 at Pt Temp 34 ABG pO2 at Pt Temp 69 L ABG HCO3 33 H ABG Base Excess (Actual) 11.5 VBG pH VBG pCO2 VBG pO2 VBG HCO3 VBG O2 Saturation VBG Base Excess Sodium Potassium Chloride Carbon Dioxide Anion Gap BUN Creatinine Estim Creat Clear Calc Estimated GFR POC Glucose 142 H 155 H Random Glucose Calcium Phosphorus Magnesium Albumin 06/27/22 06/27/22 06/27/22 02:38 05:02 05:03 WBC 8.5 RBC 3.18 L Hgb 9.4 L Hct 30.2 L MCV 95.0 MCH 29.6 MCHC 31.1 RDW 12.7 Plt Count 292 MPV 10.9 Immature Gran % (Auto) 0.6 H Neut % (Auto) 68.7 Lymph % (Auto) 18.3 L [place] % (Auto) 9.7 Eos % (Auto) 2.2 Baso % (Auto) 0.5 Lymph # (Auto) 1.6 [place] # (Auto) 0.8 Eos # (Auto) 0.2 Baso # (Auto) 0.0 Abs Immat Gran (auto) 0.05 H Absolute Neuts (auto) 5.8 Absolute Nucleated RBC 0.000 Nucleated RBC % (auto) 0.0 O2 Saturation ABG pH at Pt Temp ABG pCO2 at Pt Temp ABG pO2 at Pt Temp ABG HCO3 ABG Base Excess (Actual) VBG pH 7.50 H 7.52 H VBG pCO2 44 40 VBG pO2 35 38 VBG HCO3 35 H 33 H VBG O2 Saturation 55.0 65.0 VBG Base Excess 11.1 10.0 Sodium Potassium Chloride Carbon Dioxide Anion Gap BUN Creatinine Estim Creat Clear Calc Estimated GFR POC Glucose Random Glucose Calcium Phosphorus Magnesium Albumin 06/27/22 06/27/22 06/27/22 05:03 05:57 12:08 WBC RBC Hgb Hct MCV MCH MCHC RDW Plt Count MPV Immature Gran % (Auto) Neut % (Auto) Lymph % (Auto) [place] % (Auto) Eos % (Auto) Baso % (Auto) Lymph # (Auto) [place] # (Auto) Eos # (Auto) Baso # (Auto) Abs Immat Gran (auto) Absolute Neuts (auto) Absolute Nucleated RBC Nucleated RBC % (auto) O2 Saturation ABG pH at Pt Temp ABG pCO2 at Pt Temp ABG pO2 at Pt Temp ABG HCO3 ABG Base Excess (Actual) VBG pH VBG pCO2 VBG pO2 VBG HCO3 VBG O2 Saturation VBG Base Excess Sodium 142 Potassium 4.2 Chloride 102 Carbon Dioxide 33 H Anion Gap 11 L BUN 46 H Creatinine 1.95 H Estim Creat Clear Calc 20.8 Estimated GFR 24 POC Glucose 167 H 153 H Random Glucose 181 H Calcium 8.3 L Phosphorus 3.0 Magnesium 2.2 Albumin 2.7 L D Progress Note: A&P Assessment and plan (1) Acute respiratory failure with hypoxia and hypercapnia: Status: Acute (2) Acute on chronic diastolic (congestive) heart failure: Status: Acute (3) (HFpEF) heart failure with preserved ejection fraction: Status: Acute (4) Acute kidney failure: Status: Acute (5) Diabetes: Status: Acute (6) Atrial fibrillation with rapid ventricular response: Status: Acute Plan Assessment: 87-year-old lady with underlying diastolic congestive heart failure, confusion/dementia, AFib admitted with acute exacerbation of underlying congestive heart failure and AFib with RVR resulting in acute hypoxic and hypercapnic respiratory failure requiring ventilatory support, now extubated Plan: Neuro: No acute issues. Underlying known chronic confusion/mild dementia. Cardiac: Acute on chronic diastolic congestive heart failure and AFib with RVR, improved with diuresis and rate control. Continue on diuresis and rate control. Pulmonary: Acute hypoxic and hypercapnic respiratory failure secondary to exacerbation of underlying chronic diastolic congestive heart failure requiring ventilatory support briefly, now extubated. Continue to titrate off supplemental oxygen as tolerated. Renal: Acute on chronic renal failure secondary to exacerbation of underlying diastolic congestive heart failure. Non oliguric. Continue to monitor renal indices and urine output. Started on acetazolamide. Endo: No acute issues. Underlying diabetes mellitus, continue subcutaneous insulin. GI: No acute issues. ID: No acute issues Heme/Onc: No acute issues. Psych: No acute issues. Miscellaneous: No acute issues. Prophylaxis: Eliquis Diet: NPO Critical care time spent: 60 minutes Quality Stroke Does the patient have a stroke diagnosis?: No VTE Prior VTE?: No VTE Risk Level:: Medical - moderate - high VTE Device Contraindication: Treatment Not Indicated VTE Drug Contraindication: N/A - Med Ordered
[2022-06-27 18:11] LABS: Glucose, Whole Blood 114 mg/dL (60-115)
--- NOTE | 2022-06-27 18:45 | PC.NURSE ---
PATIENT SEDATED AND VENTED ON AM ASSESSMENT. UNABLE TO ASSESS NEURO STATUS AT THAT TIME, SEE MORNING ASSESSMENT FOR FULL DETAILS. CVP DISCONTINUED PER MD IN AM. SKIN TEAR NOTED ON LEFT BUTTOCKS, PHOTO TAKEN AND CHARTED. SEDATION VACATION INITIATED IN AM. PROPOFOL GTT TITRATED OFF, SEE EMAR. PATIENT QUICKLY BECAME AROUSABLE TO SOUND AND WAS SOON ABLE TO FOLLOW COMMANDS. AFTER BEDSIDE ASSESSMENT OF NUEROLOGICAL STATUS POTENTIAL EXTUBATION CONSIDERED. RT CALLED DOWN TO UNIT AND PATIENT WAS SUCCESSFULLY EXTUBATED WITH MD BEDSIDE AT 11:35. PATIENT PLACED ON 4L [place], ABLE TO MAINTAIN OXYGENATION. AMIODORONE GTT TITRATED PER PROTOCOL, SEE EMAR. 250MG DIAMOX GIVEN WITH GOOD EFFECT, SEE EMAR. PATIENT BATHED, ROTATED Q4HR, ROUTINE ORAL CARE PREFORMED, FAMILY AND PATIENT UPDATED ON HEALTH STATUS.
[2022-06-27 20:00] LABS: Anion Gap 13 (12-20); Blood Urea Nitrogen 42 mg/dL (9-16); Calcium 8.4 mg/dL (8.4-10.2); Carbon Dioxide 33 mmol/L (22-29); Chloride 104 mmol/L (96-108); Creatinine Clr Calc Pharmacy 20.8; Estimated Glomerular Filt Rate 24; Glucose Random 149 mg/dL (60-115); Potassium 3.8 mmol/L (3.3-5.1); Sodium 146 mmol/L (135-145)
[2022-06-28] VITALS (23 sets, daily range): BP systolic 120–155; BP diastolic 45–78; PULSE 87–120; RESP 17–38; TEMP 36.1–37.3; O2SAT 87–96
[2022-06-28 00:21] LABS: Glucose, Whole Blood 137 mg/dL (60-115)
[2022-06-28] MEDS: 0.9 % Sodium Chloride Flush 3 ML SYRINGE IVFLUSH ×3 (00:25→17:57)
[2022-06-28] MEDS: Albumin Human 25 % 100 ML IV (03:53)
[2022-06-28 05:19] LABS: MANUAL DIFF FLAG NO
[2022-06-28 05:25] LABS: VBG Base Excess 10.1 mmol/L; VBG HCO3 36 mmol/L (22-26); VBG pCO2 58 mmHg; VBG pH 7.39 (7.32-7.43); VBG pO2 52 mmHg
[2022-06-28 06:04] LABS: Albumin Level 4.1 g/dL (3.5-5.0); Anion Gap 14 (12-20); Blood Urea Nitrogen 39 mg/dL (9-16); Calcium 8.8 mg/dL (8.4-10.2); Carbon Dioxide 32 mmol/L (22-29); Chloride 105 mmol/L (96-108); Creatinine Clr Calc Pharmacy 20.9; Estimated Glomerular Filt Rate 24; Glucose Random 139 mg/dL (60-115); Magnesium 2.2 mg/dL (1.6-2.6); Phosphorus 4.4 mg/dL (2.7-4.5); Potassium 3.7 mmol/L (3.3-5.1); Sodium 147 mmol/L (135-145)
[2022-06-28 06:05] LABS: Basophils Percent Auto 0.4 % (0-2); Eosinophils Absolute Auto 0.3 X10*3/uL (0.0-0.4); Eosinophils Percent Auto 2.7 % (0-4); Hematocrit 26.9 % (37.0-47.0); Hemoglobin 8.1 g/dl (12.0-16.0); Imm Gran Abs Auto 0.08 X10*3/uL (0.00-0.03); Imm Gran Pct Auto 0.9 % (0.0-0.4); Lymphocytes Absolute Auto 1.2 X10*3/uL (1.2-4.9); Mean Corpuscular HGB Conc 30.1 g/dl (31.0-35.0); Mean Corpuscular Volume 99.6 fL (80.0-98.0); Mean Platelet Volume 11.1 fL (9.4-12.3); Monocytes Absolute Auto 0.7 X10*3/uL (0.1-1.2); Monocytes Percent Auto 7.8 % (2-11); Neutrophils Absolute Auto 7.1 x10*3/uL (2.0-8.3); Neutrophils Percent Auto 75.2 % (45-73); Platelet Count 251 X10*3/uL (160-400); White Blood Count 9.4 X10*3/uL (4.8-10.8)
[2022-06-28 07:13] LABS: Venous Blood Gas Refer to POC result
[2022-06-28] MEDS: acetaZOLAMIDE sodium 500 MG VIAL 250 MG IVPUSH ×2 (09:38→21:15)
[2022-06-28] MEDS: Potassium Chloride Packet 20 MEQ PACKET 40 MEQ PO (09:38)
[2022-06-28] MEDS: Furosemide 20 MG/2 ML VIAL IVPUSH ×2 (09:38→11:15)
[2022-06-28] MEDS: Apixaban 2.5 MG TABLET PO (09:39)
--- NOTE | 2022-06-28 09:54 | P.PNNP_ITS ---
Subjective Subjective Date of Service: 06/28/22 Interval history: Events noted. All recent data reviewed Physical Exam Vital Signs: Vital Signs: Last Vital Signs Temp 97.2 F 06/28/22 09:00 Pulse 105 H 06/28/22 09:00 Resp 30 H 06/28/22 09:00 BP 142/63 H 06/28/22 09:00 Pulse Ox 87 L 06/28/22 09:00 O2 Del Method 06/28/22 09:00 O2 Flow Rate 4 06/28/22 09:00 FiO2 24 06/27/22 12:00 Oxygen Flow Rate 2 06/21/22 09:49 BMI result Body Mass Index 27.2 Const: General: no acute distress Neck: Neck: Yes supple Resp: Auscultation: diminished lung sounds Cardio: Rate: regular rate GI: Palpation (GI): Soft to palpation Skin: Rashes: no rashes Objective Data Labs 06/28/22 05:10 06/28/22 05:10 Labs: Laboratory Results - last 24 hr 06/27/22 06/27/22 06/27/22 12:08 18:07 19:34 WBC RBC Hgb Hct MCV MCH MCHC RDW Plt Count MPV Immature Gran % (Auto) Neut % (Auto) Lymph % (Auto) [place] % (Auto) Eos % (Auto) Baso % (Auto) Lymph # (Auto) [place] # (Auto) Eos # (Auto) Baso # (Auto) Abs Immat Gran (auto) Absolute Neuts (auto) Absolute Nucleated RBC Nucleated RBC % (auto) VBG pH VBG pCO2 VBG pO2 VBG HCO3 VBG O2 Saturation VBG Base Excess Sodium 146 H Potassium 3.8 Chloride 104 Carbon Dioxide 33 H Anion Gap 13 BUN 42 H Creatinine 1.95 H Estim Creat Clear Calc 20.8 Estimated GFR 24 POC Glucose 153 H 114 Random Glucose 149 H Calcium 8.4 Phosphorus Magnesium Albumin 06/28/22 06/28/22 06/28/22 00:17 05:10 05:10 WBC 9.4 RBC 2.70 L Hgb 8.1 L Hct 26.9 L MCV 99.6 H MCH 30.0 MCHC 30.1 L RDW 13.0 Plt Count 251 MPV 11.1 Immature Gran % (Auto) 0.9 H Neut % (Auto) 75.2 H Lymph % (Auto) 13.0 L [place] % (Auto) 7.8 Eos % (Auto) 2.7 Baso % (Auto) 0.4 Lymph # (Auto) 1.2 [place] # (Auto) 0.7 Eos # (Auto) 0.3 Baso # (Auto) 0.0 Abs Immat Gran (auto) 0.08 H Absolute Neuts (auto) 7.1 Absolute Nucleated RBC 0.000 Nucleated RBC % (auto) 0.0 VBG pH VBG pCO2 VBG pO2 VBG HCO3 VBG O2 Saturation VBG Base Excess Sodium 147 H Potassium 3.7 Chloride 105 Carbon Dioxide 32 H Anion Gap 14 BUN 39 H Creatinine 1.94 H Estim Creat Clear Calc 20.9 Estimated GFR 24 POC Glucose 137 H Random Glucose 139 H Calcium 8.8 Phosphorus 4.4 Magnesium 2.2 Albumin 4.1 D 06/28/22 05:18 WBC RBC Hgb Hct MCV MCH MCHC RDW Plt Count MPV Immature Gran % (Auto) Neut % (Auto) Lymph % (Auto) [place] % (Auto) Eos % (Auto) Baso % (Auto) Lymph # (Auto) [place] # (Auto) Eos # (Auto) Baso # (Auto) Abs Immat Gran (auto) Absolute Neuts (auto) Absolute Nucleated RBC Nucleated RBC % (auto) VBG pH 7.39 VBG pCO2 58 VBG pO2 52 VBG HCO3 36 H VBG O2 Saturation 79.0 VBG Base Excess 10.1 Sodium Potassium Chloride Carbon Dioxide Anion Gap BUN Creatinine Estim Creat Clear Calc Estimated GFR POC Glucose Random Glucose Calcium Phosphorus Magnesium Albumin Procedures Date of Service Date of Service: 06/28/22 Assessment & Plan Assessment and plan (1) Acute kidney failure: Status: Acute Assessment and Plan: MYAH due to tubular injury Urine output good; Renal functions stable Continue current supportive care for now Progress Note: Quality Stroke Does the patient have a stroke diagnosis?: No
--- NOTE | 2022-06-28 10:02 | MHC.CLN ---
F/U PT EXTUBATED SUCCESSFULLY 06/27/22 CURRENTLY NPO AWAITING CLOTHING TRADES WORKERS EVAL FOLLOWING WITH TEAM
[2022-06-28 12:16] LABS: Glucose, Whole Blood 206 mg/dL (60-115)
[2022-06-28] MEDS: Insulin Lispro 100 UNIT/ML 3 ML VIAL SUBCUT (12:35)
--- NOTE | 2022-06-28 13:23 | P.PNCA_ITS ---
Subjective Subjective Date of Service: 06/28/22 Interval history: Seen and examined at bedside. Not interactive. Looks SOB. Very frail and weak. Physical Exam Vital Signs: Last Vital Signs Temp 97.0 F 06/28/22 12:00 Pulse 103 H 06/28/22 12:00 Resp 21 H 06/28/22 12:00 BP 142/66 H 06/28/22 12:00 Pulse Ox 88 L 06/28/22 12:00 O2 Del Method 06/28/22 12:00 O2 Flow Rate 4 06/28/22 12:00 FiO2 24 06/27/22 12:00 Oxygen Flow Rate 2 06/21/22 09:49 BMI result Body Mass Index 27.2 GENERAL APPEARANCE: Looks SOB. Confused. NECK: no carotid bruit, no jugular venous distention. SKIN: no suspicious lesions, warm and dry. HEART: no murmurs, irregular rate and rhythm. tachycardic. LUNGS: clear to auscultation anteriorly. ABDOMEN: soft, nontender. EXTREMITIES: no edema. PERIPHERAL PULSES: equal. Objective Labs and Meds 06/28/22 05:10 06/28/22 05:10 Lab results: Laboratory Results - last 24 hr 06/27/22 06/27/22 06/28/22 18:07 19:34 00:17 WBC RBC Hgb Hct MCV MCH MCHC RDW Plt Count MPV Immature Gran % (Auto) Neut % (Auto) Lymph % (Auto) [place] % (Auto) Eos % (Auto) Baso % (Auto) Lymph # (Auto) [place] # (Auto) Eos # (Auto) Baso # (Auto) Abs Immat Gran (auto) Absolute Neuts (auto) Absolute Nucleated RBC Nucleated RBC % (auto) VBG pH VBG pCO2 VBG pO2 VBG HCO3 VBG O2 Saturation VBG Base Excess Sodium 146 H Potassium 3.8 Chloride 104 Carbon Dioxide 33 H Anion Gap 13 BUN 42 H Creatinine 1.95 H Estim Creat Clear Calc 20.8 Estimated GFR 24 POC Glucose 114 137 H Random Glucose 149 H Calcium 8.4 Phosphorus Magnesium Albumin 06/28/22 06/28/22 06/28/22 05:10 05:10 05:18 WBC 9.4 RBC 2.70 L Hgb 8.1 L Hct 26.9 L MCV 99.6 H MCH 30.0 MCHC 30.1 L RDW 13.0 Plt Count 251 MPV 11.1 Immature Gran % (Auto) 0.9 H Neut % (Auto) 75.2 H Lymph % (Auto) 13.0 L [place] % (Auto) 7.8 Eos % (Auto) 2.7 Baso % (Auto) 0.4 Lymph # (Auto) 1.2 [place] # (Auto) 0.7 Eos # (Auto) 0.3 Baso # (Auto) 0.0 Abs Immat Gran (auto) 0.08 H Absolute Neuts (auto) 7.1 Absolute Nucleated RBC 0.000 Nucleated RBC % (auto) 0.0 VBG pH 7.39 VBG pCO2 58 VBG pO2 52 VBG HCO3 36 H VBG O2 Saturation 79.0 VBG Base Excess 10.1 Sodium 147 H Potassium 3.7 Chloride 105 Carbon Dioxide 32 H Anion Gap 14 BUN 39 H Creatinine 1.94 H Estim Creat Clear Calc 20.9 Estimated GFR 24 POC Glucose Random Glucose 139 H Calcium 8.8 Phosphorus 4.4 Magnesium 2.2 Albumin 4.1 D 06/28/22 12:13 WBC RBC Hgb Hct MCV MCH MCHC RDW Plt Count MPV Immature Gran % (Auto) Neut % (Auto) Lymph % (Auto) [place] % (Auto) Eos % (Auto) Baso % (Auto) Lymph # (Auto) [place] # (Auto) Eos # (Auto) Baso # (Auto) Abs Immat Gran (auto) Absolute Neuts (auto) Absolute Nucleated RBC Nucleated RBC % (auto) VBG pH VBG pCO2 VBG pO2 VBG HCO3 VBG O2 Saturation VBG Base Excess Sodium Potassium Chloride Carbon Dioxide Anion Gap BUN Creatinine Estim Creat Clear Calc Estimated GFR POC Glucose 206 H Random Glucose Calcium Phosphorus Magnesium Albumin Progress Note: A&P Assessment and plan (1) (HFpEF) heart failure with preserved ejection fraction: Status: Acute (2) Atrial fibrillation with rapid ventricular response: Status: Acute Plan 87-year-old female has paroxysmal atrial fibrillation, diastolic heart failure as well as aspiration. She was extubated but it appears she is aspirating again. Mental status is poor. She is very frail and weak. Heart rates are reasonably controlled currently. Does not look significantly volume overloaded. I think underlying issue is aspiration and unfortunately given her frailty and somewhat poor mental status there is a possibility that she may aspirating in. I had a detailed discussion with the daughter about the goals of care specifically re-intubation in case the patient her respiratory status worsens. She is going to have a discussion with the family. I have explained to her that the chances are that she will look worse than how she looks right now if she got reintubated. We will follow along with you. Thank you for allowing me to participate in the care of your patient. Please feel free to contact me if you have any questions. Time Spent With Patient Time: Total time managing care of this patient today ____ minutes. Progress Note: Quality Stroke Does the patient have a stroke diagnosis?: No Procedures Date of Service Date of Service: 06/28/22
--- NOTE | 2022-06-28 13:47 | P.PNCC_ITS ---
Subjective Subjective Date of Service: 06/28/22 Interval History: 87-year-old lady with underlying confusion/dementia, legally blind, hypertension, chronic kidney disease stage 3, diabetes mellitus, diastolic congestive heart failure admitted on 06/21/2022 with AFib and congestive heart jaleel lure exacerbation. Hospital course significant for progressive respiratory failure with hypoxia and hypercapnia requiring intubation and transferred to intensive care unit on 06/25/2022. Patient was treated with rate control and diuresis with improvement in her congestive heart failure and respiratory failure and was extubated on 06/27/2022. No events overnight. Failed nursing bedside swallow screen and is not cooperative with speech swallow evaluation. Critical Care Time (minutes): 45 Physical Exam Vital Signs: Vital Signs: Last Vital Signs Temp 97.2 F 06/28/22 13:00 Pulse 112 H 06/28/22 13:00 Resp 29 H 06/28/22 13:00 BP 144/62 H 06/28/22 13:00 Pulse Ox 92 06/28/22 13:00 O2 Del Method 06/28/22 13:00 O2 Flow Rate 4 06/28/22 13:00 FiO2 24 06/27/22 12:00 Oxygen Flow Rate 2 06/21/22 09:49 BMI result Body Mass Index 27.2 Const: General: no acute distress, alert, awake and confusion Orientation/consciousness: confusion Eyes: Sclerae: sclerae normal EOM: EOMs intact bilaterally Neck: Neck: Yes no lymphadenopathy, Yes trachea midline and Yes supple Resp: Effort & Inspection: normal respiratory effort and no respiratory distress Auscultation: clear to auscultation bilaterally Cardio: Rate: tachycardic Rhythm: abnormal rhythm irregularly irregular Heart sounds: no gallops, no murmurs and no rubs GI: Palpation (GI): Soft to palpation and Other GI palpation findings present ( Nontender) Auscultation: normal bowel sounds Neuro: General: confusion Extrem: General: No clubbing, No cyanosis and Yes edema ( Trace bilateral) Objective Data Labs 06/28/22 05:10 06/28/22 05:10 Labs: Laboratory Results - last 24 hr 06/27/22 06/27/22 06/28/22 18:07 19:34 00:17 WBC RBC Hgb Hct MCV MCH MCHC RDW Plt Count MPV Immature Gran % (Auto) Neut % (Auto) Lymph % (Auto) [place] % (Auto) Eos % (Auto) Baso % (Auto) Lymph # (Auto) [place] # (Auto) Eos # (Auto) Baso # (Auto) Abs Immat Gran (auto) Absolute Neuts (auto) Absolute Nucleated RBC Nucleated RBC % (auto) VBG pH VBG pCO2 VBG pO2 VBG HCO3 VBG O2 Saturation VBG Base Excess Sodium 146 H Potassium 3.8 Chloride 104 Carbon Dioxide 33 H Anion Gap 13 BUN 42 H Creatinine 1.95 H Estim Creat Clear Calc 20.8 Estimated GFR 24 POC Glucose 114 137 H Random Glucose 149 H Calcium 8.4 Phosphorus Magnesium Albumin 06/28/22 06/28/22 06/28/22 05:10 05:10 05:18 WBC 9.4 RBC 2.70 L Hgb 8.1 L Hct 26.9 L MCV 99.6 H MCH 30.0 MCHC 30.1 L RDW 13.0 Plt Count 251 MPV 11.1 Immature Gran % (Auto) 0.9 H Neut % (Auto) 75.2 H Lymph % (Auto) 13.0 L [place] % (Auto) 7.8 Eos % (Auto) 2.7 Baso % (Auto) 0.4 Lymph # (Auto) 1.2 [place] # (Auto) 0.7 Eos # (Auto) 0.3 Baso # (Auto) 0.0 Abs Immat Gran (auto) 0.08 H Absolute Neuts (auto) 7.1 Absolute Nucleated RBC 0.000 Nucleated RBC % (auto) 0.0 VBG pH 7.39 VBG pCO2 58 VBG pO2 52 VBG HCO3 36 H VBG O2 Saturation 79.0 VBG Base Excess 10.1 Sodium 147 H Potassium 3.7 Chloride 105 Carbon Dioxide 32 H Anion Gap 14 BUN 39 H Creatinine 1.94 H Estim Creat Clear Calc 20.9 Estimated GFR 24 POC Glucose Random Glucose 139 H Calcium 8.8 Phosphorus 4.4 Magnesium 2.2 Albumin 4.1 D 06/28/22 12:13 WBC RBC Hgb Hct MCV MCH MCHC RDW Plt Count MPV Immature Gran % (Auto) Neut % (Auto) Lymph % (Auto) [place] % (Auto) Eos % (Auto) Baso % (Auto) Lymph # (Auto) [place] # (Auto) Eos # (Auto) Baso # (Auto) Abs Immat Gran (auto) Absolute Neuts (auto) Absolute Nucleated RBC Nucleated RBC % (auto) VBG pH VBG pCO2 VBG pO2 VBG HCO3 VBG O2 Saturation VBG Base Excess Sodium Potassium Chloride Carbon Dioxide Anion Gap BUN Creatinine Estim Creat Clear Calc Estimated GFR POC Glucose 206 H Random Glucose Calcium Phosphorus Magnesium Albumin Progress Note: A&P Assessment and plan (1) Diabetes: Status: Acute (2) Acute on chronic respiratory failure with hypercapnia: Status: Acute (3) Acute kidney failure: Status: Acute (4) Acute on chronic diastolic (congestive) heart failure: Status: Acute (5) Atrial fibrillation with rapid ventricular response: Status: Acute Plan Assessment: 87-year-old lady with underlying diastolic congestive heart failure, confusion/dementia, AFib admitted with acute exacerbation of underlying congestive heart failure and AFib with RVR resulting in acute hypoxic and hypercapnic respiratory failure requiring ventilatory support, now extubated Plan: Neuro: No acute issues. Underlying known chronic confusion/mild dementia. Cardiac: Acute on chronic diastolic congestive heart failure and AFib with RVR, improvingwith diuresis and rate control. Continue on diuresis and rate control. Pulmonary: Acute hypoxic and hypercapnic respiratory failure secondary to exacerbation of underlying chronic diastolic congestive heart failure requiring ventilatory support briefly, now extubated. Continue to titrate off supplemental oxygen as tolerated. Renal: Acute on chronic renal failure secondary to exacerbation of underlying diastolic congestive heart failure. Non oliguric. Continue to monitor renal indices and urine output. Nephrology service care appreciated. Continue on acetazolamide. Endo: No acute issues. Underlying diabetes mellitus, continue subcutaneous insulin. GI: No acute issues. ID: No acute issues Heme/Onc: No acute issues. Psych: No acute issues. Miscellaneous: No acute issues. Prophylaxis: Eliquis Diet: NPO Critical care time spent: 45 minutes Quality Stroke Does the patient have a stroke diagnosis?: No VTE Prior VTE?: No VTE Risk Level:: Medical - moderate - high VTE Device Contraindication: Treatment Not Indicated VTE Drug Contraindication: N/A - Med Ordered
--- NOTE | 2022-06-28 15:16 | PC.NURSE ---
FUEL HOUSE ATTENDANT USED FOR MORNING ASSESSMENT. PATIENT A&O X2, ABLE TO MAINTAIN SPONTANEOUS CONVERSATION WITHOUT PROMPTING. SHIFT PROCEEDED PATIENT BEGAN TO BECOME MORE LETHARGIC, BREATHING WITH ABDOMINAL MUSCLES, GASPING LIKE BREATHES. PATIENT MORE CONFUSED A&O TO SELF ONLY, FREQUENTLY FALLING ASLEEP WHILE VISITORS ARE TALKING IN ROOM TO PATIENT. MD NOTIFIED, POTENTIAL ASPIRATION OVERNIGHT/ DURING CONTRACT NEGOTIATOR IN QUESTION BY MD. PATIENT ABLE TO MAINTAIN O2 LEVEL WITHOUT OXYGEN TITRATION. 20 MG LASIX GIVEN X2 PER MD. GOOD EFFECT NOTED AFTER ADMINISTRATION. SEE EMAR AND I&O FOR MORE DETAIL. ENGINEERING VICE PRESIDENT CONTACTED FOR FORMAL BEDSIDE SWALLOW EVALUATION. PAITENT UNABLE TO PROPERLY FOLLOW COMMANDS/ REFUSING TO FOLLOW ENGINEERING VICE PRESIDENT COMMANDS. PATIENT REMAINING NPO PER ENGINEERING VICE PRESIDENT AND MD DECISION. PATIENT AND FAMILY INFORMED ON HEALTH STATUS, BATHED, REPOSITIONED Q2HR, ROUTINE ORAL CARE PREFORMED.
--- NOTE | 2022-06-28 16:54 | MHC.SLORD ---
Speech Language Pathology Order Status: Attempted re-assessment of swallow this am to re-start diet. Initially provided patient with oral care prior to introducing food and liquid, which patient responded to, but did not initiate swallow. On all attempts to present trials liquid or food, patient kept mouth and teeth tightly shut. Patient did not respond to directions given throughout. Will re-attempt swallow re-assessment 06/29.
[2022-06-28 17:59] LABS: Glucose, Whole Blood 109 mg/dL (60-115)
[2022-06-28 18:17] LABS: Anion Gap 14 (12-20); Blood Urea Nitrogen 38 mg/dL (9-16); Calcium 9.2 mg/dL (8.4-10.2); Carbon Dioxide 31 mmol/L (22-29); Chloride 109 mmol/L (96-108); Creatinine Clr Calc Pharmacy 21.8; Estimated Glomerular Filt Rate 26; Glucose Random 112 mg/dL (60-115); Magnesium 2.3 mg/dL (1.6-2.6); Phosphorus 5.1 mg/dL (2.7-4.5); Potassium 4.2 mmol/L (3.3-5.1); Sodium 150 mmol/L (135-145)
[2022-06-28] MEDS: Amiodarone HCL 900 MG in 0.9 % Sodium Chloride 500 ML 17.27 MG IVCONT (23:33)
[2022-06-29] VITALS (28 sets, daily range): BP systolic 134–163; BP diastolic 55–89; PULSE 67–121; RESP 17–33; TEMP 36.9–37.5; O2SAT 22–98
[2022-06-29 00:18] LABS: Glucose, Whole Blood 155 mg/dL (60-115)
[2022-06-29 05:26] LABS: MANUAL DIFF FLAG NO
[2022-06-29 05:27] LABS: Basophils Percent Auto 0.2 % (0-2); Eosinophils Absolute Auto 0.1 X10*3/uL (0.0-0.4); Eosinophils Percent Auto 0.6 % (0-4); Hematocrit 29.9 % (37.0-47.0); Hemoglobin 8.5 g/dl (12.0-16.0); Imm Gran Abs Auto 0.12 X10*3/uL (0.00-0.03); Imm Gran Pct Auto 0.9 % (0.0-0.4); Lymphocytes Percent Auto 7.2 % (20-40); Mean Corpuscular HGB Conc 28.4 g/dl (31.0-35.0); Mean Corpuscular Hemoglobin 29.5 pg (27.0-33.0); Mean Corpuscular Volume 103.8 fL (80.0-98.0); Mean Platelet Volume 10.3 fL (9.4-12.3); Monocytes Absolute Auto 0.8 X10*3/uL (0.1-1.2); Monocytes Percent Auto 5.6 % (2-11); NRBC Pct Auto 0.1 /100WBC (0.0-0.2); Neutrophils Absolute Auto 11.8 x10*3/uL (2.0-8.3); Neutrophils Percent Auto 85.5 % (45-73); Platelet Count 286 X10*3/uL (160-400); Red Blood Count 2.88 X10*6/uL (4.20-5.50); Red Cell Distribution Width 12.9 % (11.0-16.0); White Blood Count 13.8 X10*3/uL (4.8-10.8)
[2022-06-29 05:29] LABS: VBG Base Excess 7.8 mmol/L; VBG HCO3 35 mmol/L (22-26); VBG pCO2 66 mmHg; VBG pH 7.33 (7.32-7.43); VBG pO2 59 mmHg
[2022-06-29 05:34] LABS: Venous Blood Gas Refer to POC result
[2022-06-29 05:45] LABS: Albumin Level 3.9 g/dL (3.5-5.0); Anion Gap 15 (12-20); Blood Urea Nitrogen 38 mg/dL (9-16); Calcium 9.1 mg/dL (8.4-10.2); Carbon Dioxide 31 mmol/L (22-29); Chloride 110 mmol/L (96-108); Creatinine Clr Calc Pharmacy 20.5; Estimated Glomerular Filt Rate 24; Glucose Random 155 mg/dL (60-115); Magnesium 2.4 mg/dL (1.6-2.6); Phosphorus 5.1 mg/dL (2.7-4.5); Potassium 4.1 mmol/L (3.3-5.1); Sodium 152 mmol/L (135-145)
[2022-06-29 06:12] LABS: Glucose, Whole Blood 148 mg/dL (60-115)
--- NOTE | 2022-06-29 06:56 | PC.NURSE ---
Upon initial assessment at 1900- pt A&Ox2, BAPTISTE, follows simple commands. Afib on tele, HR 100s, amiodarone gtt running per protocol. Weak cough, on 5 L [place] most of night to maintain SpO2 > 92%, rhonchi throughout. NPO, frequent mouth care provided. [place] in place, UOP approx 50 ml/hr. VBG at 0500 showing CO2 66, BiPAP ordered and placed per TOMBSTONE ERECTOR HELPER- currently on 12//60% by RT. Skin tear to buttocks, otherwise intact. Repositioned q2hr, wedges utilized. Family updated at bedside at 1900 and aware of plan of care/pt status.
[2022-06-29] MEDS: acetaZOLAMIDE sodium 500 MG VIAL 250 MG IVPUSH ×2 (08:29→22:09)
[2022-06-29] MEDS: Furosemide 20 MG/2 ML VIAL IVPUSH (08:30)
[2022-06-29] MEDS: Dextrose 5 % 1,000 ML 125 ML IVCONT (08:30)
[2022-06-29] MEDS: 0.9 % Sodium Chloride Flush 3 ML SYRINGE IVFLUSH ×3 (08:30→22:09)
--- NOTE | 2022-06-29 10:36 | MHC.CLN ---
F/U DAY 2 NPO AWAITING WASTE TREATMENT OPERATOR TO REASSESS FOR SWALLOW FOLLOWING WITH TEAM
[2022-06-29 12:02] LABS: Glucose, Whole Blood 204 mg/dL (60-115)
--- NOTE | 2022-06-29 12:11 | MHC.SLORD ---
Addendum entered and electronically signed by Isha Mendenhall MA, CCC-SERVICE SPRINKLER HELPER 06/29/22 13:45: D.S. Original Note: Speech Language Pathology Order Status: Attempted to see pt for re-evaluation of swallow. Per RN, pt presenting continuously lethargic and not appropriate for PO trials. SERVICE SPRINKLER HELPER will continue to follow to re-attempt evaluation.
[2022-06-29] MEDS: Insulin Lispro 100 UNIT/ML 3 ML VIAL SUBCUT (12:50)
--- NOTE | 2022-06-29 13:33 | PM.PNCARD ---
Subjective Subjective Date of Service: 06/29/22 Interval history: Seen examined at bedside. Frail, short of breath. Concerned that she is aspirating silently. Physical Exam Vital Signs: Last Vital Signs Temp 98.8 F 06/29/22 12:00 Pulse 98 06/29/22 13:00 Resp 22 H 06/29/22 13:00 BP 151/69 H 06/29/22 13:00 Pulse Ox 93 06/29/22 13:00 O2 Del Method 06/29/22 13:00 O2 Flow Rate 4 06/29/22 12:00 FiO2 24 06/29/22 13:00 Oxygen Flow Rate 2 06/21/22 09:49 BMI result Body Mass Index 27.2 GENERAL APPEARANCE: Looks SOB. Confused. NECK: no carotid bruit, no jugular venous distention. SKIN: no suspicious lesions, warm and dry. HEART: no murmurs, irregular rate and rhythm. LUNGS: clear to auscultation anteriorly. ABDOMEN: soft, nontender. EXTREMITIES: no edema. PERIPHERAL PULSES: equal. Objective Labs and Meds 06/29/22 05:15 06/29/22 05:15 Lab results: Laboratory Results - last 24 hr 06/28/22 06/28/22 06/29/22 17:45 17:51 00:14 WBC RBC Hgb Hct MCV MCH MCHC RDW Plt Count MPV Immature Gran % (Auto) Neut % (Auto) Lymph % (Auto) [place] % (Auto) Eos % (Auto) Baso % (Auto) Lymph # (Auto) [place] # (Auto) Eos # (Auto) Baso # (Auto) Abs Immat Gran (auto) Absolute Neuts (auto) Absolute Nucleated RBC Nucleated RBC % (auto) VBG pH VBG pCO2 VBG pO2 VBG HCO3 VBG O2 Saturation VBG Base Excess Sodium 150 H Potassium 4.2 Chloride 109 H Carbon Dioxide 31 H Anion Gap 14 BUN 38 H Creatinine 1.87 H Estim Creat Clear Calc 21.8 Estimated GFR 26 POC Glucose 109 155 H Random Glucose 112 Calcium 9.2 Phosphorus 5.1 H Magnesium 2.3 Albumin 06/29/22 06/29/22 06/29/22 05:15 05:15 05:23 WBC 13.8 H RBC 2.88 L Hgb 8.5 L Hct 29.9 L MCV 103.8 H MCH 29.5 MCHC 28.4 L RDW 12.9 Plt Count 286 MPV 10.3 Immature Gran % (Auto) 0.9 H Neut % (Auto) 85.5 H Lymph % (Auto) 7.2 L [place] % (Auto) 5.6 Eos % (Auto) 0.6 Baso % (Auto) 0.2 Lymph # (Auto) 1.0 L [place] # (Auto) 0.8 Eos # (Auto) 0.1 Baso # (Auto) 0.0 Abs Immat Gran (auto) 0.12 H Absolute Neuts (auto) 11.8 H Absolute Nucleated RBC 0.020 H Nucleated RBC % (auto) 0.1 VBG pH 7.33 VBG pCO2 66 VBG pO2 59 VBG HCO3 35 H VBG O2 Saturation 88.0 VBG Base Excess 7.8 Sodium 152 H Potassium 4.1 Chloride 110 H Carbon Dioxide 31 H Anion Gap 15 BUN 38 H Creatinine 1.98 H Estim Creat Clear Calc 20.5 Estimated GFR 24 POC Glucose Random Glucose 155 H Calcium 9.1 Phosphorus 5.1 H Magnesium 2.4 Albumin 3.9 06/29/22 06/29/22 06:08 11:59 WBC RBC Hgb Hct MCV MCH MCHC RDW Plt Count MPV Immature Gran % (Auto) Neut % (Auto) Lymph % (Auto) [place] % (Auto) Eos % (Auto) Baso % (Auto) Lymph # (Auto) [place] # (Auto) Eos # (Auto) Baso # (Auto) Abs Immat Gran (auto) Absolute Neuts (auto) Absolute Nucleated RBC Nucleated RBC % (auto) VBG pH VBG pCO2 VBG pO2 VBG HCO3 VBG O2 Saturation VBG Base Excess Sodium Potassium Chloride Carbon Dioxide Anion Gap BUN Creatinine Estim Creat Clear Calc Estimated GFR POC Glucose 148 H 204 H Random Glucose Calcium Phosphorus Magnesium Albumin Progress Note: A&P Assessment and plan (1) Acute on chronic diastolic (congestive) heart failure: Status: Acute (2) Atrial fibrillation with rapid ventricular response: Status: Acute (3) (HFpEF) heart failure with preserved ejection fraction: Status: Acute Plan 87-year-old female has paroxysmal atrial fibrillation, diastolic heart failure as well as aspiration. She was extubated but it appears she is aspirating again. Mental status is poor. She is very frail and weak. Heart rates are reasonably controlled currently. Does not look significantly volume overloaded. I think underlying issue is aspiration and unfortunately given her frailty and somewhat poor mental status there is a possibility that she may aspirate again. I had a detailed discussion with the daughter about the goals of care specifically re-intubation in case the patient her respiratory status worsens. The daughter (Sheri) has shown wishes for changing the code status to do not resuscitate. This was related to the ICU nurse and attending. Thank you for allowing me to participate in the care of your patient. Please feel free to contact me if you have any questions. Time Spent With Patient Time: Total time managing care of this patient today ____ minutes. Progress Note: Quality Stroke Does the patient have a stroke diagnosis?: No Procedures Date of Service Date of Service: 06/29/22
--- NOTE | 2022-06-29 16:07 | P.PNCC_ITS ---
Subjective Subjective Date of Service: 06/29/22 Interval History: 87-year-old lady with underlying confusion/dementia, legally blind, hypertension, chronic kidney disease stage 3, diabetes mellitus, diastolic congestive heart failure admitted on 06/21/2022 with AFib and congestive heart jaleel lure exacerbation. Hospital course significant for progressive respiratory failure with hypoxia and hypercapnia requiring intubation and transferred to intensive care unit on 06/25/2022. Patient was treated with rate control and diuresis with improvement in her congestive heart failure and respiratory failure and was extubated on 06/27/2022. No events overnight. Not participating with speech therapy with swallow evaluation. More confused. Discussed underlying silent aspirations with patient's healthcare proxy and overall poor prognosis for recovery of the swallowing reflex. Healthcare proxy explained stated that patient would not want to have another trial of intubation and requested change of code status to DNR/DNI. Code status changed. Critical Care Time (minutes): 45 Physical Exam Vital Signs: Vital Signs: Last Vital Signs Temp 98.4 F 06/29/22 15:00 Pulse 93 06/29/22 15:00 Resp 20 06/29/22 15:00 BP 136/72 06/29/22 15:00 Pulse Ox 94 06/29/22 15:00 O2 Del Method 06/29/22 15:00 O2 Flow Rate 4 06/29/22 15:00 FiO2 24 06/29/22 13:00 Oxygen Flow Rate 2 06/21/22 09:49 BMI result Body Mass Index 27.2 Const: General: no acute distress, alert, awake and lethargic ( Intermittently) Orientation/consciousness: lethargic ( Intermittently) Eyes: Sclerae: sclerae normal EOM: EOMs intact bilaterally Neck: Neck: Yes no lymphadenopathy, Yes trachea midline and Yes supple Resp: Effort & Inspection: normal respiratory effort and no respiratory distress Auscultation: clear to auscultation bilaterally Cardio: Rate: regular rate Rhythm: abnormal rhythm irregularly irregular Heart sounds: no gallops, no murmurs and no rubs GI: Palpation (GI): Soft to palpation and Other GI palpation findings present ( Nontender) Auscultation: normal bowel sounds Extrem: General: No clubbing, No cyanosis and Yes edema ( trace bilateral) Objective Data Labs 06/29/22 05:15 06/29/22 05:15 Labs: Laboratory Results - last 24 hr 06/28/22 06/28/22 06/29/22 17:45 17:51 00:14 WBC RBC Hgb Hct MCV MCH MCHC RDW Plt Count MPV Immature Gran % (Auto) Neut % (Auto) Lymph % (Auto) [place] % (Auto) Eos % (Auto) Baso % (Auto) Lymph # (Auto) [place] # (Auto) Eos # (Auto) Baso # (Auto) Abs Immat Gran (auto) Absolute Neuts (auto) Absolute Nucleated RBC Nucleated RBC % (auto) VBG pH VBG pCO2 VBG pO2 VBG HCO3 VBG O2 Saturation VBG Base Excess Sodium 150 H Potassium 4.2 Chloride 109 H Carbon Dioxide 31 H Anion Gap 14 BUN 38 H Creatinine 1.87 H Estim Creat Clear Calc 21.8 Estimated GFR 26 POC Glucose 109 155 H Random Glucose 112 Calcium 9.2 Phosphorus 5.1 H Magnesium 2.3 Albumin 06/29/22 06/29/22 06/29/22 05:15 05:15 05:23 WBC 13.8 H RBC 2.88 L Hgb 8.5 L Hct 29.9 L MCV 103.8 H MCH 29.5 MCHC 28.4 L RDW 12.9 Plt Count 286 MPV 10.3 Immature Gran % (Auto) 0.9 H Neut % (Auto) 85.5 H Lymph % (Auto) 7.2 L [place] % (Auto) 5.6 Eos % (Auto) 0.6 Baso % (Auto) 0.2 Lymph # (Auto) 1.0 L [place] # (Auto) 0.8 Eos # (Auto) 0.1 Baso # (Auto) 0.0 Abs Immat Gran (auto) 0.12 H Absolute Neuts (auto) 11.8 H Absolute Nucleated RBC 0.020 H Nucleated RBC % (auto) 0.1 VBG pH 7.33 VBG pCO2 66 VBG pO2 59 VBG HCO3 35 H VBG O2 Saturation 88.0 VBG Base Excess 7.8 Sodium 152 H Potassium 4.1 Chloride 110 H Carbon Dioxide 31 H Anion Gap 15 BUN 38 H Creatinine 1.98 H Estim Creat Clear Calc 20.5 Estimated GFR 24 POC Glucose Random Glucose 155 H Calcium 9.1 Phosphorus 5.1 H Magnesium 2.4 Albumin 3.9 06/29/22 06/29/22 06:08 11:59 WBC RBC Hgb Hct MCV MCH MCHC RDW Plt Count MPV Immature Gran % (Auto) Neut % (Auto) Lymph % (Auto) [place] % (Auto) Eos % (Auto) Baso % (Auto) Lymph # (Auto) [place] # (Auto) Eos # (Auto) Baso # (Auto) Abs Immat Gran (auto) Absolute Neuts (auto) Absolute Nucleated RBC Nucleated RBC % (auto) VBG pH VBG pCO2 VBG pO2 VBG HCO3 VBG O2 Saturation VBG Base Excess Sodium Potassium Chloride Carbon Dioxide Anion Gap BUN Creatinine Estim Creat Clear Calc Estimated GFR POC Glucose 148 H 204 H Random Glucose Calcium Phosphorus Magnesium Albumin Progress Note: A&P Assessment and plan (1) Diabetes: Status: Acute (2) Acute respiratory failure with hypoxia and hypercapnia: Status: Acute (3) Acute on chronic diastolic (congestive) heart failure: Status: Acute (4) Acute kidney failure: Status: Acute (5) Atrial fibrillation with rapid ventricular response: Status: Acute Plan Assessment: 87-year-old lady with underlying diastolic congestive heart failure, confusion/dementia, AFib admitted with acute exacerbation of underlying congestive heart failure and AFib with RVR resulting in acute hypoxic and hypercapnic respiratory failure requiring ventilatory support, now extubated Plan: Neuro: No acute issues. Underlying known chronic confusion/mild dementia. Cardiac: Acute on chronic diastolic congestive heart failure and AFib with RVR, improvingwith diuresis and rate control. Continue on diuresis and rate control. Pulmonary: Acute hypoxic and hypercapnic respiratory failure secondary to exacerbation of underlying chronic diastolic congestive heart failure requiring ventilatory support briefly, extubated 06/27/2022. Continue to titrate off supp lemental oxygen as tolerated. Underlying silent aspirations. Continue with pulmonary toilet Renal: Acute on chronic renal failure secondary to exacerbation of underlying diastolic congestive heart failure. Non oliguric. Continue to monitor renal indices and urine output. Nephrology service care appreciated. Continue on acetazolamide. Endo: No acute issues. Underlying diabetes mellitus, continue subcutaneous insulin. GI: No acute issues. ID: No acute issues Heme/Onc: No acute issues. Psych: No acute issues. Miscellaneous: No acute issues. Prophylaxis: Eliquis Diet: NPO pending swallow evaluation Critical care time spent: 45 minutes Quality Stroke Does the patient have a stroke diagnosis?: No VTE Prior VTE?: No VTE Risk Level:: Medical - moderate - high VTE Device Contraindication: Treatment Not Indicated VTE Drug Contraindication: N/A - Med Ordered
[2022-06-29 16:57] LABS: Glucose, Whole Blood 142 mg/dL (60-115)
--- NOTE | 2022-06-29 19:39 | P.PNNP_ITS ---
Subjective Subjective Date of Service: 06/29/22 Interval history: Events noted. All recent data reviewed Physical Exam Vital Signs: Vital Signs: Last Vital Signs Temp 98.6 F 06/29/22 19:00 Pulse 77 06/29/22 19:00 Resp 17 06/29/22 19:00 BP 156/73 H 06/29/22 18:00 Pulse Ox 96 06/29/22 19:00 O2 Del Method 06/29/22 19:00 O2 Flow Rate 4 06/29/22 19:00 FiO2 24 06/29/22 13:00 Oxygen Flow Rate 2 06/21/22 09:49 BMI result Body Mass Index 27.2 Const: General: no acute distress Neck: Neck: Yes supple Resp: Auscultation: diminished lung sounds Cardio: Rate: regular rate GI: Palpation (GI): Soft to palpation Neuro: General: moves all extremities Objective Data Labs 06/29/22 05:15 06/29/22 05:15 Labs: Laboratory Results - last 24 hr 06/29/22 06/29/22 06/29/22 00:14 05:15 05:15 WBC 13.8 H RBC 2.88 L Hgb 8.5 L Hct 29.9 L MCV 103.8 H MCH 29.5 MCHC 28.4 L RDW 12.9 Plt Count 286 MPV 10.3 Immature Gran % (Auto) 0.9 H Neut % (Auto) 85.5 H Lymph % (Auto) 7.2 L [place] % (Auto) 5.6 Eos % (Auto) 0.6 Baso % (Auto) 0.2 Lymph # (Auto) 1.0 L [place] # (Auto) 0.8 Eos # (Auto) 0.1 Baso # (Auto) 0.0 Abs Immat Gran (auto) 0.12 H Absolute Neuts (auto) 11.8 H Absolute Nucleated RBC 0.020 H Nucleated RBC % (auto) 0.1 VBG pH VBG pCO2 VBG pO2 VBG HCO3 VBG O2 Saturation VBG Base Excess Sodium 152 H Potassium 4.1 Chloride 110 H Carbon Dioxide 31 H Anion Gap 15 BUN 38 H Creatinine 1.98 H Estim Creat Clear Calc 20.5 Estimated GFR 24 POC Glucose 155 H Random Glucose 155 H Calcium 9.1 Phosphorus 5.1 H Magnesium 2.4 Albumin 3.9 06/29/22 06/29/22 06/29/22 05:23 06:08 11:59 WBC RBC Hgb Hct MCV MCH MCHC RDW Plt Count MPV Immature Gran % (Auto) Neut % (Auto) Lymph % (Auto) [place] % (Auto) Eos % (Auto) Baso % (Auto) Lymph # (Auto) [place] # (Auto) Eos # (Auto) Baso # (Auto) Abs Immat Gran (auto) Absolute Neuts (auto) Absolute Nucleated RBC Nucleated RBC % (auto) VBG pH 7.33 VBG pCO2 66 VBG pO2 59 VBG HCO3 35 H VBG O2 Saturation 88.0 VBG Base Excess 7.8 Sodium Potassium Chloride Carbon Dioxide Anion Gap BUN Creatinine Estim Creat Clear Calc Estimated GFR POC Glucose 148 H 204 H Random Glucose Calcium Phosphorus Magnesium Albumin 06/29/22 16:54 WBC RBC Hgb Hct MCV MCH MCHC RDW Plt Count MPV Immature Gran % (Auto) Neut % (Auto) Lymph % (Auto) [place] % (Auto) Eos % (Auto) Baso % (Auto) Lymph # (Auto) [place] # (Auto) Eos # (Auto) Baso # (Auto) Abs Immat Gran (auto) Absolute Neuts (auto) Absolute Nucleated RBC Nucleated RBC % (auto) VBG pH VBG pCO2 VBG pO2 VBG HCO3 VBG O2 Saturation VBG Base Excess Sodium Potassium Chloride Carbon Dioxide Anion Gap BUN Creatinine Estim Creat Clear Calc Estimated GFR POC Glucose 142 H Random Glucose Calcium Phosphorus Magnesium Albumin Procedures Date of Service Date of Service: 06/29/22 Assessment & Plan Assessment and plan (1) Acute kidney failure: Status: Acute Assessment and Plan: MYAH due to tubular injury Urine output good; Renal functions stable Continue current supportive care for now Progress Note: Quality Stroke Does the patient have a stroke diagnosis?: No
[2022-06-29 23:28] LABS: Glucose, Whole Blood 146 mg/dL (60-115)
[2022-06-30] VITALS (13 sets, daily range): BP systolic 131–167; BP diastolic 63–84; PULSE 66–94; RESP 14–24; TEMP 36.2–37.1; O2SAT 94–98
[2022-06-30] MEDS: Amiodarone HCL 900 MG in 0.9 % Sodium Chloride 500 ML 17.27 MG IVCONT (04:01)
[2022-06-30 05:17] LABS: MANUAL DIFF FLAG NO
[2022-06-30 05:22] LABS: Basophils Percent Auto 0.4 % (0-2); Eosinophils Absolute Auto 0.1 X10*3/uL (0.0-0.4); Hematocrit 28.5 % (37.0-47.0); Hemoglobin 8.2 g/dl (12.0-16.0); Imm Gran Abs Auto 0.09 X10*3/uL (0.00-0.03); Imm Gran Pct Auto 0.9 % (0.0-0.4); Lymphocytes Percent Auto 9.8 % (20-40); Mean Corpuscular HGB Conc 28.8 g/dl (31.0-35.0); Mean Corpuscular Hemoglobin 29.9 pg (27.0-33.0); Mean Platelet Volume 10.4 fL (9.4-12.3); Monocytes Absolute Auto 0.6 X10*3/uL (0.1-1.2); Monocytes Percent Auto 5.7 % (2-11); Neutrophils Absolute Auto 8.6 x10*3/uL (2.0-8.3); Neutrophils Percent Auto 82.2 % (45-73); Platelet Count 291 X10*3/uL (160-400); Red Blood Count 2.74 X10*6/uL (4.20-5.50); White Blood Count 10.5 X10*3/uL (4.8-10.8)
[2022-06-30 05:37] LABS: VBG Base Excess 7.6 mmol/L; VBG HCO3 34 mmol/L (22-26); VBG pCO2 57 mmHg; VBG pH 7.37 (7.32-7.43); VBG pO2 45 mmHg
[2022-06-30 05:37] LABS: Albumin Level 3.7 g/dL (3.5-5.0); Anion Gap 12 (12-20); Blood Urea Nitrogen 36 mg/dL (9-16); Carbon Dioxide 30 mmol/L (22-29); Chloride 112 mmol/L (96-108); Creatinine Clr Calc Pharmacy 23.9; Estimated Glomerular Filt Rate 28; Glucose Random 145 mg/dL (60-115); Magnesium 2.2 mg/dL (1.6-2.6); Phosphorus 3.2 mg/dL (2.7-4.5); Potassium 3.6 mmol/L (3.3-5.1); Sodium 150 mmol/L (135-145)
[2022-06-30 05:51] LABS: Glucose, Whole Blood 128 mg/dL (60-115)
[2022-06-30] MEDS: Amiodarone HCL 200 MG TABLET PO ×2 (05:55→21:48)
[2022-06-30 05:59] LABS: Venous Blood Gas Refer to POC result
--- NOTE | 2022-06-30 06:25 | PC.NURSE ---
assumed care are 1900 pt able to A&Ox1 able to follow commands with breadman. Pt placed on bipap overnight without any distress. placed on 4LNC this morning sats stable. New order for to d/c amio drip start PO amio, pt NPO meds okay per Md. pt coughs on thin liquids but was able to swallow med crushed in apple sauce. [place] [facility] [place] C[place].
[2022-06-30] MEDS: acetaZOLAMIDE sodium 500 MG VIAL 250 MG IVPUSH ×2 (11:15→21:48)
[2022-06-30] MEDS: Furosemide 20 MG/2 ML VIAL IVPUSH (11:15)
[2022-06-30] MEDS: 0.9 % Sodium Chloride Flush 3 ML SYRINGE IVFLUSH ×3 (11:15→21:48)
[2022-06-30] MEDS: Apixaban 2.5 MG TABLET PO ×2 (11:16→21:48)
[2022-06-30 12:49] LABS: Glucose, Whole Blood 142 mg/dL (60-115)
--- NOTE | 2022-06-30 12:57 | P.PNIM_ITS ---
Subjective Subjective Date of Service: 06/30/22 Interval History: seen and examined this morning follow up for respiratory failure, downgraded from ICU 06/29 History obtained with the use of a educational sign language interpreter - patient awake, alert; says she wants to eat. Denies any shortness of breath or chest pain. does have intermittent dry cough Review of Systems Review of Systems: Yes all other systems are reviewed and are negative Constitutional Constitutional: Denies chills and Denies fever(s) Cardiovascular Cardiovascular: Denies chest pain and Denies dyspnea Respiratory Respiratory: Reports cough and Denies dyspnea Gastrointestinal Gastrointestinal: Denies abdominal pain, Denies nausea and Denies vomiting Physical Exam Vital Signs: Vital Signs: Last Vital Signs Temp 98.0 F 06/30/22 12:00 Pulse 90 06/30/22 12:00 Resp 17 06/30/22 12:00 BP 148/82 H 06/30/22 12:00 Pulse Ox 96 06/30/22 12:00 O2 Del Method 06/30/22 12:00 O2 Flow Rate 4 06/30/22 12:00 FiO2 40 06/30/22 05:00 Oxygen Flow Rate 2 06/21/22 09:49 BMI result Body Mass Index 27.2 Const: General: alert and awake Nutritional Appearance: average body habitus Resp: Effort & Inspection: normal respiratory effort and able to speak in complete sentences Cardio: Rate: regular rate Heart sounds: S1 normal heart sound present and S2 normal heart sound present GI: Inspection: No distended Palpation (GI): Soft to palpation Extrem: Other: feet in offloading boots General: Yes no pedal edema Objective Data Active Medications Acetazolamide (Acetazolamide Sodium 500 Mg Vial) 250 mg IVPUSH BID [facility] Last Admin: 06/30/22 11:15 Dose: 250 mg Documented By: MAGEN Amiodarone HCl (Amiodarone Hcl 200 Mg Tablet) 200 mg PO BID [facility] Last Admin: 06/30/22 05:55 Dose: 200 mg Documented By: NAS Apixaban (Apixaban 2.5 Mg Tablet) 2.5 mg PO BID [facility] Last Admin: 06/30/22 11:16 Dose: 2.5 mg Documented By: MAGEN Dextrose (Dextrose 50 % 25 Gm/50 Ml Syringe) 25 gm IVPUSH Q15M PRN; Protocol PRN Reason: per Hypoglycemia Standing Ord. Docusate Sodium (Docusate Sodium 100 Mg Capsule) 100 mg PO DAILY PRN PRN Reason: Constipation Furosemide (Furosemide 20 Mg/2 Ml Vial) 20 mg IVPUSH DAILY [facility]; Protocol Last Admin: 06/30/22 11:15 Dose: 20 mg Documented By: MAGEN Glucose (Glucose Gel 15 Gm Gel..Gram.) 15 gm PO Q15M PRN; Protocol PRN Reason: per Hypoglycemia Standing Ord. Insulin Human Lispro (Insulin Lispro 100 Unit/Ml 3 Ml Vial) 0 unit SUBCUT Q6H [facility]; Protocol Last Admin: 06/30/22 12:50 Dose: Not Given Documented By: MAGEN Non-Admin Reason: No Insulin Coverage Pharmacy Consult (Consult Rx Perform Med Rec) 1 each MISCELLANE ONCE PRN PRN Reason: Consult order Sodium Chloride (0.9 % Sodium Chloride Flush 3 Ml Syringe) 3 ml IVFLUSH QSHIFT [facility] Last Admin: 06/30/22 11:15 Dose: 3 ml Documented By: MAGEN Labs 06/30/22 05:05 06/30/22 05:05 Labs: Laboratory Results - last 24 hr 06/29/22 06/29/22 06/30/22 16:54 23:12 05:05 MCV 104.0 H MCH 29.9 MCHC 28.8 L RDW 13.0 Plt Count 291 MPV 10.4 Immature Gran % (Auto) 0.9 H Neut % (Auto) 82.2 H Lymph % (Auto) 9.8 L [place] % (Auto) 5.7 Eos % (Auto) 1.0 Baso % (Auto) 0.4 Lymph # (Auto) 1.0 L [place] # (Auto) 0.6 Eos # (Auto) 0.1 Baso # (Auto) 0.0 Abs Immat Gran (auto) 0.09 H Absolute Neuts (auto) 8.6 H Absolute Nucleated RBC 0.000 Nucleated RBC % (auto) 0.0 VBG pH VBG pCO2 VBG pO2 VBG HCO3 VBG O2 Saturation VBG Base Excess Anion Gap Estim Creat Clear Calc Estimated GFR POC Glucose 142 H 146 H Random Glucose Calcium Phosphorus Magnesium Albumin 06/30/22 06/30/22 06/30/22 05:05 05:10 05:40 MCV MCH MCHC RDW Plt Count MPV Immature Gran % (Auto) Neut % (Auto) Lymph % (Auto) [place] % (Auto) Eos % (Auto) Baso % (Auto) Lymph # (Auto) [place] # (Auto) Eos # (Auto) Baso # (Auto) Abs Immat Gran (auto) Absolute Neuts (auto) Absolute Nucleated RBC Nucleated RBC % (auto) VBG pH 7.37 VBG pCO2 57 VBG pO2 45 VBG HCO3 34 H VBG O2 Saturation 75.0 VBG Base Excess 7.6 Anion Gap 12 Estim Creat Clear Calc 23.9 Estimated GFR 28 POC Glucose 128 H Random Glucose 145 H Calcium 9.0 Phosphorus 3.2 Magnesium 2.2 Albumin 3.7 06/30/22 12:44 MCV MCH MCHC RDW Plt Count MPV Immature Gran % (Auto) Neut % (Auto) Lymph % (Auto) [place] % (Auto) Eos % (Auto) Baso % (Auto) Lymph # (Auto) [place] # (Auto) Eos # (Auto) Baso # (Auto) Abs Immat Gran (auto) Absolute Neuts (auto) Absolute Nucleated RBC Nucleated RBC % (auto) VBG pH VBG pCO2 VBG pO2 VBG HCO3 VBG O2 Saturation VBG Base Excess Anion Gap Estim Creat Clear Calc Estimated GFR POC Glucose 142 H Random Glucose Calcium Phosphorus Magnesium Albumin Assessment and Plan (1) Acute on chronic respiratory failure with hypercapnia: Status: Acute Plan This is an 87 Year old Romansh-speaking female with history of CHF, hypertension, diabetes who presented to the emergency department on June 21 with confusion shortness of breath and tachycardia found to be in AFib with rapid ventricular response and CHF. course was complicated by hypercarbic respiratory failure requiring intubation on June 25, she was extubated June 27 and downgraded from the ICU on June 29. New onset Atrial fibrillation HR under better control continue amiodarone baseline BB on hold continue AC with Eliquis - renal dose acute on chronic diastolic CHF continue IV lasix follow Is&Os toxic metabolic encephalopathy related to acute medical illness improving. awake and alert today has dementia at baseline hypernatremia sodium 150 will give 1L D5W and follow sodium level dysphagia improved seen by speech, rec NDD2 diet with thin liqs aspiration precautions MYAH on CKD 3 due to tubular injury creatinine improving continue azetazolamide nephrology following acute hypoxic and hypercarbic respiratory failure s/p intubation wean supplemental oxygen as tolerated non-insulin dependent diabetes po meds on hold continue SSI, POCs HTN norvasc was d/c follow bp HLD on simvastatin 10 at baseline statin on hold for now anemia, chronic H/H stable code status dnr/dni attending - dr. plunkett dvt ppx - eliquis requires ongoing hospitalization for management of CHF, dysphagia, MYAH Time Spent With Patient Time: Total time managing care of this patient today ____ minutes. Quality Stroke Does the patient have a stroke diagnosis?: No VTE Prior VTE?: No VTE Risk Level:: Medical - moderate - high VTE Device Contraindication: Treatment Not Indicated VTE Drug Contraindication: N/A - Med Ordered
[2022-06-30] MEDS: Dextrose 5 % 1,000 ML 100 ML IVCONT (14:13)
[2022-06-30 15:22] LABS: Glucose, Whole Blood 175 mg/dL (60-115)
--- NOTE | 2022-06-30 17:01 | MHC.SL.SWA ---
Speech Pathologist Impression: Risk of Aspiration Due to: Dysphasia Diet Status: Ground/Mechanical Altered (NDD2) with THIN liquids, pills crushed in puree. Liquid Consistency and Strategies for Safe Swallow: Liquid Intake Recommendation: Thin Liquid Intake Strategies: Small Sips No Straws Solid Food Consistency: Dietary Recommendations: Grnd/Mech Altered (NDD2) Additional Modifications to Solid Foods: Patient will need 1-1 assistance, although should be encouraged to independently self feed up to what is reasonable for her. Recommend small controlled cup sips of liquid, alternate solids and liquids. AVOID/do not administer MIXED textures (e.g. thin soups with solids). Do not attempt if patient is lethargic/not engaged in meal. Oral Medication Intake: Crushed with Puree Please contact the pharmacy regarding appropriate crushable or liquid drug formulations that are available whenever modified delivery is recommended. Compensatory Strategies and Precautions to be Taken for Safe Swallow: Sitting Upright (90 deg) Liquids from Cup Small Bites and Sips Alternate Liquids/Solids Supervision While Eating and Drinking for Safe Swallow: Total Assistance (1:1) Foods to Avoid: Avoid hard tough to chew solids and mixed consistencies. Swallowing Recommended Treatments: Compens. Strategy Educat. Recommendation for Speech: Inpatient Speech Therapy Comment: Patient was initially seen for bedside swallow on 06/25/22, with dx oropharyngeal dysphagia, with delay of swallow noted on all consistencies, and was placed on diet of Ground Mechanical Altered with [place] Thick liquids. Patient subsequently had worsening respiratory status which may have also coincided with possible aspiration event (per daughter, who stated that she was coughing when given some soup at dinner on 06/25) and was transferred to ICU, where she required vent support. She was referred for repeat clinical swallow on 06/28/22 in the ICU following extubation, however on that day she refused all PO trials. On 06/29, BLOCK HACKER reported to SENIOR HARDWARE DESIGN ENGINEER that patient was not appropriate for PO trials, however later that day patient was [place] [facility] [place] Patient seen this morning in [facility] [place] repeat eval, Patient's son and daughter were present in the room. Patient was awake, alert, communicating in Yakut. Patient at times exhibited some confusion when given directions, but when given repetition and visual models was able to follow. Oral Mech was mostly WFL (mild lingual weakness). Patient took tsp and sips of water with good oral containment, timely oral transit, timely swallow, mildly reduced laryngeal elevation, no clinical signs of aspiration. Patient was given tsps of apple sauces, with timely oral transit, mild delay initiating swallow, no clinical signs of aspiration. On softened cracker, patient produced a mildly prolonged period of mastication followed by timely swallow. On dry cracker, patient produced a prolonged period of mastication, with piecemeal swallow, oral residual cleared by sip of liquid. Recommend RESTART diet of Ground/Mechanical Altered with THIN liquids, pills crushed in puree. MD, RD, RN notified by secure text. Discussed with family rationale, precautions, types of appropriate foods. Frequency/Duration: Date Range for Service Req: Timeline to reassess: Collections And Archives Director Clinican/Clinical Fellow: No Supervisory Statement: I have reviewed and agree with the student/clinical fellow's documentation: N/A Speech Language Pathologist: Mary Hunt M.A., CCC-SENIOR HARDWARE DESIGN ENGINEER
[2022-06-30] MEDS: Insulin Lispro 100 UNIT/ML 3 ML VIAL SUBCUT ×2 (17:15→21:47)
[2022-06-30 19:51] LABS: Glucose, Whole Blood 201 mg/dL (60-115)
[2022-06-30] MEDS: Acetaminophen 325 MG TABLET 650 MG PO (22:08)
[2022-07-01] VITALS (8 sets, daily range): BP systolic 124–157; BP diastolic 63–78; PULSE 85–112; RESP 12–20; TEMP 36.3–37.1; O2SAT 92–100
[2022-07-01 06:41] LABS: Anion Gap 14 (12-20); Blood Urea Nitrogen 39 mg/dL (9-16); Calcium 8.8 mg/dL (8.4-10.2); Carbon Dioxide 28 mmol/L (22-29); Chloride 109 mmol/L (96-108); Creatinine Clr Calc Pharmacy 21.5; Estimated Glomerular Filt Rate 25; Glucose Random 123 mg/dL (60-115); Potassium 3.5 mmol/L (3.3-5.1); Sodium 147 mmol/L (135-145)
[2022-07-01 07:27] LABS: Glucose, Whole Blood 121 mg/dL (60-115)
[2022-07-01] MEDS: Apixaban 2.5 MG TABLET PO ×2 (09:17→21:59)
[2022-07-01] MEDS: Amiodarone HCL 200 MG TABLET PO ×2 (09:17→21:59)
[2022-07-01] MEDS: acetaZOLAMIDE sodium 500 MG VIAL 250 MG IVPUSH (09:17)
[2022-07-01] MEDS: Furosemide 20 MG/2 ML VIAL IVPUSH (09:17)
[2022-07-01] MEDS: 0.9 % Sodium Chloride Flush 3 ML SYRINGE IVFLUSH (09:17)
--- NOTE | 2022-07-01 09:21 | P.CDIC_ITS ---
CDI Concurrent Query Documentation Clarification: PHYSICIAN'S DOCUMENTATION REQUEST Date of Query: 07/01/22921 Patient Name: Karoline Schafer Admit Date: 06/21/22 Dear Doctor, A review of the medical record indicates additional documentation may be needed. Please review below and update the documentation accordingly. Clinical Indicators: The following clinical information was noted in the record: Risk Factors/Clinical Indicators/Treatments Per MD progress note 06/30/22: MYAH on CKD 3 due to tubular injury creatinine improving continue azetazolamide nephrology following Please clarify which of the following accurately represents the patient's renal status: * Acute renal failure - see criteria * Acute renal failure with suspected ATN * Acute renal failure with other pathology (medullary, papillary, or cortical necrosis) * Other (please specify) * Unable to determine Criteria for MYAH* Stages of Chronic Kidney Disease* 1. Increase in serum creatinine by ? 0.3 mg/dL Level Description GFR (?26.5 micromol/L) within 48 hours, or G1 Normal or High > 90 2. Increase in serum creatinine to ?1.5 times baseline, G2 Mildly decreased 60 ? 89 which is known or presumed to have occurred within 7 days, or G3a Mildly to moderately decreased 45 ? 59 3. Urine volume <0.5 mL/kg/hour for six hours G3b Moderately to severely decreased 30 - 44 G4 Severely decreased 15 ? 29 G5 Kidney failure < 15 *Source: Kidney Disease: Improving Global Outcomes (KDIGO) 2012 Use of terms such as suspected, likely, concern for, or probable (associated with a specific diagnosis that is being evaluated, monitored, or treated as if it exists) are acceptable and can be coded in the inpatient setting, when documented at the time of discharge. Thank you, July Leija RN Extension: [phone] Please use your independent medical judgment in providing your response. THIS QUERY IS PART OF THE PERMANENT MEDICAL RECORD Provider Response: Other Other Diagnosis: myah on ckd3 nephro notes indicate related to tubular injury
--- NOTE | 2022-07-01 09:57 | MHC.CLN ---
F/U PO INTAKE POOR DIET RX: 2000DM GRD M/S-APPROPRIATE RECOMMEND ADDING GLUCERNA TO INCREASE KCALS SUPP TO PROVIDE 474KCALS, 20G PROTEIN MONITOR PO INTAKE CLOSELY
[2022-07-01 10:59] LABS: Glucose, Whole Blood 148 mg/dL (60-115)
--- NOTE | 2022-07-01 11:19 | MHC.SL.SWA ---
Speech Pathologist Impression: Oropharyngeal dysphagia Dysphasia Diet Status: Ground/Mechanical Altered (NDD2) solids with [place] THICK liquids, pills crushed in puree. Liquid Consistency and Strategies for Safe Swallow: Liquid Intake Recommendation: [place] Thick Liquid Intake Strategies: Small Sips No Straws Solid Food Consistency: Dietary Recommendations: Grnd/Mech Altered (NDD2) Additional Modifications to Solid Foods: Patient will need 1-1 assistance, although should be encouraged to independently self feed up to what is reasonable for her. Recommend small controlled cup sips of liquid, alternate solids and liquids. AVOID/do not administer MIXED textures (e.g. thin soups with solids). Do not attempt if patient is lethargic/not engaged in meal. Oral Medication Intake: Crushed with Puree Please contact the pharmacy regarding appropriate crushable or liquid drug formulations that are available whenever modified delivery is recommended. Compensatory Strategies and Precautions to be Taken for Safe Swallow: Sitting Upright (90 deg) No Straw Liquids from Cup Small Bites and Sips Alternate Liquids/Solids Rate of Ingestion Change Avoid Specific Foods Supervision While Eating and Drinking for Safe Swallow: Total Assistance (1:1) Foods to Avoid: Avoid hard tough to chew solids and mixed consistencies. Swallowing Recommended Treatments: Compens. Strategy Educat. Recommendation for Speech: Inpatient Speech Therapy Pipe [place]pper Clinican/Clinical Fellow: No Supervisory Statement: I have reviewed and agree with the student/clinical fellow's documentation: N/A Speech Language Pathologist: Isha Mendenhall M.A., CCC-HORTICULTURAL THERAPIST
--- NOTE | 2022-07-01 12:32 | PM.PNNEP ---
Subjective Subjective Date of Service: 07/01/22 Interval history: seen and examined no complaints Physical Exam Vital Signs: Vital Signs: Last Vital Signs Temp 98.1 F 07/01/22 11:04 Pulse 91 07/01/22 11:04 Resp 12 07/01/22 11:04 BP 137/70 07/01/22 11:04 Pulse Ox 100 07/01/22 11:04 O2 Del Method 07/01/22 11:04 O2 Flow Rate 2 07/01/22 11:04 FiO2 40 06/30/22 05:00 Oxygen Flow Rate 2 06/21/22 09:49 BMI result Body Mass Index 27.2 Const: General: alert and awake HEENT: Head: Yes normocephalic and Yes atraumatic Neck: Neck: Yes supple Resp: Auscultation: diminished lung sounds Cardio: Heart sounds: S1 normal heart sound present and S2 normal heart sound present GI: Palpation (GI): Soft to palpation and nontender Extrem: General: Yes edema Objective Data Labs 06/30/22 05:05 07/01/22 06:02 Labs: Laboratory Results - last 24 hr 06/30/22 06/30/22 06/30/22 12:44 15:13 19:45 Sodium Potassium Chloride Carbon Dioxide Anion Gap BUN Creatinine Estim Creat Clear Calc Estimated GFR POC Glucose 142 H 175 H 201 H Random Glucose Calcium 07/01/22 07/01/22 07/01/22 06:02 07:20 10:55 Sodium 147 H Potassium 3.5 Chloride 109 H Carbon Dioxide 28 Anion Gap 14 BUN 39 H Creatinine 1.89 H Estim Creat Clear Calc 21.5 Estimated GFR 25 POC Glucose 121 H 148 H Random Glucose 123 H Calcium 8.8 Procedures Date of Service Date of Service: 07/01/22 Assessment & Plan Assessment and plan (1) CKD (chronic kidney disease) stage 3, GFR 30-59 ml/min: Status: Acute (2) (HFpEF) heart failure with preserved ejection fraction: Status: Acute Plan known CKD kidney function at baseline h/o HFpEF decompensated CHF in the setting of atrial fibrillation with RVR REC continue oral furosemide follow kidney function and electrolytes Time Spent With Patient Time: Total time managing care of this patient today ____ minutes. Progress Note: Quality Stroke Does the patient have a stroke diagnosis?: No
--- NOTE | 2022-07-01 13:33 | HO.PM.IMPN ---
Subjective Subjective Date of Service: 07/01/22 Interval History: seen and examined this morning follow up for afib, chf awake and alert; history obtained with bleacher lard no overnight events. no chest pain, sob, abdominal pain Review of Systems Review of Systems: Yes all other systems are reviewed and are negative Constitutional Constitutional: Denies chills and Denies fever(s) Cardiovascular Cardiovascular: Denies chest pain, Denies palpitations and Denies dyspnea Respiratory Respiratory: Denies cough and Denies dyspnea Gastrointestinal Gastrointestinal: Denies abdominal pain, Denies nausea and Denies vomiting Endocrine Endocrine: Denies palpitations Physical Exam Vital Signs: Vital Signs: Last Vital Signs Temp 98.1 F 07/01/22 11:04 Pulse 91 07/01/22 11:04 Resp 12 07/01/22 11:04 BP 137/70 07/01/22 11:04 Pulse Ox 100 07/01/22 11:04 O2 Del Method 07/01/22 11:04 O2 Flow Rate 2 07/01/22 11:04 FiO2 40 06/30/22 05:00 Oxygen Flow Rate 2 06/21/22 09:49 BMI result Body Mass Index 27.2 Const: General: alert and awake Nutritional Appearance: average body habitus Orientation/consciousness: oriented to person Resp: Effort & Inspection: normal respiratory effort and able to speak in complete sentences Cardio: Rate: regular rate Heart sounds: S1 normal heart sound present and S2 normal heart sound present GI: Inspection: No distended Palpation (GI): Soft to palpation and nontender Neuro: Other: grossly nonfocal, able to move all extremities General: oriented to person Extrem: Other: feet in offloading boots General: Yes no pedal edema Objective Data Active Medications Acetaminophen (Acetaminophen 325 Mg Tablet) 650 mg PO Q8H PRN PRN Reason: Pain, Mild (Pain Scale 1-3) Last Admin: 06/30/22 22:08 Dose: 650 mg Documented By: RADHA Amiodarone HCl (Amiodarone Hcl 200 Mg Tablet) 200 mg PO BID [facility] Last Admin: 07/01/22 09:17 Dose: 200 mg Documented By: MAGEN Apixaban (Apixaban 2.5 Mg Tablet) 2.5 mg PO BID [facility] Last Admin: 07/01/22 09:17 Dose: 2.5 mg Documented By: MAGEN Dextrose (Dextrose 50 % 25 Gm/50 Ml Syringe) 25 gm IVPUSH Q15M PRN; Protocol PRN Reason: per Hypoglycemia Standing Ord. Docusate Sodium (Docusate Sodium 100 Mg Capsule) 100 mg PO DAILY PRN PRN Reason: Constipation Furosemide (Furosemide 40 Mg Tablet) 40 mg PO DAILY [facility]; Protocol Glucose (Glucose Gel 15 Gm Gel..Gram.) 15 gm PO Q15M PRN; Protocol PRN Reason: per Hypoglycemia Standing Ord. Insulin Human Lispro (Insulin Lispro 100 Unit/Ml 3 Ml Vial) 0 unit SUBCUT QIDACHS [facility]; Protocol Last Admin: 07/01/22 11:55 Dose: Not Given Documented By: MAGEN Non-Admin Reason: No Insulin Coverage Pharmacy Consult (Consult Rx Perform Med Rec) 1 each MISCELLANE ONCE PRN PRN Reason: Consult order Sodium Chloride (0.9 % Sodium Chloride Flush 3 Ml Syringe) [facility] Last Admin: 07/01/22 09:17 Dose: 3 ml Documented By: MAGEN Labs 06/30/22 05:05 07/01/22 06:02 Labs: Laboratory Results - last 24 hr 06/30/22 06/30/22 07/01/22 15:13 19:45 06:02 Anion Gap 14 Estim Creat Clear Calc 21.5 Estimated GFR 25 POC Glucose 175 H 201 H Random Glucose 123 H Calcium 8.8 07/01/22 07/01/22 07:20 10:55 Anion Gap Estim Creat Clear Calc Estimated GFR POC Glucose 121 H 148 H Random Glucose Calcium Assessment and Plan (1) (HFpEF) heart failure with preserved ejection fraction: Status: Acute Plan This is an 87 Year old Greek-speaking female with history of CHF, hypertension, diabetes who presented to the emergency department on June 21 with confusion shortness of breath and tachycardia found to be in AFib with rapid ventricular response and CHF. course was complicated by hypercarbic respiratory failure requiring intubation on June 25, she was extubated June 27 and downgraded from the ICU on June 29. New onset Atrial fibrillation HR under better control continue amiodarone baseline BB on hold continue AC with Eliquis - renal dose acute on chronic diastolic CHF will transition lasix to po follow Is&Os toxic metabolic encephalopathy related to acute medical illness improving. awake and alert today has dementia at baseline per documentation hypernatremia sodium down to 147 follow bmp dysphagia improved seen by speech, rec NDD2 diet with nectar thick liqs aspiration precautions MYAH on CKD 3 due to ATN creatinine improving d/c azetazolamide nephrology following acute hypoxic and hypercarbic respiratory failure s/p intubation daughter states she was discharged on home oxygen on last admission currently 100 on 2L, wean o2 as able non-insulin dependent diabetes po meds on hold continue SSI, POCs HTN norvasc was d/c follow bp HLD on simvastatin 10 at baseline statin on hold for now chronic anemia H/H stable code status dnr/dni attending - dr. plunkett dvt ppx - eliquis pt eval pending for safe dispo requires ongoing hospitalization for management of CHF, MYAH Time Spent With Patient Time: Total time managing care of this patient today ____ minutes. Quality Stroke Does the patient have a stroke diagnosis?: No VTE Prior VTE?: No VTE Risk Level:: Medical - moderate - high VTE Device Contraindication: Treatment Not Indicated VTE Drug Contraindication: N/A - Med Ordered
[2022-07-01 16:02] LABS: Glucose, Whole Blood 121 mg/dL (60-115)
--- NOTE | 2022-07-01 16:23 | PM.PNCARD ---
Subjective Subjective Date of Service: 07/01/22 Interval history: Seen examined at bedside. Denying any significant symptoms. On supplemental oxygen. Dry cough. Physical Exam Vital Signs: Last Vital Signs Temp 97.6 F 07/01/22 15:53 Pulse 92 07/01/22 15:53 Resp 18 07/01/22 15:53 BP 142/66 H 07/01/22 15:53 Pulse Ox 92 07/01/22 15:53 O2 Del Method 07/01/22 15:53 O2 Flow Rate 4 07/01/22 15:53 FiO2 40 06/30/22 05:00 Oxygen Flow Rate 2 06/21/22 09:49 BMI result Body Mass Index 27.2 GENERAL APPEARANCE: Looks SOB. Confused. NECK: no carotid bruit, no jugular venous distention. SKIN: no suspicious lesions, warm and dry. HEART: no murmurs, irregular rate and rhythm. LUNGS: clear to auscultation anteriorly. ABDOMEN: soft, nontender. EXTREMITIES: no edema. PERIPHERAL PULSES: equal. Objective Labs and Meds 06/30/22 05:05 07/01/22 06:02 Lab results: Laboratory Results - last 24 hr 06/30/22 07/01/22 07/01/22 19:45 06:02 07:20 Sodium 147 H Potassium 3.5 Chloride 109 H Carbon Dioxide 28 Anion Gap 14 BUN 39 H Creatinine 1.89 H Estim Creat Clear Calc 21.5 Estimated GFR 25 POC Glucose 201 H 121 H Random Glucose 123 H Calcium 8.8 07/01/22 07/01/22 10:55 15:58 Sodium Potassium Chloride Carbon Dioxide Anion Gap BUN Creatinine Estim Creat Clear Calc Estimated GFR POC Glucose 148 H 121 H Random Glucose Calcium Progress Note: A&P Assessment and plan (1) (HFpEF) heart failure with preserved ejection fraction: Status: Acute (2) Atrial fibrillation with rapid ventricular response: Status: Acute Plan Pleasant 87-year-old female who was intubated for hypoxic respiratory failure secondary to aspiration. She had atrial fibrillation with rapid ventricular response as well as diastolic heart failure. Volume status looks reasonable. Continue p.o. 40 mg Lasix. Apixaban 2.5 mg twice a day. Amiodarone 200 mg b.i.d. which can be changed to 200 mg once a day in a week. Can hold Toprol-XL for now. Signing of Thank you for allowing me to participate in the care of your patient. Please feel free to contact me if you have any questions. Time Spent With Patient Time: Total time managing care of this patient today ____ minutes. Progress Note: Quality Stroke Does the patient have a stroke diagnosis?: No Procedures Date of Service Date of Service: 07/01/22
[2022-07-01] MEDS: Acetaminophen 325 MG TABLET 650 MG PO (17:02)
[2022-07-01 22:02] LABS: Glucose, Whole Blood 130 mg/dL (60-115)
[2022-07-01] MEDS: Benzonatate 100 MG CAPSULE 200 MG PO (23:40)
[2022-07-02 03:38] VITALS: BP 136/58; PULSE 95; RESP 20; TEMP 37.1; O2SAT 98
[2022-07-02 07:09] VITALS: BP 140/66; PULSE 99; RESP 20; TEMP 36.3; O2SAT 97
[2022-07-02 07:19] LABS: Anion Gap 10 (12-20); Blood Urea Nitrogen 44 mg/dL (9-16); Carbon Dioxide 31 mmol/L (22-29); Chloride 110 mmol/L (96-108); Estimated Glomerular Filt Rate 21; Glucose Random 139 mg/dL (60-115); Potassium 3.7 mmol/L (3.3-5.1); Sodium 147 mmol/L (135-145)
[2022-07-02 07:25] LABS: Glucose, Whole Blood 131 mg/dL (60-115)
[2022-07-02] MEDS: Amiodarone HCL 200 MG TABLET PO ×2 (08:18→20:47)
[2022-07-02] MEDS: Furosemide 40 MG TABLET PO (08:18)
[2022-07-02] MEDS: 0.9 % Sodium Chloride Flush 3 ML SYRINGE IVFLUSH ×2 (08:18→20:47)
[2022-07-02] MEDS: Apixaban 2.5 MG TABLET PO ×2 (08:18→20:47)
--- NOTE | 2022-07-02 10:10 | PM.PNNEP ---
Subjective Subjective Date of Service: 07/02/22 Interval history: seen and examined discussed with medical attending no chest pain, sob, abdominal pain Physical Exam Vital Signs: Vital Signs: Last Vital Signs Temp 97.4 F 07/02/22 07:09 Pulse 99 07/02/22 07:09 Resp 20 07/02/22 07:09 BP 140/66 H 07/02/22 07:09 Pulse Ox 97 07/02/22 07:09 O2 Del Method 07/02/22 07:09 O2 Flow Rate 2 07/02/22 07:09 FiO2 40 06/30/22 05:00 Oxygen Flow Rate 2 06/21/22 09:49 BMI result Body Mass Index 27.2 Const: General: alert and awake HEENT: Head: Yes normocephalic and Yes atraumatic Neck: Neck: Yes supple Resp: Auscultation: diminished lung sounds Cardio: Heart sounds: S1 normal heart sound present and S2 normal heart sound present GI: Palpation (GI): Soft to palpation and nontender Extrem: General: Yes edema Objective Data Labs 06/30/22 05:05 07/02/22 06:22 Labs: Laboratory Results - last 24 hr 07/01/22 07/01/22 07/01/22 10:55 15:58 21:57 Sodium Potassium Chloride Carbon Dioxide Anion Gap BUN Creatinine Estim Creat Clear Calc Estimated GFR POC Glucose 148 H 121 H 130 H Random Glucose Calcium 07/02/22 07/02/22 06:22 07:12 Sodium 147 H Potassium 3.7 Chloride 110 H Carbon Dioxide 31 H Anion Gap 10 L BUN 44 H Creatinine 2.25 H Estim Creat Clear Calc 18.0 Estimated GFR 21 POC Glucose 131 H Random Glucose 139 H Calcium 9.0 Procedures Date of Service Date of Service: 07/02/22 Assessment & Plan Assessment and plan (1) CKD (chronic kidney disease) stage 3, GFR 30-59 ml/min: Status: Acute (2) (HFpEF) heart failure with preserved ejection fraction: Status: Acute Plan Scr marginally up known CKD kidney function at baseline h/o HFpEF decompensated CHF in the setting of atrial fibrillation with RVR REC continue home dose oral furosemide follow kidney function and electrolytes Time Spent With Patient Time: Total time managing care of this patient today ____ minutes. Progress Note: Quality Stroke Does the patient have a stroke diagnosis?: No
[2022-07-02 10:50] VITALS: BP 126/71; PULSE 94; RESP 20; TEMP 36.2; O2SAT 99
[2022-07-02 11:10] LABS: Glucose, Whole Blood 144 mg/dL (60-115)
[2022-07-02 11:17] LABS: Venous Blood Gas Refer to POC result
[2022-07-02 11:19] LABS: VBG Base Excess 7.4 mmol/L; VBG HCO3 34 mmol/L (22-26); VBG pCO2 62 mmHg; VBG pH 7.34 (7.32-7.43); VBG pO2 108 mmHg
[2022-07-02] MEDS: Dextrose 5 % 1,000 ML 100 ML IVCONT (11:22)
--- NOTE | 2022-07-02 11:56 | P.PNIM_ITS ---
Subjective Subjective Date of Service: 07/02/22 Interval History: seen and examined this morning. history obtained with the assistance of a ruffler follow up for afib, chf, encephalopathy awake; following basic commands, answering questions intermittently but tired/weak appearing says she feels good noted to be coughing overnight Review of Systems Review of Systems: Yes all other systems are reviewed and are negative Constitutional Constitutional: Denies chills and Denies fever(s) Cardiovascular Cardiovascular: Denies chest pain, Denies palpitations and Denies dyspnea Respiratory Respiratory: Reports cough and Denies dyspnea Endocrine Endocrine: Denies palpitations Physical Exam Vital Signs: Vital Signs: Last Vital Signs Temp 97.1 F 07/02/22 10:50 Pulse 94 07/02/22 10:50 Resp 20 07/02/22 10:50 BP 126/71 07/02/22 10:50 Pulse Ox 99 07/02/22 10:50 O2 Del Method 07/02/22 10:50 O2 Flow Rate 2 07/02/22 10:50 FiO2 40 06/30/22 05:00 Oxygen Flow Rate 2 06/21/22 09:49 BMI result Body Mass Index 27.2 Const: General: awake and tired appearing Nutritional Appearance: average body habitus Resp: Effort & Inspection: normal respiratory effort and able to speak in complete sentences Cardio: Other: irregular rhythm Heart sounds: S1 normal heart sound present and S2 normal heart sound present GI: Inspection: No distended Palpation (GI): Soft to palpation and nontender Neuro: Other: grossly nonfocal, able to move all 4 extremities Extrem: General: Yes no pedal edema Objective Data Active Medications Acetaminophen (Acetaminophen 325 Mg Tablet) 650 mg PO Q8H PRN PRN Reason: Pain, Mild (Pain Scale 1-3) Last Admin: 07/01/22 17:02 Dose: 650 mg Documented By: MAGEN Amiodarone HCl (Amiodarone Hcl 200 Mg Tablet) 200 mg PO BID [facility] Last Admin: 07/02/22 08:18 Dose: 200 mg Documented By: ESTELA Apixaban (Apixaban 2.5 Mg Tablet) 2.5 mg PO BID [facility] Last Admin: 07/02/22 08:18 Dose: 2.5 mg Documented By: ESTELA Benzonatate (Benzonatate 100 Mg Capsule) 200 mg PO TID PRN PRN Reason: cough Last Admin: 07/01/22 23:40 Dose: 200 mg Documented By: LEONILA Dextrose (Dextrose 50 % 25 Gm/50 Ml Syringe) 25 gm IVPUSH Q15M PRN; Protocol PRN Reason: per Hypoglycemia Standing Ord. Docusate Sodium (Docusate Sodium 100 Mg Capsule) 100 mg PO DAILY PRN PRN Reason: Constipation Glucose (Glucose Gel 15 Gm Gel..Gram.) 15 gm PO Q15M PRN; Protocol PRN Reason: per Hypoglycemia Standing Ord. Dextrose (D5w) 1,000 mls @ 100 mls/hr IVCONT .Q10H [facility] Stop: 07/02/22 20:44 Last Admin: 07/02/22 11:22 Dose: 100 mls/hr Documented By: ESTELA Insulin Human Lispro (Insulin Lispro 100 Unit/Ml 3 Ml Vial) 0 unit SUBCUT QIDACHS [facility]; Protocol Last Admin: 07/02/22 11:22 Dose: Not Given Documented By: ESTELA Non-Admin Reason: No Insulin Coverage Pharmacy Consult (Consult Rx Perform Med Rec) 1 each MISCELLANE ONCE PRN PRN Reason: Consult order Sodium Chloride (0.9 % Sodium Chloride Flush 3 Ml Syringe) [facility] Last Admin: 07/02/22 08:18 Dose: 3 ml Documented By: ESTELA Labs 06/30/22 05:05 07/02/22 06:22 Labs: Laboratory Results - last 24 hr 07/01/22 07/01/22 07/02/22 15:58 21:57 06:22 VBG pH VBG pCO2 VBG pO2 VBG HCO3 VBG O2 Saturation VBG Base Excess Anion Gap 10 L Estim Creat Clear Calc 18.0 Estimated GFR 21 POC Glucose 121 H 130 H Random Glucose 139 H Calcium 9.0 07/02/22 07/02/22 07/02/22 07:12 10:53 11:13 VBG pH 7.34 VBG pCO2 62 VBG pO2 108 VBG HCO3 34 H VBG O2 Saturation 99.0 VBG Base Excess 7.4 Anion Gap Estim Creat Clear Calc Estimated GFR POC Glucose 131 H 144 H Random Glucose Calcium Assessment and Plan (1) CKD (chronic kidney disease) stage 3, GFR 30-59 ml/min: Status: Acute Plan This is an 87 Year old English-speaking female with history of CHF, hypertension, diabetes who presented to the emergency department on June 21 with confusion shortness of breath and tachycardia found to be in AFib with rapid ventricular response and CHF. course was complicated by hypercarbic respiratory failure requiring intubation on June 25, she was extubated [facility] and downgraded from the ICU on June 29. toxic metabolic encephalopathy related to acute medical illness has dementia at baseline per documentation appears more tired today; seems to be waxing/waning VBG similar to previous New onset Atrial fibrillation HR under better control continue amiodarone when able to take po; can use IV lopressor 2.5 q6h if needed for HR control baseline BB on hold continue AC with Eliquis - renal dose acute on chronic diastolic CHF lasix d/c by cardiology follow Is&Os hypernatremia sodium 147 follow bmp dysphagia seen by speech, rec NDD2 diet with nectar thick liqs - today appearing more tired, will do bedside swallow eval aspiration precautions; 1:1 feeds pt coughing, concern for aspiration - discussed with daughter MYAH on CKD 3 due to ATN creatinine trending up - per nephro still within baseline azetazolamide was d/c on day 5 nephrology following acute hypoxic and hypercarbic respiratory failure s/p intubation daughter states she was discharged on home oxygen on last admission currently 99 on 2L, wean o2 as able non-insulin dependent diabetes po meds on hold continue SSI, POCs HTN norvasc was d/c follow bp HLD on simvastatin 10 at baseline statin on hold for now chronic anemia H/H stable code status dnr/dni attending - dr. [place] dvt ppx - eliquis seen by PT - rec STR - per PT will require extensive rehab when medically cleared for d/c requires ongoing hospitalization for management of encephalopathy Time Spent With Patient Time: Total time managing care of this patient today ____ minutes. Quality Stroke Does the patient have a stroke diagnosis?: No VTE Prior VTE?: No VTE Risk Level:: Medical - moderate - high VTE Device Contraindication: Treatment Not Indicated VTE Drug Contraindication: N/A - Med Ordered
[2022-07-02 15:43] VITALS: BP 123/73; PULSE 92; RESP 19; TEMP 36.3; O2SAT 98
[2022-07-02 15:58] LABS: Glucose, Whole Blood 160 mg/dL (60-115)
[2022-07-02] MEDS: Insulin Lispro 100 UNIT/ML 3 ML VIAL SUBCUT (17:46)
[2022-07-02 19:34] VITALS: BP 133/71; PULSE 91; RESP 19; TEMP 36.2; O2SAT 98
[2022-07-02 19:36] LABS: Glucose, Whole Blood 147 mg/dL (60-115)
[2022-07-02] MEDS: Dextrose 5 % and Lactated Ring 1,000 ML 50 ML IVCONT (22:30)
[2022-07-02 22:54] LABS: B Type Natriuretic Peptide 257 pg/mL (<100)
[2022-07-02 23:32] VITALS: BP 123/68; PULSE 104; RESP 18; TEMP 37; O2SAT 98
[2022-07-03 03:21] VITALS: BP 138/68; PULSE 89; RESP 20; TEMP 36.9; O2SAT 100
[2022-07-03 07:13] VITALS: BP 126/66; PULSE 82; RESP 20; TEMP 36.6; O2SAT 99
[2022-07-03 07:20] LABS: Anion Gap 14 (12-20); Blood Urea Nitrogen 43 mg/dL (9-16); Carbon Dioxide 29 mmol/L (22-29); Chloride 107 mmol/L (96-108); Estimated Glomerular Filt Rate 22; Glucose Random 142 mg/dL (60-115); Potassium 3.7 mmol/L (3.3-5.1); Sodium 146 mmol/L (135-145)
[2022-07-03 07:29] LABS: Glucose, Whole Blood 136 mg/dL (60-115)
--- NOTE | 2022-07-03 08:41 | PM.PNNEP ---
Subjective Subjective Date of Service: 07/03/22 Interval history: seen and examined no complaints Physical Exam Vital Signs: Vital Signs: Last Vital Signs Temp 97.9 F 07/03/22 07:13 Pulse 82 07/03/22 07:13 Resp 20 07/03/22 07:13 BP 126/66 07/03/22 07:13 Pulse Ox 99 07/03/22 07:13 O2 Del Method 07/03/22 07:13 O2 Flow Rate 2 07/03/22 07:13 FiO2 40 06/30/22 05:00 Oxygen Flow Rate 2 06/21/22 09:49 BMI result Body Mass Index 27.2 Const: General: alert and awake HEENT: Head: Yes normocephalic and Yes atraumatic Neck: Neck: Yes supple Resp: Auscultation: diminished lung sounds Cardio: Heart sounds: S1 normal heart sound present and S2 normal heart sound present GI: Palpation (GI): Soft to palpation and nontender Extrem: General: Yes edema Objective Data Labs 06/30/22 05:05 07/03/22 06:14 Labs: Laboratory Results - last 24 hr 07/02/22 07/02/22 07/02/22 10:53 11:13 15:42 VBG pH 7.34 VBG pCO2 62 VBG pO2 108 VBG HCO3 34 H VBG O2 Saturation 99.0 VBG Base Excess 7.4 Sodium Potassium Chloride Carbon Dioxide Anion Gap BUN Creatinine Estim Creat Clear Calc Estimated GFR POC Glucose 144 H 160 H Random Glucose Calcium B-Natriuretic Peptide 07/02/22 07/02/22 07/03/22 19:28 22:25 06:14 VBG pH VBG pCO2 VBG pO2 VBG HCO3 VBG O2 Saturation VBG Base Excess Sodium 146 H Potassium 3.7 Chloride 107 Carbon Dioxide 29 Anion Gap 14 BUN 43 H Creatinine 2.13 H Estim Creat Clear Calc 19.0 Estimated GFR 22 POC Glucose 147 H Random Glucose 142 H Calcium 9.0 B-Natriuretic Peptide 257 H 07/03/22 07:15 VBG pH VBG pCO2 VBG pO2 VBG HCO3 VBG O2 Saturation VBG Base Excess Sodium Potassium Chloride Carbon Dioxide Anion Gap BUN Creatinine Estim Creat Clear Calc Estimated GFR POC Glucose 136 H Random Glucose Calcium B-Natriuretic Peptide Procedures Date of Service Date of Service: 07/03/22 Assessment & Plan Assessment and plan (1) CKD (chronic kidney disease) stage 3, GFR 30-59 ml/min: Status: Acute (2) (HFpEF) heart failure with preserved ejection fraction: Status: Acute Plan kidney function at baseline known CKD h/o HFpEF presented with decompensated CHF in the setting of atrial fibrillation with RVR REC discontinue IVF follow kidney function and electrolytes Time Spent With Patient Time: Total time managing care of this patient today ____ minutes. Progress Note: Quality Stroke Does the patient have a stroke diagnosis?: No
[2022-07-03] MEDS: Apixaban 2.5 MG TABLET PO ×2 (10:35→20:45)
[2022-07-03] MEDS: Amiodarone HCL 200 MG TABLET PO ×2 (10:35→20:45)
--- NOTE | 2022-07-03 10:38 | HO.PM.IMPN ---
Subjective Subjective Date of Service: 07/03/22 Interval History: seen and examined this morning resting comfortably no overnight events not much coughing per family. no sob Review of Systems Review of Systems: Yes all other systems are reviewed and are negative Constitutional Constitutional: Denies chills and Denies fever(s) Cardiovascular Cardiovascular: Denies chest pain and Denies dyspnea Respiratory Respiratory: Reports cough and Denies dyspnea Physical Exam Vital Signs: Vital Signs: Last Vital Signs Temp 97.9 F 07/03/22 07:13 Pulse 82 07/03/22 07:13 Resp 20 07/03/22 07:13 BP 126/66 07/03/22 07:13 Pulse Ox 99 07/03/22 07:13 O2 Del Method 07/03/22 07:13 O2 Flow Rate 2 07/03/22 07:13 FiO2 40 06/30/22 05:00 Oxygen Flow Rate 2 06/21/22 09:49 BMI result Body Mass Index 27.2 Const: General: alert, awake and tired appearing Nutritional Appearance: average body habitus Orientation/consciousness: oriented to person Resp: Effort & Inspection: normal respiratory effort and able to speak in complete sentences Cardio: Other: irregular rhythm Rate: regular rate Heart sounds: S1 normal heart sound present and S2 normal heart sound present GI: Inspection: No distended Palpation (GI): Soft to palpation and nontender Neuro: Other: grossly nonfocal, able to move all 4 extremities General: oriented to person Extrem: Other: feet in offloading boots General: Yes no pedal edema Objective Data Active Medications Acetaminophen (Acetaminophen 325 Mg Tablet) 650 mg PO Q8H PRN PRN Reason: Pain, Mild (Pain Scale 1-3) Last Admin: 07/01/22 17:02 Dose: 650 mg Documented By: MAGEN Amiodarone HCl (Amiodarone Hcl 200 Mg Tablet) 200 mg PO BID [facility] Last Admin: 07/02/22 20:47 Dose: 200 mg Documented By: LEONILA Apixaban (Apixaban 2.5 Mg Tablet) 2.5 mg PO BID [facility] Last Admin: 07/02/22 20:47 Dose: 2.5 mg Documented By: LEONILA Benzonatate (Benzonatate 100 Mg Capsule) 200 mg PO TID PRN PRN Reason: cough Last Admin: 07/01/22 23:40 Dose: 200 mg Documented By: LEONILA Dextrose (Dextrose 50 % 25 Gm/50 Ml Syringe) 25 gm IVPUSH Q15M PRN; Protocol PRN Reason: per Hypoglycemia Standing Ord. Docusate Sodium (Docusate Sodium 100 Mg Capsule) 100 mg PO DAILY PRN PRN Reason: Constipation Glucose (Glucose Gel 15 Gm Gel..Gram.) 15 gm PO Q15M PRN; Protocol PRN Reason: per Hypoglycemia Standing Ord. Dextrose/Lactated Ringer's (D5lr) 1,000 mls @ 50 mls/hr IVCONT .Q20H [facility] Last Infusion: 07/03/22 02:01 Dose: 0 mls/hr Documented By: LEONILA Insulin Human Lispro (Insulin Lispro 100 Unit/Ml 3 Ml Vial) 0 unit SUBCUT QIDACHS [facility]; Protocol Last Admin: 07/03/22 09:59 Dose: Not Given Documented By: KRISTIORRFerdinand Non-Admin Reason: No Insulin Coverage Pharmacy Consult (Consult Rx Perform Med Rec) 1 each MISCELLANE ONCE PRN PRN Reason: Consult order Sodium Chloride (0.9 % Sodium Chloride Flush 3 Ml Syringe) 3 ml IVFLUSH [facility] Last Admin: 07/02/22 20:47 Dose: 3 ml Documented By: LEONILA Labs 06/30/22 05:05 07/03/22 06:14 Labs: Laboratory Results - last 24 hr 07/02/22 07/02/22 07/02/22 10:53 11:13 15:42 VBG pH 7.34 VBG pCO2 62 VBG pO2 108 VBG HCO3 34 H VBG O2 Saturation 99.0 VBG Base Excess 7.4 Anion Gap Estim Creat Clear Calc Estimated GFR POC Glucose 144 H 160 H Random Glucose Calcium B-Natriuretic Peptide 07/02/22 07/02/22 07/03/22 19:28 22:25 06:14 VBG pH VBG pCO2 VBG pO2 VBG HCO3 VBG O2 Saturation VBG Base Excess Anion Gap 14 Estim Creat Clear Calc 19.0 Estimated GFR 22 POC Glucose 147 H Random Glucose 142 H Calcium 9.0 B-Natriuretic Peptide 257 H 07/03/22 07:15 VBG pH VBG pCO2 VBG pO2 VBG HCO3 VBG O2 Saturation VBG Base Excess Anion Gap Estim Creat Clear Calc Estimated GFR POC Glucose 136 H Random Glucose Calcium B-Natriuretic Peptide Assessment and Plan (1) Acute on chronic respiratory failure with hypercapnia: Status: Acute (2) CKD (chronic kidney disease) stage 3, GFR 30-59 ml/min: Status: Acute Plan This is an 87 Year old [place]raltarian-speaking female with history of CHF, hypertension, diabetes who presented to the emergency department on June 21 with confusion shortness of breath and tachycardia found to be in AFib with rapid ventricular response and CHF. course was complicated by hypercarbic respiratory failure requiring intubation on June 25, she was extubated June 27 and downgraded from the ICU on June 29. toxic metabolic encephalopathy related to acute medical illness has dementia at baseline per documentation VBG similar to previous New onset Atrial fibrillation HR under better control continue amiodarone baseline BB on hold continue AC with Eliquis - renal dose acute on chronic diastolic CHF lasix d/c by cardiology, consider resuming po dose in am depending on fluid status follow Is&Os hypernatremia improving. sodium 146 follow bmp dysphagia seen by speech, rec NDD2 diet with nectar thick liqs aspiration precautions; 1:1 feeds MYAH on CKD 3 due to ATN creatinine stable - per nephro still within baseline azetazolamide was d/c nephrology following acute hypoxic and hypercarbic respiratory failure s/p intubation daughter states she was discharged on home oxygen on last admission currently 99 on 2L, wean o2 as able non-insulin dependent diabetes po meds on hold continue SSI, POCs HTN norvasc was d/c follow bp HLD on simvastatin 10 at baseline statin on hold for now chronic anemia H/H stable code status dnr/dni attending - dr. merritt dvt ppx - eliquis seen by PT - rec STR - per PT will require extensive rehab when medically cleared for d/c requires ongoing hospitalization for management of encephalopathy Time Spent With Patient Time: Total time managing care of this patient today ____ minutes. Quality Stroke Does the patient have a stroke diagnosis?: No VTE Prior VTE?: No VTE Risk Level:: Medical - moderate - high VTE Device Contraindication: Treatment Not Indicated VTE Drug Contraindication: N/A - Med Ordered
[2022-07-03 11:04] VITALS: BP 122/64; PULSE 93; RESP 20; TEMP 36.3; O2SAT 99
[2022-07-03 11:19] LABS: Glucose, Whole Blood 140 mg/dL (60-115)
[2022-07-03 15:31] LABS: Glucose, Whole Blood 129 mg/dL (60-115)
[2022-07-03 15:49] VITALS: BP 145/81; PULSE 86; RESP 19; TEMP 36.4; O2SAT 99
[2022-07-03] MEDS: 0.9 % Sodium Chloride Flush 3 ML SYRINGE IVFLUSH ×2 (17:01→23:51)
[2022-07-03 19:55] VITALS: BP 134/68; PULSE 86; RESP 19; TEMP 36.7; O2SAT 97
[2022-07-03 19:57] LABS: Glucose, Whole Blood 126 mg/dL (60-115)
[2022-07-04] VITALS (8 sets, daily range): BP systolic 127–160; BP diastolic 60–79; PULSE 60–92; RESP 18–20; TEMP 36.1–37; O2SAT 90–100
[2022-07-04] MEDS: Amiodarone HCL 200 MG TABLET PO ×2 (07:50→20:51)
[2022-07-04] MEDS: Apixaban 2.5 MG TABLET PO ×2 (07:50→20:51)
[2022-07-04] MEDS: 0.9 % Sodium Chloride Flush 3 ML SYRINGE IVFLUSH ×3 (07:50→23:37)
[2022-07-04 07:56] LABS: Glucose, Whole Blood 108 mg/dL (60-115)
[2022-07-04 08:50] LABS: Venous Blood Gas Refer to POC result
[2022-07-04 08:51] LABS: VBG Base Excess 5.7 mmol/L; VBG HCO3 32 mmol/L (22-26); VBG pCO2 55 mmHg; VBG pH 7.37 (7.32-7.43); VBG pO2 50 mmHg
[2022-07-04 09:09] LABS: Anion Gap 14 (12-20); Blood Urea Nitrogen 41 mg/dL (9-16); Carbon Dioxide 28 mmol/L (22-29); Chloride 110 mmol/L (96-108); Creatinine Clr Calc Pharmacy 20.9; Estimated Glomerular Filt Rate 24; Glucose Random 175 mg/dL (60-115); Potassium 3.7 mmol/L (3.3-5.1); Sodium 148 mmol/L (135-145)
--- NOTE | 2022-07-04 09:17 | PM.PNNEP ---
Subjective Subjective Date of Service: 07/04/22 Interval history: seen and examined this morning resting comfortably Physical Exam Vital Signs: Vital Signs: Last Vital Signs Temp 98.1 F 07/04/22 07:25 Pulse 89 07/04/22 07:25 Resp 20 07/04/22 07:25 BP 160/76 H 07/04/22 07:25 Pulse Ox 90 L 07/04/22 07:25 O2 Del Method 07/04/22 07:25 O2 Flow Rate 2 07/04/22 03:32 FiO2 50 07/04/22 00:00 Oxygen Flow Rate 2 06/21/22 09:49 BMI result Body Mass Index 27.2 Const: General: alert and awake HEENT: Head: Yes normocephalic and Yes atraumatic Neck: Neck: Yes supple Resp: Auscultation: diminished lung sounds Cardio: Heart sounds: S1 normal heart sound present and S2 normal heart sound present GI: Palpation (GI): Soft to palpation and nontender Extrem: General: Yes edema Objective Data Labs 06/30/22 05:05 07/04/22 08:43 Labs: Laboratory Results - last 24 hr 07/03/22 07/03/22 07/03/22 11:06 15:20 19:50 VBG pH VBG pCO2 VBG pO2 VBG HCO3 VBG O2 Saturation VBG Base Excess Sodium Potassium Chloride Carbon Dioxide Anion Gap BUN Creatinine Estim Creat Clear Calc Estimated GFR POC Glucose 140 H 129 H 126 H Random Glucose Calcium 07/04/22 07/04/22 07/04/22 07:52 08:43 08:46 VBG pH 7.37 VBG pCO2 55 VBG pO2 50 VBG HCO3 32 H VBG O2 Saturation 81.0 VBG Base Excess 5.7 Sodium 148 H Potassium 3.7 Chloride 110 H Carbon Dioxide 28 Anion Gap 14 BUN 41 H Creatinine 1.94 H Estim Creat Clear Calc 20.9 Estimated GFR 24 POC Glucose 108 Random Glucose 175 H Calcium 9.0 Procedures Date of Service Date of Service: 07/04/22 Assessment & Plan Assessment and plan (1) CKD (chronic kidney disease) stage 3, GFR 30-59 ml/min: Status: Acute (2) (HFpEF) heart failure with preserved ejection fraction: Status: Acute Plan kidney function at baseline known CKD h/o HFpEF presented with decompensated CHF in the setting of atrial fibrillation with RVR REC resume home dose diuretics follow kidney function and electrolytes Time Spent With Patient Time: Total time managing care of this patient today ____ minutes. Progress Note: Quality Stroke Does the patient have a stroke diagnosis?: No
--- NOTE | 2022-07-04 10:28 | MHC.CLN ---
F/U PO INTAKE 50% DIET RX: 2000DM GRD M/S WITH NT LIQ-APPROPRIATE RECOMMEND RE-STARTING GLUCERNA TO INCREASE KCALS SUPP TO PROVIDE [id number], 20G PROTEIN MONITOR PO INTAKE CLOSELY
[2022-07-04 11:22] LABS: Glucose, Whole Blood 116 mg/dL (60-115)
--- NOTE | 2022-07-04 11:35 | HO.PM.IMPN ---
Subjective Subjective Date of Service: 07/04/22 Interval History: seen and examined this morning resting comfortably no overnight events not much coughing per family. no sob Review of Systems Review of Systems: Yes all other systems are reviewed and are negative Constitutional Constitutional: Denies chills and Denies fever(s) Cardiovascular Cardiovascular: Denies chest pain and Denies dyspnea Respiratory Respiratory: Reports cough and Denies dyspnea Physical Exam Vital Signs: Vital Signs: Last Vital Signs Temp 98.6 F 07/04/22 11:03 Pulse 89 07/04/22 11:03 Resp 20 07/04/22 11:03 BP 139/74 07/04/22 11:03 Pulse Ox 99 07/04/22 11:03 O2 Del Method 07/04/22 11:03 O2 Flow Rate 2 07/04/22 11:03 FiO2 50 07/04/22 00:00 Oxygen Flow Rate 2 06/21/22 09:49 BMI result Body Mass Index 27.2 Appearing in no acute distress lung sounds are clear to auscultation heart regular rate rhythm, clear S1, S2 positive bowel sounds, abdomen is soft, nontender neuro patient is alert, intermit confusion Objective Data Active Medications Acetaminophen (Acetaminophen 325 Mg Tablet) 650 mg PO Q8H PRN PRN Reason: Pain, Mild (Pain Scale 1-3) Last Admin: 07/01/22 17:02 Dose: 650 mg Documented By: MAGEN Amiodarone HCl (Amiodarone Hcl 200 Mg Tablet) 200 mg PO BID [facility] Last Admin: 07/04/22 07:50 Dose: 200 mg Documented By: FUAD Apixaban (Apixaban 2.5 Mg Tablet) 2.5 mg PO BID [facility] Last Admin: 07/04/22 07:50 Dose: 2.5 mg Documented By: FUAD Benzonatate (Benzonatate 100 Mg Capsule) 200 mg PO TID PRN PRN Reason: cough Last Admin: 07/01/22 23:40 Dose: 200 mg Documented By: LEONILA Dextrose (Dextrose 50 % 25 Gm/50 Ml Syringe) 25 gm IVPUSH Q15M PRN; Protocol PRN Reason: per Hypoglycemia Standing Ord. Docusate Sodium (Docusate Sodium 100 Mg Capsule) 100 mg PO DAILY PRN PRN Reason: Constipation Glucose (Glucose Gel 15 Gm Gel..Gram.) 15 gm PO Q15M PRN; Protocol PRN Reason: per Hypoglycemia Standing Ord. Insulin Human Lispro (Insulin Lispro 100 Unit/Ml 3 Ml Vial) 0 unit SUBCUT QIDACHS [facility]; Protocol Last Admin: 07/04/22 07:53 Dose: Not Given Documented By: FUAD Non-Admin Reason: No Insulin Coverage Pharmacy Consult (Consult Rx Perform Med Rec) 1 each MISCELLANE ONCE PRN PRN Reason: Consult order Sodium Chloride (0.9 % Sodium Chloride Flush 3 Ml Syringe) 3 ml IVFLUSH [facility] Last Admin: 07/04/22 07:50 Dose: 3 ml Documented By: FUAD Labs 06/30/22 05:05 07/04/22 08:43 Labs: Laboratory Results - last 24 hr 07/03/22 07/03/22 07/04/22 15:20 19:50 07:52 VBG pH VBG pCO2 VBG pO2 VBG HCO3 VBG O2 Saturation VBG Base Excess Anion Gap Estim Creat Clear Calc Estimated GFR POC Glucose 129 H 126 H 108 Random Glucose Calcium 07/04/22 07/04/22 07/04/22 08:43 08:46 11:06 VBG pH 7.37 VBG pCO2 55 VBG pO2 50 VBG HCO3 32 H VBG O2 Saturation 81.0 VBG Base Excess 5.7 Anion Gap 14 Estim Creat Clear Calc 20.9 Estimated GFR 24 POC Glucose 116 H Random Glucose 175 H Calcium 9.0 Assessment and Plan (1) Acute on chronic respiratory failure with hypercapnia: Status: Acute (2) CKD (chronic kidney disease) stage 3, GFR 30-59 ml/min: Status: Acute Plan This is an 87 Year old Nigerien-speaking female with history of CHF, hypertension, diabetes who presented to the emergency department on June 21 with confusion shortness of breath and tachycardia found to be in AFib with rapid ventricular response and CHF. Course was complicated by hypercarbic respiratory failure requiring intubation on June 25, she was extubated June 27 and downgraded from the ICU on June 29. Toxic metabolic encephalopathy related to acute medical illness has dementia at baseline per documentation VBG similar to previous New onset Atrial fibrillation HR under better control continue amiodarone baseline BB on hold continue AC with Eliquis - renal dose Acute on chronic diastolic CHF lasix d/c by cardiology, consider resuming po dose in am depending on fluid status follow Is&Os Hypernatremia improving. sodium 148 follow bmp Dysphagia seen by speech, rec NDD2 diet with nectar thick liqs aspiration precautions; 1:1 feeds MYAH on CKD 3 due to ATN creatinine stable - per nephro still within baseline azetazolamide was d/c nephrology following acute hypoxic and hypercarbic respiratory failure s/p intubation daughter states she was discharged on home oxygen on last admission currently 99 on 2L, wean o2 as able non-insulin dependent diabetes po meds on hold continue SSI, POCs HTN norvasc was d/c follow bp HLD on simvastatin 10 at baseline statin on hold for now chronic anemia H/H stable code status DNR/DNI Attending - dr. Camacho dvt ppx - eliquis seen by PT - rec STR - per PT will require extensive rehab when medically cleared for d/c requires ongoing hospitalization for management of encephalopathy Time Spent With Patient Time: Total time managing care of this patient today ____ minutes. Quality Stroke Does the patient have a stroke diagnosis?: No VTE Prior VTE?: No VTE Risk Level:: Medical - moderate - high VTE Device Contraindication: Treatment Not Indicated VTE Drug Contraindication: N/A - Med Ordered
--- NOTE | 2022-07-04 11:38 | MHC.SL.SWA ---
Speech Pathologist Impression: Oropharyngeal dysphagia Dysphasia Diet Status: Upgrade liquids to thin Liquid Consistency and Strategies for Safe Swallow: Liquid Intake Recommendation: Thin Liquid Intake Strategies: Small Sips No Straws Solid Food Consistency: Dietary Recommendations: Grnd/Mech Altered (NDD2) Additional Modifications to Solid Foods: Patient will need 1-1 assistance, although should be encouraged to independently self feed up to what is reasonable for her. Recommend small controlled cup sips of liquid, alternate solids and liquids. AVOID/do not administer MIXED textures (e.g. thin soups with solids). Do not attempt if patient is lethargic/not engaged in meal. Oral Medication Intake: Crushed with Puree Please contact the pharmacy regarding appropriate crushable or liquid drug formulations that are available whenever modified delivery is recommended. Compensatory Strategies and Precautions to be Taken for Safe Swallow: Sitting Upright (90 deg) No Straw Liquids from Cup Liquids from Spoon Small Bites and Sips Alternate Liquids/Solids Rate of Ingestion Change Oral Check Avoid Specific Foods Supervision While Eating and Drinking for Safe Swallow: Total Assistance (1:1) Foods to Avoid: Avoid hard tough to chew solids and mixed consistencies. Swallowing Recommended Treatments: Compens. Strategy Educat. Recommendation for Speech: Inpatient Speech Therapy [employer] Mate Clinican/Clinical Fellow: No Supervisory Statement: I have reviewed and agree with the student/clinical fellow's documentation: N/A Speech Language Pathologist: Isha Mendenhall M.A., [facility]
[2022-07-04 16:13] LABS: Glucose, Whole Blood 113 mg/dL (60-115)
[2022-07-04] MEDS: Docusate Sodium 100 MG CAPSULE PO (18:32)
[2022-07-04 19:49] LABS: Glucose, Whole Blood 142 mg/dL (60-115)
[2022-07-05 04:00] VITALS: BP 155/72; PULSE 90; RESP 18; TEMP 36.1; O2SAT 98
[2022-07-05 06:56] LABS: Anion Gap 13 (12-20); Blood Urea Nitrogen 38 mg/dL (9-16); Carbon Dioxide 28 mmol/L (22-29); Chloride 109 mmol/L (96-108); Creatinine Clr Calc Pharmacy 22.2; Estimated Glomerular Filt Rate 26; Glucose Random 129 mg/dL (60-115); Potassium 3.6 mmol/L (3.3-5.1); Sodium 146 mmol/L (135-145)
[2022-07-05 07:24] VITALS: BP 142/70; PULSE 75; RESP 18; TEMP 36.2; O2SAT 98
[2022-07-05 07:47] LABS: Glucose, Whole Blood 116 mg/dL (60-115)
[2022-07-05] MEDS: Apixaban 2.5 MG TABLET PO ×2 (08:50→20:56)
[2022-07-05] MEDS: Amiodarone HCL 200 MG TABLET PO ×2 (08:50→20:56)
[2022-07-05] MEDS: 0.9 % Sodium Chloride Flush 3 ML SYRINGE IVFLUSH ×2 (09:11→17:23)
--- NOTE | 2022-07-05 10:29 | PM.PNNEP ---
Subjective Subjective Date of Service: 07/05/22 Interval history: seen and examined this morning resting comfortably no overnight events not much coughing per family. no sob family at bedside notes a suprapubic mass Physical Exam Vital Signs: Vital Signs: Last Vital Signs Temp 97.2 F 07/05/22 07:24 Pulse 75 07/05/22 07:24 Resp 18 07/05/22 07:24 BP 142/70 H 07/05/22 07:24 Pulse Ox 98 07/05/22 07:24 O2 Del Method 07/05/22 07:24 O2 Flow Rate 2 07/05/22 07:24 FiO2 50 07/04/22 00:00 Oxygen Flow Rate 2 06/21/22 09:49 BMI result Body Mass Index 27.2 Const: Other: General: comfortable Resp: AE equal CVS: S1,S2, iregular iregular GI: +BS, NT, no distention ; Suprapubic non tender lump Skin: No rash Neuro: motor grossly intact Psych: flat Objective Data Labs 06/30/22 05:05 07/05/22 06:16 Labs: Laboratory Results - last 24 hr 07/04/22 07/04/22 07/04/22 11:06 16:08 19:45 Sodium Potassium Chloride Carbon Dioxide Anion Gap BUN Creatinine Estim Creat Clear Calc Estimated GFR POC Glucose 116 H 113 142 H Random Glucose Calcium 07/05/22 07/05/22 06:16 07:29 Sodium 146 H Potassium 3.6 Chloride 109 H Carbon Dioxide 28 Anion Gap 13 BUN 38 H Creatinine 1.83 H Estim Creat Clear Calc 22.2 Estimated GFR 26 POC Glucose 116 H Random Glucose 129 H Calcium 9.0 Procedures Date of Service Date of Service: 07/05/22 Assessment & Plan Assessment and plan (1) CKD (chronic kidney disease) stage 3, GFR 30-59 ml/min: Status: Acute (2) (HFpEF) heart failure with preserved ejection fraction: Status: Acute Plan kidney function at baseline known CKD h/o HFpEF presented with decompensated CHF in the setting of atrial fibrillation with RVR REC home dose diuretics Check USG or CT to lower abdomen to evaluate suprapubic mass - follow kidney function and electrolytes Time Spent With Patient Time: Total time managing care of this patient today ____ minutes. Progress Note: Quality Stroke Does the patient have a stroke diagnosis?: No
[2022-07-05 11:22] LABS: Glucose, Whole Blood 157 mg/dL (60-115)
[2022-07-05 12:00] VITALS: BP 138/68; PULSE 69; RESP 18; TEMP 36.1; O2SAT 98
[2022-07-05] MEDS: Dextrose 5 % 500 ML 80 ML IVCONT (12:05)
--- NOTE | 2022-07-05 12:07 | P.PNIM_ITS ---
Subjective Subjective Date of Service: 07/05/22 Interval History: seen and examined this morning resting comfortably no overnight events not much coughing per family. no sob Review of Systems Review of Systems: Yes all other systems are reviewed and are negative Constitutional Constitutional: Denies chills and Denies fever(s) Cardiovascular Cardiovascular: Denies chest pain and Denies dyspnea Respiratory Respiratory: Reports cough and Denies dyspnea Physical Exam Vital Signs: Vital Signs: Last Vital Signs Temp 97.2 F 07/05/22 07:24 Pulse 75 07/05/22 07:24 Resp 18 07/05/22 07:24 BP 142/70 H 07/05/22 07:24 Pulse Ox 98 07/05/22 07:24 O2 Del Method 07/05/22 07:24 O2 Flow Rate 2 07/05/22 07:24 FiO2 50 07/04/22 00:00 Oxygen Flow Rate 2 06/21/22 09:49 BMI result Body Mass Index 27.2 Appearing in no acute distress head is normocephalic atraumatic eyes pupils are PERRLA sclera is anicteric mouth throat mucous membranes are intact and moist neck is supple no lymphadenopathy, no JVD noted lung sounds are clear to auscultation heart regular rate rhythm, clear S1, S2 positive bowel sounds, abdomen is soft, nontender neuro patient is alert x3, no focal deficits Objective Data Active Medications Acetaminophen (Acetaminophen 325 Mg Tablet) 650 mg PO Q8H PRN PRN Reason: Pain, Mild (Pain Scale 1-3) Last Admin: 07/01/22 17:02 Dose: 650 mg Documented By: MAGEN Amiodarone HCl (Amiodarone Hcl 200 Mg Tablet) 200 mg PO BID [facility] Last Admin: 07/05/22 08:50 Dose: 200 mg Documented By: CONI Apixaban (Apixaban 2.5 Mg Tablet) 2.5 mg PO BID [facility] Last Admin: 07/05/22 08:50 Dose: 2.5 mg Documented By: CONI Benzonatate (Benzonatate 100 Mg Capsule) 200 mg PO TID PRN PRN Reason: cough Last Admin: 07/01/22 23:40 Dose: 200 mg Documented By: LEONILA Dextrose (Dextrose 50 % 25 Gm/50 Ml Syringe) 25 gm IVPUSH Q15M PRN; Protocol PRN Reason: per Hypoglycemia Standing Ord. Docusate Sodium (Docusate Sodium 100 Mg Capsule) 100 mg PO DAILY PRN PRN Reason: Constipation Last Admin: 07/04/22 18:32 Dose: 100 mg Documented By: FUAD Glucose (Glucose Gel 15 Gm Gel..Gram.) 15 gm PO Q15M PRN; Protocol PRN Reason: per Hypoglycemia Standing Ord. Dextrose (D5w) 500 mls @ 80 mls/hr IVCONT .Q6H15M [facility] Stop: 07/05/22 14:44 Last Admin: 07/05/22 12:05 Dose: 80 mls/hr Documented By: CONI Insulin Human Lispro (Insulin Lispro 100 Unit/Ml 3 Ml Vial) [facility] Protocol Last Admin: 07/05/22 07:52 Dose: Not Given Documented By: CONI Non-Admin Reason: No Insulin Coverage Pharmacy Consult (Consult Rx Perform Med Rec) 1 each MISCELLANE ONCE PRN PRN Reason: Consult order Sodium Chloride (0.9 % Sodium Chloride Flush 3 Ml Syringe) 3 ml IVFLUSH [facility] Last Admin: 07/05/22 09:11 Dose: 3 ml Documented By: CONI Labs 06/30/22 05:05 07/05/22 06:16 Labs: Laboratory Results - last 24 hr 07/04/22 07/04/22 07/05/22 16:08 19:45 06:16 Anion Gap 13 Estim Creat Clear Calc 22.2 Estimated GFR 26 POC Glucose 113 142 H Random Glucose 129 H Calcium 9.0 07/05/22 07/05/22 07:29 11:12 Anion Gap Estim Creat Clear Calc Estimated GFR POC Glucose 116 H 157 H Random Glucose Calcium Assessment and Plan (1) Acute on chronic respiratory failure with hypercapnia: Status: Acute (2) CKD (chronic kidney disease) stage 3, GFR 30-59 ml/min: Status: Acute Plan This is an 87 Year old [place]ian-speaking female with history of CHF, hypertension, diabetes who presented to the emergency department on June 21 with confusion shortness of breath and tachycardia found to be in AFib with rapid ventricular response and CHF. Course was complicated by hypercarbic respiratory failure requiring intubation on June 25, she was extubated June 27 and downgraded from the ICU on June 29. Toxic metabolic encephalopathy. Improved related to acute medical illness has dementia at baseline per documentation VBG similar to previous New onset Atrial fibrillation HR under better control continue amiodarone baseline BB on hold continue AC with Eliquis - renal dose Acute on chronic diastolic CHF lasix d/c by cardiology, consider resuming po dose in am depending on fluid sta tus follow Is&Os Hypernatremia improving. sodium 148 follow bmp Dysphagia seen by speech, rec NDD2 diet with nectar thick liqs aspiration precautions; 1:1 feeds MYAH on CKD 3 due to ATN creatinine stable - per nephro still within baseline azetazolamide was d/c nephrology following acute hypoxic and hypercarbic respiratory failure s/p intubation daughter states she was discharged on home oxygen on last admission currently 99 on 2L, wean o2 as able non-insulin dependent diabetes po meds on hold continue SSI, POCs HTN norvasc was d/c follow bp HLD on simvastatin 10 at baseline statin on hold for now chronic anemia H/H stable code status DNR/DNI Attending - dr. Camacho dvt ppx - eliquis seen by PT - rec STR - per PT will require extensive rehab when medically cleared for d/c requires ongoing hospitalization for management of encephalopathy Time Spent With Patient Time: Total time managing care of this patient today ____ minutes. Quality Stroke Does the patient have a stroke diagnosis?: No VTE Prior VTE?: No VTE Risk Level:: Medical - moderate - high VTE Device Contraindication: Treatment Not Indicated VTE Drug Contraindication: N/A - Med Ordered
[2022-07-05] MEDS: Insulin Lispro 100 UNIT/ML 3 ML VIAL SUBCUT ×2 (12:41→17:23)
--- NOTE | 2022-07-05 15:04 | MHC.SL.SWA ---
Speech Pathologist Impression: Risk of Aspiration Due to: Dysphasia Diet Status: Ground/Mechanical Altered (NDD2) solids with THIN liquids, pills crushed in puree. Liquid Consistency and Strategies for Safe Swallow: Liquid Intake Recommendation: Thin Liquid Intake Strategies: Small Sips No Straws Solid Food Consistency: Dietary Recommendations: Grnd/Mech Altered (NDD2) Additional Modifications to Solid Foods: Patient will need 1-1 assistance, although should be encouraged to independently self feed up to what is reasonable for her. Recommend small controlled cup sips of liquid, alternate solids and liquids. AVOID/do not administer MIXED textures (e.g. thin soups with solids). Do not attempt if patient is lethargic/not engaged in meal. Oral Medication Intake: Crushed with Puree Please contact the pharmacy regarding appropriate crushable or liquid drug formulations that are available whenever modified delivery is recommended. Compensatory Strategies and Precautions to be Taken for Safe Swallow: Sitting Upright (90 deg) No Straw Liquids from Cup Liquids from Spoon Small Bites and Sips Alternate Liquids/Solids Rate of Ingestion Change Oral Check Avoid Specific Foods Supervision While Eating and Drinking for Safe Swallow: Total Assistance (1:1) Foods to Avoid: Avoid hard tough to chew solids and mixed consistencies. Swallowing Recommended Treatments: Compens. Strategy Educat. Recommendation for Speech: Inpatient Speech Therapy Comment: Patient was seen during lunch today, was awake, alert and communicative with daughter present and feeding her mother lunch. Daughter reports that her mother has been doing well on diet and is tolerating thin liquids well. Patient was observed taking small sips from controlled presentation of a cup, and bites of both mashed potatoes and soup, all with no clinical signs of aspiration. Patient presents as tolerating current diet well. Recommend continue on Ground Mechanical Altered (NDD2) with Thin liquids, pills crushed in puree (NO CHANGE). Frequency/Duration: Date Range for Service Req: Timeline to reassess: Electrical Appliance Repairer Clinican/Clinical Fellow: No Supervisory Statement: I have reviewed and agree with the student/clinical fellow's documentation: N/A Speech Language Pathologist: Mary Hunt M.A., CCC-MASTER PLANNER
[2022-07-05 15:28] LABS: Glucose, Whole Blood 175 mg/dL (60-115)
[2022-07-05 15:35] VITALS: BP 127/64; PULSE 81; RESP 17; TEMP 36.8; O2SAT 97
--- NOTE | 2022-07-05 16:17 | P.DS_ITS ---
DS: Providers Provider Date of admission: 06/21/22 12:14 Primary care physician: Regine Bains MD Consults: 06/21/22 12:49 Consult to Cardiology Routine Consulting Provider: Endy Redd Reason for consultation: CHF in setting of new onset afib Consult to Nephrology Routine Consulting Provider: Ozzy Rico Reason for consultation: CKD with CHF Has provider been notified: No DS: Diagnosis Discharge Diagnosis (1) Acute on chronic respiratory failure with hypercapnia: Status: Acute (2) CKD (chronic kidney disease) stage 3, GFR 30-59 ml/min: Status: Acute DS: Summary Hospital Course Hospital Course: HP as per admitting provider Pt is a 87-year-old female with a PMH significant for?CHF, HTN, mds-xqpwrwn-zlirdkpum diabetes, who presents to the ED wit h?confusion, elevated heart rate, difficulty breathing.? The patient is primarily Yemeni-speaking and HPI is obtained primarily from her daughter who was at bedside.? Of note patient was recently admitted in the hospital from 06/13 through 06/16 for shortness of breath and weakness and treated for CHF.? Patient states that since discharge she has had continued difficulty breathing and has been confused mostly at night.? She has been hallucinating and speaking with people who are not there.? Patient comes into the ER today d/t worsening weakness and tachypnea.? Patient states that when her mother woke up this morning she had an elevated heart rate and could not stand up.? Chest and that she was breathing from the belly wheezing and had an elevated blood pressure.? Also noticed swelling in the face and had a temperature of 99.6 degrees.? No chest pain/pressure.? Patient denies chills, nausea, vomiting.? No abdominal pain or or changes in bowel or bladder habits.? Upon examination patient was found to be oriented to person, place, but not to time. In the ED labs were significant for H&H of 9.1/30.4, potassium slightly elevated at 5.3, BUN 39, creatinine of 1.93, BNP of 12 44.? UA clear.? Chest x-ray showed mild pulmonary edema and small bilateral pleural effusions.Pt was treated with 40 mg Lasix IV.? Patient's EKG showed patient was in AFib with rapid ventricular response.? Pt wi ll be admitted to telemetry for evaluation and treatment of CHF exacerbation in setting of new onset AFib . Toxic metabolic encephalopathy. Improved related to acute medical illness has dementia at baseline per documentation New onset Atrial fibrillation continue amiodarone continue AC with Eliquis - renal dose Acute on chronic diastolic CHF lasix d/c by cardiology, consider resuming po dose in am depending on fluid status Hypernatremia sodium 146 D5W x500ml Dysphagia seen by speech, rec NDD2 diet with nectar thick liqs aspiration precautions; 1:1 feeds MYAH on CKD 3 due to ATN creatinine stable - per nephro still within baseline azetazolamide was d/c acute hypoxic and hypercarbic respiratory failure s/p intubation daughter states she was discharged on home oxygen on last admission currently 99 on 2L, wean o2 as able non-insulin dependent diabetes continue home medications HTN norvasc was d/c HLD simvastatin chronic anemia H/H stable Time Spent with Patient Time attestation: Total time managing care of this patient today ____ minutes. Physical Exam Vital Signs: Vital Signs: Last Vital Signs Temp 98.2 F 07/05/22 15:35 Pulse 81 07/05/22 15:35 Resp 17 07/05/22 15:35 BP 127/64 07/05/22 15:35 Pulse Ox 97 07/05/22 15:35 O2 Del Method 07/05/22 15:35 O2 Flow Rate 2 07/05/22 15:35 FiO2 50 07/04/22 00:00 Oxygen Flow Rate 2 06/21/22 09:49 BMI result Body Mass Index 27.2 DS: Data Data Completed and Pending Completed studies during hospitalization [Text1]: Procedures Performance of Urinary Filtration, Intermittent, Less than 6 Hours Per Day (06/13/22) Labs on day of discharge: Laboratory Results - last 24 hr 07/04/22 07/05/22 07/05/22 19:45 06:16 07:29 Sodium 146 H Potassium 3.6 Chloride 109 H Carbon Dioxide 28 Anion Gap 13 BUN 38 H Creatinine 1.83 H Estim Creat Clear Calc 22.2 Estimated GFR 26 POC Glucose 142 H 116 H Random Glucose 129 H Calcium 9.0 07/05/22 07/05/22 11:12 15:17 Sodium Potassium Chloride Carbon Dioxide Anion Gap BUN Creatinine Estim Creat Clear Calc Estimated GFR POC Glucose 157 H 175 H Random Glucose Calcium Discharge Plan Discharge Patient Disposition: Xfer Inpatient Rehab Fac Discharge Diagnosis: Toxic metabolic encephalopathy New onset atrial fibrillation Acute on chronic diastolic heart failure Hypernatremia Dysphagia MYAH on CKD Acute hypoxic and hypercarbic respiratory failure Referrals: Regine Alarcon MD [Primary Care Provider] - 1 Week Discharge Medications: New Eliquis 2.5 mg Tablet 2.5 mg PO BID Qty: 60 0RF amiodarone 200 mg Tablet 200 mg PO BID Qty: 60 0RF Continued loperamide 2 mg capsule 2 mg PO 1XD Rx Instructions: take 2 capsules by mouth after first loose stool, then take 1 capsule after each bowel movement. no more than 8 capsules daily. metoprolol succinate 100 mg tablet extended release 24 hr 1 tab PO BEDTIME simvastatin 10 mg tablet 1 tab PO BEDTIME acetaminophen 500 mg tablet 1 tab PO Q4-6H PRN (Reason: Pain (Scale Score 1-3)) doxazosin 8 mg tablet 1 tab PO BEDTIME gabapentin 300 mg capsule 1 cap PO BEDTIME omeprazole 20 mg capsule,delayed release(DR/EC) 1 cap PO DAILY@0630 calcium carbonate-vitamin D3 600 mg-10 mcg (400 unit) tablet 1 tab PO BID amlodipine 10 mg Tablet 10 mg PO DAILY Qty: 30 0RF Protocol: Hold for SBP< HOLD for SBP < : 90 glipizide 5 mg tablet 5 mg PO DAILY Qty: 30 0RF furosemide 40 mg Tablet 40 mg PO DAILY Qty: 30 0RF Protocol: Hold for SBP< HOLD for SBP < : 90 metformin 1,000 mg tablet 1 tab PO BID Rocklatan 0.02-0.005 % drops 1 drp ophthalmic (eye) BEDTIME Rx Instructions: instill into both eyes Diet: Advance to usual diet Activity on Discharge: As tolerated Stand Alone Forms: Patient Portal Discharge page Care Plan Goals: complete resolution of symptoms Health Concerns: Toxic metabolic encephalopathy New onset atrial fibrillation Acute on chronic diastolic heart failure Hypernatremia Dysphagia MYAH on CKD Acute hypoxic and hypercarbic respiratory failure Plan of Treatment: Follow-up with primary care provider when discharged from rehab Take all medications as prescribed Assessment: see discharge summary
[2022-07-05 20:00] VITALS: BP 143/77; PULSE 83; RESP 18; TEMP 36.6; O2SAT 97
[2022-07-05 21:12] LABS: Glucose, Whole Blood 120 mg/dL (60-115)
[2022-07-06] VITALS: BP 129/63; PULSE 77; RESP 20; TEMP 36.6; O2SAT 97
[2022-07-06] MEDS: 0.9 % Sodium Chloride Flush 3 ML SYRINGE IVFLUSH ×2 (00:59→07:53)
[2022-07-06 04:00] VITALS: BP 133/65; PULSE 88; RESP 20; TEMP 36.4; O2SAT 99
[2022-07-06 07:40] VITALS: BP 140/70; PULSE 75; RESP 18; TEMP 37.1; O2SAT 97
[2022-07-06 07:48] LABS: Glucose, Whole Blood 114 mg/dL (60-115)
[2022-07-06] MEDS: Amiodarone HCL 200 MG TABLET PO (07:53)
[2022-07-06] MEDS: Apixaban 2.5 MG TABLET PO (07:53)
[2022-07-06 09:19] LABS: Anion Gap 11 (12-20); Blood Urea Nitrogen 33 mg/dL (9-16); Calcium 8.9 mg/dL (8.4-10.2); Carbon Dioxide 30 mmol/L (22-29); Chloride 106 mmol/L (96-108); Creatinine Clr Calc Pharmacy 22.4; Estimated Glomerular Filt Rate 27; Glucose Random 160 mg/dL (60-115); Potassium 3.8 mmol/L (3.3-5.1); Sodium 143 mmol/L (135-145)
--- NOTE | 2022-07-06 10:43 | PM.PNNEP ---
Subjective Subjective Date of Service: 07/06/22 Interval history: Events noted Physical Exam Vital Signs: Vital Signs: Last Vital Signs Temp 98.8 F 07/06/22 07:40 Pulse 75 07/06/22 07:40 Resp 18 07/06/22 07:40 BP 140/70 H 07/06/22 07:40 Pulse Ox 97 07/06/22 07:40 O2 Del Method 07/06/22 07:40 O2 Flow Rate 2 07/06/22 07:40 FiO2 50 07/04/22 00:00 Oxygen Flow Rate 2 06/21/22 09:49 BMI result Body Mass Index 27.2 Const: Other: General: comfortable Resp: AE equal CVS: S1,S2, iregular iregular GI: +BS, NT, no distention ; Suprapubic non tender lump Skin: No rash Neuro: motor grossly intact Psych: flat Objective Data Labs 06/30/22 05:05 07/06/22 08:48 Labs: Laboratory Results - last 24 hr 07/05/22 07/05/22 07/05/22 11:12 15:17 20:57 Sodium Potassium Chloride Carbon Dioxide Anion Gap BUN Creatinine Estim Creat Clear Calc Estimated GFR POC Glucose 157 H 175 H 120 H Random Glucose Calcium 07/06/22 07/06/22 07:43 08:48 Sodium 143 Potassium 3.8 Chloride 106 Carbon Dioxide 30 H Anion Gap 11 L BUN 33 H Creatinine 1.81 H Estim Creat Clear Calc 22.4 Estimated GFR 27 POC Glucose 114 Random Glucose 160 H Calcium 8.9 Procedures Date of Service Date of Service: 07/06/22 Assessment & Plan Assessment and plan (1) CKD (chronic kidney disease) stage 3, GFR 30-59 ml/min: Status: Acute (2) (HFpEF) heart failure with preserved ejection fraction: Status: Acute Plan kidney function at baseline known CKD h/o HFpEF presented with decompensated CHF in the setting of atrial fibrillation with RVR REC home dose diuretics Check USG or CT to lower abdomen to evaluate suprapubic mass - an be done as out pt follow kidney function and electrolytes PRN Time Spent With Patient Time: Total time managing care of this patient today ____ minutes. Progress Note: Quality Stroke Does the patient have a stroke diagnosis?: No
[2022-07-06 11:16] LABS: COVID-19 Test Negative (Negative); IDNOW Serial# BCCEAD1C
--- NOTE | 2022-07-06 11:58 | PM.DS ---
DS: Providers Provider Date of Service: 07/06/22 Date of admission: 06/21/22 12:14 Primary care physician: Regine Bains MD Consults: 06/21/22 12:49 Consult to Cardiology Routine Consulting Provider: Endy Redd Reason for consultation: CHF in setting of new onset afib Consult to Nephrology Routine Consulting Provider: Ozzy Rico Reason for consultation: CKD with CHF Has provider been notified: No DS: Diagnosis Discharge Diagnosis (1) CKD (chronic kidney disease) stage 3, GFR 30-59 ml/min: Status: Acute (2) (HFpEF) heart failure with preserved ejection fraction: Status: Acute DS: Summary Hospital Course Hospital Course: HP as per admitting provider Pt is a 87-year-old female with a PMH significant for?CHF, HTN, umc-kbzchdi-lipjgdppw diabetes, who presents to the ED with?confusion, elevated heart rate, difficulty breathing.? The patient is primarily Kinyarwanda-speaking and HPI is obtained primarily from her daughter who was at bedside.? Of note patient was recently admitted in the hospital from 06/13 through 06/16 for shortness of breath and weakness and treated for CHF.? Patient states that since discharge she has had continued difficulty breathing and has been confused mostly at night.? She has been hallucinating and speaking with people who are not there.? Patient comes into the ER today d/t worsening weakness and tachypnea.? Patient states that when her mother woke up this morning she had an elevated heart rate and could not stand up.? Chest and that she was breathing from the belly wheezing and had an elevated blood pressure.? Also noticed swelling in the face and had a temperature of 99.6 degrees.? No chest pain/pressure.? Patient denies chills, nausea, vomiting.? No abdominal pain or or changes in bowel or bladder habits.? Upon examination patient was found to be oriented to person, place, but not to time. In the ED labs were significant for H&H of 9.1/30.4, potassium slightly elevated at 5.3, BUN 39, creatinine of 1.93, BNP of 12 44.? UA clear.? Chest x-ray showed mild pulmonary edema and small bilateral pleural effusions.Pt was treated with 40 mg Lasix IV.? Patient's EKG showed patient was in AFib with rapid ventricular response.? Pt will be admitted to telemetry for evaluation and treatment of CHF exacerbation in setting of new onset AFib . Toxic metabolic encephalopathy. Improved,related to acute medical illness,has dementia at baseline per documentation. New onset Atrial fibrillation, stable ventricular rate continue amiodarone 200 mg daily, started on low-dose Eliquis, beta-analisa discontinued. Acute on chronic diastolic CHF Initially diuresed with Lasix later noted to have worsening creatinine and sodium, therefore diuretics were held at present patient appears euvolemic recommend to use Lasix 20 mg every other day. Hypernatremia likely due to dehydration improved with IV fluids sodium return to baseline. Dysphagia seen by speech, concern for silent aspiration, rec NDD2 diet , continue aspiration precautions; 1:1 feeds, tolerating diet. MYAH on CKD 3, due to ATN, creatinine returned to baseline, will resume low-dose Lasix. acute hypoxic and hypercarbic respiratory failure due to underlying decompensation of chronic diastolic congestive heart failure, required brief ventilatory support,continue oxygen to keep finger oximetry above 94% non-insulin dependent diabetes on metformin and glipizide, will discontinue metformin and continue on low-dose glipizide, follow blood sugar closely to avoid hypoglycemia. HTN stable blood pressure, was on multiple antihypertensives including Norvasc, doxazosin and metoprolol all medications discontinued. HLD will discontinue simvastatin as per Cardiology recommendation. chronic anemia stable hematocrit. Right-sided suprapubic mass recommend outpatient follow-up with pelvic ultrasound, patient asymptomatic no pain, no constipation. Time Spent with Patient Time attestation: Total time managing care of this patient today ____ minutes. Discharge coordination time: Greater than 30 minutes Quality: Safe Use of Opioids Does Pt have an Active Cancer Diagnosis on the Problem List?: No Quality: Stroke Does the patient have a stroke diagnosis?: No Physical Exam Vital Signs: Vital Signs: Last Vital Signs Temp 98.8 F 07/06/22 07:40 Pulse 75 07/06/22 07:40 Resp 18 07/06/22 07:40 BP 140/70 H 07/06/22 07:40 Pulse Ox 97 07/06/22 07:40 O2 Del Method 07/06/22 07:40 O2 Flow Rate 2 07/06/22 07:40 FiO2 50 07/04/22 00:00 Oxygen Flow Rate 2 06/21/22 09:49 BMI result Body Mass Index 27.2 Const: Other: General awake alert resting comfortably, in no acute distress. Neck supple no JVD. CVS irregular rate rhythm, Respiratory lungs clear to auscultation, no respiratory distress, no wheeze, no rhonchi. Gastrointestinal abdomen soft, nontender, bowel sounds audible, no guarding , no rigidity, nontender right suprapubic mass. Extremities no edema. Neuro nonfocal, patient moving all 4 extremity Skin no rash DS: Data Data Completed and Pending Completed studies during hospitalization [Text1]: Procedures Performance of Urinary Filtration, Intermittent, Less than 6 Hours Per Day (06/13/22) Labs on day of discharge: Laboratory Results - last 24 hr 07/05/22 07/05/22 07/06/22 15:17 20:57 07:43 Sodium Potassium Chloride Carbon Dioxide Anion Gap BUN Creatinine Estim Creat Clear Calc Estimated GFR POC Glucose 175 H 120 H 114 Random Glucose Calcium COVID-19 (ZONIA) COVID-19 [employer] 07/06/22 07/06/22 08:48 10:45 Sodium 143 Potassium 3.8 Chloride 106 Carbon Dioxide 30 H Anion Gap 11 L BUN 33 H Creatinine 1.81 H Estim Creat Clear Calc 22.4 Estimated GFR 27 POC Glucose Random Glucose 160 H Calcium 8.9 COVID-19 ([facility]ONIA) Negative COVID-19 [employer] See Note Discharge Plan Discharge Anticipated Discharge Date/Time: 07/06/22 15:28 Patient Disposition: Xfer Inpatient Rehab Fac Discharge Diagnosis: Toxic metabolic encephalopathy New onset atrial fibrillation Acute on chronic diastolic heart failure Hypernatremia Dysphagia MYAH on CKD Acute hypoxic and hypercarbic respiratory failure Referrals: Regine Alarcon MD [Primary Care Provider] - 1 Week Discharge Medications: New amiodarone 200 mg Tablet 200 mg PO DAILY Qty: 60 0RF Eliquis 2.5 mg Tablet 2.5 mg PO BID Qty: 60 0RF furosemide [Lasix] 20 mg tablet 20 mg PO Q OTHER DAY Qty: 30 0RF glipizide 5 mg tablet 2.5 mg PO DAILY Qty: 30 0RF Continued acetaminophen 500 mg tablet 1 tab PO Q4-6H PRN (Reason: Pain (Scale Score 1-3)) omeprazole 20 mg capsule,delayed release(DR/EC) 1 cap PO DAILY@0630 Rocklatan 0.02-0.005 % drops 1 drp ophthalmic (eye) BEDTIME Rx Instructions: instill into both eyes Discontinued loperamide 2 mg capsule 2 mg PO 1XD Rx Instructions: take 2 capsules by mouth after first loose stool, then take 1 capsule after each bowel movement. no more than 8 capsules daily. metoprolol succinate 100 mg tablet extended release 24 hr 1 tab PO BEDTIME simvastatin 10 mg tablet 1 tab PO BEDTIME doxazosin 8 mg tablet 1 tab PO BEDTIME gabapentin 300 mg capsule 1 cap PO BEDTIME calcium carbonate-vitamin D3 600 mg-10 mcg (400 unit) tablet 1 tab PO BID amlodipine 10 mg Tablet 10 mg PO DAILY Qty: 30 0RF Protocol: Hold for SBP< HOLD for SBP < : 90 glipizide 5 mg tablet 5 mg PO DAILY Qty: 30 0RF furosemide 40 mg Tablet 40 mg PO DAILY Qty: 30 0RF Protocol: Hold for SBP< HOLD for SBP < : 90 metformin 1,000 mg tablet 1 tab PO BID Discharge Orders: Discharge Order (Routine); Ordered 07/06/22 Ordered By: Aaron Bueno Diet: Ground mechanical altered Activity on Discharge: As tolerated Stand Alone Forms: Patient Portal Discharge page Care Plan Goals: complete resolution of symptoms Health Concerns: Toxic metabolic encephalopathy New onset atrial fibrillation Acute on chronic diastolic heart failure Hypernatremia Dysphagia take ground mechanical altered NDD2 diet need one-to-one feed MYAH on CKD Acute hypoxic and hypercarbic respiratory failure Plan of Treatment: Follow-up with primary care provider when discharged from rehab Take all medications as prescribed Assessment: see discharge summary
[2022-07-06] MEDS: glipiZIDE 5 MG TABLET 2.5 MG PO (12:26)
--- NOTE | 2022-07-06 14:38 | P.PNIM_ITS ---
Subjective Subjective Date of Service: 07/06/22 Interval History: History obtained by daughter Monica at bedside, no abdominal pain, no nausea, no vomiting, tolerating diet, no pain, no shortness of breath, no chest pain, as per daughter she is overall doing better. Review of Systems Review of Systems: Yes all other systems are reviewed and are negative Physical Exam Vital Signs: Vital Signs: Last Vital Signs Temp 98.8 F 07/06/22 07:40 Pulse 75 07/06/22 07:40 Resp 18 07/06/22 07:40 BP 140/70 H 07/06/22 07:40 Pulse Ox 97 07/06/22 07:40 O2 Del Method 07/06/22 07:40 O2 Flow Rate 2 07/06/22 07:40 FiO2 50 07/04/22 00:00 Oxygen Flow Rate 2 06/21/22 09:49 BMI result Body Mass Index 27.2 Const: Other: General awake alert resting comfortably, in no acute distress.? Neck? supple no JVD. CVS irregular rate rhythm, Respiratory lungs clear to auscultation, no respiratory distress, no wheeze, no rhonchi. Gastrointestinal abdomen soft, nontender, bowel sounds audible, no guarding , no rigidity, nontender right suprapubic mass. Extremities no edema. Neuro nonfocal, patient moving all 4 extremity Skin no rash Objective Data Active Medications Acetaminophen (Acetaminophen 325 Mg Tablet) 650 mg PO Q8H PRN PRN Reason: Pain, Mild (Pain Scale 1-3) Last Admin: 07/01/22 17:02 Dose: 650 mg Documented By: MAGEN Amiodarone HCl (Amiodarone Hcl 200 Mg Tablet) 200 mg PO BID [facility] Last Admin: 07/06/22 07:53 Dose: 200 mg Documented By: JIM Apixaban (Apixaban 2.5 Mg Tablet) 2.5 mg PO BID [facility] Last Admin: 07/06/22 07:53 Dose: 2.5 mg Documented By: JIM Benzonatate (Benzonatate 100 Mg Capsule) 200 mg PO TID PRN PRN Reason: cough Last Admin: 07/01/22 23:40 Dose: 200 mg Documented By: LEONILA Dextrose (Dextrose 50 % 25 Gm/50 Ml Syringe) 25 gm IVPUSH Q15M PRN; Protocol PRN Reason: per Hypoglycemia Standing Ord. Docusate Sodium (Docusate Sodium 100 Mg Capsule) 100 mg PO DAILY PRN PRN Reason: Constipation Last Admin: 07/04/22 18:32 Dose: 100 mg Documented By: FUAD Glipizide (Glipizide 5 Mg Tablet) 2.5 mg PO DAILY [facility] Last Admin: 07/06/22 12:26 Dose: 2.5 mg Documented By: JIM Glucose (Glucose Gel 15 Gm Gel..Gram.) 15 gm PO Q15M PRN; Protocol PRN Reason: per Hypoglycemia Standing Ord. Insulin Human Lispro (Insulin Lispro 100 Unit/Ml 3 Ml Vial) 0 unit SUBCUT QIDACHS [facility]; Protocol Last Admin: 07/06/22 12:27 Dose: Not Given Documented By: JIM Non-Admin Reason: No Insulin Coverage Pharmacy Consult (Consult Rx Perform Med Rec) 1 each MISCELLANE ONCE PRN PRN Reason: Consult order Sodium Chloride (0.9 % Sodium Chloride Flush 3 Ml Syringe) 3 ml IVFLUSH QSHIFT [facility] Last Admin: 07/06/22 07:53 Dose: 3 ml Documented By: IJM Labs 06/30/22 05:05 07/06/22 08:48 Labs: Laboratory Results - last 24 hr 07/05/22 07/05/22 07/06/22 15:17 20:57 07:43 Anion Gap Estim Creat Clear Calc Estimated GFR POC Glucose 175 H 120 H 114 Random Glucose Calcium COVID-19 ([facility]IA) COVID-19 [facility] 07/06/22 07/06/22 08:48 10:45 Anion Gap 11 L Estim Creat Clear Calc 22.4 Estimated GFR 27 POC Glucose Random Glucose 160 H Calcium 8.9 COVID-19 ([facility]ONIA) Negative COVID-19 [facility] See Note Assessment and Plan (1) Acute on chronic respiratory failure with hypercapnia: Status: Acute (2) Acute kidney failure: Status: Acute (3) CKD (chronic kidney disease) stage 3, GFR 30-59 ml/min: Status: Acute Plan Toxic metabolic encephalopathy. Improved,related to acute medical illness,has dementia at baseline. New onset Atrial fibrillation, stable ventricular rate continue amiodarone 200 mg daily, started on low-dose Eliquis, beta-analisa discontinued. Acute on chronic diastolic CHF Initially diuresed with Lasix later noted to have worsening creatinine and sodium, therefore diuretics were held at present patient appears euvolemic recommend to use Lasix 20 mg every other day. Hypernatremia likely due to dehydration improved with IV fluids sodium return to baseline. Dysphagia seen by speech, concern for silent aspiration, rec NDD2 diet , continue aspiration precautions; 1:1 feeds, tolerating diet. MAYH on CKD 3, due to ATN, creatinine returned to baseline, will resume low-dose Lasix. acute hypoxic and hypercarbic respiratory failure due to underlying decompensation of chronic diastolic congestive heart failure, required brief kristy tilatory support,continue oxygen to keep finger oximetry above 94% non-insulin dependent diabetes on metformin and glipizide, will discontinue metformin and continue on low-dose glipizide HTN stable blood pressure, was on multiple antihypertensives including Norvasc, doxazosin and metoprolol all medications discontinued. HLD will discontinue simvastatin as per Cardiology recommendation chronic anemia stable hematocrit Right-sided suprapubic mass recommend outpatient follow-up with pelvic ul trasound, patient asymptomatic no pain, no constipation. Code status full code DVT prophylaxis on Eliquis Requires hospitalization for safe discharge to rehab. Time Spent With Patient Time: Total time managing care of this patient today ____ minutes. Quality Stroke Does the patient have a stroke diagnosis?: No VTE Prior VTE?: No VTE Risk Level:: Medical - moderate - high VTE Device Contraindication: Treatment Not Indicated VTE Drug Contraindication: N/A - Med Ordered
[2022-07-06 15:30] VITALS: BP 129/68; PULSE 79; RESP 18; TEMP 36.8; O2SAT 97
--- NOTE | 2022-07-11 13:50 | MHC.CM.PN ---
PACO met with Daughter/Monica, who was apparently told to come here to the hospital by a Nurse at [facility], to ensure home services are in the place at home, when Monica expressed her wishes to bring her Mother home. PACO connected Monica with her Mother's CCA PACO/Briandonald @ [phone], who is assisting Monica and will be contacting -S dc search planner/Irene to assist with dc planning. Patient is active with [facility] for home O2 and [facility]. Monica expressed her gratitude for PACO assistance.
== END 2022-07-06 17:00 | DRG 291 ==
LOC: HO.ED 10:24 → HO.EDOVER 12:52 → HO.IMC 06-22 18:07 → HO.ICU 06-25 12:41 → HO.IMC 06-30 06:25
PROVIDERS: Internal Medicine; Internal Medicine Cardiovascular Disease; Internal Medicine Pulmonary Disease; Nurse Practitioner Acute Care; Nurse Practitioner Family; Physician Assistant Medical; Registered Nurse Community Health; Admitting Provider Student in an Organized Health Care Education/Training Program; Emergency Provider Emergency Medicine; PCP Internal Medicine; Visit Provider Hospitalist
DX: I13.0 Hypertensive heart and chronic kidney disease with heart failure and stage 1 through stage 4 chronic kidney disease, or unspecified chronic kidney disease (principal); G92.8 Other toxic encephalopathy; I50.33 Acute on chronic diastolic (congestive) heart failure; J96.21 Acute and chronic respiratory failure with hypoxia; N17.0 Acute kidney failure with tubular necrosis; E87.3 Alkalosis; E87.0 Hyperosmolality and hypernatremia; E11.22 Type 2 diabetes mellitus with diabetic chronic kidney disease; F03.90 Unspecified dementia, unspecified severity, without behavioral disturbance, psychotic disturbance, mood disturbance, and anxiety; R13.10 Dysphagia, unspecified; I48.0 Paroxysmal atrial fibrillation; Z66 Do not resuscitate; E87.5 Hyperkalemia; R19.00 Intra-abdominal and pelvic swelling, mass and lump, unspecified site; D51.9 Vitamin B12 deficiency anemia, unspecified; D63.1 Anemia in chronic kidney disease; N18.30 Chronic kidney disease, stage 3 unspecified; H54.8 Legal blindness, as defined in USA; Z99.81 Dependence on supplemental oxygen; Z20.822 Contact with and (suspected) exposure to COVID-19; Z79.899 Other long term (current) drug therapy
CPT/HCPCS: 36415; 36600; 70450; 71045; 71046; 71250; 80048; 80053; 82040; 82607; 82746; 82803; 82947; 83735; 83880; 84100; 84484; 85025; 85027; 87635; 92526; 92610; 93005; 94002; 94003; 94660; 94799; 97163; 97530; 99285; C1758; J0282; J0283; J1160; J1650; J1940; P9047

== ENCOUNTER 2022-07-15 15:13 | Emergency (ER) | payer OTHER, SELFPAY ==
--- NOTE | ~2022-07-15 | CT_ITS ---
EXAMINATION: NONCONTRAST HEAD CT NONCONTRAST CERVICAL SPINE CT INDICATION INFORMATION: Trauma COMPARISON: Head CT 06/25/2022, head and C-spine CT 06/05/2022 TECHNIQUE: Separate noncontrast CT examinations of the head and cervical spine were performed. Coronal and sagittal images were created for each examination at the technologist workstation. This CT examination was performed using dose optimization techniques as appropriate, variously including the following: *Automated exposure control *Adjustment of mA and/or kV according to patient size (this includes techniques or standardized protocols for targeted exams where dose is matched to indication/reason for exam; i.e. extremities or head) *Use of iterative reconstruction technique DLP: 965 mGy-cm FINDINGS: HEAD: No intra or extra-axial fluid collection, hemorrhage, or mass. No ventriculomegaly. No midline shift or herniation. Basal cisterns are patent. Spangler-white matter differentiation is maintained. No territorial encephalomalacia. Proportional prominence of the ventricles and sulcal spaces is consistent with moderate volume loss. Patchy periventricular and deep white matter hypoattenuation is consistent with moderate small vessel ischemic changes. No calvarial fracture or soft tissue abnormality. Relatively large mucous retention cyst in the left maxillary antrum. Paranasal sinuses and mastoid air cells are otherwise normally aerated. Status post bilateral lens extractions. CERVICAL SPINE: Alignment: Straightening of the normal cervical lordosis. No subluxation. Vertebra: No acute fracture. No prevertebral soft tissue swelling. Degenerative disc disease: Advanced multilevel degenerative disc disease throughout the cervical spine with moderate to severe disc height loss, endplate sclerosis and proliferative change. Similar findings in the visualized upper thoracic spine. Multilevel bilateral facet arthrosis and uncovertebral spurring. Other findings: Visualized lung apices grossly clear allowing for respiratory motion artifact. Visualized thyroid and major salivary glands are grossly unremarkable. No cervical lymphadenopathy identified. CT/CT cervical spine wo IV con IMPRESSION: 1. No intracranial hemorrhage or calvarial fracture. 2. No traumatic subluxation or acute cervical spine fracture.
--- NOTE | ~2022-07-15 | XR_ITS ---
EXAMINATION: XR CHEST CLINICAL INFORMATION: Chest pain COMPARISON: 07/02/2022 TECHNIQUE: 2 views of the chest were obtained. FINDINGS: The lungs are well expanded. No consolidation, edema, or effusion. No pneumothorax. The cardiomediastinal silhouette remains prominent, with a calcified aorta. No acute osseous abnormality. XR/XR chest 2V IMPRESSION: No acute pulmonary finding.
--- NOTE | ~2022-07-15 | XR_ITS ---
EXAMINATION: XR tibia fibula RT 2V, XR foot RT min 3V CLINICAL INFORMATION: Reason for Exam trauma pain COMPARISON: None. TECHNIQUE: AP and lateral views right foot; AP and lateral views right tibia and fibula FINDINGS: Right foot: No acute fracture or dislocation identified. Small subcortical cyst at the median eminence of the first metatarsal head. No significant osteophyte formation/degenerative change. Normal alignment at the Lisfranc joint. Small soft tissue calcifications along the plantar margin of the calcaneus. No ankle joint effusion. Dorsal soft tissue swelling in the forefoot. Right tibia and fibula: No fracture or malalignment. No knee joint effusion. Mild vascular calcifications. Mild soft tissue swelling about the lateral malleolus. XR/XR foot RT min 3V IMPRESSION: 1. No acute fracture or dislocation identified at the right foot or right tibia/fibula. 2. Soft tissue swelling about the lateral malleolus and dorsal forefoot.
--- NOTE | ~2022-07-15 | XR_ITS ---
EXAMINATION: XR tibia fibula RT 2V, XR foot RT min 3V CLINICAL INFORMATION: Reason for Exam trauma pain COMPARISON: None. TECHNIQUE: AP and lateral views right foot; AP and lateral views right tibia and fibula FINDINGS: Right foot: No acute fracture or dislocation identified. Small subcortical cyst at the median eminence of the first metatarsal head. No significant osteophyte formation/degenerative change. Normal alignment at the Lisfranc joint. Small soft tissue calcifications along the plantar margin of the calcaneus. No ankle joint effusion. Dorsal soft tissue swelling in the forefoot. Right tibia and fibula: No fracture or malalignment. No knee joint effusion. Mild vascular calcifications. Mild soft tissue swelling about the lateral malleolus. XR/XR tibia fibula RT 2V IMPRESSION: 1. No acute fracture or dislocation identified at the right foot or right tibia/fibula. 2. Soft tissue swelling about the lateral malleolus and dorsal forefoot.
[2022-07-15 15:24] VITALS: BP 165/88; PULSE 81; RESP 24; TEMP 36.5; O2SAT 100; BMI 29.4
--- NOTE | 2022-07-15 16:20 | ED_ITS ---
HPI - General Adult General Chief complaint: General Medical <Domingo Bush MD - Last Filed: 07/15/22 21:35> Stated complaint: R foot/leg swelling per EMS <Domingo Bush MD - Last Filed: 07/15/22 21:35> Time Seen by Provider: 07/15/22 16:04 <Domingo Bush MD - Last Filed: 07/15/22 21:35> Source: family and EMS <Domingo Bush MD - Last Filed: 07/15/22 21:35> Mode of arrival: EMS <Domingo Bush MD - Last Filed: 07/15/22 21:35> History of Present Illness HPI narrative: This is 87 years old female with history of diabetes, congestive heart failure, renal failure , AFib anticoagulated with apixaban just discharged today from a rehab to home , daughter called an ambulance because inability to ambulate patient noted a blister in the right lower extremity. There is no fever no vomiting no diarrhea no head injury. The daughter thinks that she fell yesterday at the senior care <Domingo Bush MD - Last Filed: 07/15/22 21:35> Onset (ago): day(s) (1) <Domingo Bush MD - Last Filed: 07/15/22 21:35> Location: lower extremity (rt) <Domingo Bush MD - Last Filed: 07/15/22 21:35> Radiation: non-radiation <Domingo Bush MD - Last Filed: 07/15/22 21:35> Severity: moderate <Domingo Bush MD - Last Filed: 07/15/22 21:35> Quality: burning <Domingo Bush MD - Last Filed: 07/15/22 21:35> Pain Consistency: constant <Domingo Bush MD - Last Filed: 07/15/22 21:35> Relieving factors: none <Domingo Bush MD - Last Filed: 07/15/22 21:35> Exacerbating factors: none <Domingo Bush MD - Last Filed: 07/15/22 21:35> Related Data Home medications: Home Medications Medication Instructions Recorded Confirmed acetaminophen 500 mg tablet 1 tab PO Q4-6H PRN Pain (Scale 06/05/22 06/21/22 Score 1-3) omeprazole 20 mg capsule,delayed 1 cap PO DAILY@0630 06/05/22 06/21/22 release netarsudil 0.02 %-latanoprost 1 drp ophthalmic (eye) BEDTIME 06/21/22 06/21/22 0.005 % eye drops (Rocklatan) Previous Rx's Medication Instructions Recorded amiodarone 200 mg tablet 200 mg PO DAILY #60 tabs 07/05/22 apixaban 2.5 mg tablet (Eliquis) 2.5 mg PO BID #60 tabs 07/05/22 furosemide 20 mg tablet (Lasix) 20 mg PO Q OTHER DAY #30 tabs 07/06/22 glipizide 5 mg tablet 2.5 mg PO DAILY #30 tabs 07/06/22 amiodarone 200 mg tablet 200 mg PO DAILY #7 tabs 07/15/22 <Domingo Bush MD - Last Filed: 07/15/22 21:35> Allergies/adverse reactions: Allergies Allergy/AdvReac Type Severity Reaction Status Date / Time No Known Allergies Allergy Verified 06/22/22 18:21 [No Known Allergies*] <Domingo Bush MD - Last Filed: 07/15/22 21:35> Review of Systems Constitutional: Constitutional: Reports no additional constitutional complaints <Domingo Bush MD - Last Filed: 07/15/22 21:35> Eyes: Eyes: Reports no additional eye complaints <Domingo Bush MD - Last Filed: 07/15/22 21:35> Cardiovascular: Cardiovascular: Reports no additional cardiovascular complaints <Domingo Bush MD - Last Filed: 07/15/22 21:35> Musculoskeletal: Musculoskeletal: Reports other (blister noted rt lower extremities) <Domingo Bush MD - Last Filed: 07/15/22 21:35> [facility] Past Medical History Medical History: Medical History (HFpEF) heart failure with preserved ejection fraction Arthritis Chronic diarrhea CKD (chronic kidney disease) stage 3, GFR 30-59 ml/min CKD (chronic kidney disease) stage 3, GFR 30-59 ml/min Congestive heart failure Diabetes History of glaucoma HTN (hypertension) Hypertension Legally blind <Domingo Bush MD - Last Filed: 07/15/22 21:35> Surgical History: Surgical History No pertinent past surgical history <Domingo Bush MD - Last Filed: 07/15/22 21:35> Family History Family History: Family History Other Diabetes <Domingo Bush MD - Last Filed: 07/15/22 21:35> Social History Social History: Social History Household Members: Family Housing: House Do you presently have visiting nurse or other home services: Yes Alcohol intake: never Patient Tobacco Use Status: Never used Tobacco Smoked in Last 30 Days: No Use of substances other than those prescribed or required for medical reasons: No Advance Directives: Yes Advance Directives on File: Yes Advance Directives Date on File: 07/07/22 service: No Current occupational status: retired <Domingo Bush MD - Last Filed: 07/15/22 21:35> Physical Exam ED Vital Signs: Vital Signs - 24 hr 07/15/22 15:24 Temperature 97.7 F Pulse Rate 81 Respiratory Rate 24 H Blood Pressure 165/88 H Pulse Oximetry 100 Oxygen Delivery Method Nasal Cannula BMI result Body Mass Index 29.4 <Domingo Bush MD - Last Filed: 07/15/22 21:35> Vital Signs - 24 hr 07/15/22 15:24 Temperature 97.7 F Pulse Rate 81 Respiratory Rate 24 H Blood Pressure 165/88 H Pulse Oximetry 100 Oxygen Delivery Method Nasal Cannula BMI result Body Mass Index 29.4 <Bobbi Barraza NP - Last Filed: 07/15/22 22:33> <Bobbi Barraza NP - Last Filed: 07/15/22 22:33> Const General: cooperative, comfortable, no acute distress, well developed and alert <Domingo Bush MD - Last Filed: 07/15/22 21:35> Nutritional Appearance: average body habitus <Domingo Bush MD - Last Filed: 07/15/22 21:35> HENNE Head: Yes normal to inspection <Domingo Bush MD - Last Filed: 07/15/22 21:35> Ears: hearing grossly normal bilaterally <Domingo Bush MD - Last Filed: 07/15/22 21:35> General nose exam: Normal external nose present <Domingo Bush MD - Last Filed: 07/15/22 21:35> Face and sinus: Yes normal facial exam <Domingo Bush MD - Last Filed: 07/15/22 21:35> Mouth: Normal oral and palatal mucosa present <Domingo Bush MD - Last Filed: 07/15/22 21:35> Neck Neck: Yes normal visual inspection <Domingo Bush MD - Last Filed: 07/15/22 21:35> Chest Chest palpation & inspection: normal inspection of the chest <Domingo Bush MD - Last Filed: 07/15/22 21:35> Resp Effort & Inspection: normal respiratory effort and able to speak in complete sentences <Domingo Bush MD - Last Filed: 07/15/22 21:35> Auscultation: clear to auscultation bilaterally <Domingo Bush MD - Last Filed: 07/15/22 21:35> Cardio Rate: regular rate <Domingo Bush MD - Last Filed: 07/15/22 21:35> Rhythm: regular rhythm <Domingo Bush MD - Last Filed: 07/15/22 21:35> GI Inspection: Yes normal to inspection <Domingo Bush MD - Last Filed: 07/15/22 21:35> Palpation (GI): Soft to palpation, not firm, nontender and no guarding <Domingo Bush MD - Last Filed: 07/15/22 21:35> Percussion: Yes normal to percussion <Domingo Bush MD - Last Filed: 07/15/22 21:35> Skin Other: left big toe blister present, also blister rt lateral foot, open area rt knee 4X4 cm <Domingo Bush MD - Last Filed: 07/15/22 21:35> Course Reevaluation(s) Reevaluation #1: Patient remained hemodynamically stable labs are okay, consult case technician arrange a VNA,family confortable with the plan.Ethiology of blister unc lear ? fall ? pressure sore. 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 she has no lesion in the mouth <Domingo Bush MD - Last Filed: 07/15/22 21:35> Time: 21:28 <Domingo Bush MD - Last Filed: 07/15/22 21:35> Reevaluation #2: Arranged VNA for skin care by case technician <Domingo Bush MD - Last F iled: 07/15/22 21:35> Time: 21:35 <Domingo Bush MD - Last Filed: 07/15/22 21:35> Medical Decision Making Medical Decision Making MDM Narrative: Patient presented with a question of fall at the senior care will get x- ray of the leg ST-T check labs <Domingo Bush MD - Last Filed: 07/15/22 21:35> Differential Diagnosis Differential Diagnoses: The differential diagnosis associated with the presentation includes <Domingo Bush MD - Last Filed: 07/15/22 21:35> Fracture/subdural hematoma she is on Eliquis <Domingo Bush MD - Last Filed: 07/15/22 21:35> Admission/Observation Consideration of admission/observation: Escalation of care including admission/observation considered <Domingo Bush MD - Last Filed: 07/15/22 21:35> Lab Data Result Diagrams: 07/15/22 18:30 07/15/22 18:30 <Domingo Bush MD - Last Filed: 07/15/22 21:35> Labs: Lab Results 07/15/22 07/15/22 07/15/22 Range/Units 18:30 18:30 18:30 WBC 6.3 (4.8-10.8) X10*3/uL RBC 3.34 L D (4.20-5.50) X10*6/uL Hgb 9.8 L (12.0-16.0) g/dl Hct 31.8 L (37.0-47.0) % MCV 95.2 (80.0-98.0) fL MCH 29.3 (27.0-33.0) pg MCHC 30.8 L (31.0-35.0) g/dl RDW 13.6 (11.0-16.0) % Plt Count 223 (160-400) X10*3/uL MPV 10.6 (9.4-12.3) fL Immature Gran % (Auto) 0.3 (0.0-0.4) % Neut % (Auto) 64.8 (45-73) % Lymph % (Auto) 20.6 (20-40) % [place] % (Auto) 13.6 H (2-11) % Eos % (Auto) 0.2 (0-4) % Baso % (Auto) 0.5 (0-2) % Lymph # (Auto) 1.3 (1.2-4.9) X10*3/uL [place] # (Auto) 0.9 (0.1-1.2) X10*3/uL Eos # (Auto) 0.0 (0.0-0.4) X10*3/uL Baso # (Auto) 0.0 (0.0-0.2) X10*3/uL Abs Immat Gran (auto) 0.02 (0.00-0.03) X10*3/uL Absolute Neuts (auto) 4.1 (2.0-8.3) x10*3/uL Absolute Nucleated RBC 0.000 (0.0-0.012) X10*3/uL Nucleated RBC % (auto) 0.0 (0.0-0.2) /100WBC PT 24.3 H (10.0-13.1) SEC INR 2.1 H (0.9-1.1) APTT 38.5 H (26.0-36.4) SEC Sodium 142 (135-145) mmol/L Potassium 4.0 (3.3-5.1) mmol/L Chloride 101 (96-108) mmol/L Carbon Dioxide 32 H (22-29) mmol/L Anion Gap 13 (12-20) BUN 17 H (9-16) mg/dL Creatinine 1.87 H (0.5-1.4) mg/dL Estim Creat Clear Calc 18.6 Estimated GFR 26 Random Glucose 82 (60-115) mg/dL Calcium 8.5 (8.4-10.2) mg/dL Total Bilirubin 0.6 (0.0-1.0) mg/dL AST 14 (5-31) U/L ALT 8 (0-31) U/L Alkaline Phosphatase 86 (39-117) U/L Total Creatine Kinase 49 (26-140) U/L Troponin I High Sens (<3.5-17.0) ng/L Total Protein 6.5 (6.5-8.0) g/dL Albumin 3.3 L (3.5-5.0) g/dL 07/15/22 07/15/22 Range/Units 18:31 20:05 WBC (4.8-10.8) X10*3/uL RBC (4.20-5.50) X10*6/uL Hgb (12.0-16.0) g/dl Hct (37.0-47.0) % MCV (80.0-98.0) fL MCH (27.0-33.0) pg MCHC (31.0-35.0) g/dl RDW (11.0-16.0) % Plt Count (160-400) X10*3/uL MPV (9.4-12.3) fL Immature Gran % (Auto) (0.0-0.4) % Neut % (Auto) (45-73) % Lymph % (Auto) (20-40) % [place] % (Auto) (2-11) % Eos % (Auto) (0-4) % Baso % (Auto) (0-2) % Lymph # (Auto) (1.2-4.9) X10*3/uL [place] # (Auto) (0.1-1.2) X10*3/uL Eos # (Auto) (0.0-0.4) X10*3/uL Baso # (Auto) (0.0-0.2) X10*3/uL Abs Immat Gran (auto) (0.00-0.03) X10*3/uL Absolute Neuts (auto) (2.0-8.3) x10*3/uL Absolute Nucleated RBC (0.0-0.012) X10*3/uL Nucleated RBC % (auto) (0.0-0.2) /100WBC PT (10.0-13.1) SEC INR (0.9-1.1) APTT (26.0-36.4) SEC Sodium (135-145) mmol/L Potassium (3.3-5.1) mmol/L Chloride (96-108) mmol/L Carbon Dioxide (22-29) mmol/L Anion Gap (12-20) BUN (9-16) mg/dL Creatinine (0.5-1.4) mg/dL Estim Creat Clear Calc Estimated GFR Random Glucose (60-115) mg/dL Calcium (8.4-10.2) mg/dL Total Bilirubin (0.0-1.0) mg/dL AST (5-31) U/L ALT (0-31) U/L Alkaline Phosphatase (39-117) U/L Total Creatine Kinase (26-140) U/L Troponin I High Sens 35.8 H D 32.5 H (<3.5-17.0) ng/L Total Protein (6.5-8.0) g/dL Albumin (3.5-5.0) g/dL <Domingo Bush MD - Last Filed: 07/15/22 21:35> Lab Results 07/15/22 07/15/22 07/15/22 Range/Units 18:30 18:30 18:30 WBC 6.3 (4.8-10.8) X10*3/uL RBC 3.34 L D (4.20-5.50) X10*6/uL Hgb 9.8 L (12.0-16.0) g/dl Hct 31.8 L (37.0-47.0) % MCV 95.2 (80.0-98.0) fL MCH 29.3 (27.0-33.0) pg MCHC 30.8 L (31.0-35.0) g/dl RDW 13.6 (11.0-16.0) % Plt Count 223 (160-400) X10*3/uL MPV 10.6 (9.4-12.3) fL Immature Gran % (Auto) 0.3 (0.0-0.4) % Neut % (Auto) 64.8 (45-73) % Lymph % (Auto) 20.6 (20-40) % [place] % (Auto) 13.6 H (2-11) % Eos % (Auto) 0.2 (0-4) % Baso % (Auto) 0.5 (0-2) % Lymph # (Auto) 1.3 (1.2-4.9) X10*3/uL [place] # (Auto) 0.9 (0.1-1.2) X10*3/uL Eos # (Auto) 0.0 (0.0-0.4) X10*3/uL Baso # (Auto) 0.0 (0.0-0.2) X10*3/uL Abs Immat Gran (auto) 0.02 (0.00-0.03) X10*3/uL Absolute Neuts (auto) 4.1 (2.0-8.3) x10*3/uL Absolute Nucleated RBC 0.000 (0.0-0.012) X10*3/uL Nucleated RBC % (auto) 0.0 (0.0-0.2) /100WBC PT 24.3 H (10.0-13.1) SEC INR 2.1 H (0.9-1.1) APTT 38.5 H (26.0-36.4) SEC Sodium 142 (135-145) mmol/L Potassium 4.0 (3.3-5.1) mmol/L Chloride 101 (96-108) mmol/L Carbon Dioxide 32 H (22-29) mmol/L Anion Gap 13 (12-20) BUN 17 H (9-16) mg/dL Creatinine 1.87 H (0.5-1.4) mg/dL Estim Creat Clear Calc 18.6 Estimated GFR 26 Random Glucose 82 (60-115) mg/dL Calcium 8.5 (8.4-10.2) mg/dL Total Bilirubin 0.6 (0.0-1.0) mg/dL AST 14 (5-31) U/L ALT 8 (0-31) U/L Alkaline Phosphatase 86 (39-117) U/L Total Creatine Kinase 49 (26-140) U/L Troponin I High Sens (<3.5-17.0) ng/L Total Protein 6.5 (6.5-8.0) g/dL Albumin 3.3 L (3.5-5.0) g/dL 07/15/22 07/15/22 Range/Units 18:31 20:05 WBC (4.8-10.8) X10*3/uL RBC (4.20-5.50) X10*6/uL Hgb (12.0-16.0) g/dl Hct (37.0-47.0) % MCV (80.0-98.0) fL MCH (27.0-33.0) pg MCHC (31.0-35.0) g/dl RDW (11.0-16.0) % Plt Count (160-400) X10*3/uL MPV (9.4-12.3) fL Immature Gran % (Auto) (0.0-0.4) % Neut % (Auto) (45-73) % Lymph % (Auto) (20-40) % [place] % (Auto) (2-11) % Eos % (Auto) (0-4) % Baso % (Auto) (0-2) % Lymph # (Auto) (1.2-4.9) X10*3/uL [place] # (Auto) (0.1-1.2) X10*3/uL Eos # (Auto) (0.0-0.4) X10*3/uL Baso # (Auto) (0.0-0.2) X10*3/uL Abs Immat Gran (auto) (0.00-0.03) X10*3/uL Absolute Neuts (auto) (2.0-8.3) x10*3/uL Absolute Nucleated RBC (0.0-0.012) X10*3/uL Nucleated RBC % (auto) (0.0-0.2) /100WBC PT (10.0-13.1) SEC INR (0.9-1.1) APTT (26.0-36.4) SEC Sodium (135-145) mmol/L Potassium (3.3-5.1) mmol/L Chloride (96-108) mmol/L Carbon Dioxide (22-29) mmol/L Anion Gap (12-20) BUN (9-16) mg/dL Creatinine (0.5-1.4) mg/dL Estim Creat Clear Calc Estimated GFR Random Glucose (60-115) mg/dL Calcium (8.4-10.2) mg/dL Total Bilirubin (0.0-1.0) mg/dL AST (5-31) U/L ALT (0-31) U/L Alkaline Phosphatase (39-117) U/L Total Creatine Kinase (26-140) U/L Troponin I High Sens 35.8 H D 32.5 H (<3.5-17.0) ng/L Total Protein (6.5-8.0) g/dL Albumin (3.5-5.0) g/dL <Bobbi Barraza NP - Last Filed: 07/15/22 22:33> Discharge Plan Discharge Clinical Impression: Fall, Blister <Domingo Bush MD - Last Filed: 07/15/22 21:35> Patient Disposition: Home, Self-Care <Domingo Bush MD - Last Filed: 07/15/22 21:35> Instructions: Fall Prevention (ED) <Domingo Bush MD - Last Filed: 07/15/22 21:35> Additional Instructions: We arrange VNA to see you at home to change the dressing in the wound, also we called a prescription for amiodarone (you said you do not have amiodarone) <Domingo Bush MD - Last Filed: 07/15/22 21:35> Prescriptions: New amiodarone 200 mg tablet 200 mg PO DAILY Qty: 7 0RF No Action acetaminophen 500 mg tablet 1 tab PO Q4-6H PRN (Reason: Pain (Scale Score 1-3)) omeprazole 20 mg capsule,delayed release(DR/EC) 1 cap PO DAILY@0630 Rocklatan 0.02-0.005 % drops 1 drp ophthalmic (eye) BEDTIME Rx Instructions: instill into both eyes amiodarone 200 mg Tablet 200 mg PO DAILY Qty: 60 0RF Eliquis 2.5 mg Tablet 2.5 mg PO BID Qty: 60 0RF furosemide [Lasix] 20 mg tablet 20 mg PO Q OTHER DAY Qty: 30 0RF glipizide 5 mg tablet 2.5 mg PO DAILY Qty: 30 0RF <Domingo Bush MD - Last Filed: 07/15/22 21:35> Referrals: Regine Alarcon MD [Primary Care Provider] - 3 days <Domingo Bush MD - Last Filed: 07/15/22 21:35>
--- NOTE | 2022-07-15 16:42 | MHC.CM.ED ---
Addendum entered by Zainab Giron 07/15/22 22:17: Daughter, Monica is adamant that her mother received these blisters at [facility]. She believes her mother fell from the bed and that the heater was along the wall, next to the bed. Monica tells CM that her mother's roommate told her she fell and was calling for help. Pt has dementia and poor memory. Monica tells CM she was at facility yesterday and bathed her mother and applied lotion to her legs and feet, and there were no blisters on her leg and feet. Will file with [facility]. Daughter very upset regarding care her mother received. Encouraged Monica to report concerns to [facility] and to Medicare. Addendum entered by Zainab Giron 07/15/22 21:37: Per daughter, unknown how mother got these blisters. Daughter states she bathed her mother yesterday and applied lotion to her limbs, and there were no blisters there yesterday. Dr. Bush aware. Addendum entered by Zainab Giron 07/15/22 21:32: Pt ready for discharge. Pt has blisters on L great toe, R outer foot and R lower calf x3. One blister on R calf open. Dr. Bush requesting VNA to assess blisters and apply telfa & DSD to any open areas. Keep clean and assess for infection. Daughter states patient can walk. She has a cane and a W/C. O2 dependent. Daughter agreeable to discharge home. [facility] active with patient. Will upload F2F. Family to transport home. Original Note: No official consult, but Dr. Bush requested CM speak with family. Concerns that pt may need re-admission to SNF. D/C today from [facility]. Was at [facility] 06/21-07/06 for CHF and discharged to [facility]. Pt is active with [facility] for home Oxygen and has [facility]. Lives with daughter. Monica very concerned about care mother received at [facility]. States mother's roommate said she feel today and was yelling, but SNF denies fall. Pt has baseline dementia. Monica saw mother yesterday at [facility] and there were no wounds on R calf or huge blisters on R foot. Monica spoke with [facility] and they told her to bring her mother to the ED. Monica expects to take her mother home after assessment, unless she needs to be admitted. Monica tells CM her mother ambulates with a walker. CM informed Dr. Bush of above conversation. CM will follow as needed.
[2022-07-15 18:00] VITALS: BP 145/80; PULSE 87; RESP 20; O2SAT 100
[2022-07-15 18:37] LABS: MANUAL DIFF FLAG NO
[2022-07-15 18:38] LABS: Basophils Percent Auto 0.5 % (0-2); Eosinophils Percent Auto 0.2 % (0-4); Hematocrit 31.8 % (37.0-47.0); Hemoglobin 9.8 g/dl (12.0-16.0); Imm Gran Abs Auto 0.02 X10*3/uL (0.00-0.03); Imm Gran Pct Auto 0.3 % (0.0-0.4); Lymphocytes Absolute Auto 1.3 X10*3/uL (1.2-4.9); Lymphocytes Percent Auto 20.6 % (20-40); Mean Corpuscular HGB Conc 30.8 g/dl (31.0-35.0); Mean Corpuscular Hemoglobin 29.3 pg (27.0-33.0); Mean Corpuscular Volume 95.2 fL (80.0-98.0); Mean Platelet Volume 10.6 fL (9.4-12.3); Monocytes Absolute Auto 0.9 X10*3/uL (0.1-1.2); Monocytes Percent Auto 13.6 % (2-11); Neutrophils Absolute Auto 4.1 x10*3/uL (2.0-8.3); Neutrophils Percent Auto 64.8 % (45-73); Platelet Count 223 X10*3/uL (160-400); Red Blood Count 3.34 X10*6/uL (4.20-5.50); Red Cell Distribution Width 13.6 % (11.0-16.0); White Blood Count 6.3 X10*3/uL (4.8-10.8)
[2022-07-15 18:43] LABS: INTERNATIONAL NORM RATIO 2.1 (0.9-1.1); Prothrombin Time 24.3 SEC (10.0-13.1)
[2022-07-15 18:46] LABS: Partial Thromboplastin Time 38.5 SEC (26.0-36.4)
[2022-07-15 18:51] LABS: Alanine Aminotransferase 8 U/L (0-31); Albumin Level 3.3 g/dL (3.5-5.0); Alkaline Phosphatase 86 U/L (39-117); Anion Gap 13 (12-20); Aspartate Amino Transferase 14 U/L (5-31); Bilirubin Total 0.6 mg/dL (0.0-1.0); Blood Urea Nitrogen 17 mg/dL (9-16); Calcium 8.5 mg/dL (8.4-10.2); Carbon Dioxide 32 mmol/L (22-29); Chloride 101 mmol/L (96-108); Creatinine Clr Calc Pharmacy 18.6; Estimated Glomerular Filt Rate 26; Glucose Random 82 mg/dL (60-115); Sodium 142 mmol/L (135-145); Total Protein 6.5 g/dL (6.5-8.0)
[2022-07-15 18:57] LABS: Troponin-I High Sensitivity 35.8 ng/L (<3.5-17.0)
[2022-07-15 20:35] LABS: Troponin-I High Sensitivity 32.5 ng/L (<3.5-17.0)
[2022-07-15 22:38] VITALS: BP 153/78; PULSE 89; RESP 20; TEMP 37.1; O2SAT 100
== END 2022-07-15 22:48 | disposition home or self-care (01) ==
PROVIDERS: Emergency Provider Emergency Medicine; PCP Internal Medicine
DX: S90.821A Blister (nonthermal), right foot, initial encounter (principal); S90.422A Blister (nonthermal), left great toe, initial encounter; S80.221A Blister (nonthermal), right knee, initial encounter; W19.XXXA Unspecified fall, initial encounter; Y93.89 Activity, other specified; Y92.129 Unspecified place in nursing home as the place of occurrence of the external cause; Y99.9 Unspecified external cause status; E11.22 Type 2 diabetes mellitus with diabetic chronic kidney disease; I13.0 Hypertensive heart and chronic kidney disease with heart failure and stage 1 through stage 4 chronic kidney disease, or unspecified chronic kidney disease; N18.30 Chronic kidney disease, stage 3 unspecified; I50.9 Heart failure, unspecified; Z79.01 Long term (current) use of anticoagulants; Z79.899 Other long term (current) drug therapy
CPT/HCPCS: 36415; 70450; 71046; 72125; 73590; 73630; 80053; 82550; 84484; 85025; 85610; 85730; 99284

== ENCOUNTER 2022-07-26 11:23 | Emergency (ER) | payer OTHER, SELFPAY ==
--- NOTE | ~2022-07-26 | XR_ITS ---
EXAMINATION: XR FOOT, LEFT CLINICAL INFORMATION: Injury COMPARISON: None TECHNIQUE: AP, lateral, and oblique views of the left foot. FINDINGS: Osteopenia. No fracture or dislocation. Appropriate alignment. Joint spaces are maintained. Small heel spurs. Soft tissues show no acute abnormality. XR/XR foot LT 2V IMPRESSION: Osteopenia. No fracture or malalignment.
--- NOTE | ~2022-07-26 | XR_ITS ---
EXAMINATION: XR TIBIA AND FIBULA, RIGHT CLINICAL INFORMATION: Injury. Pain. COMPARISON: 07/15/2022 TECHNIQUE: AP and lateral views of the right tibia and fibula were obtained. FINDINGS: Osteopenia. No fracture or cortical disruption. Appropriate alignment of the knee and ankle. Soft tissue swelling throughout the lower extremity. Scattered vascular calcification. XR/XR tibia fibula RT 2V IMPRESSION: Osteopenia. No fracture or malalignment. Soft tissue swelling.
[2022-07-26 11:27] VITALS: BP 129/71; PULSE 110; RESP 16; TEMP 36.6; O2SAT 98; BMI 25.7
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
[2022-07-26 11:56] LABS: MANUAL DIFF FLAG NO
[2022-07-26 11:58] LABS: Basophils Percent Auto 0.4 % (0-2); Eosinophils Percent Auto 0.2 % (0-4); Hematocrit 31.6 % (37.0-47.0); Hemoglobin 9.7 g/dl (12.0-16.0); Imm Gran Abs Auto 0.06 X10*3/uL (0.00-0.03); Imm Gran Pct Auto 0.6 % (0.0-0.4); Lymphocytes Absolute Auto 1.5 X10*3/uL (1.2-4.9); Lymphocytes Percent Auto 15.2 % (20-40); Mean Corpuscular HGB Conc 30.7 g/dl (31.0-35.0); Mean Corpuscular Hemoglobin 28.7 pg (27.0-33.0); Mean Corpuscular Volume 93.5 fL (80.0-98.0); Mean Platelet Volume 10.1 fL (9.4-12.3); Monocytes Absolute Auto 0.7 X10*3/uL (0.1-1.2); Monocytes Percent Auto 6.9 % (2-11); Neutrophils Absolute Auto 7.3 x10*3/uL (2.0-8.3); Neutrophils Percent Auto 76.7 % (45-73); Platelet Count 352 X10*3/uL (160-400); Red Blood Count 3.38 X10*6/uL (4.20-5.50); Red Cell Distribution Width 13.4 % (11.0-16.0); White Blood Count 9.5 X10*3/uL (4.8-10.8)
[2022-07-26 12:19] LABS: Lactic Acid 1.4 mmol/L (0.5-2.0)
[2022-07-26 12:31] LABS: Alanine Aminotransferase < 6 U/L (0-31); Albumin Level 3.1 g/dL (3.5-5.0); Alkaline Phosphatase 86 U/L (39-117); Anion Gap 15 (12-20); Aspartate Amino Transferase 8 U/L (5-31); Bilirubin Total 0.6 mg/dL (0.0-1.0); Blood Urea Nitrogen 25 mg/dL (9-16); Calcium 8.7 mg/dL (8.4-10.2); Carbon Dioxide 30 mmol/L (22-29); Chloride 101 mmol/L (96-108); Estimated Glomerular Filt Rate 26; Glucose Random 210 mg/dL (60-115); Potassium 4.3 mmol/L (3.3-5.1); Sodium 142 mmol/L (135-145); Total Protein 6.6 g/dL (6.5-8.0)
[2022-07-26 12:41] VITALS: BP 133/76; PULSE 96; RESP 16; TEMP 36.4; O2SAT 100
[2022-07-26] MEDS: Piperacillin Sodium/Tazobactam 3.375 GM in 0.9 % Sodium Chloride 50 ML IV (14:12)
[2022-07-26] MEDS: Bacitracin Oint 0.9 GM PACKET 1 APPL TOPICAL (14:13)
--- NOTE | 2022-07-26 14:33 | PC.NURSE ---
hebert lathered in bacitracin and non-adherent gauze post bedside debridment.
[2022-07-26] MEDS: vancomycin HCL 1,000 MG, vancomycin HCL 750 MG in 0.9 % Sodium Chloride 500 ML 267.5 MG IV (14:40)
--- NOTE | 2022-07-26 14:57 | MHC.EDTECH ---
@[phone] CALL PLACED TO MERGED WITH [facility] ACCESS LINE [phone] PT INFO GIVEN THEN [facility] TAKES OVER CALL
[2022-07-26 15:50] VITALS: BP 129/70; PULSE 96; RESP 16; TEMP 36.8; O2SAT 96
[2022-07-26 16:58] VITALS: BP 130/67; PULSE 111; RESP 16; TEMP 36.6; O2SAT 95
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
--- NOTE | 2022-07-26 17:03 | MHC.EDTECH ---
[facility] was called at 1700 for an update,Patient is still awaiting a room assignment.Provider aware
--- NOTE | 2022-07-26 17:35 | MHC.EDTECH ---
Received a Call from [facility] at 1720 with a bed. Patient is going to [place] [id number] Bed 22A,Accepted by . Greg called at 1729 for a bls transfer ETA around 1900.Rn aware Nurse to Nurse is [phone]
--- NOTE | 2022-07-26 17:42 | PC.NURSE ---
[place] [facility] [place] [address] to [address] DOWELL
[2022-07-26 19:43] VITALS: BP 125/57; PULSE 99; RESP 15; O2SAT 100
== END 2022-07-26 20:23 | disposition short-term general hospital (02) ==
PROVIDERS: Nurse Practitioner Family; Emergency Provider Student in an Organized Health Care Education/Training Program; PCP Internal Medicine
DX: T25.222A Burn of second degree of left foot, initial encounter (principal); T25.221A Burn of second degree of right foot, initial encounter; T31.0 Burns involving less than 10% of body surface; M85.871 Other specified disorders of bone density and structure, right ankle and foot; M79.661 Pain in right lower leg; M79.675 Pain in left toe(s); Z79.899 Other long term (current) drug therapy
CPT/HCPCS: 16025; 36415; 73590; 73620; 80053; 83605; 85025; 87040; 96365; 96366; 96367; 99284; 99285; J2543; J3370